=== PATIENT | male | born 1935 | race Caucasian/White ===

== ENCOUNTER 2019-01-25 04:17 | Inpatient (IN) | payer MEDICARE, OTHER, SELFPAY ==
[2019-01-25] VITALS (12 sets, daily range): BP systolic 99–132; BP diastolic 59–74; PULSE 70–85; RESP 14–32; TEMP 36.3–37.8; O2SAT 92–98; BMI 31.1; BMI 30.7; BMI 30.8
--- NOTE | 2019-01-25 04:41 | RAD_ITS ---
STUDY: X-RAY CHEST REASON FOR EXAM: Male, 83 years old. Weakness and frequent falls TECHNIQUE: PA and lateral views of the chest. 3 images COMPARISON: None. FINDINGS: There are superimposed monitor leads. Atelectasis and/or scarring in the right base. Small calcified nodule in the right medial apex. There are areas of hyperinflation. There is no demonstrated pleural abnormality. Normal size heart. Normal mediastinum and josias. Normal visualized pulmonary arteries. There is atherosclerotic calcification of the aortic arch with tortuosity. There are diffuse degenerative changes of the visualized thoracic spine. There is demineralization of osseous structures. Normal visualized ribs, clavicles, and shoulders. There is no demonstrated abnormality of the visualized soft tissue structures of the upper abdomen. RAD/Chest PA and Lateral IMPRESSION: No pulmonary edema, congestive heart failure or confluent pneumonia. Other nonacute findings as outlined above. Electronically Signed: Carmen Mcrae MD at 5:18 EST , Service support ,
--- NOTE | 2019-01-25 04:43 | EKG12_ITS ---
Test Reason : Blood Pressure : / mmHG Vent. Rate : 080 BPM Atrial Rate : 080 BPM P-R Int : 194 ms QRS Dur : 062 ms QT Int : 358 ms P-R-T Axes : 030 052 105 degrees QTc Int : 412 ms Normal sinus rhythm Low voltage QRS ST elevation consider inferior injury or acute infarct Consider right ventricular involvement in acute inferior infarct Abnormal ECG Confirmed by JENNIFER WHATLEY, MEREDITH ([id number]), film editor supervisor CHEMA HOLLEY ([id number]) on 01/29/2019 2:00:32 PM Referred By: BB Confirmed By:MEREDITH RODRIGUEZ MD
--- NOTE | 2019-01-25 04:45 | ED.VIS.GEN ---
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 This morning, he had his second fall in the last 24 hours, both times he was getting up from bed to use the bathroom. He collapsed near the shower, knocking the door off of it, hitting his head on the tile floor. There was no loss of consciousness, he has no headache. He is on no anticoagulants although he is on Plavix because of a cardiac stent that was placed more than a year ago, they think more than 5 years ago. He denies feeling near syncopal or lightheaded or having any chest discomfort, his legs were just too weak to hold him up. He denies any focal neurologic symptoms such as numbness or weakness. He is not confused. He is hard of hearing, states that is his baseline. Denies any other injury from his falls. - Past Medical History (1) CAD (coronary artery disease) Status: Chronic (2) Aortic aneurysm Status: Chronic (3) CKD (chronic kidney disease), stage III Status: Chronic (4) CVA (cerebral vascular accident) Status: Chronic (5) DM (dermatomyositis) Status: Chronic (6) HLD (hyperlipidemia) Status: Chronic (7) HTN (hypertension) Status: Chronic Past Medical History - Allergies and Home Meds Allergies/Adverse Reactions: Allergies No Known Allergies Allergy (Verified 05/27/15 07:47) Surgical History: - - cardiac stent Lives: Spouse/ Significant Other Smoking Status: Never smoker - Family History Maternal Family History: Family History (Last Updated 01/25/19 @ 06:38 by Butch Jackson DO) Other CAD (coronary artery disease) Review of Systems General: Reports: Chills, Malaise. Denies: Fever, Sweats Eyes: Denies: Visual changes - bilaterally, Diplopia ENT: Reports: Rhinorrhea. Denies: Bilateral ear pain, Sore throat Cardiovascular: Denies: Chest pain, Palpitations Respiratory: Reports: Cough. Denies: Dyspnea, Sputum, Dyspnea on exertion Gastrointestinal: Reports: Diarrhea - off and on, mild, chronic, unchanged. Denies: Abdominal pain, Nausea, Vomiting, Melena, Hematochezia Genitourinary: Denies: Dysuria, Hematuria, Frequency Musculoskeletal: Denies: Back pain, Swelling, Extremity Pain Skin: Denies: Rash, Abrasions, Wounds Neurological: Denies: Headache, Weakness, Parasthesia, Numbness Hematologic: Reports: Easy bruising Physical Exam Vital Signs/Narrative: Vital Signs Temp Pulse Resp BP Pulse Ox 01/25/19 04:30 100.0 F H 84 32 H 124/64 H 92 01/25/19 04:18 100.0 F H 84 32 H 124/64 H 92 Inital Vital Signs reviewed: Yes General: Well nourished, Well developed, No Acute Distress Head: Normocephalic, Atraumatic. Negative for: Tenderness Eyes: Perrl, EOMI ENT: Moist mucous membranes, No rhinorrhea. Negative for: Nasal congestion, Sinus tenderness Neck: Supple, Nontender, No lymphadenopathy, No JVD Cardiovascular: Regular rate, Regular rhythm, No murmurs Respiratory: No distress, Chest nontender, Rales - left base Abdomen: Soft, Nontender, Nondistended, Normal bowel sounds Back: Nontender, Normal Inspection Extremities: Nontender, No edema. Negative for: Calf Tenderness Skin: Normal color, No rash Neurological: Alert, Oriented x3, Cranial nerves II-XII grossly intact, Normal Strength, Normal Sensation Psychological: Normal affect, Normal Mood Diagnostic/Tx/Re-eval Impressions Chest X-Ray 01/25/19 04:41 IMPRESSION: No pulmonary edema, congestive heart failure or confluent pneumonia. Other nonacute findings as outlined above. Electronically Signed: Carmen Mcrae MD at 5:18 EST , Service support , ADDENDUM: 01/25/19 0534 IMPRESSION: No pulmonary edema, congestive heart failure . Interstitial inflammation or early infiltrate in the left base possible. Other nonacute findings as outlined above. Electronically Signed: Carmen Mcrae MD at 5:27 EST , Service support , 01/25/19 04:41 Chest PA and Lateral [RAD] Stat Laboratory Results 01/25/19 01/25/19 01/25/19 04:45 04:45 04:45 WBC 10.7 RBC 4.35 L Hgb 13.0 Hct 40.6 MCV 93.3 MCH 29.9 MCHC 32.0 RDW 13.9 RDW Differential 45.8 H Plt Count 240 MPV 9.1 Immature Gran % (Auto) 0.700 Neut % (Auto) 64.4 Lymph % (Auto) 15.4 L [place] % (Auto) 11.7 H Eos % (Auto) 7.0 H Baso % (Auto) 0.8 Absolute Neuts (auto) 6.9 Absolute Lymphs (auto) 1.65 Total Counted Not Reportable PT 14.5 INR 1.2 APTT 29.7 Sodium 143 Potassium 3.9 Chloride 106 Carbon Dioxide 24.0 Anion Gap 13 BUN 25 H Creatinine 1.48 H Estim Creat Clear Calc 38.36 Est GFR (MDRD) Af Amer 58 L Est GFR (MDRD) Non-Af 48 L BUN/Creatinine Ratio 16.9 Glucose 175 H Lactic Acid Calcium 8.9 Total Bilirubin 0.80 AST 20 ALT 29 Alkaline Phosphatase 73 Troponin I < 0.015 Total Protein 6.9 Albumin 3.3 Globulin 3.6 Albumin/Globulin Ratio 0.9 01/25/19 04:45 WBC RBC Hgb Hct MCV MCH MCHC RDW RDW Differential Plt Count MPV Immature Gran % (Auto) Neut % (Auto) Lymph % (Auto) [place] % (Auto) Eos % (Auto) Baso % (Auto) Absolute Neuts (auto) Absolute Lymphs (auto) Total Counted PT INR APTT Sodium Potassium Chloride Carbon Dioxide Anion Gap BUN Creatinine Estim Creat Clear Calc Est GFR (MDRD) Af Amer Est GFR (MDRD) Non-Af BUN/Creatinine Ratio Glucose Lactic Acid 2.7 H Calcium Total Bilirubin AST ALT Alkaline Phosphatase Troponin I Total Protein Albumin Globulin Albumin/Globulin Ratio - Rhythm Strip Rhythm Strip: Sinus Rhythm Rate: 80 Ectopy: None - EKG Initial EKG Interpretation: Sinus Rhythm, No Acute Injury Pattern, Non-Specific ST Changes - diffuse flattening - Medical Decision Making Patient has interstitial abnormality in the left base. I discussed with the radiologist. Given the clinical history, she agrees it could be early pneumonia but there is no consolidative infiltrate at this time. He does not meet sirs criteria, although we did draw a lactate and it is elevated, which is nonspecific in context. His vital signs have been stable. His pulse ox was 90-93 on room air, we put him on supplemental oxygen. He is too weak to reliably stand on his own and be discharged home. Levaquin was started, influenza swab was sent and is negative, and plan is to admit him for further treatment and care. Given his lack of head/neurologic symptoms, I do not think he needs a head CT at this time. ED Disposition - Plan for ED Patient: Disposition: [facility] Diagnosis: CAP (community acquired pneumonia), Generalized weakness
--- NOTE | 2019-01-25 04:49 | ED.DCSUM_ITS ---
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 This morning, he had his second fall in the last 24 hours, both times he was getting up from bed to use the bathroom. He collapsed near the shower, knocking the door off of it, hitting his head on the tile floor. There was no loss of consciousness, he has no headache. He is on no anticoagulants although he is on Plavix because of a cardiac stent that was placed more than a year ago, they think more than 5 years ago. He denies feeling near syncopal or lightheaded or having any chest discomfort, his legs were just too weak to hold him up. He denies any focal neurologic symptoms such as numbness or weakness. He is not confused. He is hard of hearing, states that is his baseline. Denies any other injury from his falls. - Past Medical History (1) CAD (coronary artery disease) Status: Chronic (2) Aortic aneurysm Status: Chronic (3) CKD (chronic kidney disease), stage III Status: Chronic (4) CVA (cerebral vascular accident) Status: Chronic (5) DM (dermatomyositis) Status: Chronic (6) HLD (hyperlipidemia) Status: Chronic (7) HTN (hypertension) Status: Chronic Past Medical History - Allergies and Home Meds Allergies/Adverse Reactions: Allergies No Known Allergies Allergy (Verified 05/27/15 07:47) Surgical History: - - cardiac stent Lives: Spouse/ Significant Other Smoking Status: Never smoker - Family History Maternal Family History: Family History (Last Updated 01/25/19 @ 06:38 by Butch Jackson DO) Other CAD (coronary artery disease) Review of Systems General: Reports: Chills, Malaise. Denies: Fever, Sweats Eyes: Denies: Visual changes - bilaterally, Diplopia ENT: Reports: Rhinorrhea. Denies: Bilateral ear pain, Sore throat Cardiovascular: Denies: Chest pain, Palpitations Respiratory: Reports: Cough. Denies: Dyspnea, Sputum, Dyspnea on exertion Gastrointestinal: Reports: Diarrhea - off and on, mild, chronic, unchanged. Denies: Abdominal pain, Nausea, Vomiting, Melena, Hematochezia Genitourinary: Denies: Dysuria, Hematuria, Frequency Musculoskeletal: Denies: Back pain, Swelling, Extremity Pain Skin: Denies: Rash, Abrasions, Wounds Neurological: Denies: Headache, Weakness, Parasthesia, Numbness Hematologic: Reports: Easy bruising Physical Exam Vital Signs/Narrative: Vital Signs Temp Pulse Resp BP Pulse Ox 01/25/19 04:30 100.0 F H 84 32 H 124/64 H 92 01/25/19 04:18 100.0 F H 84 32 H 124/64 H 92 Inital Vital Signs reviewed: Yes General: Well nourished, Well developed, No Acute Distress Head: Normocephalic, Atraumatic. Negative for: Tenderness Eyes: Perrl, EOMI ENT: Moist mucous membranes, No rhinorrhea. Negative for: Nasal congestion, Sinus tenderness Neck: Supple, Nontender, No lymphadenopathy, No JVD Cardiovascular: Regular rate, Regular rhythm, No murmurs Respiratory: No distress, Chest nontender, Rales - left base Abdomen: Soft, Nontender, Nondistended, Normal bowel sounds Back: Nontender, Normal Inspection Extremities: Nontender, No edema. Negative for: Calf Tenderness Skin: Normal color, No rash Neurological: Alert, Oriented x3, Cranial nerves II-XII grossly intact, Normal Strength, Normal Sensation Psychological: Normal affect, Normal Mood Diagnostic/Tx/Re-eval Impressions Chest X-Ray 01/25/19 04:41 IMPRESSION: No pulmonary edema, congestive heart failure or confluent pneumonia. Other nonacute findings as outlined above. Electronically Signed: Carmen Mcrae MD at 5:18 EST , Service support , ADDENDUM: 01/25/19 0534 IMPRESSION: No pulmonary edema, congestive heart failure . Interstitial inflammation or early infiltrate in the left base possible. Other nonacute findings as outlined above. Electronically Signed: Carmen Mcrae MD at 5:27 EST , Service support , 01/25/19 04:41 Chest PA and Lateral [RAD] Stat Laboratory Results 01/25/19 01/25/19 01/25/19 04:45 04:45 04:45 WBC 10.7 RBC 4.35 L Hgb 13.0 Hct 40.6 MCV 93.3 MCH 29.9 MCHC 32.0 RDW 13.9 RDW Differential 45.8 H Plt Count 240 MPV 9.1 Immature Gran % (Auto) 0.700 Neut % (Auto) 64.4 Lymph % (Auto) 15.4 L [place] % (Auto) 11.7 H Eos % (Auto) 7.0 H Baso % (Auto) 0.8 Absolute Neuts (auto) 6.9 Absolute Lymphs (auto) 1.65 Total Counted Not Reportable PT 14.5 INR 1.2 APTT 29.7 Sodium 143 Potassium 3.9 Chloride 106 Carbon Dioxide 24.0 Anion Gap 13 BUN 25 H Creatinine 1.48 H Estim Creat Clear Calc 38.36 Est GFR (MDRD) Af Amer 58 L Est GFR (MDRD) Non-Af 48 L BUN/Creatinine Ratio 16.9 Glucose 175 H Lactic Acid Calcium 8.9 Total Bilirubin 0.80 AST 20 ALT 29 Alkaline Phosphatase 73 Troponin I < 0.015 Total Protein 6.9 Albumin 3.3 Globulin 3.6 Albumin/Globulin Ratio 0.9 01/25/19 04:45 WBC RBC Hgb Hct MCV MCH MCHC RDW RDW Differential Plt Count MPV Immature Gran % (Auto) Neut % (Auto) Lymph % (Auto) [place] % (Auto) Eos % (Auto) Baso % (Auto) Absolute Neuts (auto) Absolute Lymphs (auto) Total Counted PT INR APTT Sodium Potassium Chloride Carbon Dioxide Anion Gap BUN Creatinine Estim Creat Clear Calc Est GFR (MDRD) Af Amer Est GFR (MDRD) Non-Af BUN/Creatinine Ratio Glucose Lactic Acid 2.7 H Calcium Total Bilirubin AST ALT Alkaline Phosphatase Troponin I Total Protein Albumin Globulin Albumin/Globulin Ratio - Rhythm Strip Rhythm Strip: Sinus Rhythm Rate: 80 Ectopy: None - EKG Initial EKG Interpretation: Sinus Rhythm, No Acute Injury Pattern, Non-Specific ST Changes - diffuse flattening - Medical Decision Making Patient has interstitial abnormality in the left base. I discussed with the radiologist. Given the clinical history, she agrees it could be early pneumonia but there is no consolidative infiltrate at this time. He does not meet sirs criteria, although we did draw a lactate and it is elevated, which is nonspecific in context. His vital signs have been stable. His pulse ox was 90- 93 on room air, we put him on supplemental oxygen. He is too weak to reliably stand on his own and be discharged home. Levaquin was started, influenza swab was sent and is negative, and plan is to admit him for further treatment and care. Given his lack of head/neurologic symptoms, I do not think he needs a head CT at this time. ED Disposition - Plan for ED Patient: Disposition: Acute Care [facility] Diagnosis: CAP (community acquired pneumonia), Generalized weakness
[2019-01-25 05:01] LABS: Absolute Lymphocyte Count 1.65 X10^3/ul (0.83-4.51); Absolute Neutrophil Count 6.9 X10^3/uL (2.0-7.7); Basophil# 0.09 X10^3/uL; Basophil% 0.8 % (0-1); Eosinophil# 0.75 X10^3/uL; Hematocrit 40.6 % (40-54); Lymphocyte # 1.65 X10^3/ul (4.0); Lymphocyte % 15.4 % (19-41); Mean Corpuscular Hgb 29.9 pg (27.0-32.0); Mean Corpuscular Volume 93.3 fL (80-94); Mean Platelet Vol. 9.1 fl (6.2-12.0); Monocyte# 1.26 X10^3/uL; Monocyte% 11.7 % (0-10); Neutrophil # 6.91 X10^3/uL (2.7-7.7); Neutrophil % 64.4 % (47-70); Platelet Count 240 K/mm3 (150-450); RBC Distribution Width CV 13.9 % (11.6-14.6); RBC Distribution Width SD 45.8 fl (35.1-43.9); Red Blood Count 4.35 M/mm3 (4.6-6.2); White Blood Count 10.7 K/mm3 (4.4-11.0)
[2019-01-25 05:03] LABS: POSITIVE COUNT NO; POSITIVE DIFFERENTIAL NO; POSITIVE MORPHOLOGY NO
[2019-01-25 05:19] LABS: International Normalized Ratio 1.2; Prothrombin Time (Protime)PT. 14.5 SECONDS (11.7-14.9)
[2019-01-25 05:20] LABS: Partial Thromboplast Time 29.7 Seconds (24.1-36.2)
[2019-01-25 05:32] LABS: ALB/GLOB Ratio 0.9 RATIO (0.9-2.4); AST(SGOT) 20 U/L (15-37); Alanine Aminotransfer ALT/SGPT 29 U/L (16-61); Albumin, Serum 3.3 g/dL (3.2-5.0); Alkaline Phosphatase 73 U/L (45-117); Anion Gap 13 (5-15); BUN 25 mg/dL (7-18); BUN/Creat Ratio 16.9 RATIO (10-20); Calcium,Total 8.9 mg/dL (8.5-10.1); Chloride 106 mmol/L (98-107); Creatinine, Serum 1.48 mg/dL (0.70-1.30); EST Glomerular Filtration Rate 48 mL/min (>60); Est Glom Filt Rate - Afr Amer 58 mL/min (>60); Estimated Creatinine Clearance 38.36 ml/min; Globulin 3.6 g/dL (2.2-4.2); Glucose 175 mg/dL (74-106); Potassium 3.9 mmol/L (3.5-5.1); Protein, Total 6.9 g/dL (6.4-8.2); Sodium Level 143 mmol/L (136-145)
[2019-01-25 05:36] LABS: Mucous, Urine 0 SEEN /hpf (<or=2+); Red Blood Cells-Urine 0 SEEN /hpf (0-5); White Blood Cells 0 SEEN /hpf (0-5)
[2019-01-25 05:42] LABS: Lactic Acid 2.7 mmol/L (0.4-2.0)
[2019-01-25] MEDS: levoFLOXacin IV 750 MG/150 ML BAG 100 MG IV (05:58)
[2019-01-25 06:01] LABS: Color, Urine Yellow (Yellow); Glucose, Dipstick Normal (Normal); Ketone-Dipstick 5 mg/dl (Negative); Leukocyte Esterase-Dipstick Negative /ul (Negative); Nitrite-Dipstick Negative (Negative); Occult Blood-Urine Negative /ul (Negative); Protein-Dipstick Negative (Negative); Specific Gravity, Urine 1.015 (1.002-1.030); Urine Bilirubin Dipstick Negative (Negative); Urine Clarity Clear (Clear); Urine Urobilinogen Normal (Normal)
[2019-01-25] MEDS: Acetaminophen 500 MG Tablet 1000 MG PO (06:05)
[2019-01-25 06:11] LABS: Bacteria RARE /hpf (None Seen); Squamous Epithelial Cells - UA 0-5 SEEN /hpf (0-5)
--- NOTE | 2019-01-25 06:33 | CT_ITS ---
STUDY: CT BRAIN WITHOUT CONTRAST REASON FOR EXAM: Male, 83 years old. Weakness following head injury. RADIATION DOSAGE (If Supplied By Facility): CTDIvol = ( 44.99 ) mGy, DLP = ( 897.35 ) mGycm TECHNIQUE: Transaxial CT imaging of the brain was performed without administration of intravenous contrast material. Individualized dose optimization techniques were used for this CT. COMPARISON: None. FINDINGS: Normal soft tissue structures. There is hyperostosis frontalis internus. There is mild cerebral atrophy with widening of the extra-axial spaces and ventricular dilatation. There are areas of decreased attenuation within the white matter tracts of the supratentorial brain, consistent with microvascular disease changes. Prior lacunar infarcts in the right basal ganglion as well as in the insular cortex of the left temporal lobe. Normal brainstem. Normal cerebellum. There is no intracranial hemorrhage. There are no findings of an acute ischemic infarction. Atherosclerotic calcification of the vertebral arteries and cavernous portions of the internal carotid arteries bilaterally. Normal visualized paranasal sinuses. CT/Brain/Head without Contrast IMPRESSION: Chronic involutional changes of the brain. Electronically Signed: Thomas Guallpa, at 11:11 EST , Service support ,
--- NOTE | 2019-01-25 06:37 | HP.PCM_ITS ---
Problem List (1) Severe sepsis Status: Acute (2) Pneumococcal pneumonia Status: Acute Qualifiers: Laterality: left Lung location: unspecified part of lung Qualified Code(s): J13 - Pneumonia due to Streptococcus pneumoniae (3) Near syncope Status: Acute History of Present Illness Date of Admission: 01/25/19 Chief Complaint: fall The patient is a 83 year old M who was in his normal state of health up until couple days ago where he has been had 2 falls. Patient does not also noted to be shaky as well and tremulous in his hands. This morning, patient was then he fell into the shower stated that he did hit his head hard into the shower door but did not lose consciousness. She was brought to the emergency room where he was found to have lactic acid of 2.7, left lower lobe pneumonia. He received Levaquin and IV fluids. 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 Aortic aneurysm (Chronic) Herpes zoster (Chronic) Hypotension (Chronic) HTN (hypertension) (Chronic) Acute renal failure (Chronic) Allergies No Known Allergies Allergy (Verified 05/27/15 07:47) Home Medications: Ambulatory Orders Medication Instructions Recorded Acetaminophen [Tylenol Arthritis] 650 mg PO Q6H PRN PRN 05/21/15 Aspirin [Aspirin, Baby] 81 mg PO DAILY@0800 05/21/15 Atorvastatin Calcium [Lipitor] 80 mg PO QHS 05/21/15 Brimonidine 0.15% [Alphagan P 1 drop EACH EYE BID 05/21/15 0.15%] Carvedilol [Coreg] 6.25 mg PO BID 05/21/15 Cholecalciferol (VIT D3) [Vitamin 5,000 unit PO DAILY 05/21/15 D] Clopidogrel Bisulfate [Plavix] 75 mg PO DAILY 05/21/15 Dorzolamide HCL/Timolol [Cosopt 1 drop EACH EYE BID 05/21/15 Opth Drops] Duloxetine Hcl [Cymbalta] 30 mg PO BID 05/21/15 Eplerenone [Inspra] 12.5 mg PO QODAY 05/21/15 Lamotrigine [Lamictal] 250 mg PO DAILY 05/21/15 Lisinopril [Zestril] 10 mg PO DAILY 05/21/15 Miconazole Nitrate [Desenex] 1 applicatio TP TID 05/21/15 Quetiapine Fumarate [Seroquel] 87 mg PO QHS 05/21/15 Glipizide 5 mg PO DAILY 01/25/19 hydroCHLOROthiazide 12.5 mg PO DAILY 01/25/19 [Hydrochlorothiazide] Surgical History: - - cardiac stent Lives: Spouse/ Significant Other Smoking Status: Never smoker Tobacco Use: Non-smoker Alcohol: None Drugs: None - *Family History Maternal Family History: Family History (Last Updated 01/25/19 @ 06:38 by Butch Jackson DO) Other CAD (coronary artery disease) Review of Systems Constitutional: Denies: Anorexia, Chills, Fever Eyes: Denies: Blurred vision, Cataracts, Conjunctivae Inflammation, Double vision HEENT: Denies: Head Aches, Sinus Congestion, Sinus Drainage Cardiovascular: Denies: Chest Pain, Edema Respiratory: Reports: Cough. Denies: Shortness of Breath Gastrointestinal: Denies: Abdominal Pain, Nausea, Vomiting Genitourinary: Denies: Dysuria, Hematuria Musculoskeletal: Denies: Joint Pain, Joint Tenderness Skin: Denies: Rash, Wounds Neurological: Reports: Balance problems. Denies: Blurred vision, Double vision Psychiatric: Reports: - - bipolar Hematologic/ Lymphatic: Denies: Easy Bruising, Easy Bleeding, Hx of blood clot VTE Information - Inpt Only VTE Present on Admission: No VTE Mechan Device Prophylaxis: None VTE Pharm Prophylaxis ordered?: Yes Patient Problems: Active and Suspected Problems CAP (community acquired pneumonia) (Acute) Generalized weakness (Acute) Severe sepsis (Acute) Pneumococcal pneumonia (Acute) Near syncope (Acute) - Physical Exam General: Alert, Cooperative, No apparent distress, - - hard of hearing. HEENT: Atraumatic, PERRLA, EOMI, Normocephalic, - - Impacted ear canals with cerumen bilaterally Oral: No Gingival or Mucosal Lesions/ Ulcerations, Dry Mucosa, - - Dentures Neck: No Nodes, Thyroid Normal Size and Texture Lungs: Diminished, - - Few crackles in left lower lobe. Cardiovascular: Regular rate, Regular Rhythm, Normal S1, Normal S2, No murmurs Abdomen: Bowel Sounds Present, Soft, Non Tender, Non-Distended, No Hepato- splenomegaly Extremities: No edema, No Calf Tenderness Skin: No rashes, No breakdown Musculoskeletal: No Tenderness to Palpation of Joints or Extremities, No Muscle Wasting Lymphatic: No Cervical, Supraclavicular, or Inguinal Adenopathy, Cervical Adenopathy Neurological: Cranial nerves II-XII grossly intact, Motor Exam 5/5 strength throughout Psych/Mental Status: Normal Affect, Appropriate Vital Signs Temp Pulse Resp BP Pulse Ox 37.1 C 77 20 H 132/64 H 98 01/25/19 06:26 01/25/19 06:26 01/25/19 06:26 01/25/19 06:26 01/25/19 06:26 Oxygen Flow Rate (L/min) 2 Oxygen Delivery Method Nasal Cannula Weight: 97.3 kg Body Mass Index (BMI) 30.7 Finger Stick Blood Glucose 144 Microbiology Past 72 Hours 01/25/19 05:35 Influenza Types A,B Direct FA (BRIANNE) - Final Mucosa - Nose Laboratory Tests Past 24 Hrs 01/25/19 01/25/19 01/25/19 04:45 04:45 04:45 WBC 10.7 RBC 4.35 L Hgb 13.0 Hct 40.6 MCV 93.3 MCH 29.9 MCHC 32.0 RDW 13.9 RDW Differential 45.8 H Plt Count 240 MPV 9.1 Immature Gran % (Auto) 0.700 Neut % (Auto) 64.4 Lymph % (Auto) 15.4 L [place] % (Auto) 11.7 H Eos % (Auto) 7.0 H Baso % (Auto) 0.8 Absolute Neuts (auto) 6.9 Absolute Lymphs (auto) 1.65 Total Counted Not Reportable PT 14.5 INR 1.2 APTT 29.7 Sodium 143 Potassium 3.9 Chloride 106 Carbon Dioxide 24.0 Anion Gap 13 BUN 25 H Creatinine 1.48 H Estim Creat Clear Calc 38.36 Est GFR (MDRD) Af Amer 58 L Est GFR (MDRD) Non-Af 48 L BUN/Creatinine Ratio 16.9 Glucose 175 H Lactic Acid Calcium 8.9 Total Bilirubin 0.80 AST 20 ALT 29 Alkaline Phosphatase 73 Troponin I < 0.015 Total Protein 6.9 Albumin 3.3 Globulin 3.6 Albumin/Globulin Ratio 0.9 Urine Color Urine Clarity Urine pH Ur Specific [place] Urine Protein Urine Glucose (UA) Urine Ketones Urine Occult Blood Urine Nitrite Urine Bilirubin Urine Urobilinogen Ur Leukocyte Esterase Urine RBC Urine WBC Ur Squamous Epith Cells Urine Bacteria Urine Mucus 01/25/19 01/25/19 04:45 05:25 WBC RBC Hgb Hct MCV MCH MCHC RDW RDW Differential Plt Count MPV Immature Gran % (Auto) Neut % (Auto) Lymph % (Auto) [place] % (Auto) Eos % (Auto) Baso % (Auto) Absolute Neuts (auto) Absolute Lymphs (auto) Total Counted PT INR APTT Sodium Potassium Chloride Carbon Dioxide Anion Gap BUN Creatinine Estim Creat Clear Calc Est GFR (MDRD) Af Amer Est GFR (MDRD) Non-Af BUN/Creatinine Ratio Glucose Lactic Acid 2.7 H Calcium Total Bilirubin AST ALT Alkaline Phosphatase Troponin I Total Protein Albumin Globulin Albumin/Globulin Ratio Urine Color Yellow Urine Clarity Clear Urine pH 6.0 Ur Specific [place] 1.015 Urine Protein Negative Urine Glucose (UA) Normal Urine Ketones 5 H Urine Occult Blood Negative Urine Nitrite Negative Urine Bilirubin Negative Urine Urobilinogen Normal Ur Leukocyte Esterase Negative Urine RBC 0 SEEN Urine WBC 0 SEEN Ur Squamous Epith Cells 0-5 SEEN Urine Bacteria RARE Urine Mucus 0 SEEN Chest x-ray reviewed and showed a slight left lower lobe infiltrate. Assessment/Plan All Active Problems CAP (community acquired pneumonia) (Acute) Generalized weakness (Acute) Severe sepsis (Acute) Pneumococcal pneumonia (Acute) Near syncope (Acute) 1. Severe sepsis: Present on admission. Secondary to pneumonia. Lactic acid was elevated 2.7. Patient will receive IV fluids and reevaluate lactic acid to see if there has been improvements. Hemodynamically stable at this time. Check blood cultures. 2. Suspected pneumococcal pneumonia: Check urinary antigens for Streptococcus and Legionella. Patient received Levaquin in the emergency room. 3. Near syncope: Secondary to pneumonia, severe sepsis as well as patient. Patient did receive IV fluids. Physical and occupational therapy evaluate and treat. Would hold the Eplerenone as well as HCTZ. Given the patient did hit his head, I will order head CT to rule out any intracranial process. 4. DVT prophylaxis with low molecular weight heparin 5. Advanced care planning: Discussed with the patient and his . Patient does not want to have intubation even if short-term. However, wants to have CPR in the event of cardiac arrest. I advised against CPR if he does not wish to be intubated but they wish to continue with this advanced directives at this time. Therefore, patient is full CODE STATUS but no intubation. Code Visit Inpatient E&M: 84089 Init Hosp L3
[2019-01-25] MEDS: 0.9% Normal Saline 1,000 ML 125 ML IV (07:05)
[2019-01-25] MEDS: Ipratropium/Albuterol Sulfate 3 ML AMPUL.NEB INHALATION ×3 (07:42→18:57)
--- NOTE | 2019-01-25 07:48 | PN_ITS ---
Progress Note Patient is an 83-year-old gentleman admitted with progressive shortness of breath and assessment of severe sepsis secondary to pneumonia made admitted to regular nursing floor for further management 1. Severe sepsis secondary to community-acquired pneumonia 2. Near syncope attributed to possible orthostasis from patient diuretics patient is on Eplerenone as well as HCTZ held on admission 3. CAD history of previous cardiac stent 4. Dyslipidemia-patient is on statin therapy, continued at home dose 5. Hypertension-blood pressure controlled, home medications continued with dose adjustment as needed 6. Chronic kidney disease stage III 7. DVT prophylaxis SC Lovenox Active Medications Acetaminophen (Tylenol) 650 mg PO Q6H PRN PRN PRN Reason: PAIN Acetaminophen (Tylenol) 650 mg PO Q4H PRN PRN PRN Reason: FEVER Albuterol Sulfate (Ventolin Aerosols) 2.5 mg INHALATION Q2H PRN PRN PRN Reason: SHORTNESS OF BREATH Albuterol/Ipratropium (Duoneb) 3 ml INHALATION Q6H.RT [facility] Last Admin: 01/25/19 07:42 Dose: 3 ml Aspirin (Aspirin, Baby) 81 mg PO DAILY@0800 [facility] Last Admin: 01/25/19 08:56 Dose: 81 mg Atorvastatin Calcium (Lipitor) 80 mg PO QHS [facility] Brimonidine Tartrate (Alphagan P 0.15%) 1 drop EACH EYE BID [facility] Last Admin: 01/25/19 09:00 Dose: 1 drop [facility] Last Admin: 01/25/19 08:58 Dose: 6.25 mg Cholecalciferol (Vitamin D) 5,000 unit PO DAILY [facility] Last Admin: 01/25/19 08:58 Dose: 5,000 unit Clopidogrel Bisulfate (Plavix) 75 mg PO DAILY [facility] Last Admin: 01/25/19 08:58 Dose: 75 mg Dextrose (D50w Syringe) 0 gm IV X1 PRN; Protocol PRN Reason: Hypoglycemia Dorzolamide/Timolol (Cosopt Opth Drops) 1 drop EACH EYE BID [facility] Last Admin: 01/25/19 08:59 Dose: 1 drop Duloxetine HCl (Cymbalta) 30 mg PO BID [facility] Last Admin: 01/25/19 08:58 Dose: 30 mg Enoxaparin Sodium (Lovenox) 30 mg SC DAILY [facility] Last Admin: 01/25/19 10:11 Dose: 30 mg Glucagon () 1 mg IM .X1 PRN PRN Reason: Hypoglycemia Guaifenesin (Mucinex) 1,200 mg PO BID [facility] Last Admin: 01/25/19 08:57 Dose: 1,200 mg Sodium Chloride () 1,000 mls @ 125 mls/hr IV .Q8H [facility] Stop: 01/25/19 14:32 Last Admin: 01/25/19 07:05 Dose: 125 mls/hr Azithromycin 500 mg/ Dextrose 255 mls @ 250 mls/hr IV Q24 [facility] Last Admin: 01/25/19 11:08 Dose: 250 mls/hr Ceftriaxone Sodium 1 gm/ N/A 50 mls @ 100 mls/hr IV Q24 [facility] Last Admin: 01/25/19 10:10 Dose: 100 mls/hr Insulin Human Lispro (Humalog Kwikpen (Bkc)) 0 unit SQ ACHS [facility]; Protocol Last Admin: 01/25/19 11:09 Dose: 2 units Lamotrigine (Lamictal) 150 mg PO DAILY [facility] Last Admin: 01/25/19 08:56 Dose: 150 mg Lamotrigine (Lamictal) 100 mg PO DAILY [facility] Last Admin: 01/25/19 08:57 Dose: 100 mg Lisinopril (Zestril) 10 mg PO DAILY [facility] Last Admin: 01/25/19 08:57 Dose: 10 mg Magnesium Hydroxide (Milk Of Magnesia) 30 ml PO DAILY PRN PRN PRN Reason: Constipation Nutritional Formula (Lactose Free) (Sophiaergurinder Bellamy) 120 ml PO 4X/DAY [facility] Last Admin: 01/25/19 09:00 Dose: 120 ml Ondansetron HCl (Zofran) 4 mg IV Q8H PRN PRN PRN Reason: Nausea Quetiapine Fumarate (Seroquel) 87 mg PO QHS [facility] Sodium Chloride () 5 - 15 ml IV UD PRN PRN Reason: SALINE FLUSH
--- NOTE | 2019-01-25 07:48 | PCM.PN.BLA ---
Progress Note Patient is an 83-year-old gentleman admitted with progressive shortness of breath and assessment of severe sepsis secondary to pneumonia made admitted to regular nursing floor for further management 1. Severe sepsis secondary to community-acquired pneumonia 2. Near syncope attributed to possible orthostasis from patient diuretics patient is on Eplerenone as well as HCTZ held on admission 3. CAD history of previous cardiac stent 4. Dyslipidemia-patient is on statin therapy, continued at home dose 5. Hypertension-blood pressure controlled, home medications continued with dose adjustment as needed 6. Chronic kidney disease stage III 7. DVT prophylaxis SC Lovenox Active Medications Acetaminophen (Tylenol) 650 mg PO Q6H PRN PRN PRN Reason: PAIN Acetaminophen (Tylenol) 650 mg PO Q4H PRN PRN PRN Reason: FEVER Albuterol Sulfate (Ventolin Aerosols) 2.5 mg INHALATION Q2H PRN PRN PRN Reason: SHORTNESS OF BREATH Albuterol/Ipratropium (Duoneb) 3 ml INHALATION Q6H.RT [facility] Last Admin: 01/25/19 07:42 Dose: 3 ml Aspirin (Aspirin, Baby) 81 mg PO DAILY@0800 [facility] Last Admin: 01/25/19 08:56 Dose: 81 mg Atorvastatin Calcium (Lipitor) 80 mg PO QHS [facility] Brimonidine Tartrate (Alphagan P 0.15%) 1 drop EACH EYE BID [facility] Last Admin: 01/25/19 09:00 Dose: 1 drop [facility] Last Admin: 01/25/19 08:58 Dose: 6.25 mg Cholecalciferol (Vitamin D) 5,000 unit PO DAILY [facility] Last Admin: 01/25/19 08:58 Dose: 5,000 unit Clopidogrel Bisulfate (Plavix) 75 mg PO DAILY [facility] Last Admin: 01/25/19 08:58 Dose: 75 mg Dextrose (D50w Syringe) 0 gm IV X1 PRN; Protocol PRN Reason: Hypoglycemia Dorzolamide/Timolol (Cosopt Opth Drops) 1 drop EACH EYE BID [facility] Last Admin: 01/25/19 08:59 Dose: 1 drop Duloxetine HCl (Cymbalta) 30 mg PO BID [facility] Last Admin: 01/25/19 08:58 Dose: 30 mg Enoxaparin Sodium (Lovenox) 30 mg SC DAILY [facility] Last Admin: 01/25/19 10:11 Dose: 30 mg Glucagon () 1 mg IM .X1 PRN PRN Reason: Hypoglycemia Guaifenesin (Mucinex) 1,200 mg PO BID [facility] Last Admin: 01/25/19 08:57 Dose: 1,200 mg Sodium Chloride () 1,000 mls @ 125 mls/hr IV .Q8H [facility] Stop: 01/25/19 14:32 Last Admin: 01/25/19 07:05 Dose: 125 mls/hr Azithromycin 500 mg/ Dextrose 255 mls @ 250 mls/hr IV Q24 [facility] Last Admin: 01/25/19 11:08 Dose: 250 mls/hr Ceftriaxone Sodium 1 gm/ N/A 50 mls @ 100 mls/hr IV Q24 [facility] Last Admin: 01/25/19 10:10 Dose: 100 mls/hr Insulin Human Lispro (Humalog Kwikpen (Bkc)) 0 unit SQ ACHS [facility]; Protocol Last Admin: 01/25/19 11:09 Dose: 2 units Lamotrigine (Lamictal) 150 mg PO DAILY [facility] Last Admin: 01/25/19 08:56 Dose: 150 mg Lamotrigine (Lamictal) 100 mg PO DAILY [facility] Last Admin: 01/25/19 08:57 Dose: 100 mg Lisinopril (Zestril) 10 mg PO DAILY [facility] Last Admin: 01/25/19 08:57 Dose: 10 mg Magnesium Hydroxide (Milk Of Magnesia) 30 ml PO DAILY PRN PRN PRN Reason: Constipation Nutritional Formula (Lactose Free) (Sophiaergurinder Bellamy) 120 ml PO 4X/DAY [facility] Last Admin: 01/25/19 09:00 Dose: 120 ml Ondansetron HCl (Zofran) 4 mg IV Q8H PRN PRN PRN Reason: Nausea Quetiapine Fumarate (Seroquel) 87 mg PO QHS [facility] Sodium Chloride () 5 - 15 ml IV UD PRN PRN Reason: SALINE FLUSH
[2019-01-25] MEDS: lamoTRIgine 150 MG Tablet PO (08:56)
[2019-01-25] MEDS: Aspirin 81 MG TAB.CHEW PO (08:56)
[2019-01-25] MEDS: guaiFENesin 1,200 MG Tablet 1200 MG PO ×2 (08:57→21:53)
[2019-01-25] MEDS: lamoTRIgine 100 MG Tablet PO (08:57)
[2019-01-25] MEDS: glipiZIDE 5 MG Tablet PO (08:57)
[2019-01-25] MEDS: Lisinopril 10 MG Tablet PO (08:57)
[2019-01-25] MEDS: Carvedilol 6.25 MG Tablet PO ×2 (08:58→17:30)
[2019-01-25] MEDS: Clopidogrel Bisulfate 75 MG Tablet PO (08:58)
[2019-01-25] MEDS: DULoxetine Hcl 30 MG Capsule PO ×2 (08:58→21:53)
[2019-01-25 08:59] LABS: Reflex Lactate? Y
[2019-01-25] MEDS: Dorzolamide HCL/Timolol 10 ml Bottle 1 DRP EACH EYE ×2 (08:59→21:52)
[2019-01-25] MEDS: BRIMONIDINE 0.15% 5 ML Bottle 1 DRP EACH EYE ×2 (09:00→21:53)
[2019-01-25] MEDS: Glucerna Shake 120 ML LIQUID PO ×3 (09:00→17:30)
[2019-01-25] MEDS: Enoxaparin 30 MG/0.3 ML Syringe SC (10:11)
--- NOTE | 2019-01-25 10:50 | CASEMGMT ---
HOA SHER Face to Face with patient for initial transition planning/care coordination assessment. HOA SHER introduced self and role at [facility]. Patient lying in bed, alert and oriented, at bedside. Patient is [place] and requested I speak to his , John. Care providers, pharmacy, and demographics verified. John states that she wishing for patient to return home with potential outpatient therapy or HHC but is willing for patient to go to SNF if necessary. RN CHRISTOS advised that CM will review therapy notes and see how patient does. agreed with plan. states she has no further needs or concerns at this time. CM to follow for discharge planning needs that may arise. PCP: Adriana Specialists: Nikhil ict business development manager [facility] Preferred Pharmacy: [facility] Insurance: Farrah MELLO Prescription Benefit: yes Living Will/HPOA: yes, John Snow LNOK: and son Living Arrangements: Patient lives with and son in a condo with 2 steps to enter the home. Patient is independent with self care with setup. Transportation: DME/HHC: Patient has cane, walker, and grab bars at home. Denies home oxygen, cpap, bipap, or nebulizer at home. Patient has previously been to [facility] Disposition Plan: TBD, PT/OT to eval and treat. Will monitor for needs. Anastacia MORILLO, RN, CM
[2019-01-25] MEDS: Insulin Lispro 100 UNIT/ML INSULN.PEN SQ ×2 (11:09→22:07)
[2019-01-25 11:10] LABS: Bedside Glucose 186 mg/dL (70-110)
[2019-01-25 11:38] LABS: Lactic Acid 1.9 mmol/L (0.4-2.0)
--- NOTE | 2019-01-25 12:50 | CHAPLAIN ---
Type of Pastoral Visit _x__ Initial Visit ___ Follow-up Visit ___ On-call Visit ___ General Patient Visit ___ Spiritual Assessment ___ Family Conference ___ Bereavement ___ Rapid Response ___ Code Blue ___ Other (describe below) Pastoral Care Referral From _x__ Patient ___ Family ___ Nurse ___ Physician ___ Certified Pediatric Nurse Practitioner ___ Director Trade ___ Other (describe below) Sacrament/Intervention _x__ Active listening ___ Anointing ___ Temple ___ Bereavement ___ Communion ___ More exploration ___ _x__ Life review _x__ Prayer ___ Reconciliation ___ Sacrament of Sick _x__ Supportive presence ___ Wedding ___ Other (describe below) Pastoral Comments
[2019-01-25 17:35] LABS: Bedside Glucose 128 mg/dL (70-110)
[2019-01-25] MEDS: Ondansetron 4 MG/2 ML Vial IV (21:10)
[2019-01-25] MEDS: 0.9% NaCl Peripheral Flush Adult/Peds IV (21:10)
[2019-01-25] MEDS: Atorvastatin Calcium 80 MG Tablet PO (21:53)
[2019-01-25] MEDS: QUEtiapine 25 MG Tablet 87.5 MG PO (22:12)
[2019-01-25 22:21] LABS: Bedside Glucose 167 mg/dL (70-110)
[2019-01-26] VITALS (8 sets, daily range): BP systolic 111–155; BP diastolic 58–91; PULSE 70–75; RESP 15–28; TEMP 36.7–37; O2SAT 90–99
[2019-01-26 06:02] LABS: Absolute Lymphocyte Count 2.07 X10^3/ul (0.83-4.51); Absolute Neutrophil Count 5.8 X10^3/uL (2.0-7.7); Basophil# 0.06 X10^3/uL; Basophil% 0.6 % (0-1); Eosinophil# 0.63 X10^3/uL; Eosinophils% 6.4 % (0-5); Hematocrit 37.6 % (40-54); Hemoglobin 11.9 g/dl (13.0-16.5); Lymphocyte # 2.07 X10^3/ul (4.0); Mean Corp Hgb Conc 31.6 g/gl (32-36); Mean Corpuscular Hgb 29.9 pg (27.0-32.0); Mean Corpuscular Volume 94.5 fL (80-94); Monocyte# 1.25 X10^3/uL; Monocyte% 12.7 % (0-10); Neutrophil # 5.82 X10^3/uL (2.7-7.7); Neutrophil % 58.8 % (47-70); Platelet Count 207 K/mm3 (150-450); RBC Distribution Width CV 13.7 % (11.6-14.6); RBC Distribution Width SD 45.5 fl (35.1-43.9); Red Blood Count 3.98 M/mm3 (4.6-6.2); White Blood Count 9.9 K/mm3 (4.4-11.0)
[2019-01-26 06:09] LABS: POSITIVE COUNT NO; POSITIVE DIFFERENTIAL NO; POSITIVE MORPHOLOGY NO
[2019-01-26 06:22] LABS: Anion Gap 9 (5-15); BUN 25 mg/dL (7-18); BUN/Creat Ratio 18.4 RATIO (10-20); Calcium,Total 8.4 mg/dL (8.5-10.1); Chloride 107 mmol/L (98-107); Creatinine, Serum 1.36 mg/dL (0.70-1.30); EST Glomerular Filtration Rate 53 mL/min (>60); Est Glom Filt Rate - Afr Amer 64 mL/min (>60); Estimated Creatinine Clearance 41.75 ml/min; Glucose 122 mg/dL (74-106); Potassium 3.9 mmol/L (3.5-5.1); Sodium Level 142 mmol/L (136-145)
[2019-01-26] MEDS: Ipratropium/Albuterol Sulfate 3 ML AMPUL.NEB INHALATION ×3 (06:37→19:36)
[2019-01-26 06:46] LABS: Bedside Glucose 125 mg/dL (70-110)
[2019-01-26] MEDS: lamoTRIgine 150 MG Tablet PO (08:15)
[2019-01-26] MEDS: Carvedilol 6.25 MG Tablet PO ×2 (08:15→17:12)
[2019-01-26] MEDS: lamoTRIgine 100 MG Tablet PO (08:15)
[2019-01-26] MEDS: DULoxetine Hcl 30 MG Capsule PO ×2 (08:15→21:11)
[2019-01-26] MEDS: guaiFENesin 1,200 MG Tablet 1200 MG PO ×2 (08:15→21:38)
[2019-01-26] MEDS: Aspirin 81 MG TAB.CHEW PO (08:15)
[2019-01-26] MEDS: Dorzolamide HCL/Timolol 10 ml Bottle 1 DRP EACH EYE ×2 (08:16→21:13)
[2019-01-26] MEDS: Lisinopril 10 MG Tablet PO (08:16)
[2019-01-26] MEDS: Enoxaparin 30 MG/0.3 ML Syringe SC (08:16)
[2019-01-26] MEDS: Clopidogrel Bisulfate 75 MG Tablet PO (08:16)
[2019-01-26] MEDS: BRIMONIDINE 0.15% 5 ML Bottle 1 DRP EACH EYE ×2 (08:17→21:12)
[2019-01-26] MEDS: Glucerna Shake 120 ML LIQUID PO ×4 (08:20→21:29)
[2019-01-26] MEDS: 0.9% NaCl Peripheral Flush Adult/Peds IV (08:23)
--- NOTE | 2019-01-26 08:34 | PN_ITS ---
Patient Problems: Active and Suspected Problems CAP (community acquired pneumonia) (Acute) Generalized weakness (Acute) Severe sepsis (Acute) Pneumococcal pneumonia (Acute) Near syncope (Acute) Subjective: Patient is an 83-year-old gentleman admitted with progressive shortness of breath and assessment of severe sepsis secondary to pneumonia made admitted to regular nursing floor for further management [id number] patient seen still appears frail. Patient's has experienced episodes of shaking. Objective: GENERAL: cooperative HEENT: Atraumatic; moist oral mucosa EYES; Anicteric, Normal Conjunctiva NECK; supple, normal thyroid, no distended JVD. RESPIRATORY: Diminished to auscultation bilaterally, CARDIOVASCULAR: Regular S1 S2, no audible murmurs GI: soft, non-tender, normoactive bowel sounds, : No Renal angle tenderness; EXTREMITIES: No edema, no clubbing, no cyanosis. MUSCULOSKELETAL: No Joint Tenderness; no muscle waisting NEURO: Awake; no lateralizing signs. SKIN: No Rash PSYCH; Normal affect Vitals/I&O's: Vital Signs Temp Pulse Resp BP Pulse Ox 98.3 F 75 18 155/91 H 95 01/26/19 08:04 01/26/19 08:04 01/26/19 08:04 01/26/19 08:04 01/26/19 08:04 Oxygen Flow Rate (L/min) 2.5 Oxygen Delivery Method Room Air Weight: 97.3 kg Body Mass Index (BMI) 30.7 Finger Stick Blood Glucose 144 Intake and Output for Last 24 Hours 01/24/19 01/25/19 01/26/19 23:59 23:59 23:59 Intake Total 1411 / 1411 650 / 650 Output Total 150 / 150 Balance 1261 / 1261 650 / 650 Microbiology Past 72 Hours 01/25/19 05:25 Urine, Clean Catch Urine Culture - Final Mixed Gram Positive Organisms 01/25/19 05:25 Urine, Clean Catch Legionella Antigen - Final 01/25/19 05:25 Urine, Clean Catch Streptococcus pneumoniae Antigen (M - Final 01/25/19 05:35 Mucosa - Nose Influenza Types A,B Direct FA (BRIANNE) - Final Laboratory Results 01/25/19 11:00: Lactic Acid 1.9 01/25/19 11:05: POC Glucose 186 H 01/25/19 17:27: POC Glucose 128 H 01/25/19 22:04: POC Glucose 167 H 01/26/19 05:42: WBC 9.9, RBC 3.98 L, Hgb 11.9 L, Hct 37.6 L, MCV 94.5 H, MCH 29.9, MCHC 31.6 L, RDW 13.7, RDW Differential 45.5 H, Plt Count 207, MPV 9.0, Immature Gran % (Auto) 0.500, Neut % (Auto) 58.8, Lymph % (Auto) 21.0, [place] % (Auto) 12.7 H, Eos % (Auto) 6.4 H, Baso % (Auto) 0.6, Absolute Neuts (auto) 5.8, Absolute Lymphs (auto) 2.07, Total Counted Not Reportable 01/26/19 05:42: Sodium 142, Potassium 3.9, Chloride 107, Carbon Dioxide 26.0, Anion Gap 9, BUN 25 H, Creatinine 1.36 H, Estim Creat Clear Calc 41.75, Est GFR (MDRD) Af Amer 64, Est GFR (MDRD) Non-Af 53 L, BUN/Creatinine Ratio 18.4, Glucose 122 H, Calcium 8.4 L 01/26/19 06:38: POC Glucose 125 H Current Medications Acetaminophen (Tylenol) 650 mg PO Q6H PRN PRN PRN Reason: PAIN Acetaminophen (Tylenol) 650 mg PO Q4H PRN PRN PRN Reason: FEVER Albuterol Sulfate (Ventolin Aerosols) 2.5 mg INHALATION Q2H PRN PRN PRN Reason: SHORTNESS OF BREATH Albuterol/Ipratropium (Duoneb) 3 ml INHALATION Q6H.RT [facility] Last Admin: 01/26/19 06:37 Dose: 3 ml Aspirin (Aspirin, Baby) 81 mg PO DAILY@0800 [facility] Last Admin: 01/26/19 08:15 Dose: 81 mg Atorvastatin Calcium (Lipitor) 80 mg PO QHS [facility] Last Admin: 01/25/19 21:53 Dose: 80 mg Brimonidine Tartrate (Alphagan P 0.15%) 1 drop EACH EYE BID [facility] Last Admin: 01/26/19 08:17 Dose: 1 drop [facility]il[facility] ([facility]g) [facility] Last Admin: 01/26/19 08:15 Dose: 6.25 mg Cholecalciferol (Vitamin D) 5,000 unit PO DAILY [facility] Last Admin: 01/26/19 08:15 Dose: 5,000 unit Clopidogrel Bisulfate (Plavix) 75 mg PO DAILY [facility] Last Admin: 01/26/19 08:16 Dose: 75 mg Dextrose (D50w Syringe) 0 gm IV X1 PRN; Protocol PRN Reason: Hypoglycemia Dorzolamide/Timolol (Cosopt Opth Drops) 1 drop EACH EYE BID [facility] Last Admin: 01/26/19 08:16 Dose: 1 drop Duloxetine HCl (Cymbalta) 30 mg PO BID [facility] Last Admin: 01/26/19 08:15 Dose: 30 mg Enoxaparin Sodium (Lovenox) 30 mg SC DAILY [facility] Last Admin: 01/26/19 08:16 Dose: 30 mg Glucagon () 1 mg IM .X1 PRN PRN Reason: Hypoglycemia Guaifenesin (Mucinex) 1,200 mg PO BID [facility] Last Admin: 01/26/19 08:15 Dose: 1,200 mg Azithromycin 500 mg/ Dextrose 255 mls @ 250 mls/hr IV Q24 [facility] Last Admin: 01/26/19 08:20 Dose: 250 mls/hr Ceftriaxone Sodium 1 gm/ N/A 50 mls @ 100 mls/hr IV Q24 [facility] Last Admin: 01/25/19 10:10 Dose: 100 mls/hr Insulin Human Lispro (Humalog Kwikpen (Bkc)) 0 unit SQ ACHS [facility]; Protocol Last Admin: 01/26/19 06:42 Dose: Not Given Lamotrigine (Lamictal) 150 mg PO DAILY [facility] Last Admin: 01/26/19 08:15 Dose: 150 mg Lamotrigine (Lamictal) 100 mg PO DAILY [facility] Last Admin: 01/26/19 08:15 Dose: 100 mg Lisinopril (Zestril) 10 mg PO DAILY [facility] Last Admin: 01/26/19 08:16 Dose: 10 mg Magnesium Hydroxide (Milk Of Magnesia) 30 ml PO DAILY PRN PRN PRN Reason: Constipation Nutritional Formula (Lactose Free) (Glucerna Shake) 120 ml PO 4X/DAY [facility] Last Admin: 01/26/19 08:20 Dose: 120 ml Ondansetron HCl (Zofran) 4 mg IV Q8H PRN PRN PRN Reason: Nausea Last Admin: 01/25/19 21:10 Dose: 4 mg Quetiapine Fumarate (Seroquel) 87.5 mg PO QHS [facility] Last Admin: 01/25/19 22:12 Dose: 87.5 mg Sodium Chloride () 5 - 15 ml IV UD PRN PRN Reason: SALINE FLUSH Last Admin: 01/26/19 08:23 Dose: 10 ml Medical Necessity - Tobacco Use Smoking Status: Never smoker Tobacco Use: Non-smoker Assessment/Plan All Active Problems CAP (community acquired pneumonia) (Acute) Generalized weakness (Acute) Severe sepsis (Acute) Pneumococcal pneumonia (Acute) Near syncope (Acute) Patient is an 83-year-old gentleman admitted with progressive shortness of breath and assessment of severe sepsis secondary to pneumonia made admitted to regular nursing floor for further management 1. Pneumonia: Suspected to be secondary to streptococci pneumonia. Patient is admitted to regular floor. Blood and sputum cultures sent. Patient placed on Rocephin and Zithromax. He was also placed on oxygen titrated to keep also is greater than 90 2. Severe sepsis ruled out. Criteria not met patient only had lactic acid elev ation however heart rate was not greater than 90 temperature was no greater than 101 and no evidence of change in mental status or leukocytosis was present on admission 3. Near syncope attributed to possible orthostasis from patient diuretics patient is on Eplerenone as well as HCTZ held on admission 3. CAD history of previous cardiac stent 4. Dyslipidemia-patient is on statin therapy, continued at home dose 5. Hypertension-blood pressure controlled, home medications continued with dose adjustment as needed 6. Chronic kidney disease stage III 7. DVT prophylaxis SC Lovenox Code Visit Inpatient E&M: [id number] [facility] L3
[2019-01-26] MEDS: Insulin Lispro 100 UNIT/ML INSULN.PEN SQ ×2 (11:03→21:33)
[2019-01-26 11:11] LABS: Bedside Glucose 232 mg/dL (70-110)
--- NOTE | 2019-01-26 13:08 | CASEMGMT ---
Social Work Note RN updated this worker that pt and pt's family are wanting SNF at discharge. SW in to speak with pt and pt's son present in room. SW introduced self and role at [facility]. Pt is hard of hearing and pt's son answered most questions. SW provided pt's son with list of area SNF and Medicare ratings. Pt's son states pt's will be at [facility] and will decide on SNF. SW explained Medicare guidelines and requirements for SNF and coverage days at SNF. Pt's son state understanding. LYNN met with pt's son and pt's . Pt's son and pt's agreeable to TCU. LYNN placed a call to [facility] in TCU. [facility] is able to accept pt Tuesday. Pt's son and pt's updated on acceptance to TCU Tuesday. Green sheet on chart. Plan: TCU Tuesday Anastacia Huerta CHILD AND FAMILY COUNSELOR, LABEL STITCHER
[2019-01-26 16:21] LABS: Bedside Glucose 141 mg/dL (70-110)
[2019-01-26] MEDS: QUEtiapine 25 MG Tablet 87.5 MG PO (21:09)
[2019-01-26] MEDS: Atorvastatin Calcium 80 MG Tablet PO (21:10)
[2019-01-26 21:40] LABS: Bedside Glucose 207 mg/dL (70-110)
[2019-01-27] VITALS (10 sets, daily range): BP systolic 115–137; BP diastolic 50–66; PULSE 66–90; RESP 15–24; TEMP 36.6–36.9; O2SAT 90–97
[2019-01-27] MEDS: Ipratropium/Albuterol Sulfate 3 ML AMPUL.NEB INHALATION ×4 (01:04→19:13)
[2019-01-27 07:10] LABS: Bedside Glucose 132 mg/dL (70-110)
[2019-01-27] MEDS: Glucerna Shake 120 ML LIQUID PO ×3 (08:43→17:43)
[2019-01-27] MEDS: Lisinopril 10 MG Tablet PO (08:46)
[2019-01-27] MEDS: Clopidogrel Bisulfate 75 MG Tablet PO (08:46)
[2019-01-27] MEDS: guaiFENesin 1,200 MG Tablet 1200 MG PO ×2 (08:46→22:15)
[2019-01-27] MEDS: Enoxaparin 30 MG/0.3 ML Syringe SC (08:47)
[2019-01-27] MEDS: Carvedilol 6.25 MG Tablet PO ×2 (08:47→17:43)
[2019-01-27] MEDS: Aspirin 81 MG TAB.CHEW PO (08:47)
[2019-01-27] MEDS: lamoTRIgine 150 MG Tablet PO (08:47)
[2019-01-27] MEDS: lamoTRIgine 100 MG Tablet PO (08:47)
[2019-01-27] MEDS: BRIMONIDINE 0.15% 5 ML Bottle 1 DRP EACH EYE ×2 (08:48→22:12)
[2019-01-27] MEDS: Dorzolamide HCL/Timolol 10 ml Bottle 1 DRP EACH EYE ×2 (08:48→22:10)
[2019-01-27] MEDS: DULoxetine Hcl 30 MG Capsule PO ×2 (08:48→22:17)
--- NOTE | 2019-01-27 09:06 | PCM.PN.HOSP ---
Patient Problems: Active and Suspected Problems CAP (community acquired pneumonia) (Acute) Generalized weakness (Acute) Severe sepsis (Acute) Pneumococcal pneumonia (Acute) Near syncope (Acute) Subjective: Patient seen much more awake compared to the day prior. Plan is for patient to be transferred to transitional care unit 01/28/2019. Objective: GENERAL: cooperative HEENT: Atraumatic; moist oral mucosa EYES; Anicteric, Normal Conjunctiva NECK; supple, normal thyroid, no distended JVD. RESPIRATORY: Diminished to auscultation bilaterally, CARDIOVASCULAR: Regular S1 S2, no audible murmurs GI: soft, non-tender, normoactive bowel sounds, : No Renal angle tenderness; EXTREMITIES: No edema, no clubbing, no cyanosis. MUSCULOSKELETAL: No Joint Tenderness; no muscle waisting NEURO: Awake; no lateralizing signs. SKIN: No Rash PSYCH; Normal affect Vitals/I&O's: Vital Signs Temp Pulse Resp BP Pulse Ox 97.8 F 72 18 137/66 H 97 01/27/19 08:38 01/27/19 08:38 01/27/19 08:38 01/27/19 08:38 01/27/19 08:38 Oxygen Flow Rate (L/min) 2.5 Oxygen Delivery Method Room Air Weight: 97.3 kg Body Mass Index (BMI) 30.7 Finger Stick Blood Glucose 144 Intake and Output for Last 24 Hours 01/25/19 01/26/19 01/27/19 23:59 23:59 23:59 Intake Total 1411 / 1411 1660 / 1660 250 / 250 Output Total 150 / 150 Balance 1261 / 1261 1660 / 1660 250 / 250 Microbiology Past 72 Hours 01/25/19 07:25 Blood Culture (Wb) - Anticubital Left Blood Culture - Preliminary No growth in 48 hours. 01/25/19 04:45 Blood Culture (Wb) - Right Forearm Blood Culture - Preliminary No growth in 48 hours. 01/25/19 05:25 Urine, Clean Catch Urine Culture - Final Mixed Gram Positive Organisms 01/25/19 05:25 Urine, Clean Catch Legionella Antigen - Final 01/25/19 05:25 Urine, Clean Catch Streptococcus pneumoniae Antigen (M - Final 01/25/19 05:35 Mucosa - Nose Influenza Types A,B Direct FA (BRIANNE) - Final Laboratory Results 01/26/19 11:00: POC Glucose 232 H 01/26/19 16:12: POC Glucose 141 H 01/26/19 21:31: POC Glucose 207 H 01/27/19 07:01: POC Glucose 132 H Current Medications Acetaminophen (Tylenol) 650 mg PO Q6H PRN PRN PRN Reason: PAIN Acetaminophen (Tylenol) 650 mg PO Q4H PRN PRN PRN Reason: FEVER Albuterol Sulfate (Ventolin Aerosols) 2.5 mg INHALATION Q2H PRN PRN PRN Reason: SHORTNESS OF BREATH Albuterol/Ipratropium (Duoneb) 3 ml INHALATION Q6H.RT [facility] Last Admin: 01/27/19 06:54 Dose: 3 ml Aspirin (Aspirin, Baby) 81 mg PO DAILY@0800 [facility] Last Admin: 01/27/19 08:47 Dose: 81 mg Atorvastatin Calcium (Lipitor) 80 mg PO QHS [facility] Last Admin: 01/26/19 21:10 Dose: 80 mg Brimonidine Tartrate (Alphagan P 0.15%) 1 drop EACH EYE BID [facility] Last Admin: 01/27/19 08:48 Dose: 1 drop [facility]il[facility] ([facility]) [facility] Last Admin: 01/27/19 08:47 Dose: 6.25 mg Cholecalciferol (Vitamin D) 5,000 unit PO DAILY [facility] Last Admin: 01/27/19 08:46 Dose: 5,000 unit Clopidogrel Bisulfate (Plavix) 75 mg PO DAILY [facility] Last Admin: 01/27/19 08:46 Dose: 75 mg Dextrose (D50w Syringe) 0 gm IV X1 PRN; Protocol PRN Reason: Hypoglycemia Dorzolamide/Timolol (Cosopt Opth Drops) 1 drop EACH EYE BID [facility] Last Admin: 01/27/19 08:48 Dose: 1 drop Duloxetine HCl (Cymbalta) 30 mg PO BID [facility] Last Admin: 01/27/19 08:48 Dose: 30 mg Enoxaparin Sodium (Lovenox) 30 mg SC DAILY [facility] Last Admin: 01/27/19 08:47 Dose: 30 mg Glucagon () 1 mg IM .X1 PRN PRN Reason: Hypoglycemia Guaifenesin (Mucinex) 1,200 mg PO BID [facility] Last Admin: 01/27/19 08:46 Dose: 1,200 mg Azithromycin 500 mg/ Dextrose 255 mls @ 250 mls/hr IV Q24 [facility] Last Admin: 01/26/19 08:20 Dose: 250 mls/hr Ceftriaxone Sodium 1 gm/ N/A 50 mls @ 100 mls/hr IV Q24 [facility] Last Admin: 01/27/19 08:43 Dose: 100 mls/hr Insulin Human Lispro (Humalog Kwikpen (Bkc)) 0 unit SQ ACHS [facility]; Protocol Last Admin: 01/27/19 07:26 Dose: Not Given Lamotrigine (Lamictal) 150 mg PO DAILY [facility] Last Admin: 01/27/19 08:47 Dose: 150 mg Lamotrigine (Lamictal) 100 mg PO DAILY [facility] Last Admin: 01/27/19 08:47 Dose: 100 mg Lisinopril (Zestril) 10 mg PO DAILY [facility] Last Admin: 01/27/19 08:46 Dose: 10 mg Magnesium Hydroxide (Milk Of Magnesia) 30 ml PO DAILY PRN PRN PRN Reason: Constipation Nutritional Formula (Lactose Free) (Glucerna Shake) 120 ml PO 4X/DAY [facility] Last Admin: 01/27/19 08:43 Dose: 120 ml Ondansetron HCl (Zofran) 4 mg IV Q8H PRN PRN PRN Reason: Nausea Last Admin: 01/25/19 21:10 Dose: 4 mg Quetiapine Fumarate (Seroquel) 87.5 mg PO QHS [facility] Last Admin: 01/26/19 21:09 Dose: 87.5 mg Sodium Chloride () 5 - 15 ml IV UD PRN PRN Reason: SALINE FLUSH Last Admin: 01/26/19 08:23 Dose: 10 ml Medical Necessity - Tobacco Use Smoking Status: Never smoker Tobacco Use: Non-smoker Assessment/Plan All Active Problems CAP (community acquired pneumonia) (Acute) Generalized weakness (Acute) Severe sepsis (Acute) Pneumococcal pneumonia (Acute) Near syncope (Acute) Patient is an 83-year-old gentleman admitted with progressive shortness of breath and assessment of pneumonia made admitted to regular nursing floor for further management 1. Pneumonia: Suspected to be secondary to streptococci pneumonia. Patient is admitted to regular floor. Blood and sputum cultures sent. Patient placed on Rocephin and Zithromax. He was also placed on oxygen titrated to keep also is greater than 90. Did order acute respiratory panel result pending at the time of dictation of this note. 2. Severe sepsis ruled out. Criteria not met patient only had lactic acid elevation however heart rate was not greater than 90 temperature was no greater than 101 and no evidence of change in mental status or leukocytosis was present on admission 3. Near syncope attributed to possible orthostasis from patient diuretics patient is on Eplerenone as well as HCTZ held on admission 3. CAD history of previous cardiac stent 4. Dyslipidemia-patient is on statin therapy, continued at home dose 5. Hypertension-blood pressure controlled, home medications continued with dose adjustment as needed 6. Chronic kidney disease stage III 7. DVT prophylaxis SC Lovenox 8. Physical deconditioning patient has so far received PT OT consult placed to social services assistant with plans for patient to be transferred to the transitional care unit on 02/14/2019 when bed will become available Code Visit Inpatient E&M: [id number] [facility] L2
[2019-01-27] MEDS: Insulin Lispro 100 UNIT/ML INSULN.PEN SQ ×2 (11:09→22:17)
[2019-01-27] MEDS: Oseltamivir Phosphate 30 MG Capsule PO ×2 (11:26→22:15)
[2019-01-27 11:35] LABS: Bedside Glucose 338 mg/dL (70-110)
[2019-01-27 16:30] LABS: Bedside Glucose 144 mg/dL (70-110)
[2019-01-27] MEDS: QUEtiapine 25 MG Tablet 87.5 MG PO (22:14)
[2019-01-27] MEDS: Atorvastatin Calcium 80 MG Tablet PO (22:16)
[2019-01-27 22:40] LABS: Bedside Glucose 225 mg/dL (70-110)
[2019-01-28 05:30] VITALS: BP 148/77; PULSE 60; RESP 16; TEMP 36.4; O2SAT 94
[2019-01-28 05:46] LABS: Bedside Glucose 131 mg/dL (70-110)
[2019-01-28 07:06] VITALS: PULSE 64; RESP 18; O2SAT 92
[2019-01-28] MEDS: Ipratropium/Albuterol Sulfate 3 ML AMPUL.NEB INHALATION (07:06)
[2019-01-28 07:13] LABS: Hematocrit 38.1 % (40-54); Mean Corp Hgb Conc 31.5 g/gl (32-36); Mean Corpuscular Hgb 29.3 pg (27.0-32.0); Mean Corpuscular Volume 93.2 fL (80-94); Mean Platelet Vol. 9.3 fl (6.2-12.0); Platelet Count 232 K/mm3 (150-450); RBC Distribution Width CV 13.9 % (11.6-14.6); RBC Distribution Width SD 47.2 fl (35.1-43.9); Red Blood Count 4.09 M/mm3 (4.6-6.2); White Blood Count 7.4 K/mm3 (4.4-11.0)
[2019-01-28 07:23] LABS: Anion Gap 9 (5-15); BUN 26 mg/dL (7-18); BUN/Creat Ratio 19.8 RATIO (10-20); Calcium,Total 8.7 mg/dL (8.5-10.1); Chloride 108 mmol/L (98-107); Creatinine, Serum 1.31 mg/dL (0.70-1.30); EST Glomerular Filtration Rate 55 mL/min (>60); Est Glom Filt Rate - Afr Amer 67 mL/min (>60); Estimated Creatinine Clearance 43.34 ml/min; Glucose 130 mg/dL (74-106); Magnesium 2.1 mg/dL (1.6-2.6); Potassium 4.1 mmol/L (3.5-5.1); Sodium Level 143 mmol/L (136-145)
[2019-01-28 07:24] LABS: Scan Indicated on CBC? Y/N NO
[2019-01-28] MEDS: Carvedilol 6.25 MG Tablet PO (08:03)
[2019-01-28] MEDS: Aspirin 81 MG TAB.CHEW PO (08:03)
[2019-01-28 08:53] VITALS: BP 125/59; PULSE 61; RESP 18; TEMP 36.8; O2SAT 98
[2019-01-28] MEDS: Glucerna Shake 120 ML LIQUID PO (09:31)
[2019-01-28] MEDS: Oseltamivir Phosphate 30 MG Capsule PO (09:32)
[2019-01-28] MEDS: guaiFENesin 1,200 MG Tablet 1200 MG PO (09:32)
[2019-01-28] MEDS: lamoTRIgine 100 MG Tablet PO (09:32)
[2019-01-28] MEDS: Enoxaparin 30 MG/0.3 ML Syringe SC (09:32)
[2019-01-28] MEDS: Clopidogrel Bisulfate 75 MG Tablet PO (09:33)
[2019-01-28] MEDS: Lisinopril 10 MG Tablet PO (09:33)
[2019-01-28] MEDS: lamoTRIgine 150 MG Tablet PO (09:34)
[2019-01-28] MEDS: Dorzolamide HCL/Timolol 10 ml Bottle 1 DRP EACH EYE (09:34)
[2019-01-28] MEDS: DULoxetine Hcl 30 MG Capsule PO (09:34)
[2019-01-28] MEDS: BRIMONIDINE 0.15% 5 ML Bottle 1 DRP EACH EYE (09:34)
[2019-01-28] MEDS: 0.9% NaCl Peripheral Flush Adult/Peds IV (09:40)
[2019-01-28 11:30] LABS: Bedside Glucose 311 mg/dL (70-110)
--- NOTE | 2019-01-28 12:07 | PCM.TXEXTCAR ---
- Diet 01/25/19 06:33 Diet: 1800 RADHIKA ADA Food consistency:: Regular Liquid Consistency:: Regular/Thin - Routine Orders/Code Status Routine Lab Work: - - FINGERSTICK BLOOD SUGARS ACQHS, COVERAGE WITH SLIDING SCALE INSULIN HUMALOG SQ PER READIN-250: 5 UNITS, 251-300: 8 UNITS, 301-350: 12 UNITS, 351-400: 15 UNITS Code Status: Full Code - Therapies Weight Bearing: Full weight bearing Physical Therapy: Eval and Treat Occupational Therapy: Eval and Treat - Problem/Diagnosis (1) Influenza A Status: Acute Current Visit: Yes (2) Type 2 diabetes mellitus Status: Chronic Current Visit: Yes (3) CAD (coronary artery disease) Status: Chronic Current Visit: No (4) CAP (community acquired pneumonia) Status: Acute Comment: ORGANISM UNKNOWN Current Visit: Yes (5) Generalized weakness Status: Acute Current Visit: Yes (6) HTN (hypertension) Status: Chronic Current Visit: No - Allergies/Procedures Done in Hospital Allergies/Adverse Reactions: Allergies No Known Allergies Allergy (Verified 05/27/15 07:47) Procedures: None - Type of Care/Length of Stay Estimated LOS: Convalescent Care Less Than 30 days Type of Care Needed: Skilled Rehab Potential: Good Prognosis: Good - Additional Orders/Day of Discharge H&P will serve as current which was dated: 01/25/19 Day of Discharge: 01/28/19 - Dietary and Speech Recommendations Dietitian Recommendations/Changes: 1800 ADA - Follow Up Care Primary Care Physician: Jesica Wright MD [Primary Care Provider] -
[2019-01-28] MEDS: Insulin Lispro 100 UNIT/ML INSULN.PEN SQ (12:08)
--- NOTE | 2019-01-28 12:13 | TREXTCAR_ITS ---
- Diet 01/25/19 06:33 Diet: 1800 RADHIKA ADA Food consistency:: Regular Liquid Consistency:: Regular/Thin - Routine Orders/Code Status Routine Lab Work: - - FINGERSTICK BLOOD SUGARS ACQHS, COVERAGE WITH SLIDING SCALE INSULIN HUMALOG SQ PER READIN-250: 5 UNITS, 251-300: 8 UNITS, 301- 350: 12 UNITS, 351-400: 15 UNITS Code Status: Full Code - Therapies Weight Bearing: Full weight bearing Physical Therapy: Eval and Treat Occupational Therapy: Eval and Treat - Problem/Diagnosis (1) Influenza A Status: Acute Current Visit: Yes (2) Type 2 diabetes mellitus Status: Chronic Current Visit: Yes (3) CAD (coronary artery disease) Status: Chronic Current Visit: No (4) CAP (community acquired pneumonia) Status: Acute Comment: ORGANISM UNKNOWN Current Visit: Yes (5) Generalized weakness Status: Acute Current Visit: Yes (6) HTN (hypertension) Status: Chronic Current Visit: No - Allergies/Procedures Done in Hospital Allergies/Adverse Reactions: Allergies No Known Allergies Allergy (Verified 05/27/15 07:47) Procedures: None - Type of Care/Length of Stay Estimated LOS: Convalescent Care Less Than 30 days Type of Care Needed: Skilled Rehab Potential: Good Prognosis: Good - Additional Orders/Day of Discharge H&P will serve as current which was dated: 01/25/19 Day of Discharge: 01/28/19 - Dietary and Speech Recommendations Dietitian Recommendations/Changes: 1800 ADA - Follow Up Care Primary Care Physician: Jesica Wright MD [Primary Care Provider] -
[2019-01-28 12:56] VITALS: BP 111/55; PULSE 64; RESP 18; TEMP 36.3; O2SAT 96
--- NOTE | 2019-01-28 19:18 | DS.PCM_ITS ---
Discharge Date and Diagnosis - Problem List Patient Problems: Active and Suspected Problems Fall (Acute) Closed head injury (Acute) Date of Admission: 01/25/19 Date of Discharge: 01/28/19 - Primary Discharge Diagnosis Active and Suspected Problems #1 Community-acquired [id number] bacterial, exact type of bacteria unknown #2 influenza A-acute #3 Coronary artery disease #4 closed head injury without loss of consciousness #5 generalized debility due to multiple medical problems #6 elevated lactic acid-etiology unclear, determined not to be secondary to severe sepsis #7 chronic kidney disease stage III secondary to type 2 diabetes #8 type 2 diabetes #9 hypertension - Secondary Discharge Diagnosis Chronic Problems CAD (coronary artery disease) (Chronic) Type 2 diabetes mellitus (Chronic) Chronic kidney disease, stage 3 (Chronic) Stroke (Chronic) Glaucoma (Chronic) Vitamin D deficiency (Chronic) Depression (Chronic) Seizure disorder (Chronic) Diabetes mellitus (Chronic) Insomnia (Chronic) HLD (hyperlipidemia) (Chronic) Hearing deficit (Chronic) DM (dermatomyositis) (Chronic) CVA (cerebral vascular accident) (Chronic) CKD (chronic kidney disease), stage III (Chronic) H/O heart artery stent (Chronic) Blind (Chronic) L. eye Aortic aneurysm (Chronic) Herpes zoster (Chronic) Hypotension (Chronic) HTN (hypertension) (Chronic) Acute renal failure (Chronic) Hospital Course and Treatment Operations: None Procedures: None Summary of Care Provided: The patient is a 83 year old M was seen in the emergency room at [facility] with a chief complaint of severe weakness. He had sustained a fall at home the day he was seen in the emergency room and had also had a fall the previous day. Patient collapsed in his shower hitting his head on the tile floor but he denied loss of consciousness. Workup in the emergency room included a chest x-ray which showed possible focal interstitial inflammation at the left lung base which could indicate early pneumonia, patient's lactic acid was elevated, patient's white blood cell count was normal, patient's temperature was 100, respiratory rate was elevated at 32, the patient did not require supplemental oxygen. Patient was admitted for severe sepsis and community- acquired pneumonia, he was seen by PT and OT, and placed on IV antibiotics. Patient's respiratory panel resulted in a positive influenza A , patient's white blood cell count did not elevate during his time in the hospital and it was ultimately felt that the patient did not have severe sepsis but had an elevation in his lactic acid which was not able to be explained by the patient's medical condition. In the a.m., it was felt that the patient could have community- acquired pneumonia, he remained on IV antibiotics and it was felt he would benefit from temporary placement in a custodial facility for further rehab. Patient was treated with Tamiflu during his hospital stay. On 01/28/19, patient was seen and examined: On examination he appeared in good health and spirits. Vital signs as documented. Skin warm and dry and without overt rashes. Neck without JVD. Lungs clear. Heart exam notable for regular rhythm, normal sounds and absence of murmurs, rubs or gallops. Abdomen unremarkable and without evidence of organomegaly, masses, or abdominal aortic enlargement. Extremities nonedematous. Neuro: Cranial nerves II through XII are grossly intact, no focal motor deficits were noted, sensation to light touch and pinprick intact. Psych: Patient is alert and oriented x3, he does not appear anxious or depressed 01/28/19, patient was seen and examined and felt to be in stable condition for transfer to an extended care facility for further rehab. Patient Problems: Active and Suspected Problems Fall (Acute) Closed head injury (Acute) - Physical Exam Vital Signs Temp Pulse Resp BP Pulse Ox 97.4 F L 64 18 111/55 L 96 01/28/19 12:56 01/28/19 12:56 01/28/19 12:56 01/28/19 12:56 01/28/19 12:56 Oxygen Flow Rate (L/min) 2.5 Oxygen Delivery Method Room Air Weight: 97.3 kg Body Mass Index (BMI) 30.7 Finger Stick Blood Glucose 144 Intake and Output for Last 24 Hours 01/26/19 01/27/19 01/28/19 23:59 23:59 23:59 Intake Total 1660 / 1660 1479 / 1479 1550 / 1550 Balance 1660 / 1660 1479 / 1479 1550 / 1550 Microbiology Past 72 Hours 01/26/19 13:25 Respiratory Panel (PCR) - Final Mucosa - Nasopharyngeal Influenza A (Subtype H3) 01/25/19 07:25 Blood Culture - Preliminary Blood Culture (Wb) - Anticubital Left No growth in 48 hours. 01/25/19 04:45 Blood Culture - Preliminary Blood Culture (Wb) - Right Forearm No growth in 48 hours. 01/25/19 05:25 Urine Culture - Final Urine, Clean Catch Mixed Gram Positive Organisms Laboratory Tests Past 24 Hrs 01/28/19 01/28/19 06:02 06:02 WBC 7.4 RBC 4.09 L Hgb 12.0 L Hct 38.1 L MCV 93.2 MCH 29.3 MCHC 31.5 L RDW 13.9 RDW Differential 47.2 H Plt Count 232 MPV 9.3 Sodium 143 Potassium 4.1 Chloride 108 H Carbon Dioxide 26.0 Anion Gap 9 BUN 26 H Creatinine 1.31 H Estim Creat Clear Calc 43.34 Est GFR (MDRD) Af Amer 67 Est GFR (MDRD) Non-Af 55 L BUN/Creatinine Ratio 19.8 Glucose 130 H Calcium 8.7 Magnesium 2.1 POC Glucose 01/28/19 01/28/19 01/27/19 11:22 05:40 22:05 POC Glucose 311 H 131 H 225 H Home Medications: Medications to take at Discharge Acetaminophen [Tylenol Arthritis] 650 mg PO Q6H PRN PRN 05/21/15 Aspirin [Aspirin, Baby] 81 mg PO DAILY@0800 05/21/15 Atorvastatin Calcium [Lipitor] 80 mg PO QHS 05/21/15 Brimonidine 0.15% [Alphagan P 0.15%] 1 drop EACH EYE BID 05/21/15 Carvedilol [Coreg (Beta Marshall)] 6.25 mg PO BID 05/21/15 Cholecalciferol (VIT D3) [Vitamin D3] 5,000 unit PO DAILY 05/21/15 Clopidogrel Bisulfate [Plavix] 75 mg PO DAILY 05/21/15 Dorzolamide HCL/Timolol [Cosopt Opth Drops] 1 drop EACH EYE BID 05/21/15 Duloxetine Hcl [Cymbalta] 30 mg PO BID 05/21/15 Eplerenone [Inspra] 12.5 mg PO QODAY 05/21/15 Lamotrigine [Lamictal] 250 mg PO DAILY 05/21/15 Lisinopril [Zestril] 10 mg PO DAILY 05/21/15 Quetiapine Fumarate [Seroquel] 87 mg PO QHS 05/21/15 Glipizide 5 mg PO DAILY 01/25/19 Albuterol Aerosols [Ventolin Aerosols] 2.5 mg INHALATION Q2H PRN PRN vial.neb. 01/28/19 Amoxicillin/Potassium Clav [Augmentin 875-125 Tablet] 1 each PO BIDCM 01/28/19 Oseltamivir Phosphate [Tamiflu] 30 mg PO BID 01/28/19 Primary Care Physician: Jesica Wright MD [Primary Care Provider] - Disposition: [facility] facility Minutes spent on discharge:: 35 Patient Condition:: Stable Medical Necessity - Tobacco Use Smoking Status: Never smoker Tobacco Use: Non-smoker Meaningful Use Info Meaningful Use Diagnoses (Choose all that apply): None applicable Code Visit Inpatient E&M: 99939 Disch Hosp
== END 2019-01-28 13:25 | disposition skilled nursing facility (03) | DRG 195 ==
LOC: ED 05:46 → MS3 06:13
PROVIDERS: Internal Medicine; Emergency Provider Emergency Medicine; Family Provider Internal Medicine; PCP Internal Medicine; Visit Provider Internal Medicine
DX: J10.08 Influenza due to other identified influenza virus with other specified pneumonia (principal); J15.9 Unspecified bacterial pneumonia; S09.90XA Unspecified injury of head, initial encounter; I25.10 Atherosclerotic heart disease of native coronary artery without angina pectoris; E78.5 Hyperlipidemia, unspecified; I12.9 Hypertensive chronic kidney disease with stage 1 through stage 4 chronic kidney disease, or unspecified chronic kidney disease; N18.3 Chronic kidney disease, stage 3 (moderate); R53.81 Other malaise; E11.22 Type 2 diabetes mellitus with diabetic chronic kidney disease; Z79.84 Long term (current) use of oral hypoglycemic drugs; Z79.899 Other long term (current) drug therapy; Z95.5 Presence of coronary angioplasty implant and graft; R79.89 Other specified abnormal findings of blood chemistry
CPT/HCPCS: 36415; 70450; 71046; 80048; 80053; 81001; 82962; 83605; 83735; 84484; 85025; 85027; 85610; 85730; 87040; 87086; 87088; 87449; 87633; 87804; 93005; 94640; 94667; 94668; 97110; 97116; 97161; 97166; 97530; 97535; 97802; 99285; J7030; J7050; A4216; J2405

== ENCOUNTER 2019-01-28 13:28 | Inpatient (IN) | payer MEDICARE, OTHER, SELFPAY ==
[2019-01-25 06:31] VITALS: BMI 30.7
[2019-01-28 13:36] VITALS: BMI 31.5; BMI 31.6
--- NOTE | 2019-01-28 13:39 | NURSING ---
Pt arrived from [facility] at 1310 by bed.
[2019-01-28 16:01] VITALS: BP 124/54; PULSE 67; RESP 18; TEMP 36.7; O2SAT 93
[2019-01-28 16:50] LABS: Bedside Glucose 91 mg/dL (70-110)
[2019-01-28] MEDS: Carvedilol 6.25 MG Tablet PO (17:43)
[2019-01-28] MEDS: Oseltamivir Phosphate 30 MG Capsule PO (17:43)
[2019-01-28] MEDS: DULoxetine Hcl 30 MG Capsule PO (17:43)
--- NOTE | 2019-01-28 18:23 | PCM.HP.STD ---
Problem List (1) Fall Status: Acute (2) Closed head injury Status: Acute (3) Chronic kidney disease, stage 3 Status: Chronic (4) Stroke Status: Chronic (5) Glaucoma Status: Chronic (6) Vitamin D deficiency Status: Chronic (7) Depression Status: Chronic (8) Seizure disorder Status: Chronic (9) Diabetes mellitus Status: Chronic (10) Insomnia Status: Chronic (11) CAD (coronary artery disease) Status: Chronic (12) Generalized weakness Status: Acute (13) Severe sepsis Status: Acute (14) Pneumococcal pneumonia Status: Acute Qualifiers: (15) Influenza A Status: Acute (16) HLD (hyperlipidemia) Status: Chronic (17) DM (dermatomyositis) Status: Chronic (18) Aortic aneurysm Status: Chronic (19) HTN (hypertension) Status: Chronic History of Present Illness Date of Admission: 01/28/19 Chief Complaint: Here for rehabilitation, strengthening, prior to discharge home with spouse. The patient is a 83 year old Male with below past medical history presented to [facility] Emergency Department 01/25/2019 with weakness. Gradual, continuous, cough. Fell x 2, closed head injury. Negative syncope, lactate elevated. Rapid flu negative. Levaquin, IV fluids given. 01/25/2019 Admit to Hospital. Pancultured, urine antigen for legionella, s. pneumo. IV fluids, Levaquin for community acquired pneumonia. Hold eplerenone, HCTZ for hypotension. 01/25/2019 CT brain chronic involutional changes of brain. 01/25/2019 Continue antibiotics for CAP. 01/26/2019 Rocephin, Zithromax for CAP. Severe sepsis ruled out. Hold eplerenone, HCTZ for orthostasis. 01/27/2019 Respiratory panel positive for influenza A H3. Tamiflu 30MG BID started. 01/28/2019 Admit to TCU with debility, here for rehabilitation, strengthening, prior to discharge home with spouse. Past Medical History Past Medical History (Chronic Problems): Chronic Problems CAD (coronary artery disease) (Chronic) Type 2 diabetes mellitus (Chronic) Chronic kidney disease, stage 3 (Chronic) Stroke (Chronic) Glaucoma (Chronic) Vitamin D deficiency (Chronic) Depression (Chronic) Seizure disorder (Chronic) Diabetes mellitus (Chronic) Insomnia (Chronic) HLD (hyperlipidemia) (Chronic) Hearing deficit (Chronic) DM (dermatomyositis) (Chronic) CVA (cerebral vascular accident) (Chronic) CKD (chronic kidney disease), stage III (Chronic) H/O heart artery stent (Chronic) Blind (Chronic) L. eye Aortic aneurysm (Chronic) Herpes zoster (Chronic) Hypotension (Chronic) HTN (hypertension) (Chronic) Acute renal failure (Chronic) Allergies No Known Allergies Allergy (Verified 05/27/15 07:47) Home Medications: Ambulatory Orders Medication Instructions Recorded Acetaminophen [Tylenol Arthritis] 650 mg PO Q6H PRN PRN 05/21/15 Aspirin [Aspirin, Baby] 81 mg PO DAILY@0800 05/21/15 Atorvastatin Calcium [Lipitor] 80 mg PO QHS 05/21/15 Brimonidine 0.15% [Alphagan P 1 drop EACH EYE BID 05/21/15 0.15%] Carvedilol [Coreg (Beta Marshall)] 6.25 mg PO BID 05/21/15 Cholecalciferol (VIT D3) [Vitamin 5,000 unit PO DAILY 05/21/15 D3] Clopidogrel Bisulfate [Plavix] 75 mg PO DAILY 05/21/15 Dorzolamide HCL/Timolol [Cosopt 1 drop EACH EYE BID 05/21/15 Opth Drops] Duloxetine Hcl [Cymbalta] 30 mg PO BID 05/21/15 Eplerenone [Inspra] 12.5 mg PO QODAY 05/21/15 Lamotrigine [Lamictal] 250 mg PO DAILY 05/21/15 Lisinopril [Zestril] 10 mg PO DAILY 05/21/15 Quetiapine Fumarate [Seroquel] 87 mg PO QHS 05/21/15 Glipizide 5 mg PO DAILY 01/25/19 Albuterol Aerosols [Ventolin 2.5 mg INHALATION Q2H PRN PRN 01/28/19 Aerosols] vial.neb. Amoxicillin/Potassium Clav 1 each PO BIDCM 01/28/19 [Augmentin 875-125 Tablet] Oseltamivir Phosphate [Tamiflu] 30 mg PO BID 01/28/19 Surgical History: - - cardiac stent Psychiatric History: Depression Lives: Spouse/ Significant Other Smoking Status: Never smoker Tobacco Use: Non-smoker Alcohol: None Drugs: None - *Family History Maternal Family History: Family History (Last Updated 01/25/19 @ 06:38 by Butch Jackson DO) Other CAD (coronary artery disease) History Items: No pertinent history Paternal Family History: Family History (Last Updated 01/25/19 @ 06:38 by Butch Jackson DO) Other CAD (coronary artery disease) History Items: No pertinent history Review of Systems Constitutional: Denies: Chills, Fever, Weight Change HEENT: Denies: Head Aches, Sinus Congestion, Sinus Drainage Cardiovascular: Denies: Chest Pain, Palpitations Respiratory: Denies: Cough, Shortness of breath at rest, Sputum production Gastrointestinal: Denies: Abdominal Pain, Nausea, Vomiting Genitourinary: Denies: Dysuria Musculoskeletal: Denies: Joint Pain, Joint Tenderness Skin: Denies: Rash, Wounds Neurological: Denies: Numbness, Tingling, Focal weakness Psychiatric: Denies: Anxiety, Depression, Homicidal Ideations, Suicidal Ideations Hematologic/ Lymphatic: Denies: Easy Bruising, Easy Bleeding VTE Information - Inpt Only VTE Present on Admission: No VTE Mechan Device Prophylaxis: Knee High CLAY Hose VTE Pharm Prophylaxis ordered?: No Reason prophylaxis not ordered:: Treatment Not Indicated Patient Problems: Active and Suspected Problems Fall (Acute) Closed head injury (Acute) - Physical Exam General: Alert, Oriented x3, Cooperative HEENT: Atraumatic, PERRLA, EOMI, Normocephalic Neck: Supple, No JVD, Negative Carotid Bruits Lungs: Clear to auscultation, Normal air movement Cardiovascular: Regular rate, No murmurs Abdomen: Bowel Sounds Present, Soft, Non Tender Extremities: No edema, Capillary Refill Less than 3 Seconds Skin: No rashes, No breakdown Musculoskeletal: No Tenderness to Palpation of Joints or Extremities Neurological: Cranial nerves II-XII grossly intact Psych/Mental Status: Normal Affect, Appropriate Vital Signs Temp Pulse Resp BP Pulse Ox 98.0 F 67 18 124/54 H 93 01/28/19 16:01 01/28/19 16:01 01/28/19 16:01 01/28/19 16:01 01/28/19 16:01 Oxygen Delivery Method Room Air Weight: 99.79 kg Body Mass Index (BMI) 31.5 Finger Stick Blood Glucose 144 POC Glucose 01/28/19 16:46 POC Glucose 91 Assessment/Plan All Active Problems CAP (community acquired pneumonia) (Acute) Generalized weakness (Acute) Severe sepsis (Acute) Pneumococcal pneumonia (Acute) Near syncope (Acute) Influenza A (Acute) Fall (Acute) Closed head injury (Acute) 83 year old male with below past medical history hospitalized for weakness, secondary to community acquired pneumonia from influenza A, complicated by orthostatic hypotension, admitted to TCU with debility, here for rehabilitation, strengthening, prior to discharge home with spouse. Debility - PT/OT. Pain - Tylenol 1000MG Q6H PRN mild pain. Bowel - Miralax 17GM daily, Senna/colace 1 tablet BID, Dulcolax 10MG daily PRN. Pneumonia vaccination - Administer Prevnar 13 and/or Pneumovax 23 as necessary. DVT prophylaxis - Hold, already on aspirin, Plavix. Shortness of breath - Albuterol 2.5MG Q2H PRN. Community Acquired Pneumonia - Augmentin 875MG BID thru 02/01/2019. Stroke - Aspirin 81MG daily, Plavix 75MG daily. Hyperlipidemia - Atorvastatin 80MG QHS. Glaucoma - Alphagan 0.15% 1GTT OU BID, Cosopt 1GTT OU BID. Chronic systolic congestive heart failure - Coreg 6.25MG BID, Eplerenone 12.5MG, consider Entresto. Vitamin D deficiency - D3 5000IU daily. Coronary Artery Disease s/p stent - Coreg 6.25MG BID, Plavix 75MG daily, Aspirin 81MG daily. Depression - Duloxetine 30MG BID, resident doing well with chronic snf use, GDR clinically contraindicated. Diabetes Mellitus II - Glipizide 5MG daily. Seizure Disorder - Lamictal 250MG daily. Influenza A - Tamiflu 30MG BID thru 01/31/2019. ?Insomnia - Seroquel 87.5MG QHS, strongly consider GDR.
--- NOTE | 2019-01-28 18:30 | HP.PCM_ITS ---
Problem List (1) Fall Status: Acute (2) Closed head injury Status: Acute (3) Chronic kidney disease, stage 3 Status: Chronic (4) Stroke Status: Chronic (5) Glaucoma Status: Chronic (6) Vitamin D deficiency Status: Chronic (7) Depression Status: Chronic (8) Seizure disorder Status: Chronic (9) Diabetes mellitus Status: Chronic (10) Insomnia Status: Chronic (11) CAD (coronary artery disease) Status: Chronic (12) Generalized weakness Status: Acute (13) Severe sepsis Status: Acute (14) Pneumococcal pneumonia Status: Acute Qualifiers: (15) Influenza A Status: Acute (16) HLD (hyperlipidemia) Status: Chronic (17) DM (dermatomyositis) Status: Chronic (18) Aortic aneurysm Status: Chronic (19) HTN (hypertension) Status: Chronic History of Present Illness Date of Admission: 01/28/19 Chief Complaint: Here for rehabilitation, strengthening, prior to discharge home with spouse. The patient is a 83 year old Male with below past medical history presented to [facility] Emergency Department 01/25/2019 with weakness. Gradual, continuous, cough. Fell x 2, closed head injury. Negative syncope, lactate elevated. Rapid flu negative. Levaquin, IV fluids given. 01/25/2019 Admit to Hospital. Pancultured, urine antigen for legionella, s. pneumo. IV fluids, Levaquin for community acquired pneumonia. Hold eplerenone, HCTZ for hypotension. 01/25/2019 CT brain chronic involutional changes of brain. 01/25/2019 Continue antibiotics for CAP. 01/26/2019 Rocephin, Zithromax for CAP. Severe sepsis ruled out. Hold eplerenone, HCTZ for orthostasis. 01/27/2019 Respiratory panel positive for influenza A H3. Tamiflu 30MG BID started. 01/28/2019 Admit to TCU with debility, here for rehabilitation, strengthening, prior to discharge home with spouse. Past Medical History Past Medical History (Chronic Problems): Chronic Problems CAD (coronary artery disease) (Chronic) Type 2 diabetes mellitus (Chronic) Chronic kidney disease, stage 3 (Chronic) Stroke (Chronic) Glaucoma (Chronic) Vitamin D deficiency (Chronic) Depression (Chronic) Seizure disorder (Chronic) Diabetes mellitus (Chronic) Insomnia (Chronic) HLD (hyperlipidemia) (Chronic) Hearing deficit (Chronic) DM (dermatomyositis) (Chronic) CVA (cerebral vascular accident) (Chronic) CKD (chronic kidney disease), stage III (Chronic) H/O heart artery stent (Chronic) Blind (Chronic) L. eye Aortic aneurysm (Chronic) Herpes zoster (Chronic) Hypotension (Chronic) HTN (hypertension) (Chronic) Acute renal failure (Chronic) Allergies No Known Allergies Allergy (Verified 05/27/15 07:47) Home Medications: Ambulatory Orders Medication Instructions Recorded Acetaminophen [Tylenol Arthritis] 650 mg PO Q6H PRN PRN 05/21/15 Aspirin [Aspirin, Baby] 81 mg PO DAILY@0800 05/21/15 Atorvastatin Calcium [Lipitor] 80 mg PO QHS 05/21/15 Brimonidine 0.15% [Alphagan P 1 drop EACH EYE BID 05/21/15 0.15%] Carvedilol [Coreg (Beta Marshall)] 6.25 mg PO BID 05/21/15 Cholecalciferol (VIT D3) [Vitamin 5,000 unit PO DAILY 05/21/15 D3] Clopidogrel Bisulfate [Plavix] 75 mg PO DAILY 05/21/15 Dorzolamide HCL/Timolol [Cosopt 1 drop EACH EYE BID 05/21/15 Opth Drops] Duloxetine Hcl [Cymbalta] 30 mg PO BID 05/21/15 Eplerenone [Inspra] 12.5 mg PO QODAY 05/21/15 Lamotrigine [Lamictal] 250 mg PO DAILY 05/21/15 Lisinopril [Zestril] 10 mg PO DAILY 05/21/15 Quetiapine Fumarate [Seroquel] 87 mg PO QHS 05/21/15 Glipizide 5 mg PO DAILY 01/25/19 Albuterol Aerosols [Ventolin 2.5 mg INHALATION Q2H PRN PRN 01/28/19 Aerosols] vial.neb. Amoxicillin/Potassium Clav 1 each PO BIDCM 01/28/19 [Augmentin 875-125 Tablet] Oseltamivir Phosphate [Tamiflu] 30 mg PO BID 01/28/19 Surgical History: - - cardiac stent Psychiatric History: Depression Lives: Spouse/ Significant Other Smoking Status: Never smoker Tobacco Use: Non-smoker Alcohol: None Drugs: None - *Family History Maternal Family History: Family History (Last Updated 01/25/19 @ 06:38 by Butch Jackson DO) Other CAD (coronary artery disease) History Items: No pertinent history Paternal Family History: Family History (Last Updated 01/25/19 @ 06:38 by Butch Jackson DO) Other CAD (coronary artery disease) History Items: No pertinent history Review of Systems Constitutional: Denies: Chills, Fever, Weight Change HEENT: Denies: Head Aches, Sinus Congestion, Sinus Drainage Cardiovascular: Denies: Chest Pain, Palpitations Respiratory: Denies: Cough, Shortness of breath at rest, Sputum production Gastrointestinal: Denies: Abdominal Pain, Nausea, Vomiting Genitourinary: Denies: Dysuria Musculoskeletal: Denies: Joint Pain, Joint Tenderness Skin: Denies: Rash, Wounds Neurological: Denies: Numbness, Tingling, Focal weakness Psychiatric: Denies: Anxiety, Depression, Homicidal Ideations, Suicidal Ideations Hematologic/ Lymphatic: Denies: Easy Bruising, Easy Bleeding VTE Information - Inpt Only VTE Present on Admission: No VTE Mechan Device Prophylaxis: Knee High CLAY Hose VTE Pharm Prophylaxis ordered?: No Reason prophylaxis not ordered:: Treatment Not Indicated Patient Problems: Active and Suspected Problems Fall (Acute) Closed head injury (Acute) - Physical Exam General: Alert, Oriented x3, Cooperative HEENT: Atraumatic, PERRLA, EOMI, Normocephalic Neck: Supple, No JVD, Negative Carotid Bruits Lungs: Clear to auscultation, Normal air movement Cardiovascular: Regular rate, No murmurs Abdomen: Bowel Sounds Present, Soft, Non Tender Extremities: No edema, Capillary Refill Less than 3 Seconds Skin: No rashes, No breakdown Musculoskeletal: No Tenderness to Palpation of Joints or Extremities Neurological: Cranial nerves II-XII grossly intact Psych/Mental Status: Normal Affect, Appropriate Vital Signs Temp Pulse Resp BP Pulse Ox 98.0 F 67 18 124/54 H 93 01/28/19 16:01 01/28/19 16:01 01/28/19 16:01 01/28/19 16:01 01/28/19 16:01 Oxygen Delivery Method Room Air Weight: 99.79 kg Body Mass Index (BMI) 31.5 Finger Stick Blood Glucose 144 POC Glucose 01/28/19 16:46 POC Glucose 91 Assessment/Plan All Active Problems CAP (community acquired pneumonia) (Acute) Generalized weakness (Acute) Severe sepsis (Acute) Pneumococcal pneumonia (Acute) Near syncope (Acute) Influenza A (Acute) Fall (Acute) Closed head injury (Acute) 83 year old male with below past medical history hospitalized for weakness, secondary to community acquired pneumonia from influenza A, complicated by orthostatic hypotension, admitted to TCU with debility, here for rehabilitation, strengthening, prior to discharge home with spouse. * Debility - PT/OT. * Pain - Tylenol 1000MG Q6H PRN mild pain. * Bowel - Miralax 17GM daily, Senna/colace 1 tablet BID, Dulcolax 10MG daily PRN. * Pneumonia vaccination - Administer Prevnar 13 and/or Pneumovax 23 as necessary. * DVT prophylaxis - Hold, already on aspirin, Plavix. * Shortness of breath - Albuterol 2.5MG Q2H PRN. * Community Acquired Pneumonia - Augmentin 875MG BID thru 02/01/2019. * Stroke - Aspirin 81MG daily, Plavix 75MG daily. * Hyperlipidemia - Atorvastatin 80MG QHS. * Glaucoma - Alphagan 0.15% 1GTT OU BID, Cosopt 1GTT OU BID. * Chronic systolic congestive heart failure - Coreg 6.25MG BID, Eplerenone 12.5MG, consider Entresto. * Vitamin D deficiency - D3 5000IU daily. * Coronary Artery Disease s/p stent - Coreg 6.25MG BID, Plavix 75MG daily, Aspirin 81MG daily. * Depression - Duloxetine 30MG BID, resident doing well with chronic chcf use, GDR clinically contraindicated. * Diabetes Mellitus II - Glipizide 5MG daily. * Seizure Disorder - Lamictal 250MG daily. * Influenza A - Tamiflu 30MG BID thru 01/31/2019. * ?Insomnia - Seroquel 87.5MG QHS, strongly consider GDR.
[2019-01-28 21:00] LABS: Bedside Glucose 213 mg/dL (70-110)
[2019-01-28] MEDS: QUEtiapine 25 MG Tablet 87.5 MG PO (21:35)
[2019-01-28] MEDS: Atorvastatin Calcium 80 MG Tablet PO (21:35)
[2019-01-28] MEDS: BRIMONIDINE 0.15% 5 ML Bottle 1 DRP EACH EYE (21:37)
[2019-01-28] MEDS: Dorzolamide HCL/Timolol 10 ml Bottle 1 DRP EACH EYE (21:38)
[2019-01-28 21:48] VITALS: PULSE 69; O2SAT 97
[2019-01-29 06:15] LABS: Anion Gap 9 (5-15); BUN 24 mg/dL (7-18); BUN/Creat Ratio 18.5 RATIO (10-20); Calcium,Total 8.9 mg/dL (8.5-10.1); Chloride 108 mmol/L (98-107); EST Glomerular Filtration Rate 56 mL/min (>60); Est Glom Filt Rate - Afr Amer 68 mL/min (>60); Estimated Creatinine Clearance 43.68 ml/min; Glucose 138 mg/dL (74-106); Potassium 3.8 mmol/L (3.5-5.1); Sodium Level 144 mmol/L (136-145)
[2019-01-29 06:24] LABS: Absolute Lymphocyte Count 3.41 X10^3/ul (0.83-4.51); Absolute Neutrophil Count 4.5 X10^3/uL (2.0-7.7); Basophil# 0.15 X10^3/uL; Basophil% 1.5 % (0-1); Eosinophils% 6.1 % (0-5); Hematocrit 40.9 % (40-54); Hemoglobin 12.8 g/dl (13.0-16.5); Lymphocyte # 3.41 X10^3/ul (4.0); Lymphocyte % 34.9 % (19-41); Mean Corp Hgb Conc 31.3 g/gl (32-36); Mean Corpuscular Hgb 29.2 pg (27.0-32.0); Mean Corpuscular Volume 93.2 fL (80-94); Mean Platelet Vol. 9.5 fl (6.2-12.0); Monocyte# 1.02 X10^3/uL; Monocyte% 10.4 % (0-10); Neutrophil # 4.51 X10^3/uL (2.7-7.7); Neutrophil % 46.2 % (47-70); Platelet Count 290 K/mm3 (150-450); RBC Distribution Width CV 13.8 % (11.6-14.6); RBC Distribution Width SD 46.6 fl (35.1-43.9); Red Blood Count 4.39 M/mm3 (4.6-6.2); White Blood Count 9.8 K/mm3 (4.4-11.0)
[2019-01-29] MEDS: Carvedilol 6.25 MG Tablet PO ×2 (06:25→18:28)
[2019-01-29] MEDS: DULoxetine Hcl 30 MG Capsule PO ×2 (06:25→18:29)
[2019-01-29] MEDS: Oseltamivir Phosphate 30 MG Capsule PO ×2 (06:25→18:30)
[2019-01-29] MEDS: Clopidogrel Bisulfate 75 MG Tablet PO (06:26)
[2019-01-29] MEDS: lamoTRIgine 100 MG Tablet 250 MG PO (06:26)
[2019-01-29] MEDS: Lisinopril 10 MG Tablet PO (06:26)
[2019-01-29 06:27] LABS: POSITIVE COUNT NO; POSITIVE DIFFERENTIAL NO; POSITIVE MORPHOLOGY NO
[2019-01-29] MEDS: BRIMONIDINE 0.15% 5 ML Bottle 1 DRP EACH EYE ×2 (06:28→18:33)
[2019-01-29] MEDS: Dorzolamide HCL/Timolol 10 ml Bottle 1 DRP EACH EYE ×2 (06:29→18:33)
[2019-01-29] MEDS: Polyethylene Glycol 3350 17 GM PACKET PO (06:32)
[2019-01-29] MEDS: Senna/Docusate Sodium 1 Tablet PO ×2 (06:32→18:29)
[2019-01-29 06:40] LABS: Bedside Glucose 144 mg/dL (70-110)
--- NOTE | 2019-01-29 07:24 | PHA.CONS_ITS ---
Progress Note - Pharmacy Subjective: [] Objective: Allergies No Known Allergies Allergy (Verified 05/27/15 07:47) Current Medications Generic Name Dose Route Start Last Admin Trade Name Freq PRN Reason Stop Dose Admin Acetaminophen 1,000 mg 01/28/19 18:40 Tylenol PO Q6H PRN MILD PAIN (1-3/10) Albuterol Sulfate 2.5 mg 01/28/19 14:03 Ventolin Aerosols INHALATION Q2H PRN PRN SHORTNESS OF BREATH Amoxicillin/Clavulanate Potassium 875 mg 01/29/19 08:00 Augmentin Tablet PO 02/01/19 08:01 [facility] Aspirin 81 mg 01/29/19 08:00 Aspirin, Baby PO DAILY@0800 [facility] Atorvastatin Calcium 80 mg 01/28/19 22:00 01/28/19 21:35 Lipitor PO 80 mg QHS [facility] Administration Bisacodyl 10 mg 01/28/19 18:41 Dulcolax PO DAILY PRN Constipation Brimonidine Tartrate 1 drop 01/28/19 18:00 01/29/19 06:28 Alphagan P 0.15% EACH EYE 1 drop BID [facility] Administration Carvedilol 6.25 mg 01/28/19 18:00 01/29/19 06:25 Coreg PO 6.25 mg BID [facility] Administration Cholecalciferol 5,000 unit 01/29/19 08:00 Vitamin [facility] Clopidogrel Bisulfate 75 mg 01/29/19 06:00 01/29/19 06:26 Plavix PO 75 mg DAILY [facility] Administration Dorzolamide/Timolol 1 drop 01/28/19 18:00 01/29/19 06:29 Cosopt Opth Drops EACH EYE 1 drop BID [facility] Administration Duloxetine HCl 30 mg 01/28/19 18:00 01/29/19 06:25 Cymbalta PO 30 mg BID [facility] Administration Eplerenone 12.5 mg 01/30/19 10:00 Inspra PO QODAY [facility] Glipizide 5 mg 01/29/19 08:00 Glucotrol PO DAILY@0800 [facility] Lamotrigine 250 mg 01/29/19 06:00 01/29/19 06:26 Lamictal PO 250 mg DAILY [facility] Administration Lisinopril 10 mg 01/29/19 06:00 01/29/19 06:26 Zestril PO 10 mg DAILY [facility] Administration Oseltamivir Phosphate 30 mg 01/28/19 18:00 01/29/19 06:25 Tamiflu PO 01/31/19 18:01 30 mg BID [facility] Administration Polyethylene Glycol 17 gm 01/29/19 06:00 01/29/19 06:32 Miralax PO 17 gm DAILY [facility] Administration Quetiapine Fumarate 87.5 mg 01/28/19 22:00 01/28/19 21:35 Seroquel PO 87.5 mg QHS [facility] Administration Senna/Docusate Sodium 1 tablet 01/29/19 06:00 01/29/19 06:32 Senokot-S, Shreya-Colace PO 1 tablet BID [facility] Administration Tuberculin PPD 5 tu 01/29/19 10:00 Tubersol, Aplisol, Ppd ID 01/29/19 10:01 X1 ONE Tuberculin PPD 5 tu 02/05/19 10:00 Tubersol, Aplisol, Ppd ID 02/05/19 10:01 X1 ONE Problem List Fall (Acute) Closed head injury (Acute) Chronic kidney disease, stage 3 (Chronic) Stroke (Chronic) Glaucoma (Chronic) Vitamin D deficiency (Chronic) Depression (Chronic) Seizure disorder (Chronic) Diabetes mellitus (Chronic) Insomnia (Chronic) Vital Signs Temp Pulse Resp BP Pulse Ox 98.0 F 69 18 124/54 H 97 01/28/19 16:01 01/28/19 21:48 01/28/19 16:01 01/28/19 16:01 01/28/19 21:48 Oxygen Delivery Method Room Air Weight: 99.79 kg Body Mass Index (BMI) 31.5 Finger Stick Blood Glucose 144 Sodium 144 mmol/L (136-145) 01/29/19 05:05 Potassium 3.8 mmol/L (3.5-5.1) 01/29/19 05:05 Chloride 108 mmol/L (98-107) H 01/29/19 05:05 Carbon Dioxide 27.0 mmol/L (21.0-32.0) 01/29/19 05:05 Anion Gap 9 (5-15) 01/29/19 05:05 BUN 24 mg/dL (7-18) H 01/29/19 05:05 Creatinine 1.30 mg/dL (0.70-1.30) 01/29/19 05:05 Est GFR (MDRD) Af Amer 68 mL/min (>60) 01/29/19 05:05 Est GFR (MDRD) Non-Af 56 mL/min (>60) L 01/29/19 05:05 BUN/Creatinine Ratio 18.5 RATIO (10-20) 01/29/19 05:05 Glucose 138 mg/dL (74-106) H 01/29/19 05:05 Assessment/Plan: Psychotropic Medications: Unnecessary Medications: Bowel Regimen: Date of Note:: 01/29/19 - Provider Comments Provider responsibility: Provider responsible to enter orders to implement recommendations
[2019-01-29] MEDS: Amox/Clavulanate 875 MG Tablet PO ×2 (09:15→18:28)
[2019-01-29] MEDS: Aspirin 81 MG TAB.CHEW PO (09:15)
[2019-01-29] MEDS: glipiZIDE 5 MG Tablet PO (09:15)
--- NOTE | 2019-01-29 10:49 | NURSING ---
ALL CARE GIVEN IN ROOM DUE TO PT IN PRECAUTIONS FOR FLU TYPE A.
[2019-01-29 10:56] LABS: Bedside Glucose 217 mg/dL (70-110)
[2019-01-29] MEDS: Tuberculin,Purif.prot.deriv. 50 TU/ML Vial 5 ML ID (11:10)
--- NOTE | 2019-01-29 11:15 | RAD_ITS ---
STUDY: X-RAY - ABDOMEN/PELVIS REASON FOR EXAM: Male, 83 years old. Constipation TECHNIQUE: 4 AP view of the abdomen / pelvis. COMPARISON: None. FINDINGS: Normal visualized lung bases. There is an abundance of fecal material throughout the colon. There is no demonstrated free abdominal air. The visualized liver, spleen and kidneys are grossly normal in size and morphology. Normal soft tissue structures. There are diffuse degenerative changes of the visualized lumbar spine. RAD/Abdomen Single View IMPRESSION: Abundant fecal retention throughout the abdomen and pelvis. No evidence of small bowel obstruction. Electronically Signed: Piter Torrez DO at 13:04 EST Tel , Service support ,
[2019-01-29 13:00] VITALS: PULSE 68; RESP 18; O2SAT 97
[2019-01-29 15:45] VITALS: BP 142/76; PULSE 70; RESP 14; TEMP 36.6; O2SAT 97
--- NOTE | 2019-01-29 15:46 | NURSING ---
SOAP SUDS ENEMA GIVEN BY THIS NURSE PER ORDER.
--- NOTE | 2019-01-29 16:23 | NURSING ---
POSITIVE RESULTS FROM SOAP CHANTE ENEMA. LARGE SOFT.
[2019-01-29 17:11] LABS: Bedside Glucose 127 mg/dL (70-110)
--- NOTE | 2019-01-29 19:33 | NURSING ---
Dr. Sylvester reviewed KUB and ordered SSE. med result.
[2019-01-29 21:26] LABS: Bedside Glucose 186 mg/dL (70-110)
[2019-01-29] MEDS: QUEtiapine 25 MG Tablet 87.5 MG PO (21:34)
[2019-01-29] MEDS: Atorvastatin Calcium 80 MG Tablet PO (21:34)
[2019-01-29] MEDS: Menthol/Lanolin/Calamine/Znox 113 GM Tube 1 APPLIC TOPICAL (21:37)
[2019-01-30] MEDS: BRIMONIDINE 0.15% 5 ML Bottle 1 DRP EACH EYE ×2 (05:34→18:08)
[2019-01-30] MEDS: Oseltamivir Phosphate 30 MG Capsule PO ×2 (05:40→18:03)
[2019-01-30] MEDS: Lisinopril 10 MG Tablet PO (05:40)
[2019-01-30] MEDS: Carvedilol 6.25 MG Tablet PO ×2 (05:40→18:03)
[2019-01-30] MEDS: lamoTRIgine 100 MG Tablet 250 MG PO (05:40)
[2019-01-30] MEDS: Polyethylene Glycol 3350 17 GM PACKET PO (05:40)
[2019-01-30] MEDS: Senna/Docusate Sodium 1 Tablet PO ×2 (05:41→18:03)
[2019-01-30] MEDS: Clopidogrel Bisulfate 75 MG Tablet PO (05:41)
[2019-01-30] MEDS: DULoxetine Hcl 30 MG Capsule PO ×2 (05:42→18:03)
[2019-01-30] MEDS: Dorzolamide HCL/Timolol 10 ml Bottle 1 DRP EACH EYE ×2 (05:43→18:08)
--- NOTE | 2019-01-30 05:50 | NURSING ---
All care provide in patient room remains in precaution.
[2019-01-30 07:01] LABS: Bedside Glucose 147 mg/dL (70-110)
[2019-01-30] MEDS: glipiZIDE 5 MG Tablet PO (09:00)
[2019-01-30] MEDS: Amox/Clavulanate 875 MG Tablet PO ×2 (09:00→18:03)
[2019-01-30] MEDS: Aspirin 81 MG TAB.CHEW PO (09:00)
[2019-01-30] MEDS: Menthol/Lanolin/Calamine/Znox 113 GM Tube 1 APPLIC TOPICAL ×2 (11:46→21:49)
[2019-01-30 11:51] LABS: Bedside Glucose 164 mg/dL (70-110)
--- NOTE | 2019-01-30 14:23 | NURSING ---
ALL CARE DONE IN PT ROOM DUE TO PRECAUTIONS.
[2019-01-30] MEDS: Eplerenone 25 MG Tablet 12.5 MG PO (14:27)
[2019-01-30 14:29] VITALS: BP 159/75; PULSE 72
[2019-01-30 14:30] VITALS: PULSE 71; RESP 18; O2SAT 98
[2019-01-30 15:36] VITALS: BP 122/63; PULSE 68; RESP 18; TEMP 36.4; O2SAT 96
--- NOTE | 2019-01-30 16:25 | CHAPLAIN ---
Type of Pastoral Visit ___ Initial Visit _x__ Follow-up Visit ___ On-call Visit ___ General Patient Visit ___ Spiritual Assessment ___ Family Conference ___ Bereavement ___ Rapid Response ___ Code Blue ___ Other (describe below) Pastoral Care Referral From _x__ Patient ___ Family ___ Nurse ___ Physician ___ Net Solutions Architect ___ Plaster Foreman ___ Other (describe below) Sacrament/Intervention _x__ Active listening ___ Anointing ___ Muslim ___ Bereavement ___ Communion ___ More exploration ___ _x__ Life review _x__ Prayer ___ Reconciliation ___ Sacrament of Sick _x__ Supportive presence ___ Wedding ___ Other (describe below) Pastoral Comments
[2019-01-30 17:15] LABS: Bedside Glucose 80 mg/dL (70-110)
[2019-01-30 21:06] LABS: Bedside Glucose 168 mg/dL (70-110)
[2019-01-30] MEDS: QUEtiapine 25 MG Tablet 87.5 MG PO (21:42)
[2019-01-30] MEDS: Atorvastatin Calcium 80 MG Tablet PO (21:42)
--- NOTE | 2019-01-31 05:31 | NURSING ---
All care provide in patient room remains in precaution.
[2019-01-31] MEDS: lamoTRIgine 100 MG Tablet 250 MG PO (05:32)
[2019-01-31] MEDS: BRIMONIDINE 0.15% 5 ML Bottle 1 DRP EACH EYE ×2 (05:37→18:35)
[2019-01-31] MEDS: Carvedilol 6.25 MG Tablet PO ×2 (05:38→18:26)
[2019-01-31] MEDS: Dorzolamide HCL/Timolol 10 ml Bottle 1 DRP EACH EYE ×2 (05:38→18:35)
[2019-01-31] MEDS: DULoxetine Hcl 30 MG Capsule PO ×2 (05:39→18:26)
[2019-01-31] MEDS: Clopidogrel Bisulfate 75 MG Tablet PO (05:39)
[2019-01-31] MEDS: Polyethylene Glycol 3350 17 GM PACKET PO (05:39)
[2019-01-31] MEDS: Oseltamivir Phosphate 30 MG Capsule PO ×2 (05:40→18:27)
[2019-01-31] MEDS: Senna/Docusate Sodium 1 Tablet PO ×2 (05:43→18:26)
[2019-01-31] MEDS: Lisinopril 10 MG Tablet PO (05:43)
[2019-01-31 06:45] LABS: Bedside Glucose 140 mg/dL (70-110)
[2019-01-31] MEDS: Aspirin 81 MG TAB.CHEW PO (09:13)
[2019-01-31] MEDS: glipiZIDE 5 MG Tablet PO (09:14)
[2019-01-31] MEDS: Amox/Clavulanate 875 MG Tablet PO ×2 (09:14→18:25)
[2019-01-31] MEDS: Menthol/Lanolin/Calamine/Znox 113 GM Tube 1 APPLIC TOPICAL ×2 (09:15→21:31)
--- NOTE | 2019-01-31 09:21 | NURSING ---
Care provided in pt room d/t isolation.
--- NOTE | 2019-01-31 10:04 | CASEMGMT ---
Plan of care meeting held. Resident present as well as resident family. No discharge date set. Resident to continue with further care and treatment on the Transitional Care Unit. Current recommendation for discharge date is 02/10/19, resident and resident family agreeable to this date. Resident plans to discharge to home with spouse. No further therapy recommendations. Support given. Proposed discharge date: 02/10/19 PLAN: Discharge to home with spouse. Annetta ASHTON, MYESHA
[2019-01-31 11:51] LABS: Bedside Glucose 169 mg/dL (70-110)
--- NOTE | 2019-01-31 13:50 | CASEMGMT ---
Brief interview for mental status (BIMS) and resident mood interview (PHQ-9) completed on this day. BIMS score 13/15. PHQ-9 score
[2019-01-31 15:48] VITALS: BP 141/74; PULSE 72; RESP 14; TEMP 36.7; O2SAT 92
[2019-01-31 17:16] LABS: Bedside Glucose 129 mg/dL (70-110)
--- NOTE | 2019-01-31 18:27 | NURSING ---
pt noted with increased edema to BLE's and reports pt takes HCTZ at home. DR Sylvester updated, ok to restart HCTZ per home regimen
[2019-01-31 21:05] LABS: Bedside Glucose 186 mg/dL (70-110)
[2019-01-31] MEDS: QUEtiapine 25 MG Tablet 87.5 MG PO (21:26)
[2019-01-31] MEDS: Atorvastatin Calcium 80 MG Tablet PO (21:27)
[2019-01-31 22:07] VITALS: O2SAT 95
[2019-02-01] MEDS: Senna/Docusate Sodium 1 Tablet PO ×2 (06:22→17:43)
[2019-02-01] MEDS: Carvedilol 6.25 MG Tablet PO ×2 (06:22→17:43)
[2019-02-01] MEDS: DULoxetine Hcl 30 MG Capsule PO ×2 (06:22→17:43)
[2019-02-01] MEDS: Clopidogrel Bisulfate 75 MG Tablet PO (06:22)
[2019-02-01] MEDS: hydroCHLOROthiazide 12.5mg 12.5 MG PO (06:22)
[2019-02-01] MEDS: lamoTRIgine 100 MG Tablet 250 MG PO (06:22)
[2019-02-01] MEDS: Polyethylene Glycol 3350 17 GM PACKET PO (06:22)
[2019-02-01] MEDS: Lisinopril 10 MG Tablet PO (06:22)
[2019-02-01] MEDS: BRIMONIDINE 0.15% 5 ML Bottle 1 DRP EACH EYE ×2 (06:30→17:43)
[2019-02-01] MEDS: Dorzolamide HCL/Timolol 10 ml Bottle 1 DRP EACH EYE ×2 (06:30→17:43)
[2019-02-01] MEDS: Nystatin Powder 15gm Bottle 1 APPLIC TOPICAL ×2 (06:48→17:43)
[2019-02-01 06:51] LABS: Bedside Glucose 143 mg/dL (70-110)
--- NOTE | 2019-02-01 06:55 | NURSING ---
All care provided in room d/t pt remains in precautions.
[2019-02-01] MEDS: glipiZIDE 5 MG Tablet PO (08:19)
[2019-02-01] MEDS: Aspirin 81 MG TAB.CHEW PO (08:19)
[2019-02-01] MEDS: Amox/Clavulanate 875 MG Tablet PO (08:19)
[2019-02-01 10:00] VITALS: PULSE 68; RESP 18; O2SAT 95
[2019-02-01 11:21] LABS: Bedside Glucose 196 mg/dL (70-110)
[2019-02-01] MEDS: Eplerenone 25 MG Tablet 12.5 MG PO (12:57)
[2019-02-01] MEDS: Menthol/Lanolin/Calamine/Znox 113 GM Tube 1 APPLIC TOPICAL ×2 (13:00→20:59)
--- NOTE | 2019-02-01 13:33 | MDS.RN ---
Pain interview for katt 02/04/19 completed.
[2019-02-01 15:39] VITALS: BP 125/65; PULSE 68; RESP 14; TEMP 36.9; O2SAT 95
[2019-02-01 16:56] LABS: Bedside Glucose 127 mg/dL (70-110)
[2019-02-01] MEDS: Atorvastatin Calcium 80 MG Tablet PO (20:53)
[2019-02-01] MEDS: QUEtiapine 25 MG Tablet 87.5 MG PO (20:53)
[2019-02-01 21:50] LABS: Bedside Glucose 183 mg/dL (70-110)
[2019-02-02] MEDS: Carvedilol 6.25 MG Tablet PO ×2 (06:22→16:54)
[2019-02-02] MEDS: hydroCHLOROthiazide 12.5mg 12.5 MG PO (06:22)
[2019-02-02] MEDS: Clopidogrel Bisulfate 75 MG Tablet PO (06:22)
[2019-02-02] MEDS: Polyethylene Glycol 3350 17 GM PACKET PO (06:22)
[2019-02-02] MEDS: lamoTRIgine 100 MG Tablet 250 MG PO (06:22)
[2019-02-02] MEDS: DULoxetine Hcl 30 MG Capsule PO ×2 (06:22→16:54)
[2019-02-02] MEDS: Lisinopril 10 MG Tablet PO (06:22)
[2019-02-02] MEDS: Senna/Docusate Sodium 1 Tablet PO ×2 (06:22→16:53)
[2019-02-02] MEDS: BRIMONIDINE 0.15% 5 ML Bottle 1 DRP EACH EYE ×2 (06:37→20:57)
[2019-02-02] MEDS: Dorzolamide HCL/Timolol 10 ml Bottle 1 DRP EACH EYE ×2 (06:37→21:00)
[2019-02-02] MEDS: Nystatin Powder 15gm Bottle 1 APPLIC TOPICAL ×2 (06:38→16:54)
[2019-02-02 06:46] LABS: Bedside Glucose 127 mg/dL (70-110)
--- NOTE | 2019-02-02 06:48 | NURSING ---
Pt reports to of had a BM 02/02 in the afternoon. Staff not witnessed d/t pt flushes toilet before staff is able to assist pt.
[2019-02-02] MEDS: Aspirin 81 MG TAB.CHEW PO (08:13)
[2019-02-02] MEDS: glipiZIDE 5 MG Tablet PO (08:13)
[2019-02-02] MEDS: Menthol/Lanolin/Calamine/Znox 113 GM Tube 1 APPLIC TOPICAL ×2 (08:14→21:01)
--- NOTE | 2019-02-02 09:01 | RAD_ITS ---
STUDY: X-RAY - ABDOMEN/PELVIS REASON FOR EXAM: Male, 83 years old. Constipation. TECHNIQUE: Two AP supine views of the abdomen and pelvis. COMPARISON: 01/29/2019 FINDINGS: There is no bowel obstruction. There is a large amount of stool in the colon, consistent with constipation. There are degenerative changes noted in the spine and hips. RAD/Abdomen Single View IMPRESSION: No bowel obstruction. Constipation. Electronically Signed: Wai Lyons, at 16:50 EST Tel , Service support ,
--- NOTE | 2019-02-02 09:03 | NURSING ---
Dr. Sylvester ordered KUB, nursing has not witnessed any bowel movements since. 01/29
[2019-02-02 10:00] VITALS: PULSE 70; RESP 18; O2SAT 96
[2019-02-02 11:36] LABS: Bedside Glucose 202 mg/dL (70-110)
[2019-02-02 16:00] VITALS: BP 131/70; PULSE 70; RESP 16; TEMP 36.2; O2SAT 94
--- NOTE | 2019-02-02 16:44 | DCINST_ITS ---
- Discharge Diagnoses Current Active Problems: Current Active and Chronic Problems Fall (Acute) Closed head injury (Acute) Chronic kidney disease, stage 3 (Chronic) Stroke (Chronic) Glaucoma (Chronic) Vitamin D deficiency (Chronic) Depression (Chronic) Seizure disorder (Chronic) Diabetes mellitus (Chronic) Insomnia (Chronic) You will use the following diet at home:: No restrictions, Regular Your food should be the consistency of: Regular Your liquids should be the consistency of: Regular/Thin Discharge Activity: Return to Normal Activity, May Shower, Use Walker Weight Bearing Status: Weight bearing as tolerated Call your doctor if you observe: Fever of 101 or Higher, Inability to urinate, Inability to have a bowel movement, Chest pain, Uncontrolled pain Allergies/Adverse Reactions: Allergies No Known Allergies Allergy (Verified 05/27/15 07:47) Medications to take at Discharge Acetaminophen [Tylenol Arthritis] 650 mg PO Q6H PRN PRN 05/21/15 Aspirin [Aspirin, Baby] 81 mg PO DAILY@0800 05/21/15 Atorvastatin Calcium [Lipitor] 80 mg PO QHS 05/21/15 Brimonidine 0.15% [Alphagan P 0.15%] 1 drop EACH EYE BID 05/21/15 Carvedilol [Coreg (Beta Marshall)] 6.25 mg PO BID 05/21/15 Cholecalciferol (VIT D3) [Vitamin D3] 5,000 unit PO DAILY 05/21/15 Clopidogrel Bisulfate [Plavix] 75 mg PO DAILY 05/21/15 Dorzolamide HCL/Timolol [Cosopt Opth Drops] 1 drop EACH EYE BID 05/21/15 Duloxetine Hcl [Cymbalta] 30 mg PO BID 05/21/15 Eplerenone [Inspra] 12.5 mg PO QODAY 05/21/15 Lamotrigine [Lamictal] 250 mg PO DAILY 05/21/15 Lisinopril [Zestril] 10 mg PO DAILY 05/21/15 Quetiapine Fumarate [Seroquel] 87 mg PO QHS 05/21/15 Glipizide 5 mg PO DAILY 01/25/19 Albuterol Aerosols [Ventolin Aerosols] 2.5 mg INHALATION Q2H PRN PRN vial.neb. 01/28/19 Amoxicillin/Potassium Clav [Augmentin 875-125 Tablet] 1 each PO BIDCM 01/28/19 Oseltamivir Phosphate [Tamiflu] 30 mg PO BID 01/28/19 hydroCHLOROthiazide 12.5 mg PO DAILY 01/31/19 Primary Care Physician: Jesica Wright MD [Primary Care Provider] - Please follow up with your Primary Care Physician in: 1 week. Test Results: Test results from this visit will be discussed in further detail at your follow- up appointment, if applicable. Please Follow Up With: Jesica Wright MD When: [phone] Proposed Discharge Date: 02/10/19
--- NOTE | 2019-02-02 16:47 | PCM.DC.SUM ---
Discharge Date and Diagnosis - Problem List Patient Problems: Active and Suspected Problems Fall (Acute) Closed head injury (Acute) Date of Admission: 01/28/19 Date of Discharge: 02/10/19 - Primary Discharge Diagnosis Active and Suspected Problems Fall (Acute) Closed head injury (Acute) - Secondary Discharge Diagnosis Chronic Problems CAD (coronary artery disease) (Chronic) Type 2 diabetes mellitus (Chronic) Chronic kidney disease, stage 3 (Chronic) Stroke (Chronic) Glaucoma (Chronic) Vitamin D deficiency (Chronic) Depression (Chronic) Seizure disorder (Chronic) Diabetes mellitus (Chronic) Insomnia (Chronic) HLD (hyperlipidemia) (Chronic) Hearing deficit (Chronic) DM (dermatomyositis) (Chronic) CVA (cerebral vascular accident) (Chronic) CKD (chronic kidney disease), stage III (Chronic) 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 Discharge home with spouse. Patient Problems: Active and Suspected Problems Fall (Acute) Closed head injury (Acute) - Physical Exam Vital Signs Temp Pulse Resp BP Pulse Ox 98.5 F 68 14 125/65 H 95 02/01/19 15:39 02/01/19 15:39 02/01/19 15:39 02/01/19 15:39 02/01/19 15:39 Oxygen Delivery Method Room Air Weight: 97.579 kg Body Mass Index (BMI) 31.5 Finger Stick Blood Glucose 144 Intake and Output for Last 24 Hours 01/31/19 02/01/19 02/02/19 23:59 23:59 23:59 Intake Total 1320 / 1320 880 / 880 420 / 420 Balance 1320 / 1320 880 / 880 420 / 420 POC Glucose 02/02/19 02/02/19 02/01/19 11:29 06:21 21:41 POC Glucose 202 H 127 H 183 H 02/01/19 16:43 POC Glucose 127 H Discharge Diet: No Restrictions Discharge Activity: Return to Normal Activity, May Shower, Use Walker Weight Bearing Status: Weight bearing as tolerated Call your doctor if you observe: Fever of 101 or Higher, Inability to urinate, Inability to have a bowel movement, Chest pain, Uncontrolled pain Home Medications: Medications to take at Discharge Aspirin [Aspirin, Baby] 81 mg PO DAILY@0800 05/21/15 Atorvastatin Calcium [Lipitor] 80 mg PO QHS 05/21/15 Brimonidine 0.15% [Alphagan P 0.15%] 1 drop EACH EYE BID 05/21/15 Carvedilol [Coreg (Beta Marshall)] 6.25 mg PO BID 05/21/15 Cholecalciferol (VIT D3) [Vitamin D3] 5,000 unit PO DAILY 05/21/15 Clopidogrel Bisulfate [Plavix] 75 mg PO DAILY 05/21/15 Dorzolamide HCL/Timolol [Cosopt Opth Drops] 1 drop EACH EYE BID 05/21/15 Duloxetine Hcl [Cymbalta] 30 mg PO BID 05/21/15 Eplerenone [Inspra] 12.5 mg PO QODAY 05/21/15 Lamotrigine [Lamictal] 250 mg PO DAILY 05/21/15 Lisinopril [Zestril] 10 mg PO DAILY 05/21/15 Quetiapine Fumarate [Seroquel] 87 mg PO QHS 05/21/15 Glipizide 5 mg PO DAILY 01/25/19 Acetaminophen [Tylenol] 1,000 mg PO Q6H PRN tablet 02/02/19 Menthol/Lanolin/Calamine/Znox [Calmoseptine Ointment] 1 applic TOPICAL 1000,2200 tube 02/02/19 Mineral Oil/Petrolatum,White [Eucerin] 1 applic TOPICAL 0600,2200 jar 02/02/19 Nystatin Powder [Mycostatin Powder] 1 applic TOPICAL BID bottle 02/02/19 hydroCHLOROthiazide [Hydrochlorothiazide] 12.5 mg PO DAILY capsule 02/02/19 Primary Care Physician: Jesica Wright MD [Primary Care Provider] - Please follow up with your Primary Care Physician in: 1 week. Please Follow Up With: Jesica Wright MD When: [phone] Disposition: Home Minutes spent on discharge:: 35 Patient Condition:: Stable Medical Necessity - Tobacco Use Smoking Status: Never smoker Tobacco Use: Non-smoker Meaningful Use Info Meaningful Use Diagnoses (Choose all that apply): None applicable
[2019-02-02 16:56] LABS: Bedside Glucose 75 mg/dL (70-110)
[2019-02-02] MEDS: Magnesium Citrate 300 ML PO (18:34)
[2019-02-02] MEDS: QUEtiapine 25 MG Tablet 87.5 MG PO (20:39)
[2019-02-02] MEDS: Atorvastatin Calcium 80 MG Tablet PO (20:41)
[2019-02-02 21:21] LABS: Bedside Glucose 177 mg/dL (70-110)
--- NOTE | 2019-02-03 04:40 | NURSING ---
Addendum entered by Martha Agudelo 02/03/19 05:02: Pt had a extra large BM Original Note: Soap mary enema given per doctor order pt held solution in for about 5 minutes. Tolerated well states feeling cramping in stomach.
[2019-02-03] MEDS: DULoxetine Hcl 30 MG Capsule PO ×2 (04:42→17:40)
[2019-02-03] MEDS: hydroCHLOROthiazide 12.5mg 12.5 MG PO (04:42)
[2019-02-03] MEDS: lamoTRIgine 100 MG Tablet 250 MG PO (04:43)
[2019-02-03] MEDS: Dorzolamide HCL/Timolol 10 ml Bottle 1 DRP EACH EYE ×2 (04:43→21:28)
[2019-02-03] MEDS: Clopidogrel Bisulfate 75 MG Tablet PO (04:44)
[2019-02-03] MEDS: Lisinopril 10 MG Tablet PO (04:44)
[2019-02-03] MEDS: Carvedilol 6.25 MG Tablet PO ×2 (04:44→17:40)
[2019-02-03] MEDS: Nystatin Powder 15gm Bottle 1 APPLIC TOPICAL ×2 (04:45→17:42)
[2019-02-03] MEDS: Senna/Docusate Sodium 1 Tablet PO ×2 (04:47→17:40)
[2019-02-03] MEDS: BRIMONIDINE 0.15% 5 ML Bottle 1 DRP EACH EYE ×2 (05:00→21:24)
--- NOTE | 2019-02-03 05:15 | NURSING ---
All care provided in pt room d/t precaution
[2019-02-03 06:36] LABS: Bedside Glucose 159 mg/dL (70-110)
[2019-02-03 07:21] VITALS: RESP 18; O2SAT 95
[2019-02-03] MEDS: glipiZIDE 5 MG Tablet PO (08:51)
[2019-02-03] MEDS: Aspirin 81 MG TAB.CHEW PO (08:51)
[2019-02-03 09:02] VITALS: BP 104/62; PULSE 61
[2019-02-03] MEDS: Eplerenone 25 MG Tablet 12.5 MG PO (09:02)
--- NOTE | 2019-02-03 09:03 | NURSING ---
PT IN PRECAUTIONS FOR INFLUENZA A. ALL CARE GIVEN IN ROOM.
[2019-02-03 11:40] LABS: Bedside Glucose 156 mg/dL (70-110)
[2019-02-03] MEDS: Menthol/Lanolin/Calamine/Znox 113 GM Tube 1 APPLIC TOPICAL ×2 (12:52→21:28)
[2019-02-03 15:26] VITALS: BP 102/55; PULSE 59; RESP 16; TEMP 36.9; O2SAT 95
[2019-02-03 17:06] LABS: Bedside Glucose 116 mg/dL (70-110)
[2019-02-03 17:40] VITALS: PULSE 65
[2019-02-03] MEDS: QUEtiapine 25 MG Tablet 87.5 MG PO (21:24)
[2019-02-03] MEDS: Atorvastatin Calcium 80 MG Tablet PO (21:24)
[2019-02-03 21:31] LABS: Bedside Glucose 166 mg/dL (70-110)
[2019-02-04] MEDS: Carvedilol 6.25 MG Tablet PO ×2 (05:48→17:25)
[2019-02-04] MEDS: Lisinopril 10 MG Tablet PO (05:48)
[2019-02-04] MEDS: Senna/Docusate Sodium 1 Tablet PO ×2 (05:48→17:25)
[2019-02-04] MEDS: Polyethylene Glycol 3350 17 GM PACKET PO (05:48)
[2019-02-04] MEDS: Clopidogrel Bisulfate 75 MG Tablet PO (05:48)
[2019-02-04] MEDS: DULoxetine Hcl 30 MG Capsule PO ×2 (05:48→17:25)
[2019-02-04] MEDS: lamoTRIgine 100 MG Tablet 250 MG PO (05:48)
[2019-02-04] MEDS: hydroCHLOROthiazide 12.5mg 12.5 MG PO (05:49)
[2019-02-04] MEDS: BRIMONIDINE 0.15% 5 ML Bottle 1 DRP EACH EYE ×2 (05:53→19:32)
[2019-02-04] MEDS: Nystatin Powder 15gm Bottle 1 APPLIC TOPICAL ×2 (05:56→17:26)
[2019-02-04] MEDS: Dorzolamide HCL/Timolol 10 ml Bottle 1 DRP EACH EYE ×2 (06:00→19:38)
[2019-02-04 06:21] LABS: Bedside Glucose 126 mg/dL (70-110)
[2019-02-04] MEDS: Aspirin 81 MG TAB.CHEW PO (08:33)
[2019-02-04] MEDS: glipiZIDE 5 MG Tablet PO (08:33)
[2019-02-04 10:15] VITALS: PULSE 63; RESP 18; O2SAT 63
[2019-02-04 11:06] LABS: Bedside Glucose 212 mg/dL (70-110)
[2019-02-04] MEDS: Menthol/Lanolin/Calamine/Znox 113 GM Tube 1 APPLIC TOPICAL ×2 (11:49→19:41)
[2019-02-04 15:48] VITALS: BP 100/57; PULSE 64; RESP 18; TEMP 36.7; O2SAT 95
[2019-02-04 17:05] LABS: Bedside Glucose 90 mg/dL (70-110)
[2019-02-04] MEDS: QUEtiapine 25 MG Tablet 87.5 MG PO (19:32)
[2019-02-04] MEDS: Atorvastatin Calcium 80 MG Tablet PO (19:35)
[2019-02-04 21:15] LABS: Bedside Glucose 207 mg/dL (70-110)
[2019-02-05] MEDS: BRIMONIDINE 0.15% 5 ML Bottle 1 DRP EACH EYE ×2 (05:50→21:37)
[2019-02-05] MEDS: Dorzolamide HCL/Timolol 10 ml Bottle 1 DRP EACH EYE ×2 (05:54→21:41)
[2019-02-05] MEDS: Clopidogrel Bisulfate 75 MG Tablet PO (05:55)
[2019-02-05] MEDS: DULoxetine Hcl 30 MG Capsule PO ×2 (05:55→17:21)
[2019-02-05] MEDS: Lisinopril 10 MG Tablet PO (05:55)
[2019-02-05] MEDS: Senna/Docusate Sodium 1 Tablet PO ×2 (05:55→17:21)
[2019-02-05] MEDS: lamoTRIgine 100 MG Tablet 250 MG PO (05:55)
[2019-02-05] MEDS: hydroCHLOROthiazide 12.5mg 12.5 MG PO (05:55)
[2019-02-05] MEDS: Carvedilol 6.25 MG Tablet PO ×2 (05:55→17:21)
[2019-02-05] MEDS: Polyethylene Glycol 3350 17 GM PACKET PO (05:57)
[2019-02-05] MEDS: Nystatin Powder 15gm Bottle 1 APPLIC TOPICAL ×2 (05:57→17:22)
[2019-02-05 06:15] LABS: Anion Gap 10 (5-15); BUN 29 mg/dL (7-18); Calcium,Total 8.7 mg/dL (8.5-10.1); Chloride 106 mmol/L (98-107); Creatinine, Serum 1.38 mg/dL (0.70-1.30); EST Glomerular Filtration Rate 52 mL/min (>60); Est Glom Filt Rate - Afr Amer 63 mL/min (>60); Estimated Creatinine Clearance 41.14 ml/min; Glucose 133 mg/dL (74-106); Potassium 3.8 mmol/L (3.5-5.1); Sodium Level 143 mmol/L (136-145)
[2019-02-05 06:36] LABS: Bedside Glucose 127 mg/dL (70-110)
[2019-02-05 06:46] LABS: Absolute Lymphocyte Count 2.88 X10^3/ul (0.83-4.51); Absolute Neutrophil Count 5.2 X10^3/uL (2.0-7.7); Basophil# 0.11 X10^3/uL; Basophil% 1.1 % (0-1); Eosinophil# 0.41 X10^3/uL; Eosinophils% 4.2 % (0-5); Hematocrit 37.7 % (40-54); Hemoglobin 11.9 g/dl (13.0-16.5); Lymphocyte # 2.88 X10^3/ul (4.0); Lymphocyte % 29.4 % (19-41); Mean Corp Hgb Conc 31.6 g/gl (32-36); Mean Corpuscular Hgb 29.5 pg (27.0-32.0); Mean Corpuscular Volume 93.5 fL (80-94); Mean Platelet Vol. 9.1 fl (6.2-12.0); Monocyte# 1.18 X10^3/uL; Monocyte% 12.1 % (0-10); Neutrophil # 5.15 X10^3/uL (2.7-7.7); Neutrophil % 52.6 % (47-70); Platelet Count 297 K/mm3 (150-450); Red Blood Count 4.03 M/mm3 (4.6-6.2); White Blood Count 9.8 K/mm3 (4.4-11.0)
[2019-02-05 06:52] LABS: Differential Indicated SCAN CRITERIA MET; POSITIVE COUNT NO; POSITIVE DIFFERENTIAL NO; POSITIVE MORPHOLOGY YES
[2019-02-05] MEDS: glipiZIDE 5 MG Tablet PO (08:05)
[2019-02-05] MEDS: Aspirin 81 MG TAB.CHEW PO (08:05)
[2019-02-05] MEDS: Menthol/Lanolin/Calamine/Znox 113 GM Tube 1 APPLIC TOPICAL ×2 (08:06→21:43)
[2019-02-05 10:00] VITALS: PULSE 68; RESP 18; O2SAT 96
[2019-02-05] MEDS: Eplerenone 25 MG Tablet 12.5 MG PO (10:36)
[2019-02-05 11:06] LABS: Bedside Glucose 222 mg/dL (70-110)
[2019-02-05] MEDS: Tuberculin,Purif.prot.deriv. 50 TU/ML Vial 5 ML ID (13:15)
[2019-02-05 15:24] VITALS: BP 160/75; PULSE 66; RESP 18; TEMP 36.6; O2SAT 93
[2019-02-05 17:16] LABS: Bedside Glucose 76 mg/dL (70-110)
[2019-02-05 21:30] LABS: Bedside Glucose 157 mg/dL (70-110)
[2019-02-05] MEDS: QUEtiapine 25 MG Tablet 87.5 MG PO (21:38)
[2019-02-05] MEDS: Atorvastatin Calcium 80 MG Tablet PO (21:40)
[2019-02-06] MEDS: BRIMONIDINE 0.15% 5 ML Bottle 1 DRP EACH EYE ×2 (05:34→21:14)
[2019-02-06] MEDS: Polyethylene Glycol 3350 17 GM PACKET PO (05:36)
[2019-02-06] MEDS: Dorzolamide HCL/Timolol 10 ml Bottle 1 DRP EACH EYE ×2 (05:39→21:21)
[2019-02-06] MEDS: Lisinopril 10 MG Tablet PO (05:40)
[2019-02-06] MEDS: DULoxetine Hcl 30 MG Capsule PO ×2 (05:40→17:25)
[2019-02-06] MEDS: Carvedilol 6.25 MG Tablet PO ×2 (05:40→17:25)
[2019-02-06] MEDS: lamoTRIgine 100 MG Tablet 250 MG PO (05:40)
[2019-02-06] MEDS: Senna/Docusate Sodium 1 Tablet PO ×2 (05:40→17:25)
[2019-02-06] MEDS: hydroCHLOROthiazide 12.5mg 12.5 MG PO (05:40)
[2019-02-06] MEDS: Clopidogrel Bisulfate 75 MG Tablet PO (05:40)
[2019-02-06] MEDS: Menthol/Lanolin/Calamine/Znox 113 GM Tube 1 APPLIC TOPICAL ×2 (05:41→21:14)
[2019-02-06] MEDS: Nystatin Powder 15gm Bottle 1 APPLIC TOPICAL ×2 (05:42→17:25)
[2019-02-06 06:36] LABS: Bedside Glucose 130 mg/dL (70-110)
[2019-02-06] MEDS: glipiZIDE 5 MG Tablet PO (08:32)
[2019-02-06] MEDS: Aspirin 81 MG TAB.CHEW PO (08:32)
[2019-02-06 09:55] VITALS: PULSE 66; RESP 18; O2SAT 96
--- NOTE | 2019-02-06 11:52 | CASEMGMT ---
Addendum entered by Alba Goins 02/06/19 12:03: Reviewed and approved social work student documentation, Note: resident signed Notice of Medicare Non-Coverage, which is referred to as discharge paperwork below. Annetta ASHTON, REAMING MACHINE OPERATOR Original Note: social work Social work student spoke with resident in room confirming discharge date. Resident is agreeable to discharge on Tuesday, February 10 and reported already owning a walker. Resident reported that his will pick him up on Tuesday. No further therapy recommended at this time. Resident signed discharge paperwork. Made copy for resident to have. Gay Guerin social work student
[2019-02-06 15:49] VITALS: BP 107/51; PULSE 60; RESP 18; TEMP 36.7; O2SAT 97
[2019-02-06] MEDS: QUEtiapine 25 MG Tablet 87.5 MG PO (21:15)
[2019-02-06] MEDS: Atorvastatin Calcium 80 MG Tablet PO (21:16)
[2019-02-07 06:46] LABS: Bedside Glucose 126 mg/dL (70-110)
[2019-02-07] MEDS: BRIMONIDINE 0.15% 5 ML Bottle 1 DRP EACH EYE ×2 (07:03→22:18)
[2019-02-07] MEDS: Carvedilol 6.25 MG Tablet PO ×2 (07:04→17:14)
[2019-02-07] MEDS: lamoTRIgine 100 MG Tablet 250 MG PO (07:05)
[2019-02-07] MEDS: DULoxetine Hcl 30 MG Capsule PO ×2 (07:05→17:14)
[2019-02-07] MEDS: Clopidogrel Bisulfate 75 MG Tablet PO (07:06)
[2019-02-07] MEDS: Nystatin Powder 15gm Bottle 1 APPLIC TOPICAL ×2 (07:06→17:14)
[2019-02-07] MEDS: hydroCHLOROthiazide 12.5mg 12.5 MG PO (07:07)
[2019-02-07] MEDS: Senna/Docusate Sodium 1 Tablet PO ×2 (07:07→17:14)
[2019-02-07] MEDS: Lisinopril 10 MG Tablet PO (07:07)
[2019-02-07] MEDS: Polyethylene Glycol 3350 17 GM PACKET PO (07:08)
[2019-02-07] MEDS: Dorzolamide HCL/Timolol 10 ml Bottle 1 DRP EACH EYE ×2 (07:10→22:27)
[2019-02-07] MEDS: glipiZIDE 5 MG Tablet PO (08:04)
[2019-02-07] MEDS: Aspirin 81 MG TAB.CHEW PO (08:04)
[2019-02-07] MEDS: Eplerenone 25 MG Tablet 12.5 MG PO (09:38)
[2019-02-07] MEDS: Menthol/Lanolin/Calamine/Znox 113 GM Tube 1 APPLIC TOPICAL ×2 (09:40→22:18)
--- NOTE | 2019-02-07 11:59 | MDS.RN ---
Information for the mds was obtained from review of the clinical record, interview of resident, staff, and direct observation of resident's care.
[2019-02-07 22:00] VITALS: PULSE 64; RESP 16; O2SAT 97
[2019-02-07] MEDS: Atorvastatin Calcium 80 MG Tablet PO (22:19)
[2019-02-07] MEDS: QUEtiapine 25 MG Tablet 87.5 MG PO (22:20)
[2019-02-08 06:46] LABS: Bedside Glucose 131 mg/dL (70-110)
[2019-02-08] MEDS: hydroCHLOROthiazide 12.5mg 12.5 MG PO (07:16)
[2019-02-08] MEDS: DULoxetine Hcl 30 MG Capsule PO ×2 (07:16→17:34)
[2019-02-08] MEDS: BRIMONIDINE 0.15% 5 ML Bottle 1 DRP EACH EYE ×2 (07:16→21:22)
[2019-02-08] MEDS: lamoTRIgine 100 MG Tablet 250 MG PO (07:17)
[2019-02-08] MEDS: Carvedilol 6.25 MG Tablet PO ×2 (07:17→17:34)
[2019-02-08] MEDS: Lisinopril 10 MG Tablet PO (07:17)
[2019-02-08] MEDS: Clopidogrel Bisulfate 75 MG Tablet PO (07:20)
[2019-02-08] MEDS: Senna/Docusate Sodium 1 Tablet PO ×2 (07:20→17:34)
[2019-02-08] MEDS: Polyethylene Glycol 3350 17 GM PACKET PO (07:22)
[2019-02-08] MEDS: Nystatin Powder 15gm Bottle 1 APPLIC TOPICAL ×2 (07:22→17:35)
[2019-02-08] MEDS: Dorzolamide HCL/Timolol 10 ml Bottle 1 DRP EACH EYE ×2 (07:25→21:27)
[2019-02-08] MEDS: Aspirin 81 MG TAB.CHEW PO (08:17)
[2019-02-08] MEDS: glipiZIDE 5 MG Tablet PO (08:17)
[2019-02-08] MEDS: Menthol/Lanolin/Calamine/Znox 113 GM Tube 1 APPLIC TOPICAL ×2 (08:18→21:22)
[2019-02-08 15:43] VITALS: BP 91/54; PULSE 66; RESP 18; TEMP 36.8; O2SAT 95
[2019-02-08] MEDS: QUEtiapine 25 MG Tablet 87.5 MG PO (21:23)
[2019-02-08 21:25] VITALS: PULSE 60; RESP 16; O2SAT 95
[2019-02-08] MEDS: Atorvastatin Calcium 80 MG Tablet PO (21:25)
[2019-02-09] MEDS: BRIMONIDINE 0.15% 5 ML Bottle 1 DRP EACH EYE ×2 (06:43→20:40)
[2019-02-09] MEDS: Polyethylene Glycol 3350 17 GM PACKET PO (06:44)
[2019-02-09] MEDS: hydroCHLOROthiazide 12.5mg 12.5 MG PO (06:45)
[2019-02-09] MEDS: Clopidogrel Bisulfate 75 MG Tablet PO (06:45)
[2019-02-09] MEDS: Lisinopril 10 MG Tablet PO (06:45)
[2019-02-09] MEDS: DULoxetine Hcl 30 MG Capsule PO ×2 (06:45→17:30)
[2019-02-09] MEDS: lamoTRIgine 100 MG Tablet 250 MG PO (06:45)
[2019-02-09] MEDS: Nystatin Powder 15gm Bottle 1 APPLIC TOPICAL ×2 (06:46→17:30)
[2019-02-09] MEDS: Senna/Docusate Sodium 1 Tablet PO ×2 (06:46→17:30)
[2019-02-09] MEDS: Carvedilol 6.25 MG Tablet PO ×2 (06:46→17:30)
[2019-02-09] MEDS: Dorzolamide HCL/Timolol 10 ml Bottle 1 DRP EACH EYE ×2 (06:50→20:45)
[2019-02-09 07:05] LABS: Bedside Glucose 117 mg/dL (70-110)
[2019-02-09] MEDS: Aspirin 81 MG TAB.CHEW PO (08:27)
[2019-02-09] MEDS: glipiZIDE 5 MG Tablet PO (08:27)
[2019-02-09] MEDS: Eplerenone 25 MG Tablet 12.5 MG PO (11:13)
[2019-02-09 11:23] VITALS: BP 101/53; PULSE 67
[2019-02-09 15:26] VITALS: BP 107/61; PULSE 67; RESP 16; TEMP 36.4; O2SAT 95
[2019-02-09] MEDS: QUEtiapine 25 MG Tablet 87.5 MG PO (20:42)
[2019-02-09] MEDS: Atorvastatin Calcium 80 MG Tablet PO (20:42)
[2019-02-09] MEDS: Menthol/Lanolin/Calamine/Znox 113 GM Tube 1 APPLIC TOPICAL (20:42)
[2019-02-09 20:45] VITALS: PULSE 68; RESP 16; O2SAT 96
[2019-02-10] MEDS: BRIMONIDINE 0.15% 5 ML Bottle 1 DRP EACH EYE (05:09)
[2019-02-10] MEDS: Carvedilol 6.25 MG Tablet PO (05:10)
[2019-02-10] MEDS: lamoTRIgine 100 MG Tablet 250 MG PO (05:10)
[2019-02-10] MEDS: Senna/Docusate Sodium 1 Tablet PO (05:10)
[2019-02-10] MEDS: DULoxetine Hcl 30 MG Capsule PO (05:10)
[2019-02-10] MEDS: Polyethylene Glycol 3350 17 GM PACKET PO (05:10)
[2019-02-10] MEDS: Lisinopril 10 MG Tablet PO (05:11)
[2019-02-10] MEDS: Clopidogrel Bisulfate 75 MG Tablet PO (05:11)
[2019-02-10] MEDS: hydroCHLOROthiazide 12.5mg 12.5 MG PO (05:11)
[2019-02-10] MEDS: Dorzolamide HCL/Timolol 10 ml Bottle 1 DRP EACH EYE (05:14)
[2019-02-10] MEDS: Nystatin Powder 15gm Bottle 1 APPLIC TOPICAL (05:14)
[2019-02-10 06:51] LABS: Bedside Glucose 133 mg/dL (70-110)
[2019-02-10] MEDS: glipiZIDE 5 MG Tablet PO (07:59)
[2019-02-10] MEDS: Aspirin 81 MG TAB.CHEW PO (07:59)
[2019-02-10 10:00] VITALS: PULSE 60; O2SAT 96
[2019-02-10 10:57] VITALS: BP 89/55; PULSE 61; RESP 16; TEMP 36.3; O2SAT 96
== END 2019-02-10 10:45 | disposition home or self-care (01) | DRG 947 ==
PROVIDERS: Admitting Provider Family Medicine Geriatric Medicine; Family Provider Internal Medicine; PCP Internal Medicine; Visit Provider Family Medicine Geriatric Medicine
DX: R53.81 Other malaise (principal); J10.01 Influenza due to other identified influenza virus with the same other identified influenza virus pneumonia; I50.22 Chronic systolic (congestive) heart failure; I13.0 Hypertensive heart and chronic kidney disease with heart failure and stage 1 through stage 4 chronic kidney disease, or unspecified chronic kidney disease; I25.10 Atherosclerotic heart disease of native coronary artery without angina pectoris; E55.9 Vitamin D deficiency, unspecified; E78.5 Hyperlipidemia, unspecified; H40.9 Unspecified glaucoma; E11.22 Type 2 diabetes mellitus with diabetic chronic kidney disease; N18.3 Chronic kidney disease, stage 3 (moderate); Z86.73 Personal history of transient ischemic attack (TIA), and cerebral infarction without residual deficits; F41.9 Anxiety disorder, unspecified
CPT/HCPCS: 36415; 74018; 80048; 82962; 85025; 97110; 97116; 97163; 97165; 97530; 97535; 97802

== ENCOUNTER 2019-10-02 05:54 | Day surgery (SDC) | payer MEDICARE, OTHER, SELFPAY ==
[2019-01-28 13:36] VITALS: BMI 31.5
--- NOTE | 2019-09-24 10:36 | EKG12_ITS ---
Test Reason : PREOP Blood Pressure : / mmHG Vent. Rate : 068 BPM Atrial Rate : 068 BPM P-R Int : 200 ms QRS Dur : 078 ms QT Int : 404 ms P-R-T Axes : 034 041 118 degrees QTc Int : 429 ms Normal sinus rhythm Nonspecific ST and T wave abnormality Abnormal ECG Confirmed by JENNIFER WHATLEY, MEREDITH ([id number]), offline editor VEDA RODRIGUEZ ([id number]) on 09/25/2019 10:52:41 AM Referred By: Brian Puri Confirmed By:MEREDITH RODRIGUEZ MD
[2019-10-02 06:15] VITALS: BP 132/66; PULSE 72; RESP 16; TEMP 36.5; O2SAT 95; BMI 31.4
[2019-10-02 06:50] LABS: Bedside Glucose 180 mg/dL (70-110)
[2019-10-02] MEDS: Ciprofloxacin 0.3% 2.5ml Bottle 1 DRP (07:38)
[2019-10-02] MEDS: Epinephrine (1 mg/ml) 1 MG/ML VIAL (07:39)
--- NOTE | 2019-10-02 07:47 | PCM.OPRPT ---
Report of Operation Date of Procedure: 10/02/19 Pre-Operative Diagnosis: Chronic left serous otitis media Post-Operative Diagnosis: Same Surgery/Procedure Performed:: Left myringotomy and insertion of T-tube Description of Surgical Findings:: Procedure left myringotomy and insertion of T-tube Operative diagnosis serous otitis media Postoperative diagnosis same Esthesia General Procedure the patient was placed supine on the operating room table and after satisfactory general anesthesia had been obtained sterile drapes were applied and the patient draped in the usual sterile manner. The left ear was examined with the operating microscope. The old PE tube was noted to be totally blocked with squamous debris. Tube was removed. Bren colored fluid was aspirated from the middle ear. A fresh T-tube was placed in position and was irrigated with Ciprodex solution. The right ear was examined to the operating microscope and was noted to be normal. The procedure was considered terminated and the patient returned to the recovery room in satisfactory condition. Brian Puri MD
[2019-10-02 07:51] VITALS: BP 117/67; BP 132/66; PULSE 78; RESP 16; TEMP 36.9; O2SAT 94
[2019-10-02 07:55] VITALS: BP 127/74; BP 132/66; PULSE 76; RESP 18; O2SAT 93
[2019-10-02 08:00] VITALS: BP 127/71; BP 132/66; PULSE 72; RESP 16; O2SAT 93
[2019-10-02 08:05] VITALS: BP 128/78; BP 132/66; PULSE 75; RESP 18; TEMP 36.9; O2SAT 94
[2019-10-02 08:45] VITALS: BP 132/66
== END 2019-10-02 08:45 | disposition home or self-care (01) ==
LOC: SDC 05:56 → AC 05:56
PROVIDERS: Family Provider Internal Medicine; PCP Internal Medicine; Referring Provider Otolaryngology Otolaryngology/Facial Plastic Surgery; Visit Provider Otolaryngology Otolaryngology/Facial Plastic Surgery
PROC: (CPT 69436; principal; 2019-10-02 07:25)
DX: H65.22 Chronic serous otitis media, left ear (principal); E11.22 Type 2 diabetes mellitus with diabetic chronic kidney disease; I12.9 Hypertensive chronic kidney disease with stage 1 through stage 4 chronic kidney disease, or unspecified chronic kidney disease; I25.10 Atherosclerotic heart disease of native coronary artery without angina pectoris; N18.3 Chronic kidney disease, stage 3 (moderate); E78.00 Pure hypercholesterolemia, unspecified; F31.9 Bipolar disorder, unspecified; F41.9 Anxiety disorder, unspecified; Z79.84 Long term (current) use of oral hypoglycemic drugs; Z79.02 Long term (current) use of antithrombotics/antiplatelets; Z79.82 Long term (current) use of aspirin; Z79.899 Other long term (current) drug therapy; Z95.5 Presence of coronary angioplasty implant and graft; Z86.73 Personal history of transient ischemic attack (TIA), and cerebral infarction without residual deficits
CPT/HCPCS: 69436; 82962; 93005; J7120

== ENCOUNTER 2019-12-18 10:01 | Inpatient (IN) | payer MEDICARE, OTHER, SELFPAY ==
[2019-12-18] VITALS (7 sets, daily range): BP systolic 108–116; BP diastolic 61–80; PULSE 71–87; RESP 16–18; TEMP 36.4–36.9; O2SAT 92–95; BMI 31.5; BMI 30.1
--- NOTE | 2019-12-18 10:25 | CT_ITS ---
STUDY: CT ABDOMEN AND PELVIS WITHOUT CONTRAST REASON FOR EXAM: Male, 84 years old. N/V/D, COUGH, SNEEZING, WEAKNESS RADIATION DOSAGE (If Supplied By Facility): CTDIvol = ( 14.59 ) mGy, DLP = ( 783.57 ) mGycm TECHNIQUE: Transaxial images were obtained from the dome of the diaphragm to the symphysis pubis without oral contrast, and without intravenous contrast. Sagittal and coronal images were reconstructed. Individualized dose optimization techniques were used for this CT. COMPARISON: None. FINDINGS: Mild degree of increased markings at the lung bases suggestive of a scarring. Coronary artery calcification. Small cysts are seen in the liver. There are multiple small gallstones. There are multiple benign calcified granulomata of the spleen. There is diffuse atrophy of the pancreas. Normal bilateral adrenal glands. Normal right kidney. Normal left kidney. Normal visualized stomach. Normal small intestine. There are multiple colonic diverticula consistent with diverticulosis. The appendix is visualized and appears normal. There is diffuse atherosclerotic calcification of the abdominal aorta and the major visceral branches, without a demonstrated aneurysm. Normal inferior vena cava. Normal retroperitoneum. Nonspecific increased markings in the mesenteric fat in the root of the mesentery. Normal urinary bladder. There are prostatic calcifications. Enlargement of the prostate gland with indentation at the bladder base. Normal abdominal wall. There are diffuse degenerative changes of the visualized lumbar spine. CT/Abdomen/Pelvis without Cont IMPRESSION: Multiple small gallstones. Nonspecific increased markings in the root of the mesenteric fat. Electronically Signed: Thomas Guallpa, at 11:52 EST , Service support ,
[2019-12-18 10:36] LABS: Absolute Lymphocyte Count 2.12 X10^3/uL (0.83-4.51); Absolute Neutrophil Count 6.1 X10^3/uL (2.0-7.7); Basophil# 0.04 X10^3/uL; Basophil% 0.4 % (0-1); Eosinophil# 0.24 X10^3/uL; Eosinophils% 2.5 % (0-5); Hematocrit 42.4 % (40-54); Hemoglobin 13.4 g/dL (13.0-16.5); Lymphocyte # 2.12 X10^3/ul (4.0); Lymphocyte % 21.8 % (19-41); Mean Corp Hgb Conc 31.6 g/dL (32-36); Mean Corpuscular Hgb 29.6 pg (27.0-32.0); Mean Corpuscular Volume 93.8 fL (80-94); Mean Platelet Vol. 9.2 fl (6.2-12.0); Monocyte# 1.12 X10^3/uL; Monocyte% 11.5 % (0-10); NRBC Flagged by Analyzer 0 % (0-5); Neutrophil # 6.14 X10^3/uL (2.7-7.7); Neutrophil % 63.2 % (47-70); Platelet Count 271 K/mm3 (150-450); RBC Distribution Width CV 13.5 % (11.6-14.6); RBC Distribution Width SD 45.9 fl (35.1-43.9); Red Blood Count 4.52 M/mm3 (4.6-6.2); White Blood Count 9.7 K/mm3 (4.4-11.0)
--- NOTE | 2019-12-18 10:45 | ED.VISSUMM ---
- ER Visit Summary Date of Service: 12/18/19 Chief Complaint: Diarrhea, confusion History of Present Illness: The patient is a [address] Wright. Patient is very hard of hearing and most history is through his . She reports that 2 days ago he became nauseated and vomited once. There was no blood in his emesis. Since that time he has had 5-6 episodes of diarrhea. No blood in his stools or black tarry stools. Patient complains of a cramping abdominal pain is 4-10 in severity. reports that the patient is confused since yesterday. She states that he went in to have diarrhea and did not lift the toilet seat sat on it and had diarrhea. This is different than anything he is ever had previously confusion strong. Patient has had sick contacts. He has been in the hospital visiting his brother recently. Has not been camping out of the country. No recent antibiotic use. No possible bad food exposure. He does not drink well water. Patient has been sneezing and has had generalized weakness. He has been off balance and has had a poor appetite. Otherwise his review of systems is negative. No fever, chest pain, cough, shortness of breath. No dysuria or frequency. No rash or headache. No numbness. Physical Examination: Vitals: Stable. Afebrile. General: Well-nourished and well-developed. Head: Normocephalic atraumatic. Neck: Supple, no lymphadenopathy. No JVD. Nontender. Cardiovascular: Regular rate and rhythm. 2 out of 6 diastolic murmur. Respiratory: No respiratory distress. Clear to auscultation bilaterally. Abdominal: Soft, mild left lower quadrant tenderness to palpation, nondistended, normal bowel sounds. No guarding, rebound, or peritoneal signs. Back: Nontender. Extremities: Nontender, no edema. Skin: Normal color, no rash. Neurologic: Alert and oriented ?3. Cranial nerves II through XII are intact. Normal strength and sensation. Psych: Normal affect. Test Results: CBC shows monocytes of 12. Chem-7 shows a chloride of 108, glucose 233, BUN of 41, creatinine 2.29. Baseline creatinine was 1.31?1.38 in 2019. UA shows leukocytes 5-10 white blood cells and rare bacteria. This was sent for culture. Clinical Impression(s) from Imaging Studies Abdomen/Pelvis CT 12/18/19 10:25 IMPRESSION: Multiple small gallstones. Nonspecific increased markings in the root of the mesenteric fat. Electronically Signed: Thomas Guallpa, at 11:52 EST , Service support , Emergency Department Course and Treatment: Patient was given a 500 cc bolus of normal saline. He refused pain or nausea medications. He is resting comfortably. I did not give the patient antibiotics for his urine as I do not want to worsen his diarrhea. This was sent for culture. Treatment Plan: Patient has acute kidney injury and generalized weakness. He also has confusion. He will be discussed with the hospitalist and admitted for further evaluation and treatment. Disposition: Admitted in improved condition. Impression: 1. Diarrhea. 2. Acute kidney injury. 3. Generalized weakness. This note was generated with [employer] dictation software. It may contain incorrect words, spelling, and punctuation that were not noted in review of the chart prior to signing ED Disposition - Plan for ED Patient: Referrals: Jesica Wright MD [Primary Care Provider] -
[2019-12-18 10:48] LABS: Mucous, Urine 0 SEEN /hpf (<or=2+)
[2019-12-18 10:49] LABS: Color, Urine Yellow (Yellow); Glucose, Dipstick Normal (Normal); Ketone-Dipstick 5 mg/dl (Negative); Leukocyte Esterase-Dipstick 100 /ul (Negative); Nitrite-Dipstick Negative (Negative); Occult Blood-Urine Negative /ul (Negative); Protein-Dipstick 15 mg/dl (Negative); Specific Gravity, Urine 1.025 (1.002-1.030); Urine Bilirubin Dipstick Negative (Negative); Urine Clarity Clear (Clear); Urine Urobilinogen Normal (Normal)
[2019-12-18 10:52] LABS: AST(SGOT) 35 U/L (15-37); Alanine Aminotransfer ALT/SGPT 73 U/L (16-61); Albumin, Serum 3.4 g/dL (3.2-5.0); Alkaline Phosphatase 72 U/L (45-117); Anion Gap 8 (5-15); BUN 41 mg/dL (7-18); BUN/Creat Ratio 17.9 RATIO (10-20); Calcium,Total 8.6 mg/dL (8.5-10.1); Chloride 108 mmol/L (98-107); Creatinine, Serum 2.29 mg/dL (0.70-1.30); EST Glomerular Filtration Rate 29 mL/min (>60); Est Glom Filt Rate - Afr Amer 35 mL/min (>60); Estimated Creatinine Clearance 24.35 ml/min; Globulin 3.5 g/dL (2.2-4.2); Glucose 233 mg/dL (74-106); Potassium 3.6 mmol/L (3.5-5.1); Protein, Total 6.9 g/dL (6.4-8.2); Sodium Level 140 mmol/L (136-145)
[2019-12-18 10:55] LABS: Amorphous Sediment R; Bacteria RARE /hpf (None Seen); Red Blood Cells-Urine 0-5 SEEN /hpf (0-5); Squamous Epithelial Cells - UA 0-5 SEEN /hpf (0-5); White Blood Cells 5-10 SEEN /hpf (0-5)
--- NOTE | 2019-12-18 12:53 | PCM.HP.STD ---
Problem List (1) CAD (coronary artery disease) Status: Chronic (2) Type 2 diabetes mellitus Status: Chronic (3) Chronic kidney disease, stage 3 Status: Chronic (4) Depression Status: Chronic (5) Seizure disorder Status: Chronic (6) CVA (cerebral vascular accident) Status: Chronic (7) H/O heart artery stent Status: Chronic (8) Aortic aneurysm Status: Chronic (9) HTN (hypertension) Status: Chronic History of Present Illness Date of Admission: 12/18/19 Chief Complaint: Diarrhea, confusion. The patient is a 84 year old M patient with past medical history as mentioned above presented to the emergency room because of diarrhea and confusion. The patient is very hard of hearing and was not able to provide detailed history. He was alert and noted x3 and he was able to answer straight questions. Patient's was at the bedside and she helped with the history. According to the , patient has been having diarrhea since Tuesday night, watery stool, 2-4 times a day, watery stool without blood, associated with nausea and vomiting as well as profound weakness and without aggravating or relieving factors. The mentioned that he complained of some vague abdominal pain which she could not describe at this point. The mentioned that he has been intermittently confused, not knowing where he is at. At this time, he is alert and oriented x3. She mentioned that he was very weak, staggering gait and unsteady upon walking. No reported fever or chills. Patient denied abdominal pain at this time. He denied urinary symptoms. He denied chest pain or shortness of breath. The mentioned that patient went to visit a family member at hospice in [place] few days ago. No recent travel. In the emergency department, his vital signs are stable, afebrile. His routine blood work was remarkable for BUN of 41, creatinine of 2.29, otherwise normal. LFT was unremarkable. Urinalysis showed no evidence of acute cystitis. CT scan abdomen and pelvis without contrast revealed multiple small gallstones, no acute intra-abdominal pathology. He is being admitted for acute diarrheal illness complicated by acute kidney injury on top of stage III kidney disease as well as confusion, debility and functional decline. Past Medical History Past Medical History (Chronic Problems): Chronic Problems CAD (coronary artery disease) (Chronic) Type 2 diabetes mellitus (Chronic) Chronic kidney disease, stage 3 (Chronic) Stroke (Chronic) Glaucoma (Chronic) Vitamin D deficiency (Chronic) Depression (Chronic) Seizure disorder (Chronic) Diabetes mellitus (Chronic) Insomnia (Chronic) HLD (hyperlipidemia) (Chronic) Hearing deficit (Chronic) DM (dermatomyositis) (Chronic) CVA (cerebral vascular accident) (Chronic) CKD (chronic kidney disease), stage III (Chronic) H/O heart artery stent (Chronic) Blind (Chronic) L. eye Aortic aneurysm (Chronic) Herpes zoster (Chronic) HTN (hypertension) (Chronic) Allergies No Known Allergies Allergy (Verified 05/27/15 07:47) Home Medications: Ambulatory Orders Medication Instructions Recorded Aspirin [Aspirin, Baby] 81 mg PO DAILY@0800 05/21/15 Atorvastatin Calcium [Lipitor] 80 mg PO QHS 05/21/15 Carvedilol [Coreg (Beta Marshall)] 6.25 mg PO BID 05/21/15 Cholecalciferol (VIT D3) [Vitamin 5,000 unit PO DAILY 05/21/15 D3] Clopidogrel Bisulfate [Plavix] 75 mg PO DAILY 05/21/15 Dorzolamide HCL/Timolol [Cosopt 1 drop EACH EYE BID 05/21/15 Opth Drops] Eplerenone [Inspra] 12.5 mg PO QODAY 05/21/15 Lamotrigine [Lamictal] 250 mg PO QHS 05/21/15 Lisinopril [Zestril] 5 mg PO DAILY 05/21/15 Quetiapine Fumarate [Seroquel] 3.5 tab PO QHS 05/21/15 Glipizide 5 mg PO DAILY 01/25/19 hydroCHLOROthiazide 12.5 mg PO DAILY capsule 02/02/19 [Hydrochlorothiazide] Acetaminophen [Tylenol] 325 mg PO DAILY 09/28/19 Duloxetine Hcl [Cymbalta] 30 mg PO BID 09/28/19 Brinzolamide/Brimonid Tart 1 drp OP BID 12/18/19 [Simbrinza 1%-0.2% Eye Drops] Loperamide HCl [Anti-Diarrheal] 2 mg PO PRN PRN 12/18/19 Miconazole 25 gm MC TID 12/18/19 Mupirocin [Bactroban] 1 applic TOPICAL PRN PRN 12/18/19 Surgical History: - - cardiac stents. Psychiatric History: Depression Lives: Spouse/ Significant Other Smoking Status: Never smoker Alcohol: None Drugs: None - *Family History Maternal Family History: Family History (Last Updated 01/25/19 @ 06:38 by Butch Jackson DO) Other CAD (coronary artery disease) History Items: No pertinent history Paternal Family History: Family History (Last Updated 01/25/19 @ 06:38 by Butch Jackson DO) Other CAD (coronary artery disease) History Items: No pertinent history Review of Systems Constitutional: Reports: Anorexia, Weakness, Fatigue. Denies: Chills, Fever Eyes: Denies: Blurred vision, Double vision, Drainage, Redness HEENT: Denies: Difficulty Hearing, Ear Pain, Eye Pain, Nasal Congestion, Sore Throat Cardiovascular: Denies: Chest Pain, Chest Pressure, Chest Tightness, Heaviness, Light Headedness, Palpitations, Paroxysmal Noc. Dyspnea, Syncope Respiratory: Denies: Cough, Pleuritic Pain, Shortness of Breath, Sputum production, Wheezing Gastrointestinal: Reports: Diarrhea, Nausea, Vomiting. Denies: Abdominal Pain, Constipation Genitourinary: Denies: Dysuria, Frequency, Hematuria Musculoskeletal: Denies: Arm Pain, Back Pain, Foot Pain Skin: Denies: Dryness, Rash Neurological: Reports: Confusion. Denies: Balance problems, Double vision, Change in Speech, Slurred speech, Focal weakness, Headaches, Incoordination Psychiatric: Reports: Depression. Denies: Anxiety Endocrine: Denies: Change in Body Habitus, Polydipsia, Polyuria VTE Information - Inpt Only VTE Present on Admission: No VTE Mechan Device Prophylaxis: None VTE Pharm Prophylaxis ordered?: Yes - Physical Exam Vitals/I&O's: Vital Signs Temp Pulse Resp BP Pulse Ox 97.8 F 82 16 111/64 92 12/18/19 10:03 12/18/19 12:15 12/18/19 12:15 12/18/19 12:15 12/18/19 12:15 Oxygen Delivery Method Room Air Weight: 220 lb Body Mass Index (BMI) 31.5 Finger Stick Blood Glucose 144 Intake and Output for Last 24 Hours 12/16/19 12/17/19 12/18/19 23:59 23:59 23:59 Intake Total 500 / 500 Balance 500 / 500 General: Alert, Oriented x3, Cooperative, No apparent distress HEENT: Atraumatic, PERRLA, EOMI, Normocephalic Oral: No Gingival or Mucosal Lesions/ Ulcerations, Dry Mucosa Neck: Supple, No JVD, Negative Carotid Bruits, Trachea Midline, Thyroid Normal Size and Texture Lungs: Clear to auscultation, Normal air movement, No rhonchi, No wheeze, No rales, Diminished Cardiovascular: Regular rate, Regular Rhythm, Normal S1, Normal S2, PMI Normal Abdomen: Bowel Sounds Present, Soft, Non Tender, Non-Distended, No Hepato-splenomegaly Extremities: No clubbing, No cyanosis, No edema Skin: No rashes, No breakdown Lymphatic: No Cervical, Supraclavicular, or Inguinal Adenopathy Neurological: Cranial nerves II-XII grossly intact, Motor Exam 5/5 strength throughout Psych/Mental Status: Normal Affect, Appropriate, Alert and oriented to time, place, person, mood and affect Laboratory Results 12/18/19 10:29: WBC 9.7, RBC 4.52 L, Hgb 13.4, Hct 42.4, MCV 93.8, MCH 29.6, MCHC 31.6 L, RDW Std Deviation 45.9 H, RDW Coeff of Elias 13.5, Plt Count 271, MPV 9.2, Immature Gran % (Auto) 0.600, Neut % (Auto) 63.2, Lymph % (Auto) 21.8, [place] % (Auto) 11.5 H, Eos % (Auto) 2.5, Baso % (Auto) 0.4, Absolute Neuts (auto) 6.1, Absolute Lymphs (auto) 2.12, Nucleated RBC % 0 12/18/19 10:29: Sodium 140, Potassium 3.6, Chloride 108 H, Carbon Dioxide 24.0, Anion Gap 8, BUN 41 H, Creatinine 2.29 H, Estim Creat Clear Calc 24.35, Est GFR (MDRD) Af Amer 35 L, Est GFR (MDRD) Non-Af 29 L, BUN/Creatinine Ratio 17.9, Glucose 233 H, Calcium 8.6, Total Bilirubin 0.70, AST 35, ALT 73 H, Alkaline Phosphatase 72, Total Protein 6.9, Albumin 3.4, Globulin 3.5, Albumin/Globulin Ratio 1.0 01/21/20 10:44: Urine Color Yellow, Urine Clarity Clear, Urine pH 5.0, Ur Specific [place] 1.025, Urine Protein 15 H, Urine Glucose (UA) Normal, Urine Ketones 5 H, Urine Occult Blood Negative, Urine Nitrite Negative, Urine Bilirubin Negative, Urine Urobilinogen Normal, Ur Leukocyte Esterase 100 H, Urine RBC 0-5 SEEN, Urine WBC 5-10 SEEN, Ur Squamous Epith Cells 0-5 SEEN, Amorphous Sediment R, Urine Bacteria RARE, Urine Mucus 0 SEEN Clinical Impression(s) from Imaging Studies Abdomen/Pelvis CT 12/18/19 10:25 IMPRESSION: Multiple small gallstones. Nonspecific increased markings in the root of the mesenteric fat. Electronically Signed: Thomas Martinezosmar, at 11:52 EST , Service support , Assessment/Plan This is an 84 years old male patient presented to the emergency room because of diarrhea, weakness and confusion and he was found to have acute kidney injury on top of stage III chronic kidney disease and he is being admitted for evaluation and treatment. #1 acute diarrheal illness: In context of recent visit to hospice facility in [place]. Viral gastroenteritis the probable diagnosis. No recent use of antibiotics. No recent travel. Vital signs are stable. Plan: Admit to [facility] floor, IV fluids for hydration, stool for C. difficile, stool for enteric pathogens, IV antiemetics PRN, Tylenol PRN, repeat CBC and BMP tomorrow morning, PT OT evaluation and treatment. #2 acute kidney injury on top of stage III chronic kidney disease: Due to acute diarrhea, diuretics as well as poor oral intake. Baseline creatinine has been around 1.3 mg/dL over the last year, admission creatinine is 2.29 mg/dL. Plan: IV fluids for hydration, input output chart, hold HCTZ and lisinopril and other nephrotoxic drugs, repeat BMP tomorrow morning. #3 CAD status post stents: Stable, no complaints. Continue aspirin, Plavix, Coreg and lisinopril. #4 type 2 diabetes mellitus: ADA diet, Accu-Cheks, continue glipizide, insulin sliding scale. #5 stage III chronic kidney disease: With acute worsening as above. Plan as above. #6 seizure disorder: Stable, continue telemetry. #7 hypertension: At this time, blood pressure is stable, towards the low normal range. Plan to continue Coreg and eplerenone, hold HCTZ and lisinopril as above. #8 abdominal aortic aneurysm: Stable, has been following up with cardiology at [facility]. Last time he was seen there was 3 months ago and he was informed that it is stable. #9 depression: Continue Cymbalta and Seroquel. #10 DVT prophylaxis: Subcu heparin. This note was generated with [employer] dictation software. It may contain incorrect words, spelling, and punctuation that were not noted in checking the note before signing. Code Visit Inpatient E&M: 60142 Init Hosp L2
[2019-12-18] MEDS: 0.9% Normal Saline 1,000 ML 75 ML IV (15:16)
[2019-12-18] MEDS: 0.9% Saline Lock 10 ML Syringe IV (15:17)
[2019-12-18] MEDS: Heparin Injection (Vial) 5,000 UNIT/ML VIAL 5000 UNIT SC ×2 (15:17→21:21)
[2019-12-18] MEDS: Glucerna Shake 120 ML LIQUID PO ×2 (17:15→21:14)
[2019-12-18 17:20] LABS: Bedside Glucose 97 mg/dL (70-110)
[2019-12-18] MEDS: Atorvastatin Calcium 80 MG Tablet PO (21:16)
[2019-12-18] MEDS: Carvedilol 6.25 MG Tablet PO (21:16)
[2019-12-18] MEDS: QUEtiapine 25 MG Tablet 87.5 MG PO (21:16)
[2019-12-18] MEDS: DULoxetine Hcl 30 MG Capsule PO (21:16)
[2019-12-18] MEDS: lamoTRIgine 100 MG Tablet 250 MG PO (21:18)
[2019-12-18 22:05] LABS: Bedside Glucose 107 mg/dL (70-110)
[2019-12-19] VITALS (7 sets, daily range): BP systolic 103–144; BP diastolic 58–65; PULSE 62–97; RESP 16–20; TEMP 36.6–37; O2SAT 95–97
[2019-12-19] MEDS: 0.9% Normal Saline 1,000 ML 75 ML IV (03:25)
[2019-12-19 06:00] LABS: Absolute Lymphocyte Count 2.52 X10^3/uL (0.83-4.51); Absolute Neutrophil Count 3.8 X10^3/uL (2.0-7.7); Basophil# 0.03 X10^3/uL; Basophil% 0.4 % (0-1); Eosinophil# 0.44 X10^3/uL; Eosinophils% 5.7 % (0-5); Hematocrit 36.2 % (40-54); Hemoglobin 11.5 g/dL (13.0-16.5); Lymphocyte # 2.52 X10^3/ul (4.0); Lymphocyte % 32.6 % (19-41); Mean Corp Hgb Conc 31.8 g/dL (32-36); Mean Corpuscular Hgb 29.7 pg (27.0-32.0); Mean Corpuscular Volume 93.5 fL (80-94); Monocyte# 0.94 X10^3/uL; Monocyte% 12.2 % (0-10); NRBC Flagged by Analyzer 0 % (0-5); Neutrophil # 3.76 X10^3/uL (2.7-7.7); Neutrophil % 48.7 % (47-70); Platelet Count 217 K/mm3 (150-450); RBC Distribution Width CV 13.2 % (11.6-14.6); RBC Distribution Width SD 45.2 fl (35.1-43.9); Red Blood Count 3.87 M/mm3 (4.6-6.2); White Blood Count 7.7 K/mm3 (4.4-11.0)
[2019-12-19 06:28] LABS: Anion Gap 3 (5-15); BUN 29 mg/dL (7-18); BUN/Creat Ratio 19.6 RATIO (10-20); Calcium,Total 7.5 mg/dL (8.5-10.1); Chloride 113 mmol/L (98-107); Creatinine, Serum 1.48 mg/dL (0.70-1.30); EST Glomerular Filtration Rate 48 mL/min (>60); Est Glom Filt Rate - Afr Amer 58 mL/min (>60); Estimated Creatinine Clearance 37.68 ml/min; Glucose 125 mg/dL (74-106); Potassium 3.3 mmol/L (3.5-5.1); Sodium Level 141 mmol/L (136-145)
[2019-12-19] MEDS: Heparin Injection (Vial) 5,000 UNIT/ML VIAL 5000 UNIT SC ×3 (06:32→21:17)
[2019-12-19 06:55] LABS: Bedside Glucose 118 mg/dL (70-110)
[2019-12-19] MEDS: Glucerna Shake 120 ML LIQUID PO ×3 (09:27→21:07)
[2019-12-19] MEDS: Aspirin 81 MG TAB.CHEW PO (09:28)
[2019-12-19] MEDS: Clopidogrel Bisulfate 75 MG Tablet PO (09:28)
[2019-12-19] MEDS: glipiZIDE 5 MG Tablet PO (09:28)
[2019-12-19] MEDS: Carvedilol 6.25 MG Tablet PO ×2 (09:28→21:11)
[2019-12-19] MEDS: DULoxetine Hcl 30 MG Capsule PO ×2 (09:28→21:11)
--- NOTE | 2019-12-19 10:27 | PCM.PROGNOTE ---
Subjective: Chief complaint: Follow-up after admission for acute diarrheal illness, DORIAN on CKD and debility. Patient seen and examined. No acute events overnight. Today, he is feeling better. He has no more diarrhea. He threw up twice last night. Denied abdominal pain. Denied fever or chills. His vital signs are stable. - Physical Exam Vitals/I&O's: Vital Signs Temp Pulse Resp BP Pulse Ox 98.5 F 74 16 103/58 L 96 12/19/19 09:11 12/19/19 09:56 12/19/19 09:11 12/19/19 09:11 12/19/19 09:11 Oxygen Delivery Method Room Air Weight: 210 lb 1.608 oz Body Mass Index (BMI) 30.1 Finger Stick Blood Glucose 144 Intake and Output for Last 24 Hours 12/17/19 12/18/19 12/19/19 23:59 23:59 23:59 Intake Total 920 / 920 911.25 / 911.25 Output Total 200 / 200 200 / 200 Balance 720 / 720 711.25 / 711.25 General: Alert, Oriented x3, Cooperative, No apparent distress HEENT: Atraumatic, PERRLA, EOMI, Normocephalic Oral: Moist Mucosa, No Gingival or Mucosal Lesions/ Ulcerations Neck: Supple, No JVD, Negative Carotid Bruits, Trachea Midline Lungs: Clear to auscultation, Normal air movement, No rhonchi, No wheeze, No rales, Diminished Cardiovascular: Regular rate, Regular Rhythm, Normal S1, Normal S2, PMI Normal Abdomen: Bowel Sounds Present, Soft, Non Tender, Non-Distended, No Hepato-splenomegaly Extremities: No clubbing, No cyanosis, No edema Skin: No rashes, No breakdown Lymphatic: No Cervical, Supraclavicular, or Inguinal Adenopathy Neurological: Cranial nerves II-XII grossly intact, Neuro grossly intact Psych/Mental Status: Normal Affect, Appropriate Laboratory Results 12/18/19 10:29: WBC 9.7, RBC 4.52 L, Hgb 13.4, Hct 42.4, MCV 93.8, MCH 29.6, MCHC 31.6 L, RDW Std Deviation 45.9 H, RDW Coeff of Elias 13.5, Plt Count 271, MPV 9.2, Immature Gran % (Auto) 0.600, Neut % (Auto) 63.2, Lymph % (Auto) 21.8, [place] % (Auto) 11.5 H, Eos % (Auto) 2.5, Baso % (Auto) 0.4, Absolute Neuts (auto) 6.1, Absolute Lymphs (auto) 2.12, Nucleated RBC % 0 12/18/19 10:29: Sodium 140, Potassium 3.6, Chloride 108 H, Carbon Dioxide 24.0, Anion Gap 8, BUN 41 H, Creatinine 2.29 H, Estim Creat Clear Calc 24.35, Est GFR (MDRD) Af Amer 35 L, Est GFR (MDRD) Non-Af 29 L, BUN/Creatinine Ratio 17.9, Glucose 233 H, Calcium 8.6, Total Bilirubin 0.70, AST 35, ALT 73 H, Alkaline Phosphatase 72, Total Protein 6.9, Albumin 3.4, Globulin 3.5, Albumin/Globulin Ratio 1.0 12/18/19 10:44: Urine Color Yellow, Urine Clarity Clear, Urine pH 5.0, Ur Specific [place] 1.025, Urine Protein 15 H, Urine Glucose (UA) Normal, Urine Ketones 5 H, Urine Occult Blood Negative, Urine Nitrite Negative, Urine Bilirubin Negative, Urine Urobilinogen Normal, Ur Leukocyte Esterase 100 H, Urine RBC 0-5 SEEN, Urine WBC 5-10 SEEN, Ur Squamous Epith Cells 0-5 SEEN, Amorphous Sediment R, Urine Bacteria RARE, Urine Mucus 0 SEEN 12/18/19 17:13: POC Glucose 97 12/18/19 21:12: POC Glucose 107 12/19/19 05:50: WBC 7.7, RBC 3.87 L, Hgb 11.5 L, Hct 36.2 L, MCV 93.5, MCH 29.7, MCHC 31.8 L, RDW Std Deviation 45.2 H, RDW Coeff of Elias 13.2, Plt Count 217, MPV 9.0, Immature Gran % (Auto) 0.400, Neut % (Auto) 48.7, Lymph % (Auto) 32.6, [place] % (Auto) 12.2 H, Eos % (Auto) 5.7 H, Baso % (Auto) 0.4, Absolute Neuts (auto) 3.8, Absolute Lymphs (auto) 2.52, Nucleated RBC % 0 01/22/20 05:50: Sodium 141, Potassium 3.3 L, Chloride 113 H, Carbon Dioxide 25.0, Anion Gap 3 L, BUN 29 H, Creatinine 1.48 H, Estim Creat Clear Calc 37.68, Est GFR (MDRD) Af Amer 58 L, Est GFR (MDRD) Non-Af 48 L, BUN/Creatinine Ratio 19.6, Glucose 125 H, Calcium 7.5 L 12/19/19 06:31: POC Glucose 118 H Current Medications Acetaminophen (Tylenol) 650 mg PO Q6H PRN PRN PRN Reason: Pain Score 1-3/Temp > 100.7 F Aspirin (Aspirin, Baby) 81 mg PO DAILY@0800 [facility] Last Admin: 12/19/19 09:28 Dose: 81 mg Documented by: Atorvastatin Calcium (Lipitor) 80 mg PO QHS [facility] Last Admin: 12/18/19 21:16 Dose: 80 mg Documented by: Carvedilol (Coreg) 6.25 mg PO BID [facility] Last Admin: 12/19/19 09:28 Dose: 6.25 mg Documented by: Clopidogrel Bisulfate (Plavix) 75 mg PO DAILY [facility] Last Admin: 12/19/19 09:28 Dose: 75 mg Documented by: Duloxetine HCl (Cymbalta) 30 mg PO BID [facility] Last Admin: 12/19/19 09:28 Dose: 30 mg Documented by: Eplerenone (Inspra) 12.5 mg PO QODAY [facility] Glipizide (Glucotrol) 5 mg PO DAILY@0800 [facility] Last Admin: 12/19/19 09:28 Dose: 5 mg Documented by: Glucagon () 1 mg IM .X1 PRN PRN Reason: Hypoglycemia Heparin Sodium (Porcine) (Heparin Na) 5,000 unit SC Q8 [facility] Last Admin: 12/19/19 06:32 Dose: 5,000 unit Documented by: Dextrose (Dextrose 10%-Water) 250 mls @ 999 mls/hr IV .Q16M PRN; Protocol PRN Reason: HYPOGLYCEMIA Insulin Human Lispro (Humalog Kwikpen (Bkc)) 0 unit SC ACHS [facility]; Protocol Last Admin: 12/19/19 06:31 Dose: Not Given Documented by: Lamotrigine (Lamictal) 250 mg PO QHS [facility] Last Admin: 12/18/19 21:18 Dose: 250 mg Documented by: Nutritional Formula (Lactose Free) (Glucerna Shake) 120 ml PO 4X/DAY [facility] Last Admin: 12/19/19 09:27 Dose: 120 ml Documented by: Ondansetron HCl (Zofran) 4 mg IV Q8H PRN PRN PRN Reason: NAUSEA/VOMITING Quetiapine Fumarate (Seroquel) 87.5 mg PO QHS [facility] Last Admin: 12/18/19 21:16 Dose: 87.5 mg Documented by: Sodium Chloride () 10 - 40 ml IV UD PRN PRN Reason: SALINE FLUSH Last Admin: 12/18/19 15:17 Dose: 10 ml Documented by: Medical Necessity - Tobacco Use Smoking Status: Never smoker Tobacco Use: Non-smoker Assessment/Plan This is an 84 years old male patient presented to the emergency room because of diarrhea, weakness and confusion and he was found to have acute kidney injury on top of stage III chronic kidney disease and he is being admitted for evaluation and treatment. #1 acute diarrheal illness: Likely due to viral gastroenteritis. Patient has no more diarrhea, no stool sample sent for C. difficile. Vital signs are stable. Routine blood work from today reviewed, revealed potassium of 3.3, creatinine of 1.48, improving. Plan to continue IV fluids for gentle hydration, repeat BMP tomorrow morning, ambulate, PT OT evaluation and treatment. #2 acute kidney injury on top of stage III chronic kidney disease: Patient has been on gentle IV fluids for hydration. Today's creatinine is 1.48, improving. Potassium 3.3. It is attributed to acute diarrhea, diuretics as well as poor oral intake. Baseline creatinine has been around 1.3 mg/dL over the last year, admission creatinine is 2.29 mg/dL, it is down to 1.48 today. HCTZ and lisinopril on hold. Plan to continue gentle IV fluids hydration, repeat BMP tomorrow morning. #3 CAD status post stents: Stable, no complaints. Continue aspirin, Plavix, Coreg. Keep holding lisinopril. #4 type 2 diabetes mellitus: Blood sugar has been stable, continue ADA diet, Accu-Cheks, continue glipizide, insulin sliding scale. #5 stage III chronic kidney disease: With acute worsening as above. Kidney function is improving with IV fluids, plan as above. #6 seizure disorder: Stable, continue Lamictal. #7 hypertension: Blood pressure remained stable. continue Coreg and eplerenone, keep holding HCTZ and lisinopril as above. #8 abdominal aortic aneurysm: Stable, has been following up with cardiology at [facility]. Last time he was seen there was 3 months ago and he was informed that it is stable. #9 depression: Continue Cymbalta and Seroquel. #10 DVT prophylaxis: Subcu heparin. This note was generated with [employer] dictation software. It may contain incorrect words, spelling, and punctuation that were not noted in checking the note before signing. Code Visit Inpatient E&M: 76061 Subs Hosp L2
[2019-12-19] MEDS: Insulin Lispro 100 UNIT/ML INSULN.PEN SC (10:51)
[2019-12-19 11:01] LABS: Bedside Glucose 230 mg/dL (70-110)
--- NOTE | 2019-12-19 11:05 | CASEMGMT ---
RN CHRISTOS BOILER TENDERS SUPERVISOR CM to room to meet with patient for initial transition planning/care coordination assessment. HOA SHER introduced self and role at [facility]. Pt voices understanding and consents to assessment at this time. Pt resting in bed in no distress at this time. Pt is A/O at this time and answers all questions appropriately. Care providers, pharmacy, and demographics verified/updated at this time. PCP: Dr Wright Specialists: Dr Tejeda--active directory engineer @ [facility] main [place]. Also sees a hand sewer, management aide, and automotive parts coordinator but did not provide names. [facility]erred [facility]acy: [facility] Insurance: MCR, [employer] Prescription Benefit: Yes Living Will/HPOA: Has both LW and Healthcare POA, who is his , John. Both are on file @ [facility]. LNOK: , John. 2 sons Living Arrangements: Lives with his , John, in one-story home. is Independent with ADL's. does home mgmt tasks, meals, grocery shopping, medication mgmt, and doctor appts. Transportation: . Denies transportation concerns. DME: has the following DME: built-in shower seat (but usually stands to shower), cane, rails/grab bars, and glucometer. Has a walker available but has not been needing to use it. Pt states would like info on Medical Alert buttons. Given list of local [employer] that sell these. [facility] No history of HHC. Discussed discharge planning w/pt and any needs he may have. PT/OT evals reviewed and further therapy recommended. Discussed options of HHC vs OP therapy. Pt states he is not homebound and wishes to do OP therapy. He states he thinks he would like to go to [facility] on [address]. Pt made aware script can be given to him and he can take to any location of his choice. Pt voices understanding. Pt wishes to return home and states has no concerns with going home at time of discharge. CM to follow for any further discharge planning/needs. Pt voices no further concerns/needs at this time. Advised pt to ask for CM if any further questions/concerns/needs arise. Voices understanding. 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 Pt provided with information on [facility] ([employer] [place] [facility] [employer] with phone number to contact to see if he may qualify for any services. Pt voices appreciation. PLAN: Home w/OP therapy. Will need script. Teresa GUILLENN RN CM
--- NOTE | 2019-12-19 13:52 | CHAPLAIN ---
Type of Pastoral Visit _x__ Initial Visit ___ Follow-up Visit ___ On-call Visit ___ General Patient Visit ___ Spiritual Assessment ___ Family Conference ___ Bereavement ___ Rapid Response ___ Code Blue ___ Other (describe below) Pastoral Care Referral From _x__ Patient ___ Family ___ Nurse ___ Physician ___ Cuff Slitter ___ Game Engineer ___ Other (describe below) Sacrament/Intervention _x__ Active listening ___ Anointing ___ Episcopalian ___ Bereavement ___ Communion ___ More exploration ___ ___ Life review _x__ Prayer ___ Reconciliation ___ Sacrament of Sick _x__ Supportive presence ___ Wedding ___ Other (describe below) Pastoral Comments patient wants his samaritan notified of his admission
[2019-12-19 16:06] LABS: Bedside Glucose 144 mg/dL (70-110)
[2019-12-19] MEDS: lamoTRIgine 100 MG Tablet 250 MG PO (21:10)
[2019-12-19] MEDS: Atorvastatin Calcium 80 MG Tablet PO (21:11)
[2019-12-19] MEDS: QUEtiapine 25 MG Tablet 87.5 MG PO (21:11)
[2019-12-19 23:01] LABS: Bedside Glucose 135 mg/dL (70-110)
[2019-12-20 02:25] VITALS: BP 101/54; PULSE 62; RESP 16; TEMP 36.8; O2SAT 95
[2019-12-20 05:53] LABS: Anion Gap 2 (5-15); BUN 21 mg/dL (7-18); BUN/Creat Ratio 14.4 RATIO (10-20); Calcium,Total 7.9 mg/dL (8.5-10.1); Chloride 114 mmol/L (98-107); Creatinine, Serum 1.46 mg/dL (0.70-1.30); EST Glomerular Filtration Rate 49 mL/min (>60); Est Glom Filt Rate - Afr Amer 59 mL/min (>60); Estimated Creatinine Clearance 38.19 ml/min; Glucose 132 mg/dL (74-106); Potassium 3.7 mmol/L (3.5-5.1); Sodium Level 143 mmol/L (136-145)
[2019-12-20] MEDS: Heparin Injection (Vial) 5,000 UNIT/ML VIAL 5000 UNIT SC (06:42)
[2019-12-20 06:56] LABS: Bedside Glucose 126 mg/dL (70-110)
[2019-12-20] MEDS: glipiZIDE 5 MG Tablet PO (09:24)
[2019-12-20] MEDS: Aspirin 81 MG TAB.CHEW PO (09:24)
[2019-12-20 09:26] VITALS: BP 109/61; PULSE 70; RESP 18; TEMP 36.9; O2SAT 97
--- NOTE | 2019-12-20 09:41 | DCINST_ITS ---
You will use the following diet at home:: Calorie/Carbohydrate Controlled (specify 1200, 1400, etc) - 1800 hali., Cardiac Your food should be the consistency of: Regular Discharge Activity: Return to Normal Activity Weight Bearing Status: Weight bearing as tolerated Call your doctor if you observe: Fever of 101 or Higher, Shortness of breath, Dizziness, Fainting spells, Chest pain, Increased palpitations (irregular heartbeat), Uncontrolled pain Allergies/Adverse Reactions: Allergies No Known Allergies Allergy (Verified 05/27/15 07:47) Medications to take at Discharge Aspirin [Aspirin, Baby] 81 mg PO DAILY@0800 05/21/15 Atorvastatin Calcium [Lipitor] 80 mg PO QHS 05/21/15 Carvedilol [Coreg (Beta Marshall)] 6.25 mg PO BID 05/21/15 Cholecalciferol (VIT D3) [Vitamin D3] 5,000 unit PO DAILY 05/21/15 Clopidogrel Bisulfate [Plavix] 75 mg PO DAILY 05/21/15 Eplerenone [Inspra] 12.5 mg PO QODAY 05/21/15 Lamotrigine [Lamictal] 250 mg PO QHS 05/21/15 Lisinopril [Zestril] 5 mg PO DAILY 05/21/15 Quetiapine Fumarate [Seroquel] 3.5 tab PO QHS 05/21/15 Glipizide 5 mg PO DAILY 01/25/19 hydroCHLOROthiazide [Hydrochlorothiazide] 12.5 mg PO DAILY capsule 02/02/19 Duloxetine Hcl [Cymbalta] 30 mg PO BID 09/28/19 Acetaminophen [Tylenol] 325 mg PO DAILY 12/18/19 Brinzolamide/Brimonid Tart [Simbrinza 1%-0.2% Eye Drops] 1 drp OP BID 12/18/19 Loperamide HCl [Anti-Diarrheal] 2 mg PO PRN PRN 12/18/19 Mupirocin [Bactroban] 1 applic TOPICAL PRN PRN 12/18/19 Neomycin/Polymyxin B/Dexametha [Hhyrou-Xcpsj-Qnnffql Eye Ointm] 1 applicatio EACH EYE BID 12/18/19 Peg 400/Hypromellose/Glycerin [Artificial Tears] 2 drp EACH EYE BID PRN 12/18/19 Primary Care Physician: Jesica Wright MD [Primary Care Provider] - Please follow up with your Primary Care Physician in: 2 weeks. Test Results: Test results from this visit will be discussed in further detail at your follow- up appointment, if applicable.
[2019-12-20] MEDS: DULoxetine Hcl 30 MG Capsule PO (10:45)
[2019-12-20] MEDS: Clopidogrel Bisulfate 75 MG Tablet PO (10:46)
[2019-12-20] MEDS: Eplerenone 25 MG Tablet 12.5 MG PO (10:46)
[2019-12-20] MEDS: Carvedilol 6.25 MG Tablet PO (10:46)
[2019-12-20] MEDS: Glucerna Shake 120 ML LIQUID PO (10:49)
[2019-12-20 11:00] VITALS: BP 112/60; PULSE 72; RESP 18; TEMP 36.7; O2SAT 96
--- NOTE | 2019-12-20 11:38 | CASEMGMT ---
HOA SHER received script for outpatient therapy. HOA SHER in to patient room to deliver script. will schedule therapy with [facility]. Patient and denied further needs or questions at this time.
--- NOTE | 2019-12-20 11:48 | DS.PCM_ITS ---
Discharge Date and Diagnosis Date of Admission: 12/18/19 Date of Discharge: 12/20/19 - Primary Discharge Diagnosis #1 acute gastroenteritis, probably viral in etiology. #2 acute kidney injury on top of stage III chronic kidney disease. 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 Nonspecific increased markings in the root of the mesenteric fat. Electronically Signed: Thomas Guallpa, at 11:52 EST , Service support , Operations: None Procedures: None Summary of Care Provided: Patient seen and examined on the day of discharge and appeared to be stable to be discharged home. He has no more diarrhea, denies any more nausea or vomiting. He is feeling much better. His vital signs are stable. The patient is a 84 year old M patient presented to the emergency room because of diarrhea, nausea, confusion and weakness and he was found to have acute viral gastroenteritis complicated by acute kidney injury on top of stage III chronic kidney disease. Patient admitted because of 4 days history of profuse watery diarrhea along with nausea and vomiting. Patient visited a family member at a hospice facility in [place] few days before admission. Patient continued to take his home medications including HCTZ and lisinopril. On admission, he was found to have BUN of 41 and creatinine of 2.29 mg/dL. His baseline creatinine has been around 1.3 mg/dL. This is attributed to dehydration and poor oral intake in addition to side effects of HCTZ and lisinopril. Patient was treated with IV fluids and IV antiemetics. HCTZ and lisinopril held during this admission. After admission, patient had no more diarrhea. No stool sample obtained for C. difficile testing or enteric pathogens. Patient symptoms improved. His vital signs been stable. His creatinine improved and it came down to 1.46 mg/dL upon discharge. His blood sugar has been stable throughout admission. His confusion improved and he remained alert and related x3. This confusion was transient and it is attributed to severe dehydration, metabolic. Patient was evaluated by PT OT and he was appropriate for discharge home with PT OT as outpatient. Patient discharged home in a stable medical condition, discharged on his previous home medications without any changes, started back on HCTZ and lisinopril as he has been on small doses of both of those medications, recommended follow-up with PCP in 2 weeks. - Physical Exam Vitals/I&O's: Vital Signs Temp Pulse Resp BP Pulse Ox 98.5 F 70 18 109/61 97 12/20/19 09:26 12/20/19 09:26 12/20/19 09:26 12/20/19 09:26 12/20/19 09:26 Oxygen Delivery Method Room Air Weight: 210 lb 1.608 oz Body Mass Index (BMI) 30.1 Finger Stick Blood Glucose 144 Intake and Output for Last 24 Hours 12/18/19 12/19/19 12/20/19 23:59 23:59 23:59 Intake Total 920 / 920 2691.25 / 2691.25 150 / 150 Output Total 200 / 200 1650 / 1650 300 / 300 Balance 720 / 720 1041.25 / 1041.25 -150 / -150 General: Alert, Oriented x3, Cooperative, No apparent distress HEENT: Atraumatic, PERRLA, EOMI, Normocephalic Oral: Moist Mucosa, No Gingival or Mucosal Lesions/ Ulcerations Neck: Supple, No JVD, Negative Carotid Bruits, Trachea Midline, Thyroid Normal Size and Texture Lungs: Clear to auscultation, Normal air movement, No rhonchi, No wheeze, No r ales, Diminished Cardiovascular: Regular rate, Regular Rhythm, Normal S1, Normal S2, PMI Normal Abdomen: Bowel Sounds Present, Soft, Non Tender, Non-Distended, No Hepato- splenomegaly Extremities: No clubbing, No cyanosis, No edema Skin: No rashes, No breakdown Lymphatic: No Cervical, Supraclavicular, or Inguinal Adenopathy Neurological: Cranial nerves II-XII grossly intact, Neuro grossly intact Psych/Mental Status: Normal Affect, Appropriate, Alert and oriented to time, place, person, mood and affect Microbiology Past 72 Hours 12/18/19 10:44 Urine, Clean Catch Urine Culture - Final Mixed Gram Positive Organisms Laboratory Results 12/19/19 15:58: POC Glucose 144 H 12/19/19 21:06: POC Glucose 135 H 12/20/19 05:10: Sodium 143, Potassium 3.7, Chloride 114 H, Carbon Dioxide 27.0, Anion Gap 2 L, BUN 21 H, Creatinine 1.46 H, Estim Creat Clear Calc 38.19, Est GFR (MDRD) Af Amer 59 L, Est GFR (MDRD) Non-Af 49 L, BUN/Creatinine Ratio 14.4, Glucose 132 H, Calcium 7.9 L 12/20/19 06:41: POC Glucose 126 H Discharge Activity: Return to Normal Activity Weight Bearing Status: Weight bearing as tolerated Call your doctor if you observe: Fever of 101 or Higher, Shortness of breath, Dizziness, Fainting spells, Chest pain, Increased palpitations (irregular heart beat), Uncontrolled pain Home Medications: Medications to take at Discharge Aspirin [Aspirin, Baby] 81 mg PO DAILY@0800 05/21/15 Atorvastatin Calcium [Lipitor] 80 mg PO QHS 05/21/15 Carvedilol [Coreg (Beta Marshall)] 6.25 mg PO BID 05/21/15 Cholecalciferol (VIT D3) [Vitamin D3] 5,000 unit PO DAILY 05/21/15 Clopidogrel Bisulfate [Plavix] 75 mg PO DAILY 05/21/15 Eplerenone [Inspra] 12.5 mg PO QODAY 05/21/15 Lamotrigine [Lamictal] 250 mg PO QHS 05/21/15 Lisinopril [Zestril] 5 mg PO DAILY 05/21/15 Quetiapine Fumarate [Seroquel] 3.5 tab PO QHS 05/21/15 Glipizide 5 mg PO DAILY 01/25/19 hydroCHLOROthiazide [Hydrochlorothiazide] 12.5 mg PO DAILY capsule 02/02/19 Duloxetine Hcl [Cymbalta] 30 mg PO BID 09/28/19 Acetaminophen [Tylenol] 325 mg PO DAILY 12/18/19 Brinzolamide/Brimonid Tart [Simbrinza 1%-0.2% Eye Drops] 1 drp OP BID 12/18/19 Loperamide HCl [Anti-Diarrheal] 2 mg PO PRN PRN 12/18/19 Mupirocin [Bactroban] 1 applic TOPICAL PRN PRN 12/18/19 Neomycin/Polymyxin B/Dexametha [Plcdfk-Aabdx-Cpqkqyz Eye Ointm] 1 applicatio EACH EYE BID 12/18/19 Peg 400/Hypromellose/Glycerin [Artificial Tears] 2 drp EACH EYE BID PRN 12/18/19 Primary Care Physician: Jesica Wright MD [Primary Care Provider] - Please follow up with your Primary Care Physician in: 2 weeks. Please Follow Up With: Danae When: 12/27/2019 Disposition: Home Minutes spent on discharge:: 27 Patient Condition:: Stable Medical Necessity - Tobacco Use Smoking Status: Never smoker Tobacco Use: Non-smoker Meaningful Use Info Meaningful Use Diagnoses (Choose all that apply): None applicable Code Visit Inpatient E&M: 14939 Disch Hosp
--- NOTE | 2019-12-21 11:26 | CASEMGMT ---
[facility] DC PHONE CALL DC DATE: 12.20.2019 DC Disposition: Home with Outpt Therapy Diagnosis on Discharge: gastroenteritis LACE/STRATA: 08/30 Attempted call. No answer, and machine did not have name identifier- no message left. Candie GUILLENN RN AC
== END 2019-12-20 11:33 | disposition home or self-care (01) | DRG 392 ==
LOC: ED 10:47 → MS3 12:49
PROVIDERS: Admitting Provider Hospitalist; Emergency Provider Emergency Medicine; PCP Internal Medicine; Visit Provider Hospitalist
DX: A08.4 Viral intestinal infection, unspecified (principal); I13.0 Hypertensive heart and chronic kidney disease with heart failure and stage 1 through stage 4 chronic kidney disease, or unspecified chronic kidney disease; N17.9 Acute kidney failure, unspecified; M33.90 Dermatopolymyositis, unspecified, organ involvement unspecified; I50.30 Unspecified diastolic (congestive) heart failure; E11.22 Type 2 diabetes mellitus with diabetic chronic kidney disease; N18.3 Chronic kidney disease, stage 3 (moderate); I25.10 Atherosclerotic heart disease of native coronary artery without angina pectoris; F32.9 Major depressive disorder, single episode, unspecified; G40.909 Epilepsy, unspecified, not intractable, without status epilepticus; Z86.73 Personal history of transient ischemic attack (TIA), and cerebral infarction without residual deficits; I71.4 Abdominal aortic aneurysm, without rupture; Z95.5 Presence of coronary angioplasty implant and graft; H54.40 Blindness, one eye, unspecified eye; Z86.19 Personal history of other infectious and parasitic diseases; H40.9 Unspecified glaucoma; Z79.82 Long term (current) use of aspirin; Z79.899 Other long term (current) drug therapy; Z79.84 Long term (current) use of oral hypoglycemic drugs; Z79.02 Long term (current) use of antithrombotics/antiplatelets; E78.00 Pure hypercholesterolemia, unspecified; Z86.711 Personal history of pulmonary embolism; E86.0 Dehydration; H91.90 Unspecified hearing loss, unspecified ear
CPT/HCPCS: 36415; 74176; 80048; 80053; 81001; 82962; 85025; 87086; 87088; 92610; 97116; 97162; 97166; 97530; 97802; 99251; 99284; J7030; J7040; A4216; G0463

== ENCOUNTER 2020-09-13 10:44 | Inpatient (IN) | payer MEDICARE, OTHER, SELFPAY ==
[2019-12-18 14:32] VITALS: BMI 30.1
[2020-09-13] VITALS (11 sets, daily range): BP systolic 132–153; BP diastolic 66–80; PULSE 68–94; RESP 16–82; TEMP 36.1–37.5; O2SAT 92–100; BMI 33.1; BMI 30.2; BMI 30.3
--- NOTE | 2020-09-13 10:52 | EKG12_ITS ---
Test Reason : Blood Pressure : / mmHG Vent. Rate : 080 BPM Atrial Rate : 080 BPM P-R Int : 192 ms QRS Dur : 064 ms QT Int : 368 ms P-R-T Axes : 000 038 103 degrees QTc Int : 424 ms Normal sinus rhythm Nonspecific T wave abnormality Abnormal ECG Confirmed by ELLIE WHATLEY, DIA ([id number]), story editor VEDA RODRIGUEZ ([id number]) on 09/16/2020 8:05:56 AM Referred By: NINOSKA Confirmed By:DIA ARGUETA MD
--- NOTE | 2020-09-13 10:53 | ED.VIS.GEN ---
History of Present Illness Chief Complaint: Confusion Informant: Patient, Family, Relations Specialist Narrative: Reportedly the patient was confused yesterday and sustained several falls. He states he did not hurt himself from the falls and did not wish to be transported to the hospital. Was noted to have a fever today. His 1 son is positive for COVID-19. His is currently pending testing. He was at a recently where there was known exposures. He denies any shortness of breath or cough while he is breathing approximately 30 times per minute. He does note some mild diarrhea and nasal congestion. No vomiting. His tells me that today she heard a noise coming from the bathroom and he apparently fallen with his walker. She believes he hit his head on the commode. - Past Medical History (1) Aortic aneurysm Status: Chronic (2) CAD (coronary artery disease) Status: Chronic (3) CVA (cerebral vascular accident) Status: Chronic (4) DM (dermatomyositis) Status: Chronic (5) Depression Status: Chronic (6) Diabetes mellitus Status: Chronic (7) H/O heart artery stent Status: Chronic (8) HLD (hyperlipidemia) Status: Chronic (9) HTN (hypertension) Status: Chronic (10) Hearing deficit Status: Chronic (11) Seizure disorder Status: Chronic (12) Stroke Status: Chronic (13) Type 2 diabetes mellitus Status: Chronic Past Medical History - Allergies and Home Meds Allergies/Adverse Reactions: Allergies No Known Allergies Allergy (Verified 05/27/15 07:47) Primary Care Physician: Jesica Wright MD [Primary Care Provider] - Surgical History: - - cardiac stents. Smoking Status: Never smoker - Family History Maternal Family History: Family History (Last Updated 01/25/19 @ 06:[address] Butch Jackson DO) Other CAD (coronary artery disease) Family History: Reports: No pertinent history Paternal Family History: Family History (Last Updated 01/25/19 @ 06:[address] Butch Jackson DO) Other CAD (coronary artery disease) Family History: Reports: No pertinent history Review of Systems General: Reports: Fever, Malaise. Denies: Chills, Sweats Eyes: Denies: Visual changes - bilaterally, Diplopia ENT: Reports: Rhinorrhea. Denies: Sore throat Cardiovascular: Denies: Chest pain, Palpitations Respiratory: Reports: Dyspnea. Denies: Cough, Dyspnea on exertion Gastrointestinal: Reports: Diarrhea. Denies: Abdominal pain, Nausea, Vomiting, Melena, Hematochezia Genitourinary: Denies: Dysuria, Hematuria, Frequency Musculoskeletal: Reports: Myalgias. Denies: Back pain, Extremity Pain Skin: Denies: Rash, Wounds Neurological: Reports: - - confusion. Denies: Headache, Weakness, Numbness Physical Exam Inital Vital Signs reviewed: Yes General: Well nourished, Well developed, No Acute Distress Head: Normocephalic, Atraumatic Eyes: Perrl, EOMI ENT: No rhinorrhea, Dry mucous membranes Neck: Supple, Nontender Cardiovascular: Regular rate, Regular rhythm, No murmurs Respiratory: CTA bilaterally, Chest nontender, - - Patient has tachypnea but no labored breathing Abdomen: Soft, Nontender, Nondistended, Normal bowel sounds Back: Nontender, Normal Inspection Extremities: Nontender, No edema Skin: Normal color, No rash Neurological: Alert, Oriented x3, Cranial nerves II-XII grossly intact, Normal Strength, Normal Sensation Psychological: Normal affect, Normal Mood Diagnostic/Tx/Re-eval STUDY: X-RAY CHEST REASON FOR EXAM: Male, 84 years old. Fever, weakness and shortness of breath. TECHNIQUE: Single AP portable view of the chest. COMPARISON: 01/17/2019 FINDINGS: The lungs are somewhat hyperinflated. No focal infiltrate is seen. There is no demonstrated pleural abnormality. Normal size heart. Normal mediastinum and josias. Normal visualized pulmonary arteries. There is atherosclerotic calcification of the aortic arch with tortuosity. There are diffuse degenerative changes of the visualized thoracic spine. There is degenerative osteoarthritis of the bilateral shoulders. There is no demonstrated abnormality of the visualized soft tissue structures of the upper abdomen. IMPRESSION: No active pulmonary disease. Electronically Signed: Signature for MD Bismark Patel MD at 12:07 EDT Tel , Service support , Laboratory Last Values WBC 16.0 K/mm3 (4.4-11.0) H 09/13/20 10:30 RBC 4.27 M/mm3 (4.6-6.2) L 09/13/20 10:30 Hgb 12.5 g/dL (13.0-16.5) L 09/13/20 10:30 Hct 39.8 % (40-54) L 09/13/20 10:30 MCV 93.2 fL (80-94) 09/13/20 10:30 MCH 29.3 pg (27.0-32.0) 09/13/20 10:30 MCHC 31.4 g/dL (32-36) L 09/13/20 10:30 RDW Std Deviation 45.9 fl (35.1-43.9) H 09/13/20 10:30 RDW Coeff of Elias 13.4 % (11.6-14.6) 09/13/20 10:30 Plt Count 287 K/mm3 (150-450) 09/13/20 10:30 MPV 9.3 fl (6.2-12.0) 09/13/20 10:30 Immature Gran % (Auto) 0.400 % (0.0-0.9) 09/13/20 10:30 Neut % (Auto) 78.9 % (47-70) H 09/13/20 10:30 Lymph % (Auto) 9.8 % (19-41) L 09/13/20 10:30 Simpson % (Auto) 8.7 % (0-10) 09/13/20 10:30 Eos % (Auto) 1.5 % (0-5) 09/13/20 10:30 Baso % (Auto) 0.7 % (0-1) 09/13/20 10:30 Absolute Neuts (auto) 12.6 X10^3/uL (2.0-7.7) H 09/13/20 10:30 Absolute Lymphs (auto) 1.57 X10^3/uL (0.83-4.51) 09/13/20 10:30 Nucleated RBC % 0 % (0-5) 09/13/20 10:30 PT 14.0 SECONDS (11.7-14.9) 09/13/20 10:30 INR 1.1 09/13/20 10:30 APTT 29.6 Seconds (24.1-36.2) 09/13/20 10:30 Sodium 139 mmol/L (136-145) 09/13/20 11:05 Potassium 4.1 mmol/L (3.5-5.1) 09/13/20 11:05 Chloride 105 mmol/L (98-107) 09/13/20 11:05 Carbon Dioxide 27.0 mmol/L (21.0-32.0) 09/13/20 11:05 Anion Gap 7 (5-15) 09/13/20 11:05 BUN 26 mg/dL (7-18) H 09/13/20 11:05 Creatinine 1.55 mg/dL (0.70-1.30) H 09/13/20 11:05 Estim Creat Clear Calc 35.98 ml/min 09/13/20 11:05 Est GFR (MDRD) Af Amer 55 mL/min (>60) L 09/13/20 11:05 Est GFR (MDRD) Non-Af 45 mL/min (>60) L 09/13/20 11:05 BUN/Creatinine Ratio 16.8 RATIO (-) 09/13/20 11:05 Glucose 215 mg/dL (74-106) H 09/13/20 11:05 Lactic Acid 4.8 mmol/L (0.4-1.9) H* 09/13/20 10:30 Calcium 9.3 mg/dL (8.5-10.1) 09/13/20 11:05 Total Bilirubin 1.00 mg/dL (0.20-1.00) 09/13/20 11:05 AST 22 U/L (15-37) 09/13/20 11:05 ALT 33 U/L (16-61) 09/13/20 11:05 Alkaline Phosphatase 77 U/L (45-117) 09/13/20 11:05 Troponin I < 0.015 ng/mL (<0.045) 09/13/20 11:05 Total Protein 7.0 g/dL (6.4-8.2) 09/13/20 11:05 Albumin 3.2 g/dL (3.2-5.0) 09/13/20 11:05 Globulin 3.8 g/dL (2.2-4.2) 09/13/20 11:05 Albumin/Globulin Ratio 0.8 RATIO (0.9-2.4) L 09/13/20 11:05 Urine Color Yellow (Yellow) 09/13/20 12:33 Urine Clarity Sl. Cloudy (Clear) 09/13/20 12:33 Urine pH 6.0 (5.0 - 8.0) 09/13/20 12:33 Ur Specific Derwent 1.015 (1.002-1.030) 09/13/20 12:33 Urine Protein Negative mg/dl (Negative) 09/13/20 12:33 Urine Glucose (UA) Normal mg/dl (Normal) 09/13/20 12:33 Urine Ketones Negative mg/dl (Negative) 09/13/20 12:33 Urine Occult Blood Negative /ul (Negative) 09/13/20 12:33 Urine Nitrite Negative (Negative) 09/13/20 12:33 Urine Bilirubin Negative mg/dL (Negative) 09/13/20 12:33 Urine Urobilinogen Normal mg/dl (Normal) 09/13/20 12:33 Ur Leukocyte Esterase Negative /ul (Negative) 09/13/20 12:33 Urine RBC 0 SEEN /hpf (0-5) 09/13/20 12:33 Urine WBC 0 SEEN /hpf (0-5) 09/13/20 12:33 Ur Squamous Epith Cells 0 SEEN /hpf (0-5) 09/13/20 12:33 Urine Bacteria RARE /hpf (None Seen) 09/13/20 12:33 Urine Mucus 0 SEEN /hpf (<or=2+) 09/13/20 12:33 COVID-19 (IMMANUEL) Detected (Not Detect) 09/13/20 11:12 - Medical Decision Making he received IV fluids. No obvious source of infection was found as we approach the 3-hour leonel and therefore given his leukocytosis and his tachypnea and concern for sepsis I gave Zosyn. However his COVID-19 test came back positive. His elevated lactic acid may in fact be due to a degree of dehydration as evidenced by his dry mucous membranes and being on metformin. He has not been hypoxic or hypotensive. He has been tachypneic but not labored. Plan will be admission into the hospital. ED Disposition - Plan for ED Patient: Disposition: Acute Care Hospital [facility] Diagnosis: COVID-19, Encephalopathy acute, Dehydration, Elevated lactic acid level Referrals: Jesica Wright MD [Primary Care Provider] -
[2020-09-13] MEDS: 0.9% Normal Saline 1,000 ML 999 ML IV ×3 (11:01→12:26)
[2020-09-13 11:04] LABS: Absolute Lymphocyte Count 1.57 X10^3/uL (0.83-4.51); Absolute Neutrophil Count 12.6 X10^3/uL (2.0-7.7); Basophil# 0.11 X10^3/uL; Basophil% 0.7 % (0-1); Eosinophil# 0.24 X10^3/uL; Eosinophils% 1.5 % (0-5); Hematocrit 39.8 % (40-54); Hemoglobin 12.5 g/dL (13.0-16.5); Lymphocyte # 1.57 X10^3/ul (4.0); Lymphocyte % 9.8 % (19-41); Mean Corp Hgb Conc 31.4 g/dL (32-36); Mean Corpuscular Hgb 29.3 pg (27.0-32.0); Mean Corpuscular Volume 93.2 fL (80-94); Mean Platelet Vol. 9.3 fl (6.2-12.0); Monocyte# 1.39 X10^3/uL; Monocyte% 8.7 % (0-10); NRBC Flagged by Analyzer 0 % (0-5); Neutrophil % 78.9 % (47-70); Platelet Count 287 K/mm3 (150-450); RBC Distribution Width CV 13.4 % (11.6-14.6); RBC Distribution Width SD 45.9 fl (35.1-43.9); Red Blood Count 4.27 M/mm3 (4.6-6.2)
[2020-09-13 11:16] LABS: International Normalized Ratio 1.1; Partial Thromboplast Time 29.6 Seconds (24.1-36.2)
--- NOTE | 2020-09-13 11:19 | CT_ITS ---
STUDY: CT BRAIN WITHOUT CONTRAST REASON FOR EXAM: Male, 84 years old. Confusion fever RADIATION DOSAGE (If Supplied By Facility): CTDIvol = ( 44.99 ) mGy, DLP = ( 846.73 ) mGycm TECHNIQUE: Transaxial CT imaging of the brain was performed without administration of intravenous contrast material. Individualized dose optimization techniques were used for this CT. COMPARISON: December FINDINGS: There are small remote infarcts in the right caudate head, body, right mid bermudez radiata and external capsule bilaterally. There is no mass effect, acute intracranial hemorrhage, extra parenchymal fluid collections, hydrocephalus or herniation. The skull is intact. Appearance is stable since prior. CT/Brain/Head without Contrast IMPRESSION: 1. No acute findings. 2. Stable exam since prior. 3. Small remote right ganglia capsular infarct. Electronically Signed: Augustin Butler, at 14:08 EDT Tel , Service support ,
--- NOTE | 2020-09-13 11:20 | RAD_ITS ---
STUDY: X-RAY CHEST REASON FOR EXAM: Male, 84 years old. Fever, weakness and shortness of breath. TECHNIQUE: Single AP portable view of the chest. COMPARISON: 01/17/2019 FINDINGS: The lungs are somewhat hyperinflated. No focal infiltrate is seen. There is no demonstrated pleural abnormality. Normal size heart. Normal mediastinum and josias. Normal visualized pulmonary arteries. There is atherosclerotic calcification of the aortic arch with tortuosity. There are diffuse degenerative changes of the visualized thoracic spine. There is degenerative osteoarthritis of the bilateral shoulders. There is no demonstrated abnormality of the visualized soft tissue structures of the upper abdomen. RAD/Chest 1 View (Portable) IMPRESSION: No active pulmonary disease. Electronically Signed: Bismark Tapia MD at 12:07 EDT Tel , Service support ,
[2020-09-13 11:29] LABS: ALB/GLOB Ratio 0.8 RATIO (0.9-2.4); AST(SGOT) 22 U/L (15-37); Alanine Aminotransfer ALT/SGPT 33 U/L (16-61); Albumin, Serum 3.2 g/dL (3.2-5.0); Alkaline Phosphatase 77 U/L (45-117); Anion Gap 7 (5-15); BUN 26 mg/dL (7-18); BUN/Creat Ratio 16.8 RATIO (10-20); Calcium,Total 9.3 mg/dL (8.5-10.1); Chloride 105 mmol/L (98-107); Creatinine, Serum 1.55 mg/dL (0.70-1.30); EST Glomerular Filtration Rate 45 mL/min (>60); Est Glom Filt Rate - Afr Amer 55 mL/min (>60); Estimated Creatinine Clearance 35.98 ml/min; Globulin 3.8 g/dL (2.2-4.2); Glucose 215 mg/dL (74-106); Potassium 4.1 mmol/L (3.5-5.1); Sodium Level 139 mmol/L (136-145)
[2020-09-13 11:39] LABS: Lactic Acid 4.8 mmol/L (0.4-1.9)
[2020-09-13 12:39] LABS: Mucous, Urine 0 SEEN /hpf (<or=2+); Red Blood Cells-Urine 0 SEEN /hpf (0-5); Squamous Epithelial Cells - UA 0 SEEN /hpf (0-5); White Blood Cells 0 SEEN /hpf (0-5)
[2020-09-13 12:49] LABS: Color, Urine Yellow (Yellow); Glucose, Dipstick Normal (Normal); Ketone-Dipstick Negative (Negative); Leukocyte Esterase-Dipstick Negative /ul (Negative); Nitrite-Dipstick Negative (Negative); Occult Blood-Urine Negative /ul (Negative); Protein-Dipstick Negative (Negative); Specific Gravity, Urine 1.015 (1.002-1.030); Urine Bilirubin Dipstick Negative (Negative); Urine Clarity Sl. Cloudy (Clear); Urine Urobilinogen Normal (Normal)
[2020-09-13 12:55] LABS: Bacteria RARE /hpf (None Seen)
[2020-09-13] MEDS: 0.9% Normal Saline 1,000 ML 150 ML IV (13:36)
--- NOTE | 2020-09-13 13:39 | HP.PCM_ITS ---
Problem List (1) COVID-19 Status: Acute (2) Encephalopathy acute Status: Acute (3) Dehydration Status: Acute (4) Elevated lactic acid level Status: Acute (5) CAD (coronary artery disease) Status: Chronic Qualifiers: Coronary Disease-Associated Artery/Lesion type: unspecified vessel or lesion type (6) Type 2 diabetes mellitus Status: Chronic Qualifiers: Diabetes mellitus exterminator helper termite insulin use: without exterminator helper termite use Diabetes mellitus complication status: with other specified complication Qualified Code(s): E11.69 - Type 2 diabetes mellitus with other specified complication (7) Chronic kidney disease, stage 3 Status: Chronic (8) Diabetes mellitus Status: Chronic Qualifiers: Diabetes mellitus type: type 2 (9) Hearing deficit Status: Chronic Qualifiers: Laterality: unspecified laterality Qualified Code(s): H91.90 - Unspecified hearing loss, unspecified ear History of Present Illness Date of Admission: 09/13/20 Chief Complaint: Recurrent falls, confusion Patient is a poor historian and attempt at getting history from [facility] History was obtained by review of chart The patient is a 84 year old M with multiple comorbidities who comes in with confusion that started a day before admission. Patient was said to have been falling. Patient admits that they went to a about a week ago in which they did not socially distended. His and his son are both positive. Admits to some diarrhea and nasal congestion. The ED showed temperature of 90 9.5F, heart rate 83, blood pressure 153/75, respiratory was 29, SPO2 was 92% on room air. WBC count was 16.0, hemoglobin 12.5, platelet count 287, d-dimer 0.56. BMP was significant for BUN of 26, 18 was 1.55 which is close to his baseline. Lactic acid was 4.8, CRP was 53.7. UA was unremarkable. COVID-[address] scan of the head as well as chest x-ray was pending at time of discharge. Past Medical History Past Medical History (Chronic Problems): Chronic Problems CAD (coronary artery disease) (Chronic) Type 2 diabetes mellitus (Chronic) Chronic kidney disease, stage 3 (Chronic) Stroke (Chronic) Glaucoma (Chronic) Vitamin D deficiency (Chronic) Depression (Chronic) Seizure disorder (Chronic) Diabetes mellitus (Chronic) Insomnia (Chronic) HLD (hyperlipidemia) (Chronic) Hearing deficit (Chronic) DM (dermatomyositis) (Chronic) CVA (cerebral vascular accident) (Chronic) CKD (chronic kidney disease), stage III (Chronic) H/O heart artery stent (Chronic) Blind (Chronic) L. eye Aortic aneurysm (Chronic) Herpes zoster (Chronic) HTN (hypertension) (Chronic) Allergies No Known Allergies Allergy (Verified 05/27/15 07:47) Home Medications: Ambulatory Orders Medication Instructions Recorded Aspirin [Aspirin, Baby] 81 mg PO DAILY@0800 05/21/15 Carvedilol [Coreg (Beta Marshall)] 6.25 mg PO BID 05/21/15 Cholecalciferol (VIT D3) [Vitamin 5,000 unit PO DAILY 05/21/15 D3] Clopidogrel Bisulfate [Plavix] 75 mg PO DAILY 05/21/15 Eplerenone [Inspra] 12.5 mg PO QODAY 05/21/15 Lamotrigine [Lamictal] 250 mg PO QHS 05/21/15 Lisinopril [Zestril] 5 mg PO DAILY 05/21/15 Quetiapine Fumarate [Seroquel] 3.5 tab PO QHS 05/21/15 hydroCHLOROthiazide 12.5 mg PO DAILY capsule 02/02/19 [Hydrochlorothiazide] Duloxetine Hcl [Cymbalta] 30 mg PO BID 09/28/19 Acetaminophen [Tylenol] 325 mg PO DAILY 12/18/19 Atorvastatin Calcium [Lipitor] 80 mg PO QHS 09/13/20 Dorzolamide HCl/Timolol Maleat 1 drp OP BID 09/13/20 [Cosopt Eye Drops] metFORMIN (XR) [Glucophage Xr] 500 mg PO BID 09/13/20 Surgical History: - - cardiac stents. Psychiatric History: Depression Lives: Spouse/ Significant Other Smoking Status: Never smoker Tobacco Use: Non-smoker Alcohol: None Drugs: None - *Family History Maternal Family History: Family History (Last Updated 01/25/19 @ 06:[address] Butch Jackson DO) Other CAD (coronary artery disease) History Items: No pertinent history Paternal Family History: Family History (Last Updated 01/25/19 @ 06:[address] Butch Jackson DO) Other CAD (coronary artery disease) History Items: No pertinent history Review of Systems Unable to obtain accurate/complete ROS d/t: Patient is very hard of hearing and unable to do a complete review of syste VTE Information - Inpt Only VTE Present on Admission: No VTE Pharm Prophylaxis ordered?: Yes Patient Problems: Active and Suspected Problems COVID-19 (Acute) Encephalopathy acute (Acute) Dehydration (Acute) Elevated lactic acid level (Acute) - Physical Exam Vitals/I&O's: Vital Signs Temp Pulse Resp BP Pulse Ox 99.3 F H 71 28 H 134/66 H 100 09/13/20 13:36 09/13/20 13:36 09/13/20 13:36 09/13/20 13:36 09/13/20 13:36 Oxygen Flow Rate (L/min) 3 Oxygen Delivery Method Nasal Cannula Weight: 104.8 kg Body Mass Index (BMI) 33.1 Finger Stick Blood Glucose 144 Intake and Output for Last 24 Hours 09/11/20 09/12/20 09/13/20 23:59 23:59 23:59 Intake Total 1016.65 / 1016.65 Balance 1016.65 / 1016.65 General: Alert, Oriented x3, Cooperative, No apparent distress HEENT: Atraumatic, PERRLA, EOMI, Normocephalic Oral: Moist Mucosa Neck: Supple Lungs: Diminished Cardiovascular: Regular rate, Regular Rhythm, Normal S1, Normal S2 Abdomen: Bowel Sounds Present, Soft, Non Tender, Non-Distended, No Hepato- splenomegaly Extremities: No edema Skin: No rashes Musculoskeletal: No Tenderness to Palpation of Joints or Extremities Lymphatic: No Cervical, Supraclavicular, or Inguinal Adenopathy Neurological: Cranial nerves II-XII grossly intact, Neuro grossly intact Psych/Mental Status: Normal Affect, Appropriate Laboratory Results 09/13/20 10:30: WBC 16.0 H, RBC 4.27 L, Hgb 12.5 L, Hct 39.8 L, MCV 93.2, MCH 29.3, MCHC 31.4 L, RDW Std Deviation 45.9 H, RDW Coeff of Elias 13.4, Plt Count 287, MPV 9.3, Immature Gran % (Auto) 0.400, Neut % (Auto) 78.9 H, Lymph % (Auto) 9.8 L, [place] % (Auto) 8.7, Eos % (Auto) 1.5, Baso % (Auto) 0.7, Absolute Neuts (auto) 12.6 H, Absolute Lymphs (auto) 1.57, Nucleated RBC % 0 09/13/20 10:30: PT 14.0, INR 1.1, APTT 29.6 09/13/20 10:30: Lactic Acid 4.8 H* 09/13/20 11:05: Sodium 139, Potassium 4.1, Chloride 105, Carbon Dioxide 27.0, Anion Gap 7, BUN 26 H, Creatinine 1.55 H, Estim Creat Clear Calc 35.98, Est GFR (MDRD) Af Amer 55 L, Est GFR (MDRD) Non-Af 45 L, BUN/Creatinine Ratio 16.8, Glucose 215 H, Calcium 9.3, Total Bilirubin 1.00, AST 22, ALT 33, Alkaline Phosphatase 77, Troponin I < 0.015, Total Protein 7.0, Albumin 3.2, Globulin 3.8, Albumin/Globulin Ratio 0.8 L 09/13/20 11:12: COVID-19 (IMMANUEL) Detected 09/13/20 12:33: Urine Color Yellow, Urine Clarity Sl. Cloudy, Urine pH 6.0, Ur Specific [place] 1.015, Urine Protein Negative, Urine Glucose (UA) Normal, Urine Ketones Negative, Urine Occult Blood Negative, Urine Nitrite Negative, Urine Bilirubin Negative, Urine Urobilinogen Normal, Ur Leukocyte Esterase Negative, Urine RBC 0 SEEN, Urine WBC 0 SEEN, Ur Squamous Epith Cells 0 SEEN, Urine Bacteria RARE, Urine Mucus 0 SEEN Current Medications Sodium Chloride () 1,000 mls @ 150 mls/hr IV .[id number] [facility] Last Admin: 09/13/20 13:36 Dose: 150 mls/hr Documented by: Sodium Chloride () 1,000 mls @ 999 mls/hr IV .Q1H1M [facility] Stop: 09/13/20 13:45 Last Admin: 09/13/20 12:26 Dose: 999 mls/hr Documented by: Assessment/Plan All Active Problems COVID-19 (Acute) Encephalopathy acute (Acute) Dehydration (Acute) Elevated lactic acid level (Acute) 1. Acute metabolic encephalopathy secondary to COVID-19 infection, patient is alert oriented x3 now Continue to monitor 2. Acute COVID-19 infection, patient has not been hypoxic Inflammatory markers are pending. Chest x-ray report is pending Will hold off on starting patient on IV dexamethasone 3. Lactic acidosis likely secondary to metformin use, unclear if patient had hypoxia at home Admitting lactic acid is 4.8, will continue on IV fluids, trend lactic acid 4. CAD status post stents, continue aspirin, statin, carvedilol 5. Type II DM, on metformin, will hold metformin Continue with blood glucose checks and insulin sliding scale 6. Hypertension, controlled, continue on lisinopril and hydrochlorothiazide 7. DVT prophylaxis with Lovenox subcu twice daily Inpatient E&M: [id number] Init Hosp L3
--- NOTE | 2020-09-13 13:43 | NURSING ---
ICU COVID 19 PAINTSIL
--- NOTE | 2020-09-13 13:49 | NURSING ---
CV ICU 201
--- NOTE | 2020-09-13 13:51 | NURSING ---
ICU 6
[2020-09-13 14:58] LABS: Reflex Lactate? Y
[2020-09-13] MEDS: 0.9% Normal Saline 1,000 ML 100 ML IV (15:20)
[2020-09-13 15:43] LABS: CPK Total, Creatine Kinase 138 U/L (39-308); LDH 197 U/L (87-241)
[2020-09-13 16:07] LABS: Fibrinogen 505 mg/dl (203-444)
[2020-09-13 16:14] LABS: D-Dimer Quantitative (DVT/PE) 0.56 FEU/ug/m (0.27-0.49)
[2020-09-13 16:25] LABS: Procalcitonin 0.14 ng/mL (0.00-0.09)
[2020-09-13 17:05] LABS: Lactic Acid 3.3 mmol/L (0.4-1.9)
[2020-09-13] MEDS: Carvedilol 6.25 MG Tablet PO (21:45)
[2020-09-13] MEDS: lamoTRIgine 100 MG Tablet 250 MG PO (21:45)
[2020-09-13] MEDS: Enoxaparin 30 MG/0.3 ML Syringe SC (21:45)
[2020-09-13] MEDS: Atorvastatin Calcium 80 MG Tablet PO (21:45)
[2020-09-13] MEDS: Acetaminophen 325 MG Tablet 650 MG PO (21:47)
[2020-09-13] MEDS: Menthol/Lanolin/Calamine/Znox 113 GM Tube 1 APPLIC TOPICAL (21:48)
[2020-09-13] MEDS: Insulin Lispro 100 UNIT/ML INSULN.PEN SC (21:48)
[2020-09-13] MEDS: Dorzolamide HCL/Timolol 10 ml Bottle 1 DRP EACH EYE (21:49)
[2020-09-13 22:15] LABS: Bedside Glucose 175 mg/dL (70-110)
[2020-09-14] VITALS (14 sets, daily range): BP systolic 102–155; BP diastolic 51–81; PULSE 57–83; RESP 16–32; TEMP 36.3–37.6; O2SAT 91–97
[2020-09-14] MEDS: 0.9% Normal Saline 1,000 ML 100 ML IV (00:28)
[2020-09-14 05:28] LABS: Absolute Lymphocyte Count 1.54 X10^3/uL (0.83-4.51); Absolute Neutrophil Count 7.7 X10^3/uL (2.0-7.7); Basophil# 0.07 X10^3/uL; Basophil% 0.7 % (0-1); Eosinophil# 0.14 X10^3/uL; Eosinophils% 1.3 % (0-5); Hemoglobin 10.6 g/dL (13.0-16.5); Lymphocyte # 1.54 X10^3/ul (4.0); Lymphocyte % 14.7 % (19-41); Mean Corp Hgb Conc 31.2 g/dL (32-36); Mean Corpuscular Hgb 29.4 pg (27.0-32.0); Mean Corpuscular Volume 94.4 fL (80-94); Mean Platelet Vol. 9.3 fl (6.2-12.0); Monocyte# 0.99 X10^3/uL; Monocyte% 9.4 % (0-10); NRBC Flagged by Analyzer 0 % (0-5); Neutrophil # 7.68 X10^3/uL (2.7-7.7); Neutrophil % 73.3 % (47-70); Platelet Count 205 K/mm3 (150-450); RBC Distribution Width CV 13.3 % (11.6-14.6); RBC Distribution Width SD 45.5 fl (35.1-43.9); White Blood Count 10.5 K/mm3 (4.4-11.0)
[2020-09-14 05:47] LABS: ALB/GLOB Ratio 0.8 RATIO (0.9-2.4); AST(SGOT) 18 U/L (15-37); Alanine Aminotransfer ALT/SGPT 25 U/L (16-61); Albumin, Serum 2.5 g/dL (3.2-5.0); Alkaline Phosphatase 61 U/L (45-117); Anion Gap 5 (5-15); BUN 19 mg/dL (7-18); BUN/Creat Ratio 15.6 RATIO (10-20); Calcium,Total 7.8 mg/dL (8.5-10.1); Chloride 108 mmol/L (98-107); Creatinine, Serum 1.22 mg/dL (0.70-1.30); EST Glomerular Filtration Rate 60 mL/min (>60); Est Glom Filt Rate - Afr Amer 73 mL/min (>60); Estimated Creatinine Clearance 45.71 ml/min; Globulin 3.1 g/dL (2.2-4.2); Glucose 142 mg/dL (74-106); Potassium 3.4 mmol/L (3.5-5.1); Protein, Total 5.6 g/dL (6.4-8.2); Sodium Level 139 mmol/L (136-145)
[2020-09-14 08:17] LABS: Magnesium 1.4 mg/dL (1.6-2.6)
[2020-09-14] MEDS: Carvedilol 6.25 MG Tablet PO ×2 (08:21→23:16)
[2020-09-14] MEDS: Enoxaparin 30 MG/0.3 ML Syringe SC ×2 (08:21→23:15)
[2020-09-14] MEDS: Clopidogrel Bisulfate 75 MG Tablet PO (08:21)
[2020-09-14] MEDS: hydroCHLOROthiazide 12.5mg 12.5 MG PO (08:21)
[2020-09-14] MEDS: Aspirin 81 MG TAB.CHEW PO (08:22)
[2020-09-14] MEDS: Lisinopril 5 MG Tablet PO (08:22)
[2020-09-14] MEDS: Menthol/Lanolin/Calamine/Znox 113 GM Tube 1 APPLIC TOPICAL (08:23)
[2020-09-14] MEDS: 0.9% Normal Saline 1,000 ML 75 ML IV (10:07)
[2020-09-14 11:01] LABS: Bedside Glucose 182 mg/dL (70-110)
[2020-09-14] MEDS: Insulin Lispro 100 UNIT/ML INSULN.PEN SC (11:55)
[2020-09-14] MEDS: Dorzolamide HCL/Timolol 10 ml Bottle 1 DRP EACH EYE ×2 (11:56→23:17)
--- NOTE | 2020-09-14 12:22 | PN_ITS ---
Patient Problems: Active and Suspected Problems COVID-19 (Acute) Encephalopathy acute (Acute) Dehydration (Acute) Elevated lactic acid level (Acute) Reason for Visit: Follow-up on acute metabolic encephalopathy/recurrent falls/acute COVID-19 infection. Subjective: Patient was seen and examined. He denied any new complaints. He is 95 to 97% on room air. No acute events overnight. Discussed with his son, Michele on phone, his mother is weak in the house with COVID. He is looking after the mother. He is yet to be tested. Objective: Physical exam: General: Alert, Oriented x3, Cooperative, No apparent distress, obese HEENT: Atraumatic, PERRLA, EOMI, Normocephalic Oral: Moist Mucosa Neck: Supple Lungs: Diminished Cardiovascular: Regular rate, Regular Rhythm, Normal S1, Normal S2 Abdomen: Bowel Sounds Present, Soft, Non Tender, Non-Distended, No Hepato- splenomegaly Extremities: No edema Skin: No rashes Musculoskeletal: No Tenderness to Palpation of Joints or Extremities Lymphatic: No Cervical, Supraclavicular, or Inguinal Adenopathy Neurological: Cranial nerves II-XII grossly intact, Neuro grossly intact Psych/Mental Status: Normal Affect, Appropriate Vitals/I&O's: Vital Signs Temp Pulse Resp BP Pulse Ox 98.1 F 61 17 126/55 H 95 09/14/20 12:15 09/14/20 12:15 09/14/20 12:15 09/14/20 12:15 09/14/20 12:15 Oxygen Flow Rate (L/min) 2 Oxygen Delivery Method Room Air Weight: 97 kg Body Mass Index (BMI) 30.2 Finger Stick Blood Glucose 144 Intake and Output for Last 24 Hours 09/12/20 09/13/20 09/14/20 23:59 23:59 23:59 Intake Total 3316.65 / 3316.65 2150.00 / 2150.00 Output Total 650 / 650 75 / 75 Balance 2666.65 / 2666.65 2075.00 / 2075.00 Laboratory Results 09/13/20 11:05: Lactate Dehydrogenase 197, Total Creatine Kinase 138, C-React Prot Ext Range 53.70 H 09/13/20 11:12: COVID-19 (IMMANUEL) Detected 09/13/20 12:33: Urine Color Yellow, Urine Clarity Sl. Cloudy, Urine pH 6.0, Ur Specific [place] 1.015, Urine Protein Negative, Urine Glucose (UA) Normal, Urine Ketones Negative, Urine Occult Blood Negative, Urine Nitrite Negative, Urine Bilirubin Negative, Urine Urobilinogen Normal, Ur Leukocyte Esterase Negative, Urine RBC 0 SEEN, Urine WBC 0 SEEN, Ur Squamous Epith Cells 0 SEEN, Urine Bacteria RARE, Urine Mucus 0 SEEN 09/13/20 15:00: Fibrinogen 505 H, D-Dimer Quant (PE/DVT) 0.56 H* 09/13/20 15:00: Procalcitonin 0.14 H 09/13/20 16:10: Lactic Acid 3.3 H* 09/13/20 21:31: POC Glucose 175 H 09/14/20 04:45: WBC 10.5, RBC 3.60 L, Hgb 10.6 L, Hct 34.0 L, MCV 94.4 H, MCH 29.4, MCHC 31.2 L, RDW Std Deviation 45.5 H, RDW Coeff of Elias 13.3, Plt Count 205, MPV 9.3, Immature Gran % (Auto) 0.600, Neut % (Auto) 73.3 H, Lymph % (Auto) 14.7 L, [place] % (Auto) 9.4, Eos % (Auto) 1.3, Baso % (Auto) 0.7, Absolute Neuts ( auto) 7.7, Absolute Lymphs (auto) 1.54, Nucleated RBC % 0 09/14/20 04:45: Sodium 139, Potassium 3.4 L, Chloride 108 H, Carbon Dioxide 26.0, Anion Gap 5, BUN 19 H, Creatinine 1.22, Estim Creat Clear Calc 45.71, Est GFR (MDRD) Af Amer 73, Est GFR (MDRD) Non-Af 60, BUN/Creatinine Ratio 15.6, Glucose 142 H, Calcium 7.8 L, Magnesium Cancelled, Total Bilirubin 0.90, AST 18, ALT 25, Alkaline Phosphatase 61, Total Protein 5.6 L, Albumin 2.5 L, Globulin 3.1, Albumin/Globulin Ratio 0.8 L 09/14/20 04:45: Magnesium 1.4 L 09/14/20 10:52: POC Glucose 182 H Current Medications Acetaminophen (Acetaminophen 325 Mg Tablet) 650 mg PO Q6H PRN PRN PRN Reason: Pain Score 1-10Temp > 100.7 F Last Admin: 09/13/20 21:47 Dose: 650 mg Documented by: Aspirin (Aspirin 81 Mg Tab.Chew) 81 mg PO DAILY@0800 [facility] Last Admin: 09/14/20 08:22 Dose: 81 mg Documented by: Atorvastatin Calcium (Atorvastatin Calcium 80 Mg Tablet) 80 mg PO QHS [facility] Last Admin: 09/13/20 21:45 Dose: 80 mg Documented by: Calamine/Phenol (Menthol/Lanolin/Calamine/Znox 113 Gm Tube) 1 applic TOPICAL BID [facility]; Protocol Last Admin: 09/14/20 08:23 Dose: 1 applicatio Documented by: Carvedilol (Carvedilol 6.25 Mg Tablet) 6.25 mg PO BID [facility] Last Admin: 09/14/20 08:21 Dose: 6.25 mg Documented by: Cholecalciferol (Cholecalciferol (Vit D3) 1,000 Unit (25mcg)) 5,000 unit PO DA YOVANA [facility] Last Admin: 09/14/20 08:22 Dose: 5,000 unit Documented by: Clopidogrel Bisulfate (Clopidogrel Bisulfate 75 Mg Tablet) 75 mg PO DAILY [facility] Last Admin: 09/14/20 08:21 Dose: 75 mg Documented by: Dextrose (Dextrose 50%-Water 25 Gm/50 Ml Disp.Syrin) 0 gm IV X1 PRN; Protocol PRN Reason: Hypoglycemia Dorzolamide/Timolol (Dorzolamide Hcl/Timolol 10 Ml Bottle) 1 drop EACH EYE BID [facility] Last Admin: 09/14/20 11:56 Dose: 1 drop Documented by: Enoxaparin Sodium (Enoxaparin 30 Mg/0.3 Ml Syringe) 30 mg SC BID [facility] Last Admin: 09/14/20 08:21 Dose: 30 mg Documented by: Glucagon (Glucagon 1 Mg/Ml Syringe) 1 mg IM .X1 PRN PRN Reason: Hypoglycemia Hydrochlorothiazide (Hydrochlorothiazide 12.5mg) 12.5 mg PO DAILY [facility] Last Admin: 09/14/20 08:21 Dose: 12.5 mg Documented by: Sodium Chloride () 1,000 mls @ 75 mls/hr IV .[id number] [facility] Last Admin: 09/14/20 10:07 Dose: 75 mls/hr Documented by: Sodium Chloride () 250 mls @ 15 mls/hr IV .[id number] PRN PRN Reason: Saline Flush Sodium Chloride () 250 mls @ 15 mls/hr IV .[id number] PRN PRN Reason: Additional IVPB Infusion Insulin Human Lispro (Insulin Lispro 100 Unit/Ml Insuln.Pen) 0 unit SC ACHS [facility]; Protocol Last Admin: 09/14/20 11:55 Dose: 1 unit Documented by: Lamotrigine (Lamotrigine 100 Mg Tablet) 250 mg PO QHS [facility] Last Admin: 09/13/20 21:45 Dose: 250 mg Documented by: Lisinopril (Lisinopril 5 Mg Tablet) 5 mg PO DAILY [facility] Last Admin: 09/14/20 08:22 Dose: 5 mg Documented by: Ondansetron HCl (Ondansetron 4 Mg/2 Ml Vial) 4 mg IV Q8H PRN PRN PRN Reason: NAUSEA/VOMITING Senna/Docusate Sodium (Senna/Docusate Sodium 1 Tablet) 2 tablet PO BID PRN PRN Reason: Constipation Sodium Chloride (0.9% Saline Lock 10 Ml Syringe) 10 - 40 ml IV UD PRN PRN Reason: SALINE FLUSH STROKE Vital Signs/Narrative: Vital Signs Temp Pulse Resp BP Pulse Ox 09/14/20 12:15 98.1 F 61 17 126/55 H 95 09/14/20 12:00 61 09/14/20 10:00 83 16 95 09/14/20 09:00 98 F 81 21 H 155/81 H 93 Medical Necessity - Tobacco Use Smoking Status: Never smoker Tobacco Use: Non-smoker Assessment/Plan All Active Problems COVID-19 (Acute) Encephalopathy acute (Acute) Dehydration (Acute) Elevated lactic acid level (Acute) 84-year-old with multiple comorbidities who comes in with confusion, recurrent falls and found to have acute COVID-19. 1. Acute metabolic encephalopathy secondary to COVID-19 infection, appears resolved Patient is alert oriented x3 now. Continue to monitor 2. Acute COVID-19 infection, without hypoxia D-dimer is elevated but within range when age-matched, procalcitonin elevated at 0.14 Will hold off on starting patient on IV dexamethasone, ID consulted 3. Lactic acidosis likely secondary to metformin use, unclear if patient had hypoxia at home Admitting lactic acid is 4.8, trended down to 3.3. Will repeat lactic acid 4. CAD status post stents, continue aspirin, statin, carvedilol 5. Type II DM, on metformin, will hold metformin Blood sugars are fairly controlled. Check HbA1c, continue with blood glucose checks and insulin sliding scale 6. Hypertension, controlled, continue on lisinopril and hydrochlorothiazide 7. Recurrent falls, debility, patient with poor support at home PT/OT to evaluate. Patient may benefit for subacute care. 8. DVT prophylaxis with Lovenox subcu twice daily Inpatient E&M: [id number] Subs Hosp L2
[2020-09-14 13:43] LABS: Magnesium 1.6 mg/dL (1.6-2.6)
--- NOTE | 2020-09-14 13:54 | NURSING ---
report called to med-surg for transfer to room 205, family notified
[2020-09-14 14:04] LABS: Lactic Acid 4.2 mmol/L (0.4-1.9)
[2020-09-14 14:49] LABS: Hemoglobin A1c 7.4 % (3.8-5.6)
[2020-09-14] MEDS: Magnesium Sulfate 4gm/100mL 4 GM/100 ML IV.SOLN. IV (15:30)
[2020-09-14 16:35] LABS: Bedside Glucose 146 mg/dL (70-110)
[2020-09-14 17:31] LABS: Reflex Lactate? Y
[2020-09-14 19:13] LABS: Lactic Acid 3.7 mmol/L (0.4-1.9)
[2020-09-14] MEDS: 0.9% Normal Saline 1,000 ML 125 ML IV (20:19)
[2020-09-14] MEDS: lamoTRIgine 100 MG Tablet 250 MG PO (23:16)
[2020-09-14] MEDS: Atorvastatin Calcium 80 MG Tablet PO (23:17)
[2020-09-14 23:41] LABS: Bedside Glucose 134 mg/dL (70-110)
[2020-09-15 01:46] VITALS: BP 110/60; PULSE 61; RESP 22; TEMP 36.6; O2SAT 94
[2020-09-15 04:19] VITALS: BP 108/61; PULSE 64; RESP 20; TEMP 36.4; O2SAT 92
[2020-09-15] MEDS: 0.9% Normal Saline 1,000 ML 125 ML IV ×3 (04:19→19:41)
[2020-09-15 06:28] LABS: Absolute Lymphocyte Count 1.19 X10^3/uL (0.83-4.51); Basophil# 0.06 X10^3/uL; Basophil% 0.6 % (0-1); Eosinophil# 0.08 X10^3/uL; Eosinophils% 0.8 % (0-5); Hematocrit 36.5 % (40-54); Hemoglobin 10.8 g/dL (13.0-16.5); Lymphocyte # 1.19 X10^3/ul (4.0); Lymphocyte % 11.5 % (19-41); Mean Corp Hgb Conc 29.6 g/dL (32-36); Mean Corpuscular Hgb 29.9 pg (27.0-32.0); Mean Corpuscular Volume 101.1 fL (80-94); Mean Platelet Vol. 9.4 fl (6.2-12.0); Monocyte# 0.96 X10^3/uL; Monocyte% 9.3 % (0-10); NRBC Flagged by Analyzer 0 % (0-5); Neutrophil # 7.97 X10^3/uL (2.7-7.7); Neutrophil % 77.2 % (47-70); Platelet Count 222 K/mm3 (150-450); RBC Distribution Width CV 13.2 % (11.6-14.6); RBC Distribution Width SD 49.4 fl (35.1-43.9); Red Blood Count 3.61 M/mm3 (4.6-6.2); White Blood Count 10.3 K/mm3 (4.4-11.0)
[2020-09-15 06:35] VITALS: BP 106/66; PULSE 61; RESP 20; TEMP 36.9; O2SAT 93
[2020-09-15 06:59] LABS: ALB/GLOB Ratio 0.7 RATIO (0.9-2.4); AST(SGOT) 24 U/L (15-37); Alanine Aminotransfer ALT/SGPT 25 U/L (16-61); Albumin, Serum 2.3 g/dL (3.2-5.0); Alkaline Phosphatase 63 U/L (45-117); Anion Gap 10 (5-15); BUN 19 mg/dL (7-18); BUN/Creat Ratio 16.7 RATIO (10-20); Calcium,Total 7.6 mg/dL (8.5-10.1); Chloride 107 mmol/L (98-107); Creatinine, Serum 1.14 mg/dL (0.70-1.30); EST Glomerular Filtration Rate 65 mL/min (>60); Est Glom Filt Rate - Afr Amer 78 mL/min (>60); Estimated Creatinine Clearance 48.92 ml/min; Globulin 3.4 g/dL (2.2-4.2); Glucose 143 mg/dL (74-106); Potassium 3.6 mmol/L (3.5-5.1); Protein, Total 5.7 g/dL (6.4-8.2); Sodium Level 138 mmol/L (136-145)
[2020-09-15 07:05] LABS: Bedside Glucose 133 mg/dL (70-110)
[2020-09-15 08:35] VITALS: BP 127/65; PULSE 71; RESP 20; TEMP 36.4; O2SAT 93
[2020-09-15] MEDS: Lisinopril 5 MG Tablet PO (08:49)
[2020-09-15] MEDS: Menthol/Lanolin/Calamine/Znox 113 GM Tube 1 APPLIC TOPICAL ×2 (08:51→20:23)
[2020-09-15] MEDS: Clopidogrel Bisulfate 75 MG Tablet PO (08:51)
[2020-09-15] MEDS: Senna/Docusate Sodium 1 Tablet 2 TABLET PO (08:51)
[2020-09-15] MEDS: Aspirin 81 MG TAB.CHEW PO (08:51)
[2020-09-15] MEDS: hydroCHLOROthiazide 12.5mg 12.5 MG PO (08:51)
[2020-09-15] MEDS: Dorzolamide HCL/Timolol 10 ml Bottle 1 DRP EACH EYE ×2 (08:52→20:24)
[2020-09-15] MEDS: Enoxaparin 30 MG/0.3 ML Syringe SC ×2 (08:52→20:26)
[2020-09-15] MEDS: Carvedilol 6.25 MG Tablet PO ×2 (08:52→20:23)
[2020-09-15] MEDS: dexAMETHasone 4 MG Tablet 6 MG PO (12:01)
[2020-09-15] MEDS: Insulin Lispro 100 UNIT/ML INSULN.PEN SC ×3 (12:08→20:24)
[2020-09-15 12:21] LABS: Bedside Glucose 157 mg/dL (70-110)
--- NOTE | 2020-09-15 12:21 | PCM.PN.HOSP ---
Patient Problems: Active and Suspected Problems COVID-19 (Acute) Encephalopathy acute (Acute) Dehydration (Acute) Elevated lactic acid level (Acute) Subjective: Patient seen and examined. He feels better and had no complaints. For shortness of breath that improved. Review of systems otherwise negative. He remains on 2 L of oxygen. He has otherwise remained hemodynamically stable. Vitals/I&O's: Vital Signs Temp Pulse Resp BP Pulse Ox 97.5 F L 71 20 H 127/65 H 93 09/15/20 08:35 09/15/20 08:35 09/15/20 08:35 09/15/20 08:35 09/15/20 08:35 Oxygen Flow Rate (L/min) 2 Oxygen Delivery Method Nasal Cannula Weight: 216 lb 7.903 oz Body Mass Index (BMI) 30.2 Finger Stick Blood Glucose 144 Intake and Output for Last 24 Hours 09/13/20 09/14/20 09/15/20 23:59 23:59 23:59 Intake Total 3316.65 / 3316.65 4070.00 / 4070.00 2062.5 / 2062.5 Output Total 650 / 650 875 / 875 275 / 275 Balance 2666.65 / 2666.65 3195.00 / 3195.00 1787.5 / 1787.5 General: Alert, Oriented x3, Cooperative, No apparent distress HEENT: Atraumatic, PERRLA, EOMI, Normocephalic, - - very hard of hearing. Oral: Moist Mucosa Neck: Supple, No JVD, Negative Carotid Bruits Lungs: Wheezes - diminished breath sounds bibasally, no wheezes or crackles. on 2L of oxygen Cardiovascular: Regular rate, Regular Rhythm, Normal S1, Normal S2, No murmurs Abdomen: Bowel Sounds Present, Soft, Non Tender, Non-Distended, No Hepato-splenomegaly Extremities: No clubbing, No cyanosis, No edema, Capillary Refill Less than 3 Seconds Skin: No rashes, No breakdown Musculoskeletal: No Tenderness to Palpation of Joints or Extremities Lymphatic: No Cervical, Supraclavicular, or Inguinal Adenopathy Neurological: Cranial nerves II-XII grossly intact, Neuro grossly intact, Motor Exam 5/5 strength throughout Psych/Mental Status: Normal Affect, Appropriate, Alert and oriented to time, place, person, mood and affect Microbiology Past 72 Hours 09/13/20 12:33 Urine, Clean Catch Urine Culture - Preliminary Culture exhibits no growth. 09/13/20 11:05 Blood Culture (Wb) - Arm Right Blood Culture - Preliminary No growth in 48 hours. 09/13/20 10:30 Blood Culture (Wb) - Arm Left Blood Culture - Preliminary No growth in 48 hours. Laboratory Results 09/14/20 04:45: Hemoglobin A1c 7.4 H 09/14/20 13:10: Magnesium 1.6 09/14/20 13:10: Lactic Acid 4.2 H* 09/14/20 16:29: POC Glucose 146 H 09/14/20 17:56: Lactic Acid 3.7 H* 09/14/20 23:14: POC Glucose 134 H 09/15/20 05:38: WBC 10.3, RBC 3.61 L, Hgb 10.8 L, Hct 36.5 L, MCV 101.1 H D, MCH 29.9, MCHC 29.6 L D, RDW Std Deviation 49.4 H, RDW Coeff of Elias 13.2, Plt Count 222, MPV 9.4, Immature Gran % (Auto) 0.600, Neut % (Auto) 77.2 H, Lymph % (Auto) 11.5 L, [place] % (Auto) 9.3, Eos % (Auto) 0.8, Baso % (Auto) 0.6, Absolute Neuts (auto) 8.0 H, Absolute Lymphs (auto) 1.19, Nucleated RBC % 0 09/15/20 05:38: Sodium 138, Potassium 3.6, Chloride 107, Carbon Dioxide 21.0, Anion Gap 10, BUN 19 H, Creatinine 1.14, Estim Creat Clear Calc 48.92, Est GFR (MDRD) Af Amer 78, Est GFR (MDRD) Non-Af 65, BUN/Creatinine Ratio 16.7, Glucose 143 H, Calcium 7.6 L, Total Bilirubin 0.80, AST 24, ALT 25, Alkaline Phosphatase 63, Total Protein 5.7 L, Albumin 2.3 L, Globulin 3.4, Albumin/Globulin Ratio 0.7 L 09/15/20 06:39: POC Glucose 133 H 09/15/20 12:07: POC Glucose 157 H Diagnostic Data Brain CT 09/13/20 11:19 IMPRESSION: 1. No acute findings. 2. Stable exam since prior. 3. Small remote right ganglia capsular infarct. Electronically Signed: Augustin Butler at 14:08 EDT Tel , Service support , Chest X-Ray 09/13/20 11:20 IMPRESSION: No active pulmonary disease. Electronically Signed: Bismark Tapia MD at 12:07 EDT Tel , Service support , Current Medications Acetaminophen (Acetaminophen 325 Mg Tablet) 650 mg PO Q6H PRN PRN PRN Reason: Pain Score 1-10/Temp > 100.7 F Last Admin: 09/13/20 21:47 Dose: 650 mg Documented by: Aspirin (Aspirin 81 Mg Tab.Chew) 81 mg PO DAILY@0800 [facility] Last Admin: 09/15/20 08:51 Dose: 81 mg Documented by: Atorvastatin Calcium (Atorvastatin Calcium 80 Mg Tablet) 80 mg PO QHS [facility] Last Admin: 09/14/20 23:17 Dose: 80 mg Documented by: Calamine/Phenol (Menthol/Lanolin/Calamine/Znox 113 Gm Tube) 1 applic TOPICAL BID [facility]; Protocol Last Admin: 09/15/20 08:51 Dose: 1 applicatio Documented by: Carvedilol (Carvedilol 6.25 Mg Tablet) 6.25 mg PO BID [facility] Last Admin: 09/15/20 08:52 Dose: 6.25 mg Documented by: Cholecalciferol (Cholecalciferol (Vit D3) 1,000 Unit (25mcg)) 5,000 unit PO DAILY [facility] Last Admin: 09/15/20 08:50 Dose: 5,000 unit Documented by: Clopidogrel Bisulfate (Clopidogrel Bisulfate 75 Mg Tablet) 75 mg PO DAILY [facility] Last Admin: 09/15/20 08:51 Dose: 75 mg Documented by: Dexamethasone (Dexamethasone 4 Mg Tablet) 6 mg PO DAILY@0800 [facility] Last Admin: 09/15/20 12:01 Dose: 6 mg Documented by: Dextrose (Dextrose 50%-Water 25 Gm/50 Ml Disp.Syrin) 0 gm IV X1 PRN; Protocol PRN Reason: Hypoglycemia Dorzolamide/Timolol (Dorzolamide Hcl/Timolol 10 Ml Bottle) 1 drop EACH EYE BID [facility] Last Admin: 09/15/20 08:52 Dose: 1 drop Documented by: Enoxaparin Sodium (Enoxaparin 30 Mg/0.3 Ml Syringe) 30 mg SC BID [facility] Last Admin: 09/15/20 08:52 Dose: 30 mg Documented by: Glucagon (Glucagon 1 Mg/Ml Syringe) 1 mg IM .X1 PRN PRN Reason: Hypoglycemia Hydrochlorothiazide (Hydrochlorothiazide 12.5mg) 12.5 mg PO DAILY [facility] Last Admin: 09/15/20 08:51 Dose: 12.5 mg Documented by: Sodium Chloride () 250 mls @ 15 mls/hr IV .[id number] PRN PRN Reason: Saline Flush Sodium Chloride () 250 mls @ 15 mls/hr IV .[id number] PRN PRN Reason: Additional IVPB Infusion Sodium Chloride () 1,000 mls @ 125 mls/hr IV .Q8H [facility] Last Admin: 09/15/20 12:01 Dose: 125 mls/hr Documented by: Insulin Human Lispro (Insulin Lispro 100 Unit/Ml Insuln.Pen) 0 unit SC ACHS [facility]; Protocol Last Admin: 09/15/20 12:08 Dose: 1 unit Documented by: Lamotrigine (Lamotrigine 100 Mg Tablet) 250 mg PO QHS [facility] Last Admin: 09/14/20 23:16 Dose: 250 mg Documented by: Lisinopril (Lisinopril 5 Mg Tablet) 5 mg PO DAILY [facility] Last Admin: 09/15/20 08:49 Dose: 5 mg Documented by: Ondansetron HCl (Ondansetron 4 Mg/2 Ml Vial) 4 mg IV Q8H PRN PRN PRN Reason: NAUSEA/VOMITING Senna/Docusate Sodium (Senna/Docusate Sodium 1 Tablet) 2 tablet PO BID PRN PRN Reason: Constipation Last Admin: 09/15/20 08:51 Dose: 2 tablet Documented by: Sodium Chloride (0.9% Saline Lock 10 Ml Syringe) 10 - 40 ml IV UD PRN PRN Reason: SALINE FLUSH STROKE Vital Signs/Narrative: Vital Signs Temp Pulse Resp BP Pulse Ox 09/15/20 08:35 97.5 F L 71 20 H 127/65 H 93 Medical Necessity - Tobacco Use Smoking Status: Never smoker Tobacco Use: Non-smoker Assessment/Plan All Active Problems COVID-19 (Acute) Encephalopathy acute (Acute) Dehydration (Acute) Elevated lactic acid level (Acute) # Acute metabolic encephalopathy due to COVID 19 infection resolved # COVID 19 infection feels well. shortness of breath has improved on 2L of oxygen> Will wean off oxygen to maintain sats .90% breathing treatments with bronchodilators ID on board # Lactic acidosis: lactic acid was 3.3 on admission. May be due to Metformin. Will DC Metformin. #Type 2 diabetes mellitus: Metformin on hold. A1c was 7.4. Insulin sliding scale. Accu-Cheks AC at bedtime. #Hypertension: On lisinopril and hydrochlorothiazide #CAD s/p stents: On aspirin, statin and carvedilol. #Debility due to recurrent falls. PT OT on board. May need placement. DVT prophylaxis: Lovenox 30mg twice daily. Inpatient E&M: 78500 Subs Hosp L2
[2020-09-15 12:38] VITALS: O2SAT 93
--- NOTE | 2020-09-15 14:39 | CON.PCM_ITS ---
Problem List (1) COVID-19 Status: Acute Reason for Consult: covid Consulted by: Dr. Torres History of Present Illness: The patient is a 84 year old M presented 09/13 with sudden onset confusion, weakness, sore throat, diarrhea, cough. No change in taste or smell. Family member recently sick. Came to ED, now O2 worsened, feeling about the same. Full ROS performed and neg except as noted above. - Medical History Past Medical History (Chronic Problems): Chronic Problems CAD (coronary artery disease) (Chronic) Type 2 diabetes mellitus (Chronic) Chronic kidney disease, stage 3 (Chronic) Stroke (Chronic) Glaucoma (Chronic) Vitamin D deficiency (Chronic) Depression (Chronic) Seizure disorder (Chronic) Diabetes mellitus (Chronic) Insomnia (Chronic) HLD (hyperlipidemia) (Chronic) Hearing deficit (Chronic) DM (dermatomyositis) (Chronic) CVA (cerebral vascular accident) (Chronic) CKD (chronic kidney disease), stage III (Chronic) H/O heart artery stent (Chronic) Blind (Chronic) L. eye Aortic aneurysm (Chronic) Herpes zoster (Chronic) HTN (hypertension) (Chronic) Allergies/Adverse Reactions: Allergies No Known Allergies Allergy (Verified 05/27/15 07:47) Home Medications: Ambulatory Orders Medication Instructions Recorded Aspirin [Aspirin, Baby] 81 mg PO DAILY@0800 05/21/15 Carvedilol [Coreg (Beta Marshall)] 6.25 mg PO BID 05/21/15 Cholecalciferol (VIT D3) [Vitamin 5,000 unit PO DAILY 05/21/15 D3] Clopidogrel Bisulfate [Plavix] 75 mg PO DAILY 05/21/15 Eplerenone [Inspra] 12.5 mg PO QODAY 05/21/15 Lamotrigine [Lamictal] 250 mg PO QHS 05/21/15 Lisinopril [Zestril] 5 mg PO DAILY 05/21/15 Quetiapine Fumarate [Seroquel] 3.5 tab PO QHS 05/21/15 hydroCHLOROthiazide 12.5 mg PO DAILY capsule 02/02/19 [Hydrochlorothiazide] Duloxetine Hcl [Cymbalta] 30 mg PO BID 09/28/19 Acetaminophen [Tylenol] 325 mg PO DAILY 12/18/19 Atorvastatin Calcium [Lipitor] 80 mg PO QHS 09/13/20 Dorzolamide HCl/Timolol Maleat 1 drp OP BID 09/13/20 [Cosopt Eye Drops] metFORMIN (XR) [Glucophage Xr] 500 mg PO BID 09/13/20 - Social History SMOKING STATUS:: Never smoker Vital Signs Temp Pulse Resp BP Pulse Ox 97.5 F L 71 20 H 127/65 H 93 09/15/20 08:35 09/15/20 08:35 09/15/20 08:35 09/15/20 08:35 09/15/20 08:35 Oxygen Flow Rate (L/min) 2 Oxygen Delivery Method Nasal Cannula Weight: 98.2 kg Body Mass Index (BMI) 30.2 Finger Stick Blood Glucose 144 Microbiology Past 72 Hours 09/13/20 12:33 Urine Culture - Preliminary Urine, Clean Catch Culture exhibits no growth. 09/13/20 11:05 Blood Culture - Preliminary Blood Culture (Wb) - Arm Right No growth in 48 hours. 09/13/20 10:30 Blood Culture - Preliminary Blood Culture (Wb) - Arm Left No growth in 48 hours. Laboratory Tests Past 24 Hrs 09/14/20 09/14/20 09/15/20 04:45 17:56 05:38 WBC 10.3 RBC 3.61 L Hgb 10.8 L Hct 36.5 L MCV 101.1 H D MCH 29.9 MCHC 29.6 L D RDW Std Deviation 49.4 H RDW Coeff of Elias 13.2 Plt Count 222 MPV 9.4 Immature Gran % (Auto) 0.600 Neut % (Auto) 77.2 H Lymph % (Auto) 11.5 L [place] % (Auto) 9.3 Eos % (Auto) 0.8 Baso % (Auto) 0.6 Absolute Neuts (auto) 8.0 H Absolute Lymphs (auto) 1.19 Nucleated RBC % 0 Sodium Potassium Chloride Carbon Dioxide Anion Gap BUN Creatinine Estim Creat Clear Calc Est GFR (MDRD) Af Amer Est GFR (MDRD) Non-Af BUN/Creatinine Ratio Glucose Hemoglobin A1c 7.4 H Lactic Acid 3.7 H* Calcium Total Bilirubin AST ALT Alkaline Phosphatase Total Protein Albumin Globulin Albumin/Globulin Ratio 09/15/20 05:38 WBC RBC Hgb Hct MCV MCH MCHC RDW Std Deviation RDW Coeff of Elias Plt Count MPV Immature Gran % (Auto) Neut % (Auto) Lymph % (Auto) [place] % (Auto) Eos % (Auto) Baso % (Auto) Absolute Neuts (auto) Absolute Lymphs (auto) Nucleated RBC % Sodium 138 Potassium 3.6 Chloride 107 Carbon Dioxide 21.0 Anion Gap 10 BUN 19 H Creatinine 1.14 Estim Creat Clear Calc 48.92 Est GFR (MDRD) Af Amer 78 Est GFR (MDRD) Non-Af 65 BUN/Creatinine Ratio 16.7 Glucose 143 H Hemoglobin A1c Lactic Acid Calcium 7.6 L Total Bilirubin 0.80 AST 24 ALT 25 Alkaline Phosphatase 63 Total Protein 5.7 L Albumin 2.3 L Globulin 3.4 Albumin/Globulin Ratio 0.7 L - Other Studies Radiology: [] reviewed Other Studies: [] Route of nutrition/ use of supplements: [] Nutritional Intake: [] IV Site: [] Clements Catheter: [] - Physical Exam General: Alert, Cooperative, No apparent distress HEENT: Atraumatic, PERRLA, EOMI Neck: Supple, No Nodes Lungs: Diminished Cardiovascular: Regular rate, Regular Rhythm Abdomen: Soft, Non Tender, Non-Distended Extremities: No edema Skin: No rashes IV Site: Peripheral, without redness Musculoskeletal: No Tenderness to Palpation of Joints or Extremities Neurological: Cranial nerves II-XII grossly intact - Assessment/Plan Antibiotics: [] Assessment/Plan: [] Active and Suspected Problems COVID-19 (Acute) Encephalopathy acute (Acute) Dehydration (Acute) Elevated lactic acid level (Acute) acute hypoxic resp failure due to covid - mental status improved. Reviewed EUA, pt consented to remdesivir, will start. Will follow, thank youPatient or caregiver was given a copy of the Remdesivir Fact Sheet for Patients and Parents/Caregivers. The following information was communicated to the patient or caregiver: Remdesivir is not an FDA approved drug. The FDA has authorized the emergency use of Remdesivir. The patient had the option to refuse or accept treatment with Remdesivir. The patient was informed that the number of people treated with Remdesivir is small at this time. The potential benefits and potential risks of Remdesivir are not fully known. Potential benefits of Remdesivir include a shorter time to recovery of COVID-19 infection. Potential risks or side effects of Remdesivir include sweating, shivering, nausea and vomiting or low blood pressure related to a reaction to the medication infusion and increases in liver enzymes. No drugs are approved by the FDA to treat COVID-19 at this time. The patient (or appointed inbound customer service representative) stated understanding of information communicated and wished to proceed with Remdesivir treatment.
--- NOTE | 2020-09-15 16:10 | CASEMGMT ---
Social Work MS2 Reason for consult: possible SNF placement at discharge. Summary: Received message from the son Michele Snow indicating that the family would like patient to go to [facility] TCU at time of discharge, that patient has been to this facility in the past, and due to weakness feels TCU would be best option. Michele indicated has also left message for TCU of the same request. Chart reviewed and noted patient is COVID positive, which would then require 2 negative COVID tests before patient can go to TCU. Michele indicated in the message that patient's and patient's other son both have tested positive for COVID. Michele with pending results. Spoke with nursing staff on MS2 and informed that patient is hard of hearing and would be difficult to have phone conversation. Called the son back and left message at [phone] to call this sql report writer for discussion on discharge planning. Received message back indicating it would be good to call back later in the day as patient's is sleeping. Called Michele again at 1610 and received voicemail. Left message of need to talk to family about status of discharge planning. Need to discuss with family the need to have back up plans should patient be medically ready for discharge, prior to the 2 negative COVID tests being back. Patient History (gathered from medical records): PCP: Dr. Wright Specialists: Dr. Tejeda, service technician [facility] Insurance: Medicare (primary), [employer] (secondary) Prescription Benefits: yes Living Will/POAHC: verified by this sql report writer as present in the patient's electronic medical records. Primary POAHC is John ([phone]), secondary is son Stanley ([phone]), and third is Michele ([phone]) Next of Kin: John, Son Stanley, and son Michele Living arrangements: Lives with in a condo on the main floor. Son Michele lives in the basement of this condo and helps as needed. Transportation: drives DME: Cane, walker, grab bars, built in shower seat, glucometer HHC/SNF: Has been to both [facility] and [facility] in the past Medical History: blindness in left eye, hearing deficit Mental Health History: per chart, history depression Disposition: Anticipate SNF level of care. Family is requesting [facility] TCU. Will need to connect with the family in order to educate limitations surrounding TCU admission and explore other options. Plan: Social work to follow and assist as indicated for possible SNF placement. -ELSA Cat, SWEEP PRESS OPERATOR
[2020-09-15 17:15] LABS: Bedside Glucose 203 mg/dL (70-110)
[2020-09-15] MEDS: lamoTRIgine 100 MG Tablet 250 MG PO (20:24)
[2020-09-15] MEDS: Atorvastatin Calcium 80 MG Tablet PO (20:25)
[2020-09-15] MEDS: Acetaminophen 325 MG Tablet 650 MG PO (20:25)
[2020-09-15 20:27] VITALS: BP 130/65; PULSE 60; RESP 18; TEMP 35.9; O2SAT 94
[2020-09-15 20:45] LABS: Bedside Glucose 279 mg/dL (70-110)
[2020-09-16 03:35] VITALS: BP 118/75; PULSE 57; RESP 16; TEMP 35.8; O2SAT 94
[2020-09-16] MEDS: 0.9% Normal Saline 1,000 ML 125 ML IV ×3 (03:45→18:54)
[2020-09-16] MEDS: Insulin Lispro 100 UNIT/ML INSULN.PEN SC ×4 (06:21→22:00)
[2020-09-16 07:10] LABS: Bedside Glucose 144 mg/dL (70-110)
[2020-09-16 07:16] LABS: Bedside Glucose 176 mg/dL (70-110)
[2020-09-16 07:27] LABS: Hematocrit 37.8 % (40-54); Hemoglobin 10.9 g/dL (13.0-16.5); Mean Corp Hgb Conc 28.8 g/dL (32-36); Mean Corpuscular Hgb 29.8 pg (27.0-32.0); Mean Corpuscular Volume 103.3 fL (80-94); Mean Platelet Vol. 9.7 fl (6.2-12.0); Platelet Count 232 K/mm3 (150-450); RBC Distribution Width CV 13.2 % (11.6-14.6); RBC Distribution Width SD 49.9 fl (35.1-43.9); Red Blood Count 3.66 M/mm3 (4.6-6.2); White Blood Count 9.3 K/mm3 (4.4-11.0)
[2020-09-16 07:56] LABS: ALB/GLOB Ratio 0.5 RATIO (0.9-2.4); AST(SGOT) 31 U/L (15-37); Alanine Aminotransfer ALT/SGPT 32 U/L (16-61); Albumin, Serum 1.9 g/dL (3.2-5.0); Alkaline Phosphatase 68 U/L (45-117); Anion Gap 6 (5-15); BUN 22 mg/dL (7-18); BUN/Creat Ratio 22.4 RATIO (10-20); Calcium,Total 7.5 mg/dL (8.5-10.1); Chloride 113 mmol/L (98-107); Creatinine, Serum 0.98 mg/dL (0.70-1.30); EST Glomerular Filtration Rate 77 mL/min (>60); Est Glom Filt Rate - Afr Amer 93 mL/min (>60); Globulin 3.9 g/dL (2.2-4.2); Glucose 218 mg/dL (74-106); Potassium 3.9 mmol/L (3.5-5.1); Protein, Total 5.8 g/dL (6.4-8.2); Sodium Level 136 mmol/L (136-145)
[2020-09-16] MEDS: Aspirin 81 MG TAB.CHEW PO (08:26)
[2020-09-16] MEDS: Carvedilol 6.25 MG Tablet PO ×2 (08:27→21:54)
[2020-09-16] MEDS: Clopidogrel Bisulfate 75 MG Tablet PO (08:27)
[2020-09-16] MEDS: hydroCHLOROthiazide 12.5mg 12.5 MG PO (08:27)
[2020-09-16] MEDS: Lisinopril 5 MG Tablet PO (08:27)
[2020-09-16] MEDS: Menthol/Lanolin/Calamine/Znox 113 GM Tube 1 APPLIC TOPICAL ×2 (08:27→21:54)
[2020-09-16] MEDS: Enoxaparin 30 MG/0.3 ML Syringe SC ×2 (08:28→21:54)
[2020-09-16] MEDS: Dorzolamide HCL/Timolol 10 ml Bottle 1 DRP EACH EYE ×2 (08:28→21:55)
[2020-09-16] MEDS: dexAMETHasone 4 MG Tablet 6 MG PO (08:46)
[2020-09-16 08:50] VITALS: BP 136/66; PULSE 64; RESP 18; TEMP 36.3; O2SAT 93
[2020-09-16 09:30] VITALS: O2SAT 93
--- NOTE | 2020-09-16 10:05 | CASEMGMT ---
RN CM Note: per nurse, family thinks patient has been arranged to go to TCU, however he is COVID +. Message left with LYNN Cat to update re: dc concern for SNF. Candie GUILLENN RN ACM
--- NOTE | 2020-09-16 10:48 | PCM.PN.HOSP ---
Patient Problems: Active and Suspected Problems COVID-19 (Acute) Encephalopathy acute (Acute) Dehydration (Acute) Elevated lactic acid level (Acute) Subjective: Patient seen and examined. He complains of feeling weak today. He feels his breathing is better he is also on 1 L of oxygen. He does not feel like he can go home today because he is feeling weak. Review of signs otherwise negative. He has remained hemodynamically stable. Vitals/I&O's: Vital Signs Temp Pulse Resp BP Pulse Ox 97.3 F L 64 18 136/66 H 93 09/16/20 08:50 09/16/20 08:50 09/16/20 08:50 09/16/20 08:50 09/16/20 08:50 Oxygen Flow Rate (L/min) 2 Oxygen Delivery Method Nasal Cannula Weight: 216 lb 4.375 oz Body Mass Index (BMI) 30.2 Finger Stick Blood Glucose 144 Intake and Output for Last 24 Hours 09/14/20 09/15/20 09/16/20 23:59 23:59 23:59 Intake Total 4070.00 / 4070.00 3270.83 / 3270.83 1000 / 1000 Output Total 875 / 875 275 / 275 Balance 3195.00 / 3195.00 2995.83 / 2995.83 1000 / 1000 General: Alert, Oriented x3, Cooperative, No apparent distress HEENT: Atraumatic, PERRLA, EOMI, Normocephalic, - - very hard of hearing. Oral: Moist Mucosa Neck: Supple, No JVD, Negative Carotid Bruits Lungs: Wheezes - diminished breath sounds bibasally, no wheezes or crackles. on 1L of oxygen Cardiovascular: Regular rate, Regular Rhythm, Normal S1, Normal S2, No murmurs Abdomen: Bowel Sounds Present, Soft, Non Tender, Non-Distended, No Hepato-splenomegaly Extremities: No clubbing, No cyanosis, No edema, Capillary Refill Less than 3 Seconds Skin: No rashes, No breakdown Musculoskeletal: No Tenderness to Palpation of Joints or Extremities Lymphatic: No Cervical, Supraclavicular, or Inguinal Adenopathy Neurological: Cranial nerves II-XII grossly intact, Neuro grossly intact, Motor Exam 5/5 strength throughout Psych/Mental Status: Normal Affect, Appropriate, Alert and oriented to time, place, person, mood and affect Microbiology Past 72 Hours 09/13/20 12:33 Urine, Clean Catch Urine Culture - Final Culture exhibits no growth. 09/13/20 11:05 Blood Culture (Wb) - Arm Right Blood Culture - Preliminary No growth in 48 hours. 09/13/20 10:30 Blood Culture (Wb) - Arm Left Blood Culture - Preliminary No growth in 48 hours. Laboratory Results 09/13/20 17:19: POC Glucose 144 H 09/15/20 12:07: POC Glucose 157 H 09/15/20 17:04: POC Glucose 203 H 09/15/20 20:19: POC Glucose 279 H 09/16/20 06:20: POC Glucose 176 H 09/16/20 06:30: WBC 9.3, RBC 3.66 L, Hgb 10.9 L, Hct 37.8 L, MCV 103.3 H, MCH 29.8, MCHC 28.8 L, RDW Std Deviation 49.9 H, RDW Coeff of Elias 13.2, Plt Count 232, MPV 9.7 09/16/20 06:30: Sodium 136, Potassium 3.9, Chloride 113 H, Carbon Dioxide 17.0 L, Anion Gap 6, BUN 22 H, Creatinine 0.98, Estim Creat Clear Calc 56.90, Est GFR (MDRD) Af Amer 93, Est GFR (MDRD) Non-Af 77, BUN/Creatinine Ratio 22.4 H, Glucose 218 H, Calcium 7.5 L, Total Bilirubin 0.40, AST 31, ALT 32, Alkaline Phosphatase 68, Total Protein 5.8 L, Albumin 1.9 L, Globulin 3.9, Albumin/Globulin Ratio 0.5 L Diagnostic Data Brain CT 09/13/20 11:19 IMPRESSION: 1. No acute findings. 2. Stable exam since prior. 3. Small remote right ganglia capsular infarct. Electronically Signed: Augustin Butler at 14:08 EDT Tel , Service support , Chest X-Ray 09/13/20 11:20 IMPRESSION: No active pulmonary disease. Electronically Signed: Bismark Tapia MD at 12:07 EDT Tel , Service support , Current Medications Acetaminophen (Acetaminophen 325 Mg Tablet) 650 mg PO Q6H PRN PRN PRN Reason: Pain Score 1-10/Temp > 100.7 F Last Admin: 09/15/20 20:25 Dose: 650 mg Documented by: Aspirin (Aspirin 81 Mg Tab.Chew) 81 mg PO DAILY@0800 [facility] Last Admin: 09/16/20 08:26 Dose: 81 mg Documented by: Atorvastatin Calcium (Atorvastatin Calcium 80 Mg Tablet) 80 mg PO QHS [facility] Last Admin: 09/15/20 20:25 Dose: 80 mg Documented by: Calamine/Phenol (Menthol/Lanolin/Calamine/Znox 113 Gm Tube) 1 applic TOPICAL BID [facility]; Protocol Last Admin: 09/16/20 08:27 Dose: 1 applicatio Documented by: Carvedilol (Carvedilol 6.25 Mg Tablet) 6.25 mg PO BID [facility] Last Admin: 09/16/20 08:27 Dose: 6.25 mg Documented by: Cholecalciferol (Cholecalciferol (Vit D3) 1,000 Unit (25mcg)) 5,000 unit PO DAILY [facility] Last Admin: 09/16/20 08:26 Dose: 5,000 unit Documented by: Clopidogrel Bisulfate (Clopidogrel Bisulfate 75 Mg Tablet) 75 mg PO DAILY [facility] Last Admin: 09/16/20 08:27 Dose: 75 mg Documented by: Dexamethasone (Dexamethasone 4 Mg Tablet) 6 mg PO DAILY@0800 [facility] Last Admin: 09/16/20 08:46 Dose: 6 mg Documented by: Dextrose (Dextrose 50%-Water 25 Gm/50 Ml Disp.Syrin) 0 gm IV X1 PRN; Protocol PRN Reason: Hypoglycemia Dorzolamide/Timolol (Dorzolamide Hcl/Timolol 10 Ml Bottle) 1 drop EACH EYE BID [facility] Last Admin: 09/16/20 08:28 Dose: 1 drop Documented by: Enoxaparin Sodium (Enoxaparin 30 Mg/0.3 Ml Syringe) 30 mg SC BID [facility] Last Admin: 09/16/20 08:28 Dose: 30 mg Documented by: Glucagon (Glucagon 1 Mg/Ml Syringe) 1 mg IM .X1 PRN PRN Reason: Hypoglycemia Hydrochlorothiazide (Hydrochlorothiazide 12.5mg) 12.5 mg PO DAILY [facility] Last Admin: 09/16/20 08:27 Dose: 12.5 mg Documented by: Sodium Chloride () 250 mls @ 15 mls/hr IV .[id number] PRN PRN Reason: Saline Flush Sodium Chloride () 250 mls @ 15 mls/hr IV .[id number] PRN PRN Reason: Additional IVPB Infusion Sodium Chloride () 1,000 mls @ 125 mls/hr IV .Q8H [facility] Last Admin: 09/16/20 03:45 Dose: 125 mls/hr Documented by: Remdesivir (Investigational) (100 mg/ Sodium Chloride) 250 mls @ 125 mls/hr IV DAILY [facility]; Protocol Stop: 09/19/20 11:59 Insulin Human Lispro (Insulin Lispro 100 Unit/Ml Insuln.Pen) 0 unit SC ACHS [facility]; Protocol Last Admin: 09/16/20 06:21 Dose: 1 unit Documented by: Lamotrigine (Lamotrigine 100 Mg Tablet) 250 mg PO QHS [facility] Last Admin: 09/15/20 20:24 Dose: 250 mg Documented by: Lisinopril (Lisinopril 5 Mg Tablet) 5 mg PO DAILY [facility] Last Admin: 09/16/20 08:27 Dose: 5 mg Documented by: Ondansetron HCl (Ondansetron 4 Mg/2 Ml Vial) 4 mg IV Q8H PRN PRN PRN Reason: NAUSEA/VOMITING Senna/Docusate Sodium (Senna/Docusate Sodium 1 Tablet) 2 tablet PO BID PRN PRN Reason: Constipation Last Admin: 09/15/20 08:51 Dose: 2 tablet Documented by: Sodium Chloride (0.9% Saline Lock 10 Ml Syringe) 10 - 40 ml IV UD PRN PRN Reason: SALINE FLUSH STROKE Vital Signs/Narrative: Vital Signs Temp Pulse Resp BP Pulse Ox 09/16/20 08:50 97.3 F L 64 18 136/66 H 93 Medical Necessity - Tobacco Use Smoking Status: Never smoker Tobacco Use: Non-smoker Assessment/Plan All Active Problems COVID-19 (Acute) Encephalopathy acute (Acute) Dehydration (Acute) Elevated lactic acid level (Acute) # Acute metabolic encephalopathy due to COVID 19 infection resolved # COVID 19 infection feels weak today. shortness of breath has improved on 1L of oxygen Will wean off oxygen to maintain sats .90% breathing treatments with bronchodilators ID on board # Lactic acidosis: lactic acid was 3.3 on admission. May be due to Metformin. Will DC Metformin. #Type 2 diabetes mellitus: Metformin on hold. A1c was 7.4. Insulin sliding scale. Accu-Cheks AC at bedtime. #Hypertension: On lisinopril and hydrochlorothiazide #CAD s/p stents: On aspirin, statin and carvedilol. #Debility due to recurrent falls. PT OT on board. May need placement. DVT prophylaxis: Lovenox 30mg twice daily. Inpatient E&M: 27879 Subs Hosp L2
[2020-09-16 12:50] LABS: Bedside Glucose 207 mg/dL (70-110)
--- NOTE | 2020-09-16 13:12 | CASEMGMT ---
Social Work MS2 Reason for intervention: possible SNF placement Summary: Spoke with Ivory, admissions for [facility], to confirm whether family had reached out to TCU yesterday. Ivory reports the son was updated to the need to have 2 negative COVID tests prior to TCU admission. Called patients , who is the first power of storeroom attendant for health care. John willing to talk to this typewriter assembly and parts inspector. reports thought that all is set for patient to go to TCU. This typewriter assembly and parts inspector educated that while TCU may be an option, if at time of discharge (when patient is medically ready for discharge) the COVID test still shows positive then will need a back up plan. John stated that did not understand anything this typewriter assembly and parts inspector said. Offered to talk to son Michele, who lives in with patient and patient's , and is also listed as one of the POA's. John agreed. Spoke with Michele and educated to limitations of TCU admission. Reinforced that no one has stated patient is up for discharge yet, but that unable to guarantee that when patient is medically stable for discharge there will have been 2 negative COVID tests in place. Educated that will need to have a back up plan in the case that COVID test is still showing positive when patient no longer needs hospital level of care. Broached looking at alternative nursing facilities as a back up to TCU. Michele voiced adamantly that no one in family will agree to a community based SNF placement. This typewriter assembly and parts inspector offered to call [facility]'s TCU as this typewriter assembly and parts inspector was aware a few months back this facility would consider COVID positive patients if census was low enough. Michele declined this offer. Michele reported that wanted to go and talk to patient's and would talk to this typewriter assembly and parts inspector/the hospital later. Supportive listening offered, attempted assurance that no discharge is set yet, but that family needs to know limitations and be thinking of a back up plan if needed. Plan: Possible SNF placement, though family is only willing to consider [facility] T[facility]. -ELSA Cat, JIG FITTER
--- NOTE | 2020-09-16 15:08 | PCM.PN.ID ---
Patient Problems: Active and Suspected Problems COVID-19 (Acute) Encephalopathy acute (Acute) Dehydration (Acute) Elevated lactic acid level (Acute) Subjective: Feeling better today, no fever, some cough. No n/v/d. - Physical Exam Vitals/I&O's: Vital Signs Temp Pulse Resp BP Pulse Ox 97.3 F L 64 18 136/66 H 93 09/16/20 08:50 09/16/20 08:50 09/16/20 08:50 09/16/20 08:50 09/16/20 09:30 Oxygen Flow Rate (L/min) 2 Oxygen Delivery Method Nasal Cannula Weight: 98.1 kg Body Mass Index (BMI) 30.2 Finger Stick Blood Glucose 144 Intake and Output for Last 24 Hours 09/14/20 09/15/20 09/16/20 23:59 23:59 23:59 Intake Total 4070.00 / 4070.00 3270.83 / 3270.83 2250 / 2250 Output Total 875 / 875 275 / 275 Balance 3195.00 / 3195.00 2995.83 / 2995.83 2250 / 2250 General: Alert, Cooperative, No apparent distress Lungs: Diminished Cardiovascular: Regular rate, Regular Rhythm Abdomen: Soft, Non Tender, Non-Distended Skin: No rashes Microbiology Past 72 Hours 09/13/20 12:33 Urine, Clean Catch Urine Culture - Final Culture exhibits no growth. 09/13/20 11:05 Blood Culture (Wb) - Arm Right Blood Culture - Preliminary No growth in 48 hours. 09/13/20 10:30 Blood Culture (Wb) - Arm Left Blood Culture - Preliminary No growth in 48 hours. Laboratory Results 09/13/20 17:19: POC Glucose 144 H 09/15/20 17:04: POC Glucose 203 H 09/15/20 20:19: POC Glucose 279 H 09/16/20 06:20: POC Glucose 176 H 09/16/20 06:30: WBC 9.3, RBC 3.66 L, Hgb 10.9 L, Hct 37.8 L, MCV 103.3 H, MCH 29.8, MCHC 28.8 L, RDW Std Deviation 49.9 H, RDW Coeff of Elias 13.2, Plt Count 232, MPV 9.7 09/16/20 06:30: Sodium 136, Potassium 3.9, Chloride 113 H, Carbon Dioxide 17.0 L, Anion Gap 6, BUN 22 H, Creatinine 0.98, Estim Creat Clear Calc 56.90, Est GFR (MDRD) Af Amer 93, Est GFR (MDRD) Non-Af 77, BUN/Creatinine Ratio 22.4 H, Glucose 218 H, Calcium 7.5 L, Total Bilirubin 0.40, AST 31, ALT 32, Alkaline Phosphatase 68, Total Protein 5.8 L, Albumin 1.9 L, Globulin 3.9, Albumin/Globulin Ratio 0.5 L 09/16/20 12:36: POC Glucose 207 H Current Medications Acetaminophen (Acetaminophen 325 Mg Tablet) 650 mg PO Q6H PRN PRN PRN Reason: Pain Score 1-10/Temp > 100.7 F Last Admin: 09/15/20 20:25 Dose: 650 mg Documented by: Aspirin (Aspirin 81 Mg Tab.Chew) 81 mg PO DAILY@0800 [facility] Last Admin: 09/16/20 08:26 Dose: 81 mg Documented by: Atorvastatin Calcium (Atorvastatin Calcium 80 Mg Tablet) 80 mg PO QHS [facility] Last Admin: 09/15/20 20:25 Dose: 80 mg Documented by: Calamine/Phenol (Menthol/Lanolin/Calamine/Znox 113 Gm Tube) 1 applic TOPICAL BID [facility]; Protocol Last Admin: 09/16/20 08:27 Dose: 1 applicatio Documented by: Carvedilol (Carvedilol 6.25 Mg Tablet) 6.25 mg PO BID [facility] Last Admin: 09/16/20 08:27 Dose: 6.25 mg Documented by: Cholecalciferol (Cholecalciferol (Vit D3) 1,000 Unit (25mcg)) 5,000 unit PO DAILY [facility] Last Admin: 09/16/20 08:26 Dose: 5,000 unit Documented by: Clopidogrel Bisulfate (Clopidogrel Bisulfate 75 Mg Tablet) 75 mg PO DAILY [facility] Last Admin: 09/16/20 08:27 Dose: 75 mg Documented by: Dexamethasone (Dexamethasone 4 Mg Tablet) 6 mg PO DAILY@0800 [facility] Last Admin: 09/16/20 08:46 Dose: 6 mg Documented by: Dextrose (Dextrose 50%-Water 25 Gm/50 Ml Disp.Syrin) 0 gm IV X1 PRN; Protocol PRN Reason: Hypoglycemia Dorzolamide/Timolol (Dorzolamide Hcl/Timolol 10 Ml Bottle) 1 drop EACH EYE BID [facility] Last Admin: 09/16/20 08:28 Dose: 1 drop Documented by: Enoxaparin Sodium (Enoxaparin 30 Mg/0.3 Ml Syringe) 30 mg SC BID [facility] Last Admin: 09/16/20 08:28 Dose: 30 mg Documented by: Glucagon (Glucagon 1 Mg/Ml Syringe) 1 mg IM .X1 PRN PRN Reason: Hypoglycemia Hydrochlorothiazide (Hydrochlorothiazide 12.5mg) 12.5 mg PO DAILY [facility] Last Admin: 09/16/20 08:27 Dose: 12.5 mg Documented by: Sodium Chloride () 250 mls @ 15 mls/hr IV .[id number] PRN PRN Reason: Saline Flush Sodium Chloride () 250 mls @ 15 mls/hr IV .[id number] PRN PRN Reason: Additional IVPB Infusion Sodium Chloride () 1,000 mls @ 125 mls/hr IV .Q8H [facility] Last Admin: 09/16/20 10:54 Dose: 125 mls/hr Documented by: Remdesivir (Investigational) (100 mg/ Sodium Chloride) 250 mls @ 125 mls/hr IV DAILY [facility]; Protocol Stop: 09/19/20 11:59 Last Infusion: 09/16/20 12:50 Dose: Infused Documented by: Insulin Human Lispro (Insulin Lispro 100 Unit/Ml Insuln.Pen) 0 unit SC ACHS [facility]; Protocol Last Admin: 09/16/20 12:38 Dose: 1 unit Documented by: Lamotrigine (Lamotrigine 100 Mg Tablet) 250 mg PO QHS [facility] Last Admin: 09/15/20 20:24 Dose: 250 mg Documented by: Lisinopril (Lisinopril 5 Mg Tablet) 5 mg PO DAILY [facility] Last Admin: 09/16/20 08:27 Dose: 5 mg Documented by: Ondansetron HCl (Ondansetron 4 Mg/2 Ml Vial) 4 mg IV Q8H PRN PRN PRN Reason: NAUSEA/VOMITING Senna/Docusate Sodium (Senna/Docusate Sodium 1 Tablet) 2 tablet PO BID PRN PRN Reason: Constipation Last Admin: 09/15/20 08:51 Dose: 2 tablet Documented by: Sodium Chloride (0.9% Saline Lock 10 Ml Syringe) 10 - 40 ml IV UD PRN PRN Reason: SALINE FLUSH Medical Necessity - Tobacco Use Smoking Status: Never smoker Tobacco Use: Non-smoker Route of nutrition/ use of supplements: [] Nutritional Intake: [] IV Site: [] Clements Catheter: [] - Assessment/Plan Antibiotics: [] Assessment/Plan: [] Active and Suspected Problems COVID-19 (Acute) Encephalopathy acute (Acute) Dehydration (Acute) Elevated lactic acid level (Acute) acute hypoxic resp failure due to covid - mental status improved. On remdesivir, feeling better. Cont dex. Ok for discharge home on O2 per primary team, quarantine for 14 days from start of symptoms. Will follow
[2020-09-16 16:30] VITALS: BP 124/67; PULSE 54; RESP 18; TEMP 36.3; O2SAT 94
[2020-09-16] MEDS: Senna/Docusate Sodium 1 Tablet 2 TABLET PO (16:36)
[2020-09-16 16:41] LABS: Bedside Glucose 260 mg/dL (70-110)
[2020-09-16] MEDS: 0.9% Saline Lock 10 ML Syringe IV (16:51)
[2020-09-16] MEDS: lamoTRIgine 100 MG Tablet 250 MG PO (21:53)
[2020-09-16] MEDS: Atorvastatin Calcium 80 MG Tablet PO (21:54)
[2020-09-16] MEDS: Acetaminophen 325 MG Tablet 650 MG PO (21:54)
[2020-09-16 22:12] VITALS: BP 155/81; PULSE 60; RESP 18; TEMP 35.9; O2SAT 98
[2020-09-16 23:36] LABS: Bedside Glucose 247 mg/dL (70-110)
[2020-09-17] VITALS (7 sets, daily range): BP systolic 150–158; BP diastolic 72–79; PULSE 57–84; RESP 18–20; TEMP 36.1–37.1; O2SAT 87–95
[2020-09-17] MEDS: Zolpidem Tartrate 5 MG Tablet PO ×2 (00:20→23:52)
[2020-09-17] MEDS: 0.9% Normal Saline 1,000 ML 125 ML IV (03:00)
[2020-09-17] MEDS: Insulin Lispro 100 UNIT/ML INSULN.PEN SC ×4 (06:25→23:42)
[2020-09-17 06:45] LABS: Hematocrit 37.2 % (40-54); Hemoglobin 11.6 g/dL (13.0-16.5); Mean Corp Hgb Conc 31.2 g/dL (32-36); Mean Corpuscular Hgb 29.1 pg (27.0-32.0); Mean Corpuscular Volume 93.5 fL (80-94); Mean Platelet Vol. 9.9 fl (6.2-12.0); Platelet Count 313 K/mm3 (150-450); RBC Distribution Width CV 13.4 % (11.6-14.6); RBC Distribution Width SD 46.3 fl (35.1-43.9); Red Blood Count 3.98 M/mm3 (4.6-6.2); White Blood Count 14.2 K/mm3 (4.4-11.0)
[2020-09-17 07:06] LABS: Bedside Glucose 194 mg/dL (70-110)
[2020-09-17 07:11] LABS: ALB/GLOB Ratio 0.6 RATIO (0.9-2.4); AST(SGOT) 32 U/L (15-37); Alanine Aminotransfer ALT/SGPT 41 U/L (16-61); Albumin, Serum 2.2 g/dL (3.2-5.0); Alkaline Phosphatase 75 U/L (45-117); Anion Gap 6 (5-15); BUN 25 mg/dL (7-18); BUN/Creat Ratio 24.8 RATIO (10-20); Calcium,Total 7.7 mg/dL (8.5-10.1); Chloride 113 mmol/L (98-107); Creatinine, Serum 1.01 mg/dL (0.70-1.30); EST Glomerular Filtration Rate 75 mL/min (>60); Est Glom Filt Rate - Afr Amer 90 mL/min (>60); Estimated Creatinine Clearance 55.21 ml/min; Globulin 3.7 g/dL (2.2-4.2); Glucose 214 mg/dL (74-106); Potassium 4.1 mmol/L (3.5-5.1); Protein, Total 5.9 g/dL (6.4-8.2); Sodium Level 140 mmol/L (136-145)
[2020-09-17] MEDS: Lisinopril 5 MG Tablet PO (07:48)
[2020-09-17] MEDS: Aspirin 81 MG TAB.CHEW PO (07:48)
[2020-09-17] MEDS: Menthol/Lanolin/Calamine/Znox 113 GM Tube 1 APPLIC TOPICAL ×2 (07:48→23:41)
[2020-09-17] MEDS: dexAMETHasone 4 MG Tablet 6 MG PO (07:48)
[2020-09-17] MEDS: Carvedilol 6.25 MG Tablet PO ×2 (07:48→23:40)
[2020-09-17] MEDS: hydroCHLOROthiazide 12.5mg 12.5 MG PO (07:48)
[2020-09-17] MEDS: Clopidogrel Bisulfate 75 MG Tablet PO (07:49)
[2020-09-17] MEDS: Dorzolamide HCL/Timolol 10 ml Bottle 1 DRP EACH EYE ×2 (07:49→23:41)
[2020-09-17] MEDS: Enoxaparin 30 MG/0.3 ML Syringe SC ×2 (07:49→23:48)
--- NOTE | 2020-09-17 11:51 | CASEMGMT ---
Social Work SW placed phone call to pt son Michele to discuss discharge plan and inform physician stating pt can be discharged today. Michele continues to requested pt go to TCU. LYNN explained pt would need two negative covid tests to go to TCU but other facilities would be available. Michele inquiring when a new Covid test will be taken. LYNN spoke with nurse manager agency and physician and a covid test will be taken today. Michele updated on this and LYNN requested that a d/c plan be made in the event pt test comes back positive. Michele stating that if test comes back positive today, pt will discharge home with assistance of Michele. Pt is home and is also Covid positive. Michele is currently staying with pt and providing care and will be care provider for pt as well. Michele will transport pt home, would like to use [facility] Retail pharmacy, [employer] for oxygen, and is agreeable to home health services and would want [facility] if they are able to accept. Will await results of Covid test. Phone call received from Mehnaz Snow, pt dgt in law. Mehnaz stating that Michele called her regarding his conversations with this LYNN and Michele requested Mehnaz intervene. LYNN informed Mehnaz that TCU does not accept any covid positive patients, that a new covid test is being run today and that there are other facilities that are accepting of covid positive patients. LYNN provided names of facilities accepting pt. Mehnaz stating concerns with pt returning home and Michele caring for pt. Mehnaz states she thinks that her pt would be interested in [facility]. LYNN placed call to [facility] and they cannot accept Covid positive pt at this time. Mehnaz updated that [facility] is not available. Mehnaz states that if pt can not go to [facility]CU then pt will return home. HOA Melendez updated that Mehnaz would like a medical update. LYNN will follow up with family when covid test results are received. PENG Parker
[2020-09-17 12:55] LABS: Bedside Glucose 256 mg/dL (70-110)
--- NOTE | 2020-09-17 15:46 | PN_ITS ---
Patient Problems: Active and Suspected Problems COVID-19 (Acute) Encephalopathy acute (Acute) Dehydration (Acute) Elevated lactic acid level (Acute) Subjective: Patient seen and examined this morning. He felt well and had no complaints and wants looking forward to going home. Shortness of breath had improved. Review of stems otherwise negative. Family however wants patient to go [facility]. Review of systems otherwise negative. He has remained hemodynamically stable. Vitals/I&O's: Vital Signs Temp Pulse Resp BP Pulse Ox 97.5 F L 68 20 H 158/79 H 91 09/17/20 08:16 09/17/20 08:16 09/17/20 08:16 09/17/20 08:16 09/17/20 10:03 Oxygen Flow Rate (L/min) [ 4 AMBULATION with Oxygen] Oxygen Flow Rate (L/min) [ 3 AMBULATING on Room Air] Oxygen Flow Rate (L/min) [At 2 REST on Room Air] Oxygen Flow Rate (L/min) 2 Oxygen Delivery Method Nasal Cannula Weight: 221 lb 0.003 oz Body Mass Index (BMI) 30.2 Finger Stick Blood Glucose 144 Intake and Output for Last 24 Hours 09/15/20 09/16/20 09/17/20 23:59 23:59 23:59 Intake Total 3270.83 / 3270.83 3250 / 3250 2250 / 2250 Output Total 275 / 275 275 / 275 Balance 2995.83 / 2995.83 3250 / 3250 1974 / 1974 General: Alert, Oriented x3, Cooperative, No apparent distress HEENT: Atraumatic, PERRLA, EOMI, Normocephalic, - - very hard of hearing. Oral: Moist Mucosa Neck: Supple, No JVD, Negative Carotid Bruits Lungs: Wheezes - diminished breath sounds bibasally, no wheezes or crackles. on2L of oxygen Cardiovascular: Regular rate, Regular Rhythm, Normal S1, Normal S2, No murmurs Abdomen: Bowel Sounds Present, Soft, Non Tender, Non-Distended, No Hepato- splenomegaly Extremities: No clubbing, No cyanosis, No edema, Capillary Refill Less than 3 Seconds Skin: No rashes, No breakdown Musculoskeletal: No Tenderness to Palpation of Joints or Extremities Lymphatic: No Cervical, Supraclavicular, or Inguinal Adenopathy Neurological: Cranial nerves II-XII grossly intact, Neuro grossly intact, Motor Exam 5/5 strength throughout Psych/Mental Status: Normal Affect, Appropriate, Alert and oriented to time, place, person, mood and affect Microbiology Past 72 Hours 09/13/20 12:33 Urine, Clean Catch Urine Culture - Final Culture exhibits no growth. 09/13/20 11:05 Blood Culture (Wb) - Arm Right Blood Culture - Preliminary No growth in 48 hours. 09/13/20 10:30 Blood Culture (Wb) - Arm Left Blood Culture - Preliminary No growth in 48 hours. Laboratory Results 09/16/20 16:34: POC Glucose 260 H 09/16/20 21:59: POC Glucose 247 H 09/17/20 05:44: WBC 14.2 H, RBC 3.98 L, Hgb 11.6 L, Hct 37.2 L, MCV 93.5 D, MCH 29.1, MCHC 31.2 L D, RDW Std Deviation 46.3 H, RDW Coeff of Elias 13.4, Plt Count 313, MPV 9.9 09/17/20 05:44: Sodium 140, Potassium 4.1, Chloride 113 H, Carbon Dioxide 21.0, Anion Gap 6, BUN 25 H, Creatinine 1.01, Estim Creat Clear Calc 55.21, Est GFR (MDRD) Af Amer 90, Est GFR (MDRD) Non-Af 75, BUN/Creatinine Ratio 24.8 H, Glucose 214 H, Calcium 7.7 L, Total Bilirubin 0.50, AST 32, ALT 41, Alkaline Phosphatase 75, Total Protein 5.9 L, Albumin 2.2 L, Globulin 3.7, Albumin/Globulin Ratio 0.6 L 09/17/20 06:25: POC Glucose 194 H 09/17/20 12:24: POC Glucose 256 H 09/17/20 13:35: COVID-19 ([facility]) Pending Current Medications Acetaminophen (Acetaminophen 325 Mg Tablet) 650 mg PO Q6H PRN PRN PRN Reason: Pain Score 1-10/Temp > 100.7 F Last Admin: 09/16/20 21:54 Dose: 650 mg Documented by: Aspirin (Aspirin 81 Mg Tab.Chew) 81 mg PO DAILY@0800 [facility] Last Admin: 09/17/20 07:48 Dose: 81 mg Documented by: Atorvastatin Calcium (Atorvastatin Calcium 80 Mg Tablet) 80 mg PO QHS ON LICENSE OF [facility] Last Admin: 09/16/20 21:54 Dose: 80 mg Documented by: Calamine/Phenol (Menthol/Lanolin/Calamine/Znox 113 Gm Tube) 1 applic TOPICAL BID ON LICENSE OF [facility]; Protocol Last Admin: 09/17/20 07:48 Dose: 1 applicatio Documented by: Carvedilol (Carvedilol 6.25 Mg Tablet) 6.25 mg PO BID ON LICENSE OF [facility] Last Admin: 09/17/20 07:48 Dose: 6.25 mg Documented by: Cholecalciferol (Cholecalciferol (Vit D3) 1,000 Unit (25mcg)) 5,000 unit PO DAILY ON LICENSE OF [facility] Last Admin: 09/17/20 07:49 Dose: 5,000 unit Documented by: Clopidogrel Bisulfate (Clopidogrel Bisulfate 75 Mg Tablet) 75 mg PO DAILY ON LICENSE OF [facility] Last Admin: 09/17/20 07:49 Dose: 75 mg Documented by: Dexamethasone (Dexamethasone 4 Mg Tablet) 6 mg PO DAILY@0800 ON LICENSE OF [facility] Last Admin: 09/17/20 07:48 Dose: 6 mg Documented by: Dextrose (Dextrose 50%-Water 25 Gm/50 Ml Disp.Syrin) 0 gm IV X1 PRN; Protocol PRN Reason: Hypoglycemia Dorzolamide/Timolol (Dorzolamide Hcl/Timolol 10 Ml Bottle) 1 drop EACH EYE BID ON LICENSE OF [facility] Last Admin: 09/17/20 07:49 Dose: 1 drop Documented by: Enoxaparin Sodium (Enoxaparin 30 Mg/0.3 Ml Syringe) 30 mg SC BID ON LICENSE OF [facility] Last Admin: 09/17/20 07:49 Dose: 30 mg Documented by: Glucagon (Glucagon 1 Mg/Ml Syringe) 1 mg IM .X1 PRN PRN Reason: Hypoglycemia Hydrochlorothiazide (Hydrochlorothiazide 12.5mg) 12.5 mg PO DAILY ON LICENSE OF [facility] Last Admin: 09/17/20 07:48 Dose: 12.5 mg Documented by: Sodium Chloride () 250 mls @ 15 mls/hr IV .[id number] PRN PRN Reason: Saline Flush Sodium Chloride () 250 mls @ 15 mls/hr IV .[id number] PRN PRN Reason: Additional IVPB Infusion Sodium Chloride () 1,000 mls @ 125 mls/hr IV .Q8H ON LICENSE OF [facility] Last Admin: 09/17/20 12:37 Dose: Not Given Documented by: Remdesivir (Investigational) (100 mg/ Sodium Chloride) 250 mls @ 125 mls/hr IV DAILY ON LICENSE OF [facility]; Protocol Stop: 09/19/20 11:59 Last Infusion: 09/17/20 11:58 Dose: Infused Documented by: Insulin Human Lispro (Insulin Lispro 100 Unit/Ml Insuln.Pen) 0 unit SC ACHS ON LICENSE OF [facility]; Protocol Last Admin: 09/17/20 12:31 Dose: 2 unit Documented by: Lamotrigine (Lamotrigine 100 Mg Tablet) 250 mg PO QHS [facility] Last Admin: 09/16/20 21:53 Dose: 250 mg Documented by: Lisinopril (Lisinopril 5 Mg Tablet) 5 mg PO DAILY ON LICENSE OF [facility] Last Admin: 09/17/20 07:48 Dose: 5 mg Documented by: Ondansetron HCl (Ondansetron 4 Mg/2 Ml Vial) 4 mg IV Q8H PRN PRN PRN Reason: NAUSEA/VOMITING Senna/Docusate Sodium (Senna/Docusate Sodium 1 Tablet) 2 tablet PO BID PRN PRN Reason: Constipation Last Admin: 09/16/20 16:36 Dose: 2 tablet Documented by: Sodium Chloride (0.9% Saline Lock 10 Ml Syringe) 10 - 40 ml IV UD PRN PRN Reason: SALINE FLUSH Last Admin: 09/16/20 16:51 Dose: 10 ml Documented by: Zolpidem Tartrate (Zolpidem Tartrate 5 Mg Tablet) 5 mg PO QHS PRN PRN PRN Reason: INSOMNIA Last Admin: 09/17/20 00:20 Dose: 5 mg Documented by: Medical Necessity - Tobacco Use Smoking Status: Never smoker Tobacco Use: Non-smoker Assessment/Plan All Active Problems COVID-19 (Acute) Encephalopathy acute (Acute) Dehydration (Acute) Elevated lactic acid level (Acute) # Acute metabolic encephalopathy due to COVID 19 infection * resolved * # COVID 19 infection * shortness of breath has improved * on 2L of oxygen by nasal canula * Will wean off oxygen to maintain sats .90% * breathing treatments with bronchodilators * ID on board * # Lactic acidosis: lactic acid was 3.3 on admission. May be due to Metformin. Will DC Metformin. #Type 2 diabetes mellitus: Metformin on hold. A1c was 7.4. Insulin sliding scale. Accu-Cheks AC at bedtime. #Hypertension: On lisinopril and hydrochlorothiazide #CAD s/p stents: On aspirin, statin and carvedilol. #Debility due to recurrent falls. PT OT on board. May need placement. DVT prophylaxis: Lovenox 30mg twice daily. Disposition; awaiting placement in SNF. Repeat COVID test pending Inpatient E&M: [id number] Subs Hosp L2
[2020-09-17 16:20] LABS: Bedside Glucose 259 mg/dL (70-110)
--- NOTE | 2020-09-17 16:36 | CASEMGMT ---
Social Work Covid tests received and pt has positive results. Phone call to pt son Michlee and informed of this and notified that Pt will not be discharged today and pt will be reevaluated tomorrow. PENG Parker
--- NOTE | 2020-09-17 16:51 | PN.ID_ITS ---
Patient Problems: Active and Suspected Problems COVID-19 (Acute) Encephalopathy acute (Acute) Dehydration (Acute) Elevated lactic acid level (Acute) Subjective: Feeling about the same, no fever - Physical Exam Vitals/I&O's: Vital Signs Temp Pulse Resp BP Pulse Ox 97.4 F L 57 L 18 150/76 H 94 09/17/20 15:59 09/17/20 15:59 09/17/20 15:59 09/17/20 15:59 09/17/20 15:59 Oxygen Flow Rate (L/min) [ 4 AMBULATION with Oxygen] Oxygen Flow Rate (L/min) [ 3 AMBULATING on Room Air] Oxygen Flow Rate (L/min) [At 2 REST on Room Air] Oxygen Flow Rate (L/min) 2 Oxygen Delivery Method Nasal Cannula Weight: 100.244 kg Body Mass Index (BMI) 30.2 Finger Stick Blood Glucose 144 Intake and Output for Last 24 Hours 09/15/20 09/16/20 09/17/20 23:59 23:59 23:59 Intake Total 3270.83 / 3270.83 3250 / 3250 2250 / 2250 Output Total 275 / 275 275 / 275 Balance 2995.83 / 2995.83 3250 / 3250 1974 / 1974 General: Alert, Cooperative, No apparent distress Lungs: Diminished Cardiovascular: Regular rate, Regular Rhythm Abdomen: Soft, Non Tender, Non-Distended Skin: No rashes Microbiology Past 72 Hours 09/13/20 12:33 Urine, Clean Catch Urine Culture - Final Culture exhibits no growth. 09/13/20 11:05 Blood Culture (Wb) - Arm Right Blood Culture - Preliminary No growth in 48 hours. 09/13/20 10:30 Blood Culture (Wb) - Arm Left Blood Culture - Preliminary No growth in 48 hours. Laboratory Results 09/16/20 21:59: POC Glucose 247 H 09/17/20 05:44: WBC 14.2 H, RBC 3.98 L, Hgb 11.6 L, Hct 37.2 L, MCV 93.5 D, MCH 29.1, MCHC 31.2 L D, RDW Std Deviation 46.3 H, RDW Coeff of Elias 13.4, Plt Count 313, MPV 9.9 09/17/20 05:44: Sodium 140, Potassium 4.1, Chloride 113 H, Carbon Dioxide 21.0, Anion Gap 6, BUN 25 H, Creatinine 1.01, Estim Creat Clear Calc 55.21, Est GFR (MDRD) Af Amer 90, Est GFR (MDRD) Non-Af 75, BUN/Creatinine Ratio 24.8 H, Glucose 214 H, Calcium 7.7 L, Total Bilirubin 0.50, AST 32, ALT 41, Alkaline Phosphatase 75, Total Protein 5.9 L, Albumin 2.2 L, Globulin 3.7, Albumin/Globulin Ratio 0.6 L 09/17/20 06:25: POC Glucose 194 H 09/17/20 12:24: POC Glucose 256 H 09/17/20 13:35: COVID-19 ([facility]) Detected 09/17/20 16:08: POC Glucose 259 H Current Medications Acetaminophen (Acetaminophen 325 Mg Tablet) 650 mg PO Q6H PRN PRN PRN Reason: Pain Score 1-10/Temp > 100.7 F Last Admin: 09/16/20 21:54 Dose: 650 mg Documented by: Aspirin (Aspirin 81 Mg Tab.Chew) 81 mg PO DAILY@0800 [facility] Last Admin: 09/17/20 07:48 Dose: 81 mg Documented by: Atorvastatin Calcium (Atorvastatin Calcium 80 Mg Tablet) 80 mg PO QHS [facility] Last Admin: 09/16/20 21:54 Dose: 80 mg Documented by: Calamine/Phenol (Menthol/Lanolin/Calamine/Znox 113 Gm Tube) 1 applic TOPICAL BID [facility]; Protocol Last Admin: 09/17/20 07:48 Dose: 1 applicatio Documented by: Carvedilol (Carvedilol 6.25 Mg Tablet) 6.25 mg PO BID [facility] Last Admin: 09/17/20 07:48 Dose: 6.25 mg Documented by: Cholecalciferol (Cholecalciferol (Vit D3) 1,000 Unit (25mcg)) 5,000 unit PO DAILY [facility] Last Admin: 09/17/20 07:49 Dose: 5,000 unit Documented by: Clopidogrel Bisulfate (Clopidogrel Bisulfate 75 Mg Tablet) 75 mg PO DAILY [facility] Last Admin: 09/17/20 07:49 Dose: 75 mg Documented by: Dexamethasone (Dexamethasone 4 Mg Tablet) 6 mg PO DAILY@0800 [facility] Last Admin: 09/17/20 07:48 Dose: 6 mg Documented by: Dextrose (Dextrose 50%-Water 25 Gm/50 Ml Disp.Syrin) 0 gm IV X1 PRN; Protocol PRN Reason: Hypoglycemia Dorzolamide/Timolol (Dorzolamide Hcl/Timolol 10 Ml Bottle) 1 drop EACH EYE BID [facility] Last Admin: 09/17/20 07:49 Dose: 1 drop Documented by: Enoxaparin Sodium (Enoxaparin 30 Mg/0.3 Ml Syringe) 30 mg SC BID [facility] Last Admin: 09/17/20 07:49 Dose: 30 mg Documented by: Glucagon (Glucagon 1 Mg/Ml Syringe) 1 mg IM .X1 PRN PRN Reason: Hypoglycemia Hydrochlorothiazide (Hydrochlorothiazide 12.5mg) 12.5 mg PO DAILY [facility] Last Admin: 09/17/20 07:48 Dose: 12.5 mg Documented by: Sodium Chloride () 250 mls @ 15 mls/hr IV .[id number] PRN PRN Reason: Saline Flush Sodium Chloride () 250 mls @ 15 mls/hr IV .[id number] PRN PRN Reason: Additional IVPB Infusion Sodium Chloride () 1,000 mls @ 125 mls/hr IV .Q8H [facility] Last Admin: 09/17/20 12:37 Dose: Not Given Documented by: Remdesivir (Investigational) (100 mg/ Sodium Chloride) 250 mls @ 125 mls/hr IV DAILY [facility]; Protocol Stop: 09/19/20 11:59 Last Infusion: 09/17/20 11:58 Dose: Infused Documented by: Insulin Human Lispro (Insulin Lispro 100 Unit/Ml Insuln.Pen) 0 unit SC ACHS [facility]; Protocol Last Admin: 09/17/20 16:10 Dose: 2 unit Documented by: Lamotrigine (Lamotrigine 100 Mg Tablet) 250 mg PO QHS [facility] Last Admin: 09/16/20 21:53 Dose: 250 mg Documented by: Lisinopril (Lisinopril 5 Mg Tablet) 5 mg PO DAILY [facility] Last Admin: 09/17/20 07:48 Dose: 5 mg Documented by: Ondansetron HCl (Ondansetron 4 Mg/2 Ml Vial) 4 mg IV Q8H PRN PRN PRN Reason: NAUSEA/VOMITING Senna/Docusate Sodium (Senna/Docusate Sodium 1 Tablet) 2 tablet PO BID PRN PRN Reason: Constipation Last Admin: 09/16/20 16:36 Dose: 2 tablet Documented by: Sodium Chloride (0.9% Saline Lock 10 Ml Syringe) 10 - 40 ml IV UD PRN PRN Reason: SALINE FLUSH Last Admin: 09/16/20 16:51 Dose: 10 ml Documented by: Zolpidem Tartrate (Zolpidem Tartrate 5 Mg Tablet) 5 mg PO QHS PRN PRN PRN Reason: INSOMNIA Last Admin: 09/17/20 00:20 Dose: 5 mg Documented by: Medical Necessity - Tobacco Use Smoking Status: Never smoker Tobacco Use: Non-smoker Route of nutrition/ use of supplements: [] Nutritional Intake: [] IV Site: [] Clements Catheter: [] - Assessment/Plan Antibiotics: [] Assessment/Plan: [] Active and Suspected Problems COVID-19 (Acute) Encephalopathy acute (Acute) Dehydration (Acute) Elevated lactic acid level (Acute) acute hypoxic resp failure due to covid - mental status improved. On remdesivir, feeling better. Cont dex. Ok for discharge home on O2 per primary team, quarantine for 14 days from start of symptoms. Will follow
--- NOTE | 2020-09-17 18:52 | NURSING ---
At 1000 today pt was at 84% on room air.
[2020-09-17] MEDS: lamoTRIgine 100 MG Tablet 250 MG PO (23:40)
[2020-09-17] MEDS: Atorvastatin Calcium 80 MG Tablet PO (23:41)
[2020-09-17] MEDS: 0.9% Saline Lock 10 ML Syringe IV (23:55)
[2020-09-18] VITALS (13 sets, daily range): BP systolic 127–161; BP diastolic 63–85; PULSE 60–73; RESP 17–24; TEMP 36.2–37.6; O2SAT 89–94
[2020-09-18 01:11] LABS: Bedside Glucose 271 mg/dL (70-110)
[2020-09-18 06:14] LABS: Hematocrit 36.6 % (40-54); Hemoglobin 12.1 g/dL (13.0-16.5); Mean Corp Hgb Conc 33.1 g/dL (32-36); Mean Corpuscular Hgb 29.7 pg (27.0-32.0); Mean Corpuscular Volume 89.7 fL (80-94); Mean Platelet Vol. 9.7 fl (6.2-12.0); Platelet Count 380 K/mm3 (150-450); RBC Distribution Width CV 13.6 % (11.6-14.6); RBC Distribution Width SD 44.5 fl (35.1-43.9); Red Blood Count 4.08 M/mm3 (4.6-6.2); White Blood Count 15.1 K/mm3 (4.4-11.0)
[2020-09-18 06:44] LABS: ALB/GLOB Ratio 0.6 RATIO (0.9-2.4); AST(SGOT) 36 U/L (15-37); Alanine Aminotransfer ALT/SGPT 49 U/L (16-61); Albumin, Serum 2.3 g/dL (3.2-5.0); Alkaline Phosphatase 74 U/L (45-117); Anion Gap 8 (5-15); BUN 26 mg/dL (7-18); BUN/Creat Ratio 23.9 RATIO (10-20); Calcium,Total 8.1 mg/dL (8.5-10.1); Chloride 110 mmol/L (98-107); Creatinine, Serum 1.09 mg/dL (0.70-1.30); EST Glomerular Filtration Rate 68 mL/min (>60); Est Glom Filt Rate - Afr Amer 83 mL/min (>60); Estimated Creatinine Clearance 51.16 ml/min; Globulin 3.7 g/dL (2.2-4.2); Glucose 180 mg/dL (74-106); Potassium 3.6 mmol/L (3.5-5.1); Sodium Level 140 mmol/L (136-145)
[2020-09-18] MEDS: Insulin Lispro 100 UNIT/ML INSULN.PEN SC ×4 (06:52→21:58)
[2020-09-18 07:40] LABS: Bedside Glucose 175 mg/dL (70-110)
[2020-09-18] MEDS: Aspirin 81 MG TAB.CHEW PO (07:57)
[2020-09-18] MEDS: Clopidogrel Bisulfate 75 MG Tablet PO (07:58)
[2020-09-18] MEDS: dexAMETHasone 4 MG Tablet 6 MG PO (07:58)
[2020-09-18] MEDS: Carvedilol 6.25 MG Tablet PO ×2 (07:59→21:58)
[2020-09-18] MEDS: hydroCHLOROthiazide 12.5mg 12.5 MG PO (07:59)
[2020-09-18] MEDS: Lisinopril 5 MG Tablet PO (07:59)
[2020-09-18] MEDS: Enoxaparin 30 MG/0.3 ML Syringe SC ×2 (07:59→21:57)
[2020-09-18] MEDS: Dorzolamide HCL/Timolol 10 ml Bottle 1 DRP EACH EYE ×2 (08:10→21:58)
[2020-09-18] MEDS: Menthol/Lanolin/Calamine/Znox 113 GM Tube 1 APPLIC TOPICAL ×2 (08:10→21:56)
--- NOTE | 2020-09-18 09:41 | RAD_ITS ---
STUDY: X-RAY CHEST REASON FOR EXAM: Male, 84 years old. LOW O2 LEVEL. PT IS ALUTIIQ AND APPEARS T/B CONFUSED? ACUTE COVID INFECTION TECHNIQUE: Single AP portable view of the chest. COMPARISON: Comparison is made with prior examination dated 09/13/2020. FINDINGS: Since prior study, there has been progressive infiltration in the right lung as well as in the left lower lobe. There is no demonstrated pleural abnormality. Normal size heart. Normal mediastinum and josias. Normal visualized pulmonary arteries. There is atherosclerotic calcification of the aortic arch with tortuosity. There are diffuse degenerative changes of the visualized thoracic spine. Normal visualized ribs, clavicles, and shoulders. There is no demonstrated abnormality of the visualized soft tissue structures of the upper abdomen. RAD/Chest 1 View (Portable) IMPRESSION: Progressive infiltrates in the right lung as well as in the left lower lobe. Electronically Signed: Thomas Guallpa, at 15:36 EDT , Service support ,
[2020-09-18 11:11] LABS: Bedside Glucose 196 mg/dL (70-110)
--- NOTE | 2020-09-18 11:11 | PCM.PN.HOSP ---
Patient Problems: Active and Suspected Problems COVID-19 (Acute) Encephalopathy acute (Acute) Dehydration (Acute) Elevated lactic acid level (Acute) Subjective: Patient seen and examined. He is requiring more oxygen and is up to 5 L. He also states he does not feel well. He denies any worsening cough. Review of symptoms otherwise negative. He has remained afebrile and hemodynamically stable. WBC is up to 15.1. Vitals/I&O's: Vital Signs Temp Pulse Resp BP Pulse Ox 97.6 F L 62 20 H 127/66 H 94 09/18/20 10:50 09/18/20 10:50 09/18/20 10:50 09/18/20 10:50 09/18/20 10:50 Oxygen Flow Rate (L/min) [ 4 AMBULATION with Oxygen] Oxygen Flow Rate (L/min) [ 3 AMBULATING on Room Air] Oxygen Flow Rate (L/min) [At 2 REST on Room Air] Oxygen Flow Rate (L/min) 5 Oxygen Delivery Method Nasal Cannula Weight: 220 lb 10.923 oz Body Mass Index (BMI) 30.2 Finger Stick Blood Glucose 144 Intake and Output for Last 24 Hours 09/16/20 09/17/20 09/18/20 23:59 23:59 23:59 Intake Total 3250 / 3250 2250 / 2650 400 / 400 Output Total 275 / 500 600 / 600 Balance 3250 / 3250 1975 / 2150 -200 / -200 General: Alert, Oriented x3, Cooperative, No apparent distress HEENT: Atraumatic, PERRLA, EOMI, Normocephalic, - - very hard of hearing. Oral: Moist Mucosa Neck: Supple, No JVD, Negative Carotid Bruits Lungs: Wheezes - markedly reduced breath sounds in right lower lung rodriguez, with some crackles. on 5L of oxygen Cardiovascular: Regular rate, Regular Rhythm, Normal S1, Normal S2, No murmurs Abdomen: Bowel Sounds Present, Soft, Non Tender, Non-Distended, No Hepato-splenomegaly Extremities: No clubbing, No cyanosis, No edema, Capillary Refill Less than 3 Seconds Skin: No rashes, No breakdown Musculoskeletal: No Tenderness to Palpation of Joints or Extremities Lymphatic: No Cervical, Supraclavicular, or Inguinal Adenopathy Neurological: Cranial nerves II-XII grossly intact, Neuro grossly intact, Motor Exam 5/5 strength throughout Psych/Mental Status: Normal Affect, Appropriate, Alert and oriented to time, place, person, mood and affect Microbiology Past 72 Hours 09/13/20 12:33 Urine, Clean Catch Urine Culture - Final Culture exhibits no growth. 09/13/20 11:05 Blood Culture (Wb) - Arm Right Blood Culture - Preliminary No growth in 48 hours. 09/13/20 10:30 Blood Culture (Wb) - Arm Left Blood Culture - Preliminary No growth in 48 hours. Laboratory Results 09/17/20 12:24: POC Glucose 256 H 09/17/20 13:35: COVID-19 ([facility]) Detected 09/17/20 16:08: POC Glucose 259 H 09/17/20 23:28: POC Glucose 271 H 09/18/20 05:38: WBC 15.1 H, RBC 4.08 L, Hgb 12.1 L, Hct 36.6 L, MCV 89.7, MCH 29.7, MCHC 33.1 D, RDW Std Deviation 44.5 H, RDW Coeff of Elias 13.6, Plt Count 380, MPV 9.7 09/18/20 05:38: Sodium 140, Potassium 3.6, Chloride 110 H, Carbon Dioxide 22.0, Anion Gap 8, BUN 26 H, Creatinine 1.09, Estim Creat Clear Calc 51.16, Est GFR (MDRD) Af Amer 83, Est GFR (MDRD) Non-Af 68, BUN/Creatinine Ratio 23.9 H, Glucose 180 H, Calcium 8.1 L, Total Bilirubin 0.70, AST 36, ALT 49, Alkaline Phosphatase 74, Total Protein 6.0 L, Albumin 2.3 L, Globulin 3.7, Albumin/Globulin Ratio 0.6 L 09/18/20 06:25: POC Glucose 175 H 09/18/20 11:02: POC Glucose Pending Diagnostic Data Brain CT 09/13/20 11:19 IMPRESSION: 1. No acute findings. 2. Stable exam since prior. 3. Small remote right ganglia capsular infarct. Electronically Signed: Augustin Butler, at 14:08 EDT Tel , Service support , Current Medications Acetaminophen (Acetaminophen 325 Mg Tablet) 650 mg PO Q6H PRN PRN PRN Reason: Pain Score 1-10/Temp > 100.7 F Last Admin: 09/16/20 21:54 Dose: 650 mg Documented by: Aspirin (Aspirin 81 Mg Tab.Chew) 81 mg PO DAILY@0800 [facility] Last Admin: 09/18/20 07:57 Dose: 81 mg Documented by: Atorvastatin Calcium (Atorvastatin Calcium 80 Mg Tablet) 80 mg PO QHS [facility] Last Admin: 09/17/20 23:41 Dose: 80 mg Documented by: Calamine/Phenol (Menthol/Lanolin/Calamine/Znox 113 Gm Tube) 1 applic TOPICAL BID [facility]; Protocol Last Admin: 09/18/20 08:10 Dose: 1 applicatio Documented by: Carvedilol (Carvedilol 6.25 Mg Tablet) 6.25 mg PO BID [facility] Last Admin: 09/18/20 07:59 Dose: 6.25 mg Documented by: Cholecalciferol (Cholecalciferol (Vit D3) 1,000 Unit (25mcg)) 5,000 unit PO DAILY [facility] Last Admin: 09/18/20 07:59 Dose: 5,000 unit Documented by: Clopidogrel Bisulfate (Clopidogrel Bisulfate 75 Mg Tablet) 75 mg PO DAILY [facility] Last Admin: 09/18/20 07:58 Dose: 75 mg Documented by: Dexamethasone (Dexamethasone 4 Mg Tablet) 6 mg PO DAILY@0800 [facility] Last Admin: 09/18/20 07:58 Dose: 6 mg Documented by: Dextrose (Dextrose 50%-Water 25 Gm/50 Ml Disp.Syrin) 0 gm IV X1 PRN; Protocol PRN Reason: Hypoglycemia Dorzolamide/Timolol (Dorzolamide Hcl/Timolol 10 Ml Bottle) 1 drop EACH EYE BID [facility] Last Admin: 09/18/20 08:10 Dose: 1 drop Documented by: Enoxaparin Sodium (Enoxaparin 30 Mg/0.3 Ml Syringe) 30 mg SC BID [facility] Last Admin: 09/18/20 07:59 Dose: 30 mg Documented by: Glucagon (Glucagon 1 Mg/Ml Syringe) 1 mg IM .X1 PRN PRN Reason: Hypoglycemia Hydrochlorothiazide (Hydrochlorothiazide 12.5mg) 12.5 mg PO DAILY [facility] Last Admin: 09/18/20 07:59 Dose: 12.5 mg Documented by: Sodium Chloride () 250 mls @ 15 mls/hr IV .[id number] PRN PRN Reason: Saline Flush Sodium Chloride () 250 mls @ 15 mls/hr IV .[id number] PRN PRN Reason: Additional IVPB Infusion Sodium Chloride () 1,000 mls @ 125 mls/hr IV .Q8H [facility] Last Admin: 09/18/20 06:56 Dose: Not Given Documented by: Remdesivir (Investigational) (100 mg/ Sodium Chloride) 250 mls @ 125 mls/hr IV DAILY [facility]; Protocol Stop: 09/19/20 11:59 Last Admin: 09/18/20 10:43 Dose: 125 mls/hr Documented by: Azithromycin 500 mg/ Dextrose 255 mls @ 250 mls/hr IV Q24 [facility] Ceftriaxone Sodium 2 gm/ (Sodium Chloride) 50 mls @ 100 mls/hr IV Q24 [facility] Insulin Human Lispro (Insulin Lispro 100 Unit/Ml Insuln.Pen) 0 unit SC ACHS [facility]; Protocol Last Admin: 09/18/20 11:03 Dose: 1 unit Documented by: Lamotrigine (Lamotrigine 100 Mg Tablet) 250 mg PO QHS [facility] Last Admin: 09/17/20 23:40 Dose: 250 mg Documented by: Lisinopril (Lisinopril 5 Mg Tablet) 5 mg PO DAILY [facility] Last Admin: 09/18/20 07:59 Dose: 5 mg Documented by: Ondansetron HCl (Ondansetron 4 Mg/2 Ml Vial) 4 mg IV Q8H PRN PRN PRN Reason: NAUSEA/VOMITING Senna/Docusate Sodium (Senna/Docusate Sodium 1 Tablet) 2 tablet PO BID PRN PRN Reason: Constipation Last Admin: 09/16/20 16:36 Dose: 2 tablet Documented by: Sodium Chloride (0.9% Saline Lock 10 Ml Syringe) 10 - 40 ml IV UD PRN PRN Reason: SALINE FLUSH Last Admin: 09/17/20 23:55 Dose: 10 ml Documented by: Zolpidem Tartrate (Zolpidem Tartrate 5 Mg Tablet) 5 mg PO QHS PRN PRN PRN Reason: INSOMNIA Last Admin: 09/17/20 23:52 Dose: 5 mg Documented by: STROKE Vital Signs/Narrative: Vital Signs Temp Pulse Resp BP Pulse Ox 09/18/20 10:50 97.6 F L 62 20 H 127/66 H 94 09/18/20 08:52 97.3 F L 64 24 H 127/63 H 92 09/18/20 07:55 99.6 F H 73 24 H 135/85 H 90 Medical Necessity - Tobacco Use Smoking Status: Never smoker Tobacco Use: Non-smoker Assessment/Plan All Active Problems COVID-19 (Acute) Encephalopathy acute (Acute) Dehydration (Acute) Elevated lactic acid level (Acute) # Acute metabolic encephalopathy due to COVID 19 infection resolved # Acute hypoxic respiratory insufficiency due to COVID 19 pneumonia patient requiring up to 5L of oxygen today; was on 2L yesterday CXR done, per my reading shows infiltrate in right mid and lower lung rodriguez start on IV ceftriaxone and azithromycin get sputum cultures titrate oxygen to maintain sats >90% # Pneumonia due to COVID 19 infection: as above # Lactic acidosis: resolved. May be due to Metformin. Will DC Metformin. #Type 2 diabetes mellitus: Metformin on hold. A1c was 7.4. Insulin sliding scale. Accu-Cheks AC at bedtime. #Hypertension: On lisinopril and hydrochlorothiazide #CAD s/p stents: On aspirin, statin and carvedilol. #Debility due to recurrent falls. PT OT on board. May need placement. DVT prophylaxis: Lovenox 30mg twice daily. Disposition: Repeat COVID test positive. Family wanted him admitted to TCU, but repeat COVID test is positive, so he wont be accepted there. Family now ok with taking him home once medically stable. Inpatient E&M: [id number] [facility] L3
--- NOTE | 2020-09-18 13:50 | PCM.PN.ID ---
Patient Problems: Active and Suspected Problems COVID-19 (Acute) Encephalopathy acute (Acute) Dehydration (Acute) Elevated lactic acid level (Acute) Subjective: Not feeling well, no fever, still dyspnea. - Physical Exam Vitals/I&O's: Vital Signs Temp Pulse Resp BP Pulse Ox 97.6 F L 62 20 H 127/66 H 94 09/18/20 10:50 09/18/20 10:50 09/18/20 10:50 09/18/20 10:50 09/18/20 10:50 Oxygen Flow Rate (L/min) [ 4 AMBULATION with Oxygen] Oxygen Flow Rate (L/min) [ 3 AMBULATING on Room Air] Oxygen Flow Rate (L/min) [At 2 REST on Room Air] Oxygen Flow Rate (L/min) 5 Oxygen Delivery Method Nasal Cannula Weight: 100.1 kg Body Mass Index (BMI) 30.2 Finger Stick Blood Glucose 144 Intake and Output for Last 24 Hours 09/16/20 09/17/20 09/18/20 23:59 23:59 23:59 Intake Total 3250 / 3250 2250 / 2650 1100 / 1100 Output Total 275 / 500 600 / 600 Balance 3250 / 3250 1975 / 2150 500 / 500 General: Cooperative, No apparent distress Lungs: Diminished Cardiovascular: Regular rate, Regular Rhythm Abdomen: Soft, Non Tender, Non-Distended Skin: No rashes Microbiology Past 72 Hours 09/13/20 11:05 Blood Culture (Wb) - Arm Right Blood Culture - Final No growth in 5 days. 09/13/20 10:30 Blood Culture (Wb) - Arm Left Blood Culture - Final No growth in 5 days. 09/13/20 12:33 Urine, Clean Catch Urine Culture - Final Culture exhibits no growth. Laboratory Results 09/17/20 13:35: COVID-19 (IMMANUEL) Detected 09/17/20 16:08: POC Glucose 259 H 09/17/20 23:28: POC Glucose 271 H 09/18/20 05:38: WBC 15.1 H, RBC 4.08 L, Hgb 12.1 L, Hct 36.6 L, MCV 89.7, MCH 29.7, MCHC 33.1 D, RDW Std Deviation 44.5 H, RDW Coeff of Elias 13.6, Plt Count 380, MPV 9.7 09/18/20 05:38: Sodium 140, Potassium 3.6, Chloride 110 H, Carbon Dioxide 22.0, Anion Gap 8, BUN 26 H, Creatinine 1.09, Estim Creat Clear Calc 51.16, Est GFR (MDRD) Af Amer 83, Est GFR (MDRD) Non-Af 68, BUN/Creatinine Ratio 23.9 H, Glucose 180 H, Calcium 8.1 L, Total Bilirubin 0.70, AST 36, ALT 49, Alkaline Phosphatase 74, Total Protein 6.0 L, Albumin 2.3 L, Globulin 3.7, Albumin/Globulin Ratio 0.6 L 09/18/20 06:25: POC Glucose 175 H 09/18/20 11:02: POC Glucose 196 H Current Medications Acetaminophen (Acetaminophen 325 Mg Tablet) 650 mg PO Q6H PRN PRN PRN Reason: Pain Score 1-10/Temp > 100.7 F Last Admin: 09/16/20 21:54 Dose: 650 mg Documented by: Aspirin (Aspirin 81 Mg Tab.Chew) 81 mg PO DAILY@0800 [facility] Last Admin: 09/18/20 07:57 Dose: 81 mg Documented by: Atorvastatin Calcium (Atorvastatin Calcium 80 Mg Tablet) 80 mg PO QHS [facility] Last Admin: 09/17/20 23:41 Dose: 80 mg Documented by: Calamine/Phenol (Menthol/Lanolin/Calamine/Znox 113 Gm Tube) 1 applic TOPICAL BID [facility]; Protocol Last Admin: 09/18/20 08:10 Dose: 1 applicatio Documented by: Carvedilol (Carvedilol 6.25 Mg Tablet) 6.25 mg PO BID [facility] Last Admin: 09/18/20 07:59 Dose: 6.25 mg Documented by: Cholecalciferol (Cholecalciferol (Vit D3) 1,000 Unit (25mcg)) 5,000 unit PO DAILY [facility] Last Admin: 09/18/20 07:59 Dose: 5,000 unit Documented by: Clopidogrel Bisulfate (Clopidogrel Bisulfate 75 Mg Tablet) 75 mg PO DAILY [facility] Last Admin: 09/18/20 07:58 Dose: 75 mg Documented by: Dexamethasone (Dexamethasone 4 Mg Tablet) 6 mg PO DAILY@0800 [facility] Last Admin: 09/18/20 07:58 Dose: 6 mg Documented by: Dextrose (Dextrose 50%-Water 25 Gm/50 Ml Disp.Syrin) 0 gm IV X1 PRN; Protocol PRN Reason: Hypoglycemia Dorzolamide/Timolol (Dorzolamide Hcl/Timolol 10 Ml Bottle) 1 drop EACH EYE BID [facility] Last Admin: 09/18/20 08:10 Dose: 1 drop Documented by: Enoxaparin Sodium (Enoxaparin 30 Mg/0.3 Ml Syringe) 30 mg SC BID [facility] Last Admin: 09/18/20 07:59 Dose: 30 mg Documented by: Glucagon (Glucagon 1 Mg/Ml Syringe) 1 mg IM .X1 PRN PRN Reason: Hypoglycemia Hydrochlorothiazide (Hydrochlorothiazide 12.5mg) 12.5 mg PO DAILY [facility] Last Admin: 09/18/20 07:59 Dose: 12.5 mg Documented by: Sodium Chloride () 250 mls @ 15 mls/hr IV .[id number] PRN PRN Reason: Saline Flush Sodium Chloride () 250 mls @ 15 mls/hr IV .[id number] PRN PRN Reason: Additional IVPB Infusion Sodium Chloride () 1,000 mls @ 125 mls/hr IV .Q8H [facility] Last Admin: 09/18/20 06:56 Dose: Not Given Documented by: Remdesivir (Investigational) (100 mg/ Sodium Chloride) 250 mls @ 125 mls/hr IV DAILY [facility]; Protocol Stop: 09/19/20 11:59 Last Infusion: 09/18/20 13:24 Dose: Infused Documented by: Azithromycin 500 mg/ Dextrose 255 mls @ 250 mls/hr IV Q24 [facility] Ceftriaxone Sodium 2 gm/ (Sodium Chloride) 50 mls @ 100 mls/hr IV Q24 [facility] Last Admin: 09/18/20 13:24 Dose: 100 mls/hr Documented by: Insulin Human Lispro (Insulin Lispro 100 Unit/Ml Insuln.Pen) 0 unit SC ACHS [facility]; Protocol Last Admin: 09/18/20 11:03 Dose: 1 unit Documented by: Lamotrigine (Lamotrigine 100 Mg Tablet) 250 mg PO QHS [facility] Last Admin: 09/17/20 23:40 Dose: 250 mg Documented by: Lisinopril (Lisinopril 5 Mg Tablet) 5 mg PO DAILY [facility] Last Admin: 09/18/20 07:59 Dose: 5 mg Documented by: Ondansetron HCl (Ondansetron 4 Mg/2 Ml Vial) 4 mg IV Q8H PRN PRN PRN Reason: NAUSEA/VOMITING Senna/Docusate Sodium (Senna/Docusate Sodium 1 Tablet) 2 tablet PO BID PRN PRN Reason: Constipation Last Admin: 09/16/20 16:36 Dose: 2 tablet Documented by: Sodium Chloride (0.9% Saline Lock 10 Ml Syringe) 10 - 40 ml IV UD PRN PRN Reason: SALINE FLUSH Last Admin: 09/17/20 23:55 Dose: 10 ml Documented by: Zolpidem Tartrate (Zolpidem Tartrate 5 Mg Tablet) 5 mg PO QHS PRN PRN PRN Reason: INSOMNIA Last Admin: 09/17/20 23:52 Dose: 5 mg Documented by: Medical Necessity - Tobacco Use Smoking Status: Never smoker Tobacco Use: Non-smoker Route of nutrition/ use of supplements: [] Nutritional Intake: [] IV Site: [] Clements Catheter: [] - Assessment/Plan Antibiotics: [] Assessment/Plan: [] Active and Suspected Problems COVID-19 (Acute) Encephalopathy acute (Acute) Dehydration (Acute) Elevated lactic acid level (Acute) acute hypoxic resp failure due to covid - mental status improved. 5 day course of remdesivir, feeling worse today, O2 worse. Cont dex. Will follow
[2020-09-18 16:30] LABS: Bedside Glucose 261 mg/dL (70-110)
[2020-09-18] MEDS: lamoTRIgine 100 MG Tablet 250 MG PO (21:58)
[2020-09-18] MEDS: Atorvastatin Calcium 80 MG Tablet PO (21:58)
[2020-09-18 22:40] LABS: Bedside Glucose 234 mg/dL (70-110)
[2020-09-19] VITALS (22 sets, daily range): BP systolic 105–196; BP diastolic 48–122; PULSE 58–80; RESP 16–25; TEMP 35.7–37.3; O2SAT 91–96
[2020-09-19] MEDS: Insulin Lispro 100 UNIT/ML INSULN.PEN SC ×4 (06:58→22:53)
[2020-09-19 07:11] LABS: Bedside Glucose 163 mg/dL (70-110)
[2020-09-19 07:33] LABS: Hematocrit 38.7 % (40-54); Hemoglobin 12.6 g/dL (13.0-16.5); Mean Corp Hgb Conc 32.6 g/dL (32-36); Mean Corpuscular Hgb 29.3 pg (27.0-32.0); Mean Platelet Vol. 9.6 fl (6.2-12.0); Platelet Count 418 K/mm3 (150-450); RBC Distribution Width SD 45.2 fl (35.1-43.9); White Blood Count 14.2 K/mm3 (4.4-11.0)
--- NOTE | 2020-09-19 07:43 | PCM.PN.HOSP ---
Patient Problems: Active and Suspected Problems COVID-19 (Acute) Encephalopathy acute (Acute) Dehydration (Acute) Elevated lactic acid level (Acute) Subjective: Patient seen and examined. His oxygen requirement has increased from 5 L yesterday to 12 L today. He has completed a course of remdesivir convalescent plasma. He has otherwise remained hemodynamically stable. Labs and vitals reviewed. Vitals/I&O's: Vital Signs Temp Pulse Resp BP Pulse Ox 98.0 F 65 18 149/55 H 92 09/19/20 06:54 09/19/20 06:54 09/19/20 06:54 09/19/20 06:54 09/19/20 06:54 Oxygen Flow Rate (L/min) [ 7 AMBULATION with Oxygen] Oxygen Flow Rate (L/min) [ 3 AMBULATING on Room Air] Oxygen Flow Rate (L/min) [At 2 REST on Room Air] Oxygen Flow Rate (L/min) 12 Oxygen Delivery Method Nasal Cannula Weight: 220 lb 3.869 oz Body Mass Index (BMI) 30.2 Finger Stick Blood Glucose 144 Intake and Output for Last 24 Hours 09/17/20 09/18/20 09/19/20 23:59 23:59 23:59 Intake Total 2250 / 2650 2155 / 2155 50 / 50 Output Total 275 / 500 1050 / 1050 Balance 1974 / 2149 1105 / 1105 50 / 50 General: Alert, Oriented x3, Cooperative, No apparent distress HEENT: Atraumatic, PERRLA, EOMI, Normocephalic, - - very hard of hearing. Oral: Moist Mucosa Neck: Supple, No JVD, Negative Carotid Bruits Lungs: Wheezes - markedly reduced breath sounds in right lower lung rodriguez, with some crackles. on 12L of oxygen Cardiovascular: Regular rate, Regular Rhythm, Normal S1, Normal S2, No murmurs Abdomen: Bowel Sounds Present, Soft, Non Tender, Non-Distended, No Hepato-splenomegaly Extremities: No clubbing, No cyanosis, No edema, Capillary Refill Less than 3 Seconds Skin: No rashes, No breakdown Musculoskeletal: No Tenderness to Palpation of Joints or Extremities Lymphatic: No Cervical, Supraclavicular, or Inguinal Adenopathy Neurological: Cranial nerves II-XII grossly intact, Neuro grossly intact, Motor Exam 5/5 strength throughout Psych/Mental Status: Normal Affect, Appropriate, Alert and oriented to time, place, person, mood and affect Microbiology Past 72 Hours 09/13/20 11:05 Blood Culture (Wb) - Arm Right Blood Culture - Final No growth in 5 days. 09/13/20 10:30 Blood Culture (Wb) - Arm Left Blood Culture - Final No growth in 5 days. Laboratory Results 09/18/20 11:02: POC Glucose 196 H 09/18/20 16:15: POC Glucose 261 H 09/18/20 21:45: POC Glucose 234 H 09/19/20 06:57: POC Glucose 163 H 09/19/20 07:01: WBC 14.2 H, RBC 4.30 L, Hgb 12.6 L, Hct 38.7 L, MCV 90.0, MCH 29.3, MCHC 32.6, RDW Std Deviation 45.2 H, RDW Coeff of Elias 14.0, Plt Count 418, MPV 9.6 09/19/20 07:01: Sodium Pending, Potassium Pending, Chloride Pending, Carbon Dioxide Pending, Anion Gap Pending, BUN Pending, Creatinine Pending, Est GFR (MDRD) Af Amer Pending, Est GFR (MDRD) Non-Af Pending, BUN/Creatinine Ratio Pending, Glucose Pending, Calcium Pending, Total Bilirubin Pending, AST Pending, ALT Pending, Alkaline Phosphatase Pending, Total Protein Pending, Albumin Pending Diagnostic Data Brain CT 09/13/20 11:19 IMPRESSION: 1. No acute findings. 2. Stable exam since prior. 3. Small remote right ganglia capsular infarct. Electronically Signed: Augustin Butler, at 14:08 EDT Tel , Service support , Chest X-Ray 09/18/20 09:41 IMPRESSION: Progressive infiltrates in the right lung as well as in the left lower lobe. Electronically Signed: Thomas Guallpa, at 15:36 EDT , Service support , Current Medications Acetaminophen (Acetaminophen 325 Mg Tablet) 650 mg PO Q6H PRN PRN PRN Reason: Pain Score 1-10/Temp > 100.7 F Last Admin: 09/16/20 21:54 Dose: 650 mg Documented by: Aspirin (Aspirin 81 Mg Tab.Chew) 81 mg PO DAILY@0800 [facility] Last Admin: 09/18/20 07:57 Dose: 81 mg Documented by: Atorvastatin Calcium (Atorvastatin Calcium 80 Mg Tablet) 80 mg PO QHS [facility] Last Admin: 09/18/20 21:58 Dose: 80 mg Documented by: Calamine/Phenol (Menthol/Lanolin/Calamine/Znox 113 Gm Tube) 1 applic TOPICAL BID [facility]; Protocol Last Admin: 09/18/20 21:56 Dose: 1 applicatio Documented by: Carvedilol (Carvedilol 6.25 Mg Tablet) 6.25 mg PO BID [facility] Last Admin: 09/18/20 21:58 Dose: 6.25 mg Documented by: Cholecalciferol (Cholecalciferol (Vit D3) 1,000 Unit (25mcg)) 5,000 unit PO DAILY [facility] Last Admin: 09/18/20 07:59 Dose: 5,000 unit Documented by: Clopidogrel Bisulfate (Clopidogrel Bisulfate 75 Mg Tablet) 75 mg PO DAILY [facility] Last Admin: 09/18/20 07:58 Dose: 75 mg Documented by: Dexamethasone (Dexamethasone 4 Mg Tablet) 6 mg PO DAILY@0800 [facility] Last Admin: 09/18/20 07:58 Dose: 6 mg Documented by: Dextrose (Dextrose 50%-Water 25 Gm/50 Ml Disp.Syrin) 0 gm IV X1 PRN; Protocol PRN Reason: Hypoglycemia Dorzolamide/Timolol (Dorzolamide Hcl/Timolol 10 Ml Bottle) 1 drop EACH EYE BID [facility] Last Admin: 09/18/20 21:58 Dose: 1 drop Documented by: Enoxaparin Sodium (Enoxaparin 30 Mg/0.3 Ml Syringe) 30 mg SC BID [facility] Last Admin: 09/18/20 21:57 Dose: 30 mg Documented by: Glucagon (Glucagon 1 Mg/Ml Syringe) 1 mg IM .X1 PRN PRN Reason: Hypoglycemia Hydrochlorothiazide (Hydrochlorothiazide 12.5mg) 12.5 mg PO DAILY [facility] Last Admin: 09/18/20 07:59 Dose: 12.5 mg Documented by: Sodium Chloride () 250 mls @ 15 mls/hr IV .[id number] PRN PRN Reason: Saline Flush Sodium Chloride () 250 mls @ 15 mls/hr IV .[id number] PRN PRN Reason: Additional IVPB Infusion Sodium Chloride () 1,000 mls @ 125 mls/hr IV .Q8H [facility] Last Admin: 09/19/20 03:26 Dose: Not Given Documented by: Remdesivir (Investigational) (100 mg/ Sodium Chloride) 250 mls @ 125 mls/hr IV DAILY [facility]; Protocol Stop: 09/19/20 11:59 Last Infusion: 09/18/20 13:24 Dose: Infused Documented by: Azithromycin 500 mg/ Dextrose 255 mls @ 250 mls/hr IV Q24 [facility] Last Infusion: 09/18/20 15:24 Dose: Infused Documented by: Ceftriaxone Sodium 2 gm/ (Sodium Chloride) 50 mls @ 100 mls/hr IV Q24 [facility] Last Infusion: 09/18/20 13:54 Dose: Infused Documented by: Insulin Human Lispro (Insulin Lispro 100 Unit/Ml Insuln.Pen) 0 unit SC ACHS [facility]; Protocol Last Admin: 09/19/20 06:58 Dose: 1 unit Documented by: Lamotrigine (Lamotrigine 100 Mg Tablet) 250 mg PO QHS [facility] Last Admin: 09/18/20 21:58 Dose: 250 mg Documented by: Lisinopril (Lisinopril 5 Mg Tablet) 5 mg PO DAILY [facility] Last Admin: 09/18/20 07:59 Dose: 5 mg Documented by: Ondansetron HCl (Ondansetron 4 Mg/2 Ml Vial) 4 mg IV Q8H PRN PRN PRN Reason: NAUSEA/VOMITING Senna/Docusate Sodium (Senna/Docusate Sodium 1 Tablet) 2 tablet PO BID PRN PRN Reason: Constipation Last Admin: 09/16/20 16:36 Dose: 2 tablet Documented by: Sodium Chloride (0.9% Saline Lock 10 Ml Syringe) 10 - 40 ml IV UD PRN PRN Reason: SALINE FLUSH Last Admin: 09/17/20 23:55 Dose: 10 ml Documented by: Zolpidem Tartrate (Zolpidem Tartrate 5 Mg Tablet) 5 mg PO QHS PRN PRN PRN Reason: INSOMNIA Last Admin: 09/17/20 23:52 Dose: 5 mg Documented by: STROKE Vital Signs/Narrative: Vital Signs Temp Pulse Resp BP Pulse Ox 09/19/20 06:54 98.0 F 65 18 149/55 H 92 Medical Necessity - Tobacco Use Smoking Status: Never smoker Tobacco Use: Non-smoker Assessment/Plan All Active Problems COVID-19 (Acute) Encephalopathy acute (Acute) Dehydration (Acute) Elevated lactic acid level (Acute) # Acute metabolic encephalopathy due to COVID 19 infection resolved # Acute hypoxic respiratory insufficiency due to COVID 19 pneumonia now requiring 12L of oxygen today. Has gone up from 21L to 5L, and now 12L over the last 48 hours CXR done yesterday showed bilateral progressive infiltrates in the right lung and left lower lobe start on IV ceftriaxone and azithromycin get sputum cultures blood cultures obtained earlier during admission was negative. titrate oxygen to maintain sats >90% # Pneumonia due to COVID 19 infection: as above # Lactic acidosis: resolved. May be due to Metformin. Will DC Metformin. #Type 2 diabetes mellitus: Metformin on hold. A1c was 7.4. Insulin sliding scale. Accu-Cheks AC at bedtime. #Hypertension: On lisinopril and hydrochlorothiazide #CAD s/p stents: On aspirin, statin and carvedilol. #Debility due to recurrent falls. PT OT on board. DVT prophylaxis: Lovenox 30mg twice daily. Disposition: transfer to ICU o/a of patient requiring 12L of oxygen today. Inpatient E&M: [id number] [facility] L3
--- NOTE | 2020-09-19 08:03 | PCM.CON.CC ---
Reason for Consult Date of Consultation: 09/19/20 Reason for Consultation: Acute hypoxemic respiratory failure History of Present Illness: The patient is an 84-year-old male, with a history as outlined below, who initially presented to the emergency department 6 days ago with confusion, weakness and cough. The patient did have a positive Covid exposure history. The patient was subsequently tested and found to be positive for coronavirus on September 13. The patient was initially admitted to the hospital for supportive care. Throughout most of his hospital course, the patient has had a small supplemental oxygen requirement of approximately 2 L/min. However, on September 18, the patient supplemental oxygen need begin to increase. The patient had previously been evaluated by infectious diseases and was being treated with Decadron and remdesivir. D-dimer was not significantly elevated at 0.56 on September 13. A follow-up chest x-ray obtained on September 18 revealed progressive bilateral infiltrates. The patient does appear to be significantly volume overloaded for the hospital admission. The patient appears to have been on continuous IV fluids for quite some time. Past Medical History Past Medical History (Chronic Problems): Chronic Problems CAD (coronary artery disease) (Chronic) Type 2 diabetes mellitus (Chronic) Chronic kidney disease, stage 3 (Chronic) Stroke (Chronic) Glaucoma (Chronic) Vitamin D deficiency (Chronic) Depression (Chronic) Seizure disorder (Chronic) Diabetes mellitus (Chronic) Insomnia (Chronic) HLD (hyperlipidemia) (Chronic) Hearing deficit (Chronic) DM (dermatomyositis) (Chronic) CVA (cerebral vascular accident) (Chronic) CKD (chronic kidney disease), stage III (Chronic) H/O heart artery stent (Chronic) Blind (Chronic) L. eye Aortic aneurysm (Chronic) Herpes zoster (Chronic) HTN (hypertension) (Chronic) Allergies No Known Allergies Allergy (Verified 05/27/15 07:47) Home Medications: Ambulatory Orders Medication Instructions Recorded Aspirin [Aspirin, Baby] 81 mg PO DAILY@0800 05/21/15 Carvedilol [Coreg (Beta Marshall)] 6.25 mg PO BID 05/21/15 Cholecalciferol (VIT D3) [Vitamin 5,000 unit PO DAILY 05/21/15 D3] Clopidogrel Bisulfate [Plavix] 75 mg PO DAILY 05/21/15 Eplerenone [Inspra] 12.5 mg PO QODAY 05/21/15 Lamotrigine [Lamictal] 250 mg PO QHS 05/21/15 Lisinopril [Zestril] 5 mg PO DAILY 05/21/15 Quetiapine Fumarate [Seroquel] 3.5 tab PO QHS 05/21/15 hydroCHLOROthiazide 12.5 mg PO DAILY capsule 02/02/19 [Hydrochlorothiazide] Duloxetine Hcl [Cymbalta] 30 mg PO BID 09/28/19 Acetaminophen [Tylenol] 325 mg PO DAILY 12/18/19 Atorvastatin Calcium [Lipitor] 80 mg PO QHS 09/13/20 Dorzolamide HCl/Timolol Maleat 1 drp OP BID 09/13/20 [Cosopt Eye Drops] metFORMIN (XR) [Glucophage Xr] 500 mg PO BID 09/13/20 Surgical History: - - cardiac stents. Psychiatric History: Depression Lives: Spouse/ Significant Other Smoking Status: Never smoker Tobacco Use: Non-smoker Alcohol: None Drugs: None - *Family History Maternal Family History: Family History (Last Updated 01/25/19 @ 06:[address] Butch Jackson DO) Other CAD (coronary artery disease) History Items: No pertinent history Paternal Family History: Family History (Last Updated 01/25/19 @ 06:[address] Butch Jackson DO) Other CAD (coronary artery disease) History Items: No pertinent history Review of Systems Constitutional: Denies: Fever, Malaise, Fatigue Eyes: Denies: Blurred vision, Double vision HEENT: Reports: Difficulty Hearing Cardiovascular: Denies: Chest Pain, Palpitations Respiratory: Reports: Shortness of Breath Gastrointestinal: Denies: Abdominal Pain, Nausea, Vomiting Genitourinary: Denies: Dysuria Musculoskeletal: Denies: Joint Pain, Joint Tenderness Skin: Denies: Rash, Wounds Neurological: Denies: Numbness, Tingling, Focal weakness Psychiatric: Denies: Anxiety, Depression, Homicidal Ideations, Suicidal Ideations Hematologic/ Lymphatic: Reports: Anemia Patient Problems: Active and Suspected Problems COVID-19 (Acute) Encephalopathy acute (Acute) Dehydration (Acute) Elevated lactic acid level (Acute) Objective: The patient's most recent lab work, culture data and imaging studies have all been personally reviewed. Coronavirus PCR was positive on September 13. Blood and urine cultures have shown no growth to date. - Physical Exam Vitals/I&O's: Vital Signs Temp Pulse Resp BP Pulse Ox 98.0 F 65 18 149/55 H 91 09/19/20 06:54 09/19/20 06:54 09/19/20 06:54 09/19/20 06:54 09/19/20 07:15 Oxygen Flow Rate (L/min) [ 7 AMBULATION with Oxygen] Oxygen Flow Rate (L/min) [ 3 AMBULATING on Room Air] Oxygen Flow Rate (L/min) [At 2 REST on Room Air] Oxygen Flow Rate (L/min) 12 Oxygen Delivery Method Nasal Cannula Weight: 220 lb 3.869 oz Body Mass Index (BMI) 30.2 Finger Stick Blood Glucose 144 Intake and Output for Last 24 Hours 09/17/20 09/18/20 09/19/20 23:59 23:59 23:59 Intake Total 2250 / 2650 2155 / 2155 50 / 50 Output Total 275 / 500 1050 / 1050 Balance 1974 / 0 1105 / 1105 50 / 50 General: Alert, Cooperative, No apparent distress, - - Hard of hearing HEENT: Atraumatic, Normocephalic Oral: No Gingival or Mucosal Lesions/ Ulcerations Neck: Supple, No Nodes, Trachea Midline Lungs: Diminished, Rales Cardiovascular: Regular rate, Regular Rhythm Abdomen: Bowel Sounds Present, Soft, Non Tender Extremities: No clubbing, No cyanosis, Edema Skin: No breakdown Musculoskeletal: No Muscle Wasting Lymphatic: No Cervical, Supraclavicular, or Inguinal Adenopathy Neurological: Cranial nerves II-XII grossly intact, Neuro grossly intact Psych/Mental Status: Normal Affect, Appropriate Labs (Last 48 Hours) 09/17/20 09/17/20 09/17/20 12:24 13:35 16:08 WBC RBC Hgb Hct MCV MCH MCHC RDW Std Deviation RDW Coeff of Elias Plt Count MPV Sodium Potassium Chloride Carbon Dioxide Anion Gap BUN Creatinine Estim Creat Clear Calc Est GFR (MDRD) Af Amer Est GFR (MDRD) Non-Af BUN/Creatinine Ratio Glucose Calcium Total Bilirubin AST ALT Alkaline Phosphatase Total Protein Albumin Globulin Albumin/Globulin Ratio COVID-19 (IMMANUEL) Detected POC Glucose 256 H 259 H 09/17/20 09/18/20 09/18/20 23:28 05:38 05:38 WBC 15.1 H RBC 4.08 L Hgb 12.1 L Hct 36.6 L MCV 89.7 MCH 29.7 MCHC 33.1 D RDW Std Deviation 44.5 H RDW Coeff of Elias 13.6 Plt Count 380 MPV 9.7 Sodium 140 Potassium 3.6 Chloride 110 H Carbon Dioxide 22.0 Anion Gap 8 BUN 26 H Creatinine 1.09 Estim Creat Clear Calc 51.16 Est GFR (MDRD) Af Amer 83 Est GFR (MDRD) Non-Af 68 BUN/Creatinine Ratio 23.9 H Glucose 180 H Calcium 8.1 L Total Bilirubin 0.70 AST 36 ALT 49 Alkaline Phosphatase 74 Total Protein 6.0 L Albumin 2.3 L Globulin 3.7 Albumin/Globulin Ratio 0.6 L COVID-19 (IMMANUEL) POC Glucose 271 H 09/18/20 09/18/20 09/18/20 06:25 11:02 16:15 WBC RBC Hgb Hct MCV MCH MCHC RDW Std Deviation RDW Coeff of Elias Plt Count MPV Sodium Potassium Chloride Carbon Dioxide Anion Gap BUN Creatinine Estim Creat Clear Calc Est GFR (MDRD) Af Amer Est GFR (MDRD) Non-Af BUN/Creatinine Ratio Glucose Calcium Total Bilirubin AST ALT Alkaline Phosphatase Total Protein Albumin Globulin Albumin/Globulin Ratio COVID-19 (IMMANUEL) POC Glucose 175 H 196 H 261 H 09/18/20 09/19/20 09/19/20 21:45 06:57 07:01 WBC 14.2 H RBC 4.30 L Hgb 12.6 L Hct 38.7 L MCV 90.0 MCH 29.3 MCHC 32.6 RDW Std Deviation 45.2 H RDW Coeff of Elias 14.0 Plt Count 418 MPV 9.6 Sodium Potassium Chloride Carbon Dioxide Anion Gap BUN Creatinine Estim Creat Clear Calc Est GFR (MDRD) Af Amer Est GFR (MDRD) Non-Af BUN/Creatinine Ratio Glucose Calcium Total Bilirubin AST ALT Alkaline Phosphatase Total Protein Albumin Globulin Albumin/Globulin Ratio COVID-19 (IMMANUEL) POC Glucose 234 H 163 H 09/19/20 07:01 WBC RBC Hgb Hct MCV MCH MCHC RDW Std Deviation RDW Coeff of Elias Plt Count MPV Sodium 140 Potassium 3.2 L Chloride 109 H Carbon Dioxide 22.0 Anion Gap 9 BUN 27 H Creatinine 1.04 Estim Creat Clear Calc 53.62 Est GFR (MDRD) Af Amer 87 Est GFR (MDRD) Non-Af 72 BUN/Creatinine Ratio 26.0 H Glucose 188 H Calcium 8.2 L Total Bilirubin 0.60 AST 84 H ALT 119 H Alkaline Phosphatase 88 Total Protein 6.1 L Albumin 2.4 L Globulin 3.7 Albumin/Globulin Ratio 0.6 L COVID-19 (IMMANUEL) POC Glucose Microbiology 09/13/20 11:05 Blood Culture (Wb) - Arm Right Blood Culture - Final No growth in 5 days. 09/13/20 10:30 Blood Culture (Wb) - Arm Left Blood Culture - Final No growth in 5 days. Clinical Impression(s) from Imaging Studies Brain CT 09/13/20 11:19 IMPRESSION: 1. No acute findings. 2. Stable exam since prior. 3. Small remote right ganglia capsular infarct. Electronically Signed: Augustin Butler, at 14:08 EDT Tel , Service support , Chest X-Ray 09/13/20 11:20 IMPRESSION: No active pulmonary disease. Electronically Signed: Bismark Tapia MD at 12:07 EDT Tel , Service support , Chest X-Ray 09/18/20 09:41 IMPRESSION: Progressive infiltrates in the right lung as well as in the left lower lobe. Electronically Signed: Thomas Guallpa, at 15:36 EDT , Service support , Current Medications Acetaminophen (Acetaminophen 325 Mg Tablet) 650 mg PO Q6H PRN PRN PRN Reason: Pain Score 1-10/Temp > 100.7 F Last Admin: 09/16/20 21:54 Dose: 650 mg Documented by: Aspirin (Aspirin 81 Mg Tab.Chew) 81 mg PO DAILY@0800 [facility] Last Admin: 09/18/20 07:57 Dose: 81 mg Documented by: Atorvastatin Calcium (Atorvastatin Calcium 80 Mg Tablet) 80 mg PO QHS [facility] Last Admin: 09/18/20 21:58 Dose: 80 mg Documented by: Calamine/Phenol (Menthol/Lanolin/Calamine/Znox 113 Gm Tube) 1 applic TOPICAL BID [facility], [facility]; Protocol Last Admin: 09/18/20 21:56 Dose: 1 applicatio Documented by: Carvedilol (Carvedilol 6.25 Mg Tablet) 6.25 mg PO BID [facility] Last Admin: 09/18/20 21:58 Dose: 6.25 mg Documented by: Cholecalciferol (Cholecalciferol (Vit D3) 1,000 Unit (25mcg)) 5,000 unit PO DAILY [facility] Last Admin: 09/18/20 07:59 Dose: 5,000 unit Documented by: Clopidogrel Bisulfate (Clopidogrel Bisulfate 75 Mg Tablet) 75 mg PO DAILY [facility] Last Admin: 09/18/20 07:58 Dose: 75 mg Documented by: Dexamethasone (Dexamethasone 4 Mg Tablet) 6 mg PO DAILY@0800 [facility] Last Admin: 09/18/20 07:58 Dose: 6 mg Documented by: Dextrose (Dextrose 50%-Water 25 Gm/50 Ml Disp.Syrin) 0 gm IV X1 PRN; Protocol PRN Reason: Hypoglycemia Dorzolamide/Timolol (Dorzolamide Hcl/Timolol 10 Ml Bottle) 1 drop EACH EYE BID [facility] Last Admin: 09/18/20 21:58 Dose: 1 drop Documented by: Enoxaparin Sodium (Enoxaparin 30 Mg/0.3 Ml Syringe) 30 mg SC BID [facility] Last Admin: 09/18/20 21:57 Dose: 30 mg Documented by: Glucagon (Glucagon 1 Mg/Ml Syringe) 1 mg IM .X1 PRN PRN Reason: Hypoglycemia Hydrochlorothiazide (Hydrochlorothiazide 12.5mg) 12.5 mg PO DAILY [facility] Last Admin: 09/18/20 07:59 Dose: 12.5 mg Documented by: Sodium Chloride () 250 mls @ 15 mls/hr IV .[id number] PRN PRN Reason: Saline Flush Sodium Chloride () 250 mls @ 15 mls/hr IV .[id number] PRN PRN Reason: Additional IVPB Infusion Sodium Chloride () 1,000 mls @ 125 mls/hr IV .Q8H [facility] Last Admin: 09/19/20 03:26 Dose: Not Given Documented by: Remdesivir (Investigational) (100 mg/ Sodium Chloride) 250 mls @ 125 mls/hr IV DAILY [facility]; Protocol Stop: 09/19/20 11:59 Last Infusion: 09/18/20 13:24 Dose: Infused Documented by: Azithromycin 500 mg/ Dextrose 255 mls @ 250 mls/hr IV Q24 [facility] Last Infusion: 09/18/20 15:24 Dose: Infused Documented by: Ceftriaxone Sodium 2 gm/ (Sodium Chloride) 50 mls @ 100 mls/hr IV Q24 [facility] Last Infusion: 09/18/20 13:54 Dose: Infused Documented by: Insulin Human Lispro (Insulin Lispro 100 Unit/Ml Insuln.Pen) 0 unit SC ACHS [facility]; Protocol Last Admin: 09/19/20 06:58 Dose: 1 unit Documented by: Lamotrigine (Lamotrigine 100 Mg Tablet) 250 mg PO QHS [facility] Last Admin: 09/18/20 21:58 Dose: 250 mg Documented by: Lisinopril (Lisinopril 5 Mg Tablet) 5 mg PO DAILY [facility] Last Admin: 09/18/20 07:59 Dose: 5 mg Documented by: Ondansetron HCl (Ondansetron 4 Mg/2 Ml Vial) 4 mg IV Q8H PRN PRN PRN Reason: NAUSEA/VOMITING Senna/Docusate Sodium (Senna/Docusate Sodium 1 Tablet) 2 tablet PO BID PRN PRN Reason: Constipation Last Admin: 09/16/20 16:36 Dose: 2 tablet Documented by: Sodium Chloride (0.9% Saline Lock 10 Ml Syringe) 10 - 40 ml IV UD PRN PRN Reason: SALINE FLUSH Last Admin: 09/17/20 23:55 Dose: 10 ml Documented by: Zolpidem Tartrate (Zolpidem Tartrate 5 Mg Tablet) 5 mg PO QHS PRN PRN PRN Reason: INSOMNIA Last Admin: 09/17/20 23:52 Dose: 5 mg Documented by: Assessment/Plan Active and Suspected Problems COVID-19 (Acute) Encephalopathy acute (Acute) Dehydration (Acute) Elevated lactic acid level (Acute) RECOMMENDATIONS: 1. Start IV Lasix twice daily. 2. Stop continuous IV fluids. 3. Continue Decadron as ordered. 4. Wean supplemental oxygen to maintain saturations at or above 90%. 5. Encourage incentive spirometer use and mobilize patient as tolerated. 6. Defer need for antimicrobials to infectious diseases. IMPRESSIONS: 1. Acute hypoxemic respiratory failure Secondary to underlying COVID-19 pneumonia and hypervolemia. I do suspect that the progressive infiltrates noted may be secondary to a component of hypervolemia. The patient appears to be quite positive from a volume perspective for the hospital stay. The patient remains afebrile and hemodynamically stable. Therefore, I would recommend that we place the patient on scheduled diuretic therapy today. All continuous fluids should be discontinued. Continue to wean supplemental oxygen to maintain saturations at or above 90%. The patient has already completed a treatment course of remdesivir. Continue Decadron as ordered. Defer need for antimicrobials to infectious diseases. 2. Hypokalemia Electrolyte repletion as ordered. Recheck levels in the morning. 3. Advanced age/diabetes mellitus/hypertension/coronary artery disease Complicates care, management, recovery and prognosis. Continue home medications as indicated. This note was generated with [employer] dictation software. It may contain incorrect words, spelling, and punctuation that were not noted in checking the note before signing. Inpatient E&M: 80149 Init Hosp L3
[2020-09-19 08:09] LABS: ALB/GLOB Ratio 0.6 RATIO (0.9-2.4); AST(SGOT) 84 U/L (15-37); Alanine Aminotransfer ALT/SGPT 119 U/L (16-61); Albumin, Serum 2.4 g/dL (3.2-5.0); Alkaline Phosphatase 88 U/L (45-117); Anion Gap 9 (5-15); BUN 27 mg/dL (7-18); Calcium,Total 8.2 mg/dL (8.5-10.1); Chloride 109 mmol/L (98-107); Creatinine, Serum 1.04 mg/dL (0.70-1.30); EST Glomerular Filtration Rate 72 mL/min (>60); Est Glom Filt Rate - Afr Amer 87 mL/min (>60); Estimated Creatinine Clearance 53.62 ml/min; Globulin 3.7 g/dL (2.2-4.2); Glucose 188 mg/dL (74-106); Potassium 3.2 mmol/L (3.5-5.1); Protein, Total 6.1 g/dL (6.4-8.2); Sodium Level 140 mmol/L (136-145)
--- NOTE | 2020-09-19 10:05 | CASEMGMT ---
RN CM Note: Call from [facility], they will not be able to staff patient on dc if home with hhc is needed. Patient is currently in ICU on increased oxygen. Will follow PT/OT progress and CM will continue to follow for discharge planing. Candie GUILLENN RN ACM
[2020-09-19] MEDS: Lisinopril 5 MG Tablet PO (11:22)
[2020-09-19] MEDS: Clopidogrel Bisulfate 75 MG Tablet PO (11:22)
[2020-09-19] MEDS: Dorzolamide HCL/Timolol 10 ml Bottle 1 DRP EACH EYE ×2 (11:23→21:55)
[2020-09-19] MEDS: Menthol/Lanolin/Calamine/Znox 113 GM Tube 1 APPLIC TOPICAL ×2 (11:23→21:54)
[2020-09-19] MEDS: dexAMETHasone 4 MG Tablet 6 MG PO (11:23)
[2020-09-19] MEDS: Carvedilol 6.25 MG Tablet PO ×2 (11:23→21:54)
[2020-09-19] MEDS: Aspirin 81 MG TAB.CHEW PO (11:23)
[2020-09-19] MEDS: hydroCHLOROthiazide 12.5mg 12.5 MG PO (11:23)
[2020-09-19] MEDS: Furosemide 40 MG/4 ML Vial IV ×2 (11:32→17:20)
[2020-09-19 11:39] LABS: BNP,B-Type NATRIURETIC PEPTIDE 224.3 pg/mL (0-100)
[2020-09-19 12:35] LABS: Bedside Glucose 197 mg/dL (70-110)
[2020-09-19] MEDS: Potassium Chloride 10mEq/100mL 10 MEQ/100 ML IV.SOLN. 100 MEQ IV BOLUS ×4 (14:18→18:40)
--- NOTE | 2020-09-19 15:03 | PN.ID_ITS ---
Patient Problems: Active and Suspected Problems COVID-19 (Acute) Encephalopathy acute (Acute) Dehydration (Acute) Elevated lactic acid level (Acute) Subjective: Feeling better today after being moved to unit. No fever, no sputum. - Physical Exam Vitals/I&O's: Vital Signs Temp Pulse Resp BP Pulse Ox 99.1 F 61 18 157/62 H 95 09/19/20 12:00 09/19/20 14:00 09/19/20 14:00 09/19/20 14:00 09/19/20 14:00 Oxygen Flow Rate (L/min) [ 7 AMBULATION with Oxygen] Oxygen Flow Rate (L/min) [ 3 AMBULATING on Room Air] Oxygen Flow Rate (L/min) [At 2 REST on Room Air] Oxygen Flow Rate (L/min) 10 Oxygen Delivery Method Nasal Cannula Weight: 99.9 kg Body Mass Index (BMI) 30.2 Finger Stick Blood Glucose 144 Intake and Output for Last 24 Hours 09/17/20 09/18/20 09/19/20 23:59 23:59 23:59 Intake Total 2250 / 2650 2155 / 2155 755 / 755 Output Total 275 / 500 1050 / 1050 300 / 300 Balance 1974 / 2149 1105 / 1105 455 / 455 General: Alert, Cooperative, No apparent distress Lungs: Diminished Cardiovascular: Regular rate, Regular Rhythm Abdomen: Soft, Non Tender, Non-Distended Skin: No rashes Microbiology Past 72 Hours 09/13/20 11:05 Blood Culture (Wb) - Arm Right Blood Culture - Final No growth in 5 days. 09/13/20 10:30 Blood Culture (Wb) - Arm Left Blood Culture - Final No growth in 5 days. Laboratory Results 09/18/20 16:15: POC Glucose 261 H 09/18/20 21:45: POC Glucose 234 H 09/19/20 06:57: POC Glucose 163 H 09/19/20 07:01: WBC 14.2 H, RBC 4.30 L, Hgb 12.6 L, Hct 38.7 L, MCV 90.0, MCH 29.3, MCHC 32.6, RDW Std Deviation 45.2 H, RDW Coeff of Elias 14.0, Plt Count 418, MPV 9.6 09/19/20 07:01: Sodium 140, Potassium 3.2 L, Chloride 109 H, Carbon Dioxide 22.0, Anion Gap 9, BUN 27 H, Creatinine 1.04, Estim Creat Clear Calc 53.62, Est GFR (MDRD) Af Amer 87, Est GFR (MDRD) Non-Af 72, BUN/Creatinine Ratio 26.0 H, Glucose 188 H, Calcium 8.2 L, Total Bilirubin 0.60, AST 84 H, ALT 119 H, Alkaline Phosphatase 88, Total Protein 6.1 L, Albumin 2.4 L, Globulin 3.7, Albumin/Globulin Ratio 0.6 L 09/19/20 07:01: B-Natriuretic Peptide 224.3 H 09/19/20 11:39: POC Glucose 197 H Current Medications Acetaminophen (Acetaminophen 325 Mg Tablet) 650 mg PO Q6H PRN PRN PRN Reason: Pain Score 1-10/Temp > 100.7 F Last Admin: 09/16/20 21:54 Dose: 650 mg Documented by: Aspirin (Aspirin 81 Mg Tab.Chew) 81 mg PO DAILY@0800 [facility] Last Admin: 09/19/20 11:23 Dose: 81 mg Documented by: Atorvastatin Calcium (Atorvastatin Calcium 80 Mg Tablet) 80 mg PO QHS [facility] Last Admin: 09/18/20 21:58 Dose: 80 mg Documented by: Calamine/Phenol (Menthol/Lanolin/Calamine/Znox 113 Gm Tube) 1 applic TOPICAL BID [facility]; Protocol Last Admin: 09/19/20 11:23 Dose: 1 applicatio Documented by: Carvedilol (Carvedilol 6.25 Mg Tablet) 6.25 mg PO BID [facility] Last Admin: 09/19/20 11:23 Dose: 6.25 mg Documented by: Cholecalciferol (Cholecalciferol (Vit D3) 1,000 Unit (25mcg)) 5,000 unit PO DAILY [facility] Last Admin: 09/19/20 11:22 Dose: 5,000 unit Documented by: Clopidogrel Bisulfate (Clopidogrel Bisulfate 75 Mg Tablet) 75 mg PO DAILY [facility] Last Admin: 09/19/20 11:22 Dose: 75 mg Documented by: Dexamethasone (Dexamethasone 4 Mg Tablet) 6 mg PO DAILY@0800 [facility] Last Admin: 09/19/20 11:23 Dose: 6 mg Documented by: Dextrose (Dextrose 50%-Water 25 Gm/50 Ml Disp.Syrin) 0 gm IV X1 PRN; Protocol PRN Reason: Hypoglycemia Dorzolamide/Timolol (Dorzolamide Hcl/Timolol 10 Ml Bottle) 1 drop EACH EYE BID [facility] Last Admin: 09/19/20 11:23 Dose: 1 drop Documented by: Enoxaparin Sodium (Enoxaparin 30 Mg/0.3 Ml Syringe) 30 mg SC BID [facility] Last Admin: 09/19/20 11:34 Dose: Not Given Documented by: Furosemide (Furosemide 40 Mg/4 Ml Vial) 40 mg IV BID@1000,1800 [facility] Last Admin: 09/19/20 11:32 Dose: 40 mg Documented by: Glucagon (Glucagon 1 Mg/Ml Syringe) 1 mg IM .X1 PRN PRN Reason: Hypoglycemia Hydrochlorothiazide (Hydrochlorothiazide 12.5mg) 12.5 mg PO DAILY [facility] Last Admin: 09/19/20 11:23 Dose: 12.5 mg Documented by: Sodium Chloride () 250 mls @ 15 mls/hr IV .[id number] PRN PRN Reason: Saline Flush Sodium Chloride () 250 mls @ 15 mls/hr IV .[id number] PRN PRN Reason: Additional IVPB Infusion Azithromycin 500 mg/ Dextrose 255 mls @ 250 mls/hr IV Q24 [facility] Last Infusion: 09/19/20 12:45 Dose: Infused Documented by: Potassium Chloride () 10 meq in 100 mls @ 100 mls/hr IV BOLUS Q1H [facility] Stop: 09/19/20 16:59 Last Admin: 09/19/20 14:18 Dose: 100 mls/hr Documented by: Insulin Human Lispro (Insulin Lispro 100 Unit/Ml Insuln.Pen) 0 unit SC ACHS [facility]; Protocol Last Admin: 09/19/20 12:40 Dose: 1 unit Documented by: Lamotrigine (Lamotrigine 100 Mg Tablet) 250 mg PO QHS [facility] Last Admin: 09/18/20 21:58 Dose: 250 mg Documented by: Lisinopril (Lisinopril 5 Mg Tablet) 5 mg PO DAILY [facility] Last Admin: 09/19/20 11:22 Dose: 5 mg Documented by: Ondansetron HCl (Ondansetron 4 Mg/2 Ml Vial) 4 mg IV Q8H PRN PRN PRN Reason: NAUSEA/VOMITING Senna/Docusate Sodium (Senna/Docusate Sodium 1 Tablet) 2 tablet PO BID PRN PRN Reason: Constipation Last Admin: 09/16/20 16:36 Dose: 2 tablet Documented by: Sodium Chloride (0.9% Saline Lock 10 Ml Syringe) 10 - 40 ml IV UD PRN PRN Reason: SALINE FLUSH Last Admin: 09/17/20 23:55 Dose: 10 ml Documented by: Zolpidem Tartrate (Zolpidem Tartrate 5 Mg Tablet) 5 mg PO QHS PRN PRN PRN Reason: INSOMNIA Last Admin: 09/17/20 23:52 Dose: 5 mg Documented by: Medical Necessity - Tobacco Use Smoking Status: Never smoker Tobacco Use: Non-smoker Route of nutrition/ use of supplements: [] Nutritional Intake: [] IV Site: [] Clements Catheter: [] - Assessment/Plan Antibiotics: [] Assessment/Plan: [] Active and Suspected Problems COVID-19 (Acute) Encephalopathy acute (Acute) Dehydration (Acute) Elevated lactic acid level (Acute) acute hypoxic resp failure due to covid - mental status improved. 5 day course of remdesivir, feeling worse today, O2 worse. Cont dex. Getting diuresis today. Will stop ceftriaxone. Will follow, d/w Dr. Sanabria
[2020-09-19 17:21] LABS: Bedside Glucose 321 mg/dL (70-110)
[2020-09-19] MEDS: Enoxaparin 30 MG/0.3 ML Syringe SC (21:53)
[2020-09-19] MEDS: Atorvastatin Calcium 80 MG Tablet PO (21:53)
[2020-09-19] MEDS: lamoTRIgine 100 MG Tablet 250 MG PO (21:54)
[2020-09-19] MEDS: Zolpidem Tartrate 5 MG Tablet PO (21:56)
[2020-09-19 23:31] LABS: Bedside Glucose 344 mg/dL (70-110)
[2020-09-20] VITALS (30 sets, daily range): BP systolic 86–164; BP diastolic 25–94; PULSE 54–73; RESP 14–27; TEMP 35.6–36.4; O2SAT 89–100
[2020-09-20 05:07] LABS: Hematocrit 42.2 % (40-54); Hemoglobin 14.1 g/dL (13.0-16.5); Mean Corp Hgb Conc 33.4 g/dL (32-36); Mean Corpuscular Hgb 29.8 pg (27.0-32.0); Mean Corpuscular Volume 89.2 fL (80-94); Mean Platelet Vol. 9.4 fl (6.2-12.0); Platelet Count 456 K/mm3 (150-450); RBC Distribution Width SD 45.1 fl (35.1-43.9); Red Blood Count 4.73 M/mm3 (4.6-6.2); White Blood Count 14.3 K/mm3 (4.4-11.0)
[2020-09-20 05:24] LABS: ALB/GLOB Ratio 0.6 RATIO (0.9-2.4); AST(SGOT) 82 U/L (15-37); Alanine Aminotransfer ALT/SGPT 170 U/L (16-61); Albumin, Serum 2.7 g/dL (3.2-5.0); Alkaline Phosphatase 102 U/L (45-117); Anion Gap 10 (5-15); BUN 33 mg/dL (7-18); BUN/Creat Ratio 25.6 RATIO (10-20); Calcium,Total 8.4 mg/dL (8.5-10.1); Chloride 100 mmol/L (98-107); Creatinine, Serum 1.29 mg/dL (0.70-1.30); EST Glomerular Filtration Rate 56 mL/min (>60); Est Glom Filt Rate - Afr Amer 68 mL/min (>60); Estimated Creatinine Clearance 43.23 ml/min; Globulin 4.2 g/dL (2.2-4.2); Glucose 256 mg/dL (74-106); Potassium 3.3 mmol/L (3.5-5.1); Protein, Total 6.9 g/dL (6.4-8.2); Sodium Level 137 mmol/L (136-145)
--- NOTE | 2020-09-20 05:45 | PN_ITS ---
Subjective: The patient was seen and examined at the bedside this morning. Events from the last 24 hours have been reviewed. The patient is currently afebrile, hemodynamically stable and maintaining appropriate oxygen saturations on Airvo with an FiO2 requirement of 80% and flow rate of 60 L/min. Potassium is low this morning at 3.3. The patient remains on antimicrobials under the discretion of infectious diseases. He also remains on Decadron and twice daily scheduled Lasix. Objective: The patient's most recent lab work, culture data and imaging studies have all been personally reviewed. Coronavirus PCR was positive on September 13. Blood and urine cultures have demonstrated no growth to date. General: Alert, No apparent distress, - - Extremely hard of hearing HEENT: Atraumatic, Normocephalic Oral: No Gingival or Mucosal Lesions/ Ulcerations Neck: Supple, No Nodes, Trachea Midline Lungs: Diminished Cardiovascular: Regular rate, Regular Rhythm Abdomen: Bowel Sounds Present, Soft, Non Tender Extremities: No clubbing, No cyanosis Skin: No breakdown Musculoskeletal: No Tenderness to Palpation of Joints or Extremities Lymphatic: No Cervical, Supraclavicular, or Inguinal Adenopathy Neurological: Cranial nerves II-XII grossly intact, Neuro grossly intact Psych/Mental Status: Normal Affect Vital Signs Temp Pulse Resp BP Pulse Ox 96.0 F L 54 L 15 147/64 H 94 09/20/20 00:00 09/20/20 04:00 09/20/20 03:00 09/20/20 03:00 09/20/20 03:00 Oxygen Flow Rate (L/min) [ 7 AMBULATION with Oxygen] Oxygen Flow Rate (L/min) [ 3 AMBULATING on Room Air] Oxygen Flow Rate (L/min) [At 2 REST on Room Air] Oxygen Flow Rate (L/min) 60 Oxygen Delivery Method Airvo Weight: 207 lb 3.752 oz Body Mass Index (BMI) 30.2 Finger Stick Blood Glucose 144 Intake and Output for Last 24 Hours 09/18/20 09/19/20 09/20/20 23:59 23:59 23:59 Intake Total 2155 / 2155 1145 / 1145 Output Total 1250 / 1250 500 / 500 Balance 905 / 905 645 / 645 Labs (Last 48 Hours) 09/18/20 09/18/20 09/18/20 05:38 05:38 06:25 WBC 15.1 H RBC 4.08 L Hgb 12.1 L Hct 36.6 L MCV 89.7 MCH 29.7 MCHC 33.1 D RDW Std Deviation 44.5 H RDW Coeff of Elias 13.6 Plt Count 380 MPV 9.7 Sodium 140 Potassium 3.6 Chloride 110 H Carbon Dioxide 22.0 Anion Gap 8 BUN 26 H Creatinine 1.09 Estim Creat Clear Calc 51.16 Est GFR (MDRD) Af Amer 83 Est GFR (MDRD) Non-Af 68 BUN/Creatinine Ratio 23.9 H Glucose 180 H Calcium 8.1 L Total Bilirubin 0.70 AST 36 ALT 49 Alkaline Phosphatase 74 B-Natriuretic Peptide Total Protein 6.0 L Albumin 2.3 L Globulin 3.7 Albumin/Globulin Ratio 0.6 L POC Glucose 175 H 09/18/20 09/18/20 09/18/20 11:02 16:15 21:45 WBC RBC Hgb Hct MCV MCH MCHC RDW Std Deviation RDW Coeff of Elias Plt Count MPV Sodium Potassium Chloride Carbon Dioxide Anion Gap BUN Creatinine Estim Creat Clear Calc Est GFR (MDRD) Af Amer Est GFR (MDRD) Non-Af BUN/Creatinine Ratio Glucose Calcium Total Bilirubin AST ALT Alkaline Phosphatase B-Natriuretic Peptide Total Protein Albumin Globulin Albumin/Globulin Ratio POC Glucose 196 H 261 H 234 H 09/19/20 09/19/20 09/19/20 06:57 07:01 07:01 WBC 14.2 H RBC 4.30 L Hgb 12.6 L Hct 38.7 L MCV 90.0 MCH 29.3 MCHC 32.6 RDW Std Deviation 45.2 H RDW Coeff of Elias 14.0 Plt Count 418 MPV 9.6 Sodium 140 Potassium 3.2 L Chloride 109 H Carbon Dioxide 22.0 Anion Gap 9 BUN 27 H Creatinine 1.04 Estim Creat Clear Calc 53.62 Est GFR (MDRD) Af Amer 87 Est GFR (MDRD) Non-Af 72 BUN/Creatinine Ratio 26.0 H Glucose 188 H Calcium 8.2 L Total Bilirubin 0.60 AST 84 H ALT 119 H Alkaline Phosphatase 88 B-Natriuretic Peptide Total Protein 6.1 L Albumin 2.4 L Globulin 3.7 Albumin/Globulin Ratio 0.6 L POC Glucose 163 H 09/19/20 09/19/20 09/19/20 07:01 11:39 17:12 WBC RBC Hgb Hct MCV MCH MCHC RDW Std Deviation RDW Coeff of Elias Plt Count MPV Sodium Potassium Chloride Carbon Dioxide Anion Gap BUN Creatinine Estim Creat Clear Calc Est GFR (MDRD) Af Amer Est GFR (MDRD) Non-Af BUN/Creatinine Ratio Glucose Calcium Total Bilirubin AST ALT Alkaline Phosphatase B-Natriuretic Peptide 224.3 H Total Protein Albumin Globulin Albumin/Globulin Ratio POC Glucose 197 H 321 H 09/19/20 09/20/20 09/20/20 22:49 05:00 05:00 WBC 14.3 H RBC 4.73 Hgb 14.1 Hct 42.2 MCV 89.2 MCH 29.8 MCHC 33.4 RDW Std Deviation 45.1 H RDW Coeff of Elias 14.0 Plt Count 456 H MPV 9.4 Sodium 137 Potassium 3.3 L Chloride 100 Carbon Dioxide 27.0 Anion Gap 10 BUN 33 H Creatinine 1.29 Estim Creat Clear Calc 43.23 Est GFR (MDRD) Af Amer 68 Est GFR (MDRD) Non-Af 56 L BUN/Creatinine Ratio 25.6 H Glucose 256 H Calcium 8.4 L Total Bilirubin 0.60 AST 82 H ALT 170 H Alkaline Phosphatase 102 B-Natriuretic Peptide Total Protein 6.9 Albumin 2.7 L Globulin 4.2 Albumin/Globulin Ratio 0.6 L POC Glucose 344 H Microbiology 09/13/20 11:05 Blood Culture (Wb) - Arm Right Blood Culture - Final No growth in 5 days. 09/13/20 10:30 Blood Culture (Wb) - Arm Left Blood Culture - Final No growth in 5 days. Clinical Impression(s) from Imaging Studies Brain CT 09/13/20 11:19 IMPRESSION: 1. No acute findings. 2. Stable exam since prior. 3. Small remote right ganglia capsular infarct. Electronically Signed: Augustin Butler at 14:08 EDT Tel , Service support , Chest X-Ray 09/13/20 11:20 IMPRESSION: No active pulmonary disease. Electronically Signed: Bismark Tapia MD at 12:07 EDT Tel , Service support , Chest X-Ray 09/18/20 09:41 IMPRESSION: Progressive infiltrates in the right lung as well as in the left lower lobe. Electronically Signed: Thomas Guallpa, at 15:36 EDT , Service support , Medical Necessity - Tobacco Use Smoking Status: Never smoker Tobacco Use: Non-smoker Assessment/Plan All Active Problems COVID-19 (Acute) Encephalopathy acute (Acute) Dehydration (Acute) Elevated lactic acid level (Acute) RECOMMENDATIONS: 1. Continue attempts at diuresis as tolerated by hemodynamics and renal function. 2. Continue Decadron as ordered. 3. Continue antimicrobials per infectious diseases recommendations. 4. Wean supplemental oxygen to maintain saturations at or above 90%. 5. Encourage incentive spirometer use and mobilize patient as tolerated. 6. Potassium repletion as ordered. IMPRESSIONS: 1. Acute hypoxemic respiratory failure Secondary to underlying COVID-19 pneumonia, hypervolemia and possible superimposed bacterial pneumonia. The patient remains afebrile and hemodynamically stable. Therefore, I would recommend that we continue the patient on scheduled diuretic therapy today. Continue to wean supplemental oxygen to maintain saturations at or above 90%. The patient has already completed a treatment course of remdesivir. Continue Decadron as ordered. Antimicrobials will be continued per infectious diseases recommendations. 2. Hypokalemia Electrolyte repletion as ordered. Recheck levels in the morning. 3. Advanced age/diabetes mellitus/hypertension/coronary artery disease Complicates care, management, recovery and prognosis. Continue home medications as indicated. This note was generated with [employer] software. It may contain incorrect words, spelling, and punctuation that were not noted in checking the note before signing. Inpatient E&M: 89451 [facility] Hosp L3
--- NOTE | 2020-09-20 07:28 | PCM.PN.HOSP ---
Patient Problems: Active and Suspected Problems COVID-19 (Acute) Encephalopathy acute (Acute) Dehydration (Acute) Elevated lactic acid level (Acute) Subjective: Patient seen and examined. He has no complaints this morning. He was transitioned to airflow overnight due to increasing oxygen requirements and is now on Arava with FiO2 of 80% and flow rate of 60 L/min. Review of systems otherwise negative. He has otherwise remained hemodynamically stable. Potassium is 3.3 this morning but labs otherwise unremarkable. He continues to remain on Decadron and antibiotics. Vitals/I&O's: Vital Signs Temp Pulse Resp BP Pulse Ox 96.2 F L 54 L 16 163/62 H 97 09/20/20 04:00 09/20/20 07:00 09/20/20 07:00 09/20/20 07:00 09/20/20 07:00 Oxygen Flow Rate (L/min) [ 7 AMBULATION with Oxygen] Oxygen Flow Rate (L/min) [ 3 AMBULATING on Room Air] Oxygen Flow Rate (L/min) [At 2 REST on Room Air] Oxygen Flow Rate (L/min) 60 Oxygen Delivery Method Airvo Weight: 207 lb 3.752 oz Body Mass Index (BMI) 30.2 Finger Stick Blood Glucose 144 Intake and Output for Last 24 Hours 09/18/20 09/19/20 09/20/20 23:59 23:59 23:59 Intake Total 2155 / 2155 1145 / 1145 Output Total 1250 / 1250 500 / 500 Balance 905 / 905 645 / 645 General: Alert, Oriented x3, Cooperative, No apparent distress HEENT: Atraumatic, PERRLA, EOMI, Normocephalic, - - very hard of hearing. Oral: Moist Mucosa Neck: Supple, No JVD, Negative Carotid Bruits Lungs: Wheezes - markedly reduced breath sounds in right lower lung rodriguez, with some crackles. on AirVo Cardiovascular: Regular rate, Regular Rhythm, Normal S1, Normal S2, No murmurs Abdomen: Bowel Sounds Present, Soft, Non Tender, Non-Distended, No Hepato-splenomegaly Extremities: No clubbing, No cyanosis, No edema, Capillary Refill Less than 3 Seconds Skin: No rashes, No breakdown Musculoskeletal: No Tenderness to Palpation of Joints or Extremities Lymphatic: No Cervical, Supraclavicular, or Inguinal Adenopathy Neurological: Cranial nerves II-XII grossly intact, Neuro grossly intact, Motor Exam 5/5 strength throughout Psych/Mental Status: Normal Affect, Appropriate, Alert and oriented to time, place, person, mood and affect Microbiology Past 72 Hours 09/13/20 11:05 Blood Culture (Wb) - Arm Right Blood Culture - Final No growth in 5 days. 09/13/20 10:30 Blood Culture (Wb) - Arm Left Blood Culture - Final No growth in 5 days. Laboratory Results 09/19/20 07:01: WBC 14.2 H, RBC 4.30 L, Hgb 12.6 L, Hct 38.7 L, MCV 90.0, MCH 29.3, MCHC 32.6, RDW Std Deviation 45.2 H, RDW Coeff of Elias 14.0, Plt Count 418, MPV 9.6 09/19/20 07:01: Sodium 140, Potassium 3.2 L, Chloride 109 H, Carbon Dioxide 22.0, Anion Gap 9, BUN 27 H, Creatinine 1.04, Estim Creat Clear Calc 53.62, Est GFR (MDRD) Af Amer 87, Est GFR (MDRD) Non-Af 72, BUN/Creatinine Ratio 26.0 H, Glucose 188 H, Calcium 8.2 L, Total Bilirubin 0.60, AST 84 H, ALT 119 H, Alkaline Phosphatase 88, Total Protein 6.1 L, Albumin 2.4 L, Globulin 3.7, Albumin/Globulin Ratio 0.6 L 09/19/20 07:01: B-Natriuretic Peptide 224.3 H 09/19/20 11:39: POC Glucose 197 H 09/19/20 17:12: POC Glucose 321 H 09/19/20 22:49: POC Glucose 344 H 09/20/20 05:00: WBC 14.3 H, RBC 4.73, Hgb 14.1, Hct 42.2, MCV 89.2, MCH 29.8, MCHC 33.4, RDW Std Deviation 45.1 H, RDW Coeff of Elias 14.0, Plt Count 456 H, MPV 9.4 09/20/20 05:00: Sodium 137, Potassium 3.3 L, Chloride 100, Carbon Dioxide 27.0, Anion Gap 10, BUN 33 H, Creatinine 1.29, Estim Creat Clear Calc 43.23, Est GFR (MDRD) Af Amer 68, Est GFR (MDRD) Non-Af 56 L, BUN/Creatinine Ratio 25.6 H, Glucose 256 H, Calcium 8.4 L, Total Bilirubin 0.60, AST 82 H, ALT 170 H, Alkaline Phosphatase 102, Total Protein 6.9, Albumin 2.7 L, Globulin 4.2, Albumin/Globulin Ratio 0.6 L Diagnostic Data Brain CT 09/13/20 11:19 IMPRESSION: 1. No acute findings. 2. Stable exam since prior. 3. Small remote right ganglia capsular infarct. Electronically Signed: Augustin Butler, at 14:08 EDT Tel , Service support , Chest X-Ray 09/18/20 09:41 IMPRESSION: Progressive infiltrates in the right lung as well as in the left lower lobe. Electronically Signed: Thomas Guallpa, at 15:36 EDT , Service support , Current Medications Acetaminophen (Acetaminophen 325 Mg Tablet) 650 mg PO Q6H PRN PRN PRN Reason: Pain Score 1-10/Temp > 100.7 F Last Admin: 09/16/20 21:54 Dose: 650 mg Documented by: Aspirin (Aspirin 81 Mg Tab.Chew) 81 mg PO DAILY@0800 [facility] Last Admin: 09/19/20 11:23 Dose: 81 mg Documented by: Atorvastatin Calcium (Atorvastatin Calcium 80 Mg Tablet) 80 mg PO QHS [facility] Last Admin: 09/19/20 21:53 Dose: 80 mg Documented by: Calamine/Phenol (Menthol/Lanolin/Calamine/Znox 113 Gm Tube) 1 applic TOPICAL BID [facility]; Protocol Last Admin: 09/19/20 21:54 Dose: 1 applicatio Documented by: Carvedilol (Carvedilol 6.25 Mg Tablet) 6.25 mg PO BID [facility] Last Admin: 09/19/20 21:54 Dose: 6.25 mg Documented by: Cholecalciferol (Cholecalciferol (Vit D3) 1,000 Unit (25mcg)) 5,000 unit PO DAILY [facility] Last Admin: 09/19/20 11:22 Dose: 5,000 unit Documented by: Clopidogrel Bisulfate (Clopidogrel Bisulfate 75 Mg Tablet) 75 mg PO DAILY [facility] Last Admin: 09/19/20 11:22 Dose: 75 mg Documented by: Dexamethasone (Dexamethasone 4 Mg Tablet) 6 mg PO DAILY@0800 [facility] Last Admin: 09/19/20 11:23 Dose: 6 mg Documented by: Dextrose (Dextrose 50%-Water 25 Gm/50 Ml Disp.Syrin) 0 gm IV X1 PRN; Protocol PRN Reason: Hypoglycemia Dorzolamide/Timolol (Dorzolamide Hcl/Timolol 10 Ml Bottle) 1 drop EACH EYE BID [facility] Last Admin: 09/19/20 21:55 Dose: 1 drop Documented by: Enoxaparin Sodium (Enoxaparin 30 Mg/0.3 Ml Syringe) 30 mg SC BID [facility] Last Admin: 09/19/20 21:53 Dose: 30 mg Documented by: Furosemide (Furosemide 40 Mg/4 Ml Vial) 40 mg IV BID@1000,1800 [facility] Last Admin: 09/19/20 17:20 Dose: 40 mg Documented by: Glucagon (Glucagon 1 Mg/Ml Syringe) 1 mg IM .X1 PRN PRN Reason: Hypoglycemia Hydrochlorothiazide (Hydrochlorothiazide 12.5mg) 12.5 mg PO DAILY [facility] Last Admin: 09/19/20 11:23 Dose: 12.5 mg Documented by: Sodium Chloride () 250 mls @ 15 mls/hr IV .[id number] PRN PRN Reason: Saline Flush Sodium Chloride () 250 mls @ 15 mls/hr IV .[id number] PRN PRN Reason: Additional IVPB Infusion Azithromycin 500 mg/ Dextrose 255 mls @ 250 mls/hr IV Q24 [facility] Last Infusion: 09/19/20 12:45 Dose: Infused Documented by: Potassium Chloride () 10 meq in 100 mls @ 100 mls/hr IV BOLUS Q1H [facility] Stop: 09/20/20 09:59 Insulin Human Lispro (Insulin Lispro 100 Unit/Ml Insuln.Pen) 0 unit SC ACHS [facility]; Protocol Last Admin: 09/19/20 22:53 Dose: 3 unit Documented by: Lamotrigine (Lamotrigine 100 Mg Tablet) 250 mg PO QHS [facility] Last Admin: 09/19/20 21:54 Dose: 250 mg Documented by: Lisinopril (Lisinopril 5 Mg Tablet) 5 mg PO DAILY [facility]ON Last Admin: 09/19/20 11:22 Dose: 5 mg Documented by: Ondansetron HCl (Ondansetron 4 Mg/2 Ml Vial) 4 mg IV Q8H PRN PRN PRN Reason: NAUSEA/VOMITING Senna/Docusate Sodium (Senna/Docusate Sodium 1 Tablet) 2 tablet PO BID PRN PRN Reason: Constipation Last Admin: 09/16/20 16:36 Dose: 2 tablet Documented by: Sodium Chloride (0.9% Saline Lock 10 Ml Syringe) 10 - 40 ml IV UD PRN PRN Reason: SALINE FLUSH Last Admin: 09/17/20 23:55 Dose: 10 ml Documented by: Zolpidem Tartrate (Zolpidem Tartrate 5 Mg Tablet) 5 mg PO QHS PRN PRN PRN Reason: INSOMNIA Last Admin: 09/19/20 21:56 Dose: 5 mg Documented by: STROKE Vital Signs/Narrative: Vital Signs Temp Pulse Resp BP Pulse Ox 09/20/20 07:00 54 L 16 163/62 H 97 09/20/20 06:00 58 L 15 152/72 H 92 09/20/20 05:00 59 L 20 H 140/62 H 94 09/20/20 04:35 54 L 16 95 09/20/20 04:00 96.2 F L 54 L 16 136/65 H 92 Medical Necessity - Tobacco Use Smoking Status: Never smoker Tobacco Use: Non-smoker Assessment/Plan All Active Problems COVID-19 (Acute) Encephalopathy acute (Acute) Dehydration (Acute) Elevated lactic acid level (Acute) # Acute metabolic encephalopathy due to COVID 19 infection resolved # Acute hypoxic respiratory insufficiency due to COVID 19 pneumonia now on AirVo with FiO2 of 80% and flow rate of 60L on IV ceftriazone and azithromycin blood cultures obtained earlier during admission was negative. titrate oxygen to maintain sats >90% on IV decadrone; received remdesivir and also received convalescent plasma # Pneumonia due to COVID 19 infection: as above # Lactic acidosis: resolved. May be due to Metformin. Will DC Metformin. #Type 2 diabetes mellitus: Metformin on hold. A1c was 7.4. Insulin sliding scale. Accu-Cheks AC at bedtime. #Hypertension: On lisinopril and hydrochlorothiazide #CAD s/p stents: On aspirin, statin and carvedilol. #Debility due to recurrent falls. PT OT on board. DVT prophylaxis: Lovenox 30mg twice daily. Inpatient E&M: [id number] [facility] Hosp L3
[2020-09-20] MEDS: Potassium Chloride 10mEq/100mL 10 MEQ/100 ML IV.SOLN. 100 MEQ IV BOLUS ×4 (09:10→13:30)
[2020-09-20] MEDS: Insulin Lispro 100 UNIT/ML INSULN.PEN SC ×4 (10:18→21:33)
[2020-09-20] MEDS: dexAMETHasone 4 MG Tablet 6 MG PO (10:21)
[2020-09-20] MEDS: Aspirin 81 MG TAB.CHEW PO (10:21)
[2020-09-20] MEDS: Menthol/Lanolin/Calamine/Znox 113 GM Tube 1 APPLIC TOPICAL ×2 (10:22→21:32)
[2020-09-20] MEDS: Dorzolamide HCL/Timolol 10 ml Bottle 1 DRP EACH EYE ×2 (10:24→21:32)
[2020-09-20] MEDS: Carvedilol 6.25 MG Tablet PO ×2 (10:24→21:32)
[2020-09-20] MEDS: hydroCHLOROthiazide 12.5mg 12.5 MG PO (10:25)
[2020-09-20] MEDS: Furosemide 40 MG/4 ML Vial IV ×2 (10:25→17:03)
[2020-09-20] MEDS: Enoxaparin 30 MG/0.3 ML Syringe SC ×2 (10:26→21:32)
[2020-09-20] MEDS: Lisinopril 5 MG Tablet PO (10:27)
[2020-09-20] MEDS: Clopidogrel Bisulfate 75 MG Tablet PO (10:27)
--- NOTE | 2020-09-20 11:48 | CM.UR ---
Spoke with about possibility that her might need oxygen at discharge and what company they would prefer. States she doesn't know anything about it, so she doesn't know. Kalli Espinosa RN, [facility].
[2020-09-20 14:21] LABS: Bedside Glucose 351 mg/dL (70-110)
[2020-09-20] MEDS: DULoxetine Hcl 30 MG Capsule PO (17:12)
--- NOTE | 2020-09-20 17:40 | DIALYSIS ---
HD X 4.15 HOURS ON 2K BATH UNABLE TO REMOVE FLUID DUE TO AFIB WITH RVR HR 150'S-170'S PT HAD N/V DURING TREATMENT. ANYTIME ATTEMPTED FLUID REMOVAL SYMPTOMS WORSENED -IV DIGOXIN GIVEN WHEN PT WAS BEING TAKEN OF TX BY FLOOR RN. STASIS AT [facility] DSG AT SITES. REPORT TO KULDIP CAMARA
[2020-09-20 17:46] LABS: Bedside Glucose 368 mg/dL (70-110)
[2020-09-20] MEDS: QUEtiapine 25 MG Tablet 75 MG PO (21:31)
[2020-09-20] MEDS: Atorvastatin Calcium 80 MG Tablet PO (21:32)
[2020-09-20] MEDS: lamoTRIgine 100 MG Tablet 250 MG PO (21:36)
[2020-09-20 22:20] LABS: Bedside Glucose 403 mg/dL (70-110)
[2020-09-21] VITALS (36 sets, daily range): BP systolic 84–145; BP diastolic 43–83; PULSE 53–69; RESP 12–22; TEMP 36.1–36.8; O2SAT 90–100
--- NOTE | 2020-09-21 04:01 | CPS ---
Pt.'s FiO2 increased to 77%; meet pt.'s oxygenation demands while sleeping
[2020-09-21 04:38] LABS: Absolute Lymphocyte Count 1.54 X10^3/uL (0.83-4.51); Absolute Neutrophil Count 12.8 X10^3/uL (2.0-7.7); Basophil# 0.11 X10^3/uL; Basophil% 0.7 % (0-1); Eosinophil# 0.06 X10^3/uL; Eosinophils% 0.4 % (0-5); Hemoglobin 13.8 g/dL (13.0-16.5); Lymphocyte # 1.54 X10^3/ul (4.0); Lymphocyte % 9.3 % (19-41); Mean Corp Hgb Conc 32.1 g/dL (32-36); Mean Corpuscular Hgb 29.2 pg (27.0-32.0); Mean Corpuscular Volume 91.1 fL (80-94); Mean Platelet Vol. 9.4 fl (6.2-12.0); Monocyte# 1.26 X10^3/uL; Monocyte% 7.6 % (0-10); NRBC Flagged by Analyzer 0 % (0-5); Neutrophil % 77.5 % (47-70); Platelet Count 434 K/mm3 (150-450); RBC Distribution Width CV 14.2 % (11.6-14.6); RBC Distribution Width SD 46.7 fl (35.1-43.9); Red Blood Count 4.72 M/mm3 (4.6-6.2); White Blood Count 16.5 K/mm3 (4.4-11.0)
[2020-09-21 04:52] LABS: Anion Gap 11 (5-15); BUN 45 mg/dL (7-18); BUN/Creat Ratio 30.4 RATIO (10-20); Calcium,Total 8.7 mg/dL (8.5-10.1); Chloride 99 mmol/L (98-107); Creatinine, Serum 1.48 mg/dL (0.70-1.30); EST Glomerular Filtration Rate 48 mL/min (>60); Est Glom Filt Rate - Afr Amer 58 mL/min (>60); Estimated Creatinine Clearance 37.68 ml/min; Glucose 301 mg/dL (74-106); Potassium 3.1 mmol/L (3.5-5.1); Sodium Level 136 mmol/L (136-145)
--- NOTE | 2020-09-21 05:30 | PN_ITS ---
Subjective: The patient was seen and examined at the bedside this morning. Events from the last 24 hours have been reviewed. The patient is currently afebrile, hemodynamically stable and maintaining appropriate oxygen saturations on Airvo with an FiO2 requirement of 79%. Potassium is low this morning at 3.1. The patient does still appear to be volume positive for the hospital admission. The patient's FiO2 requirement appears to be increasing at nighttime while sleeping. Objective: The patient's most recent lab work, culture data and imaging studies have all been personally reviewed. Coronavirus PCR was positive on September 13. Blood and urine cultures have demonstrated no growth to date. General: Alert, No apparent distress, - - Hard of hearing HEENT: Atraumatic, Normocephalic Oral: Moist Mucosa Neck: Supple, No Nodes, Trachea Midline Lungs: Diminished Cardiovascular: Regular rate, Regular Rhythm Abdomen: Bowel Sounds Present, Soft, Non Tender Extremities: No clubbing, No cyanosis, No edema Skin: No breakdown Musculoskeletal: No Muscle Wasting Lymphatic: No Cervical, Supraclavicular, or Inguinal Adenopathy Neurological: Neuro grossly intact Psych/Mental Status: Normal Affect Vital Signs Temp Pulse Resp BP Pulse Ox 98.3 F 64 18 139/65 H 92 09/21/20 00:00 09/21/20 05:00 09/21/20 05:00 09/21/20 05:00 09/21/20 05:00 Oxygen Flow Rate (L/min) [ 7 AMBULATION with Oxygen] Oxygen Flow Rate (L/min) [ 3 AMBULATING on Room Air] Oxygen Flow Rate (L/min) [At 2 REST on Room Air] Oxygen Flow Rate (L/min) 10 Oxygen Delivery Method Airvo Weight: 202 lb 13.204 oz Body Mass Index (BMI) 30.2 Finger Stick Blood Glucose 144 Intake and Output for Last 24 Hours 09/19/20 09/20/20 09/21/20 23:59 23:59 23:59 Intake Total 1145 / 1145 1455 / 1655 200 / 200 Output Total 500 / 500 1150 / 1950 1150 / 1150 Balance 645 / 645 305 / -295 -950 / -950 Labs (Last 48 Hours) 09/19/20 09/19/20 09/19/20 06:57 07:01 07:01 WBC 14.2 H RBC 4.30 L Hgb 12.6 L Hct 38.7 L MCV 90.0 MCH 29.3 MCHC 32.6 RDW Std Deviation 45.2 H RDW Coeff of Elias 14.0 Plt Count 418 MPV 9.6 Immature Gran % (Auto) Neut % (Auto) Lymph % (Auto) [place] % (Auto) Eos % (Auto) Baso % (Auto) Absolute Neuts (auto) Absolute Lymphs (auto) Nucleated RBC % Sodium 140 Potassium 3.2 L Chloride 109 H Carbon Dioxide 22.0 Anion Gap 9 BUN 27 H Creatinine 1.04 Estim Creat Clear Calc 53.62 Est GFR (MDRD) Af Amer 87 Est GFR (MDRD) Non-Af 72 BUN/Creatinine Ratio 26.0 H Glucose 188 H Calcium 8.2 L Total Bilirubin 0.60 AST 84 H ALT 119 H Alkaline Phosphatase 88 B-Natriuretic Peptide Total Protein 6.1 L Albumin 2.4 L Globulin 3.7 Albumin/Globulin Ratio 0.6 L POC Glucose 163 H 09/19/20 09/19/20 09/19/20 07:01 11:39 17:12 WBC RBC Hgb Hct MCV MCH MCHC RDW Std Deviation RDW Coeff of Elias Plt Count MPV Immature Gran % (Auto) Neut % (Auto) Lymph % (Auto) [place] % (Auto) Eos % (Auto) Baso % (Auto) Absolute Neuts (auto) Absolute Lymphs (auto) Nucleated RBC % Sodium Potassium Chloride Carbon Dioxide Anion Gap BUN Creatinine Estim Creat Clear Calc Est GFR (MDRD) Af Amer Est GFR (MDRD) Non-Af BUN/Creatinine Ratio Glucose Calcium Total Bilirubin AST ALT Alkaline Phosphatase B-Natriuretic Peptide 224.3 H Total Protein Albumin Globulin Albumin/Globulin Ratio POC Glucose 197 H 321 H 09/19/20 09/20/20 09/20/20 22:49 05:00 05:00 WBC 14.3 H RBC 4.73 Hgb 14.1 Hct 42.2 MCV 89.2 MCH 29.8 MCHC 33.4 RDW Std Deviation 45.1 H RDW Coeff of Elias 14.0 Plt Count 456 H MPV 9.4 Immature Gran % (Auto) Neut % (Auto) Lymph % (Auto) [place] % (Auto) Eos % (Auto) Baso % (Auto) Absolute Neuts (auto) Absolute Lymphs (auto) Nucleated RBC % Sodium 137 Potassium 3.3 L Chloride 100 Carbon Dioxide 27.0 Anion Gap 10 BUN 33 H Creatinine 1.29 Estim Creat Clear Calc 43.23 Est GFR (MDRD) Af Amer 68 Est GFR (MDRD) Non-Af 56 L BUN/Creatinine Ratio 25.6 H Glucose 256 H Calcium 8.4 L Total Bilirubin 0.60 AST 82 H ALT 170 H Alkaline Phosphatase 102 B-Natriuretic Peptide Total Protein 6.9 Albumin 2.7 L Globulin 4.2 Albumin/Globulin Ratio 0.6 L POC Glucose 344 H 09/20/20 09/20/20 09/20/20 14:09 17:01 21:29 WBC RBC Hgb Hct MCV MCH MCHC RDW Std Deviation RDW Coeff of Elias Plt Count MPV Immature Gran % (Auto) Neut % (Auto) Lymph % (Auto) [place] % (Auto) Eos % (Auto) Baso % (Auto) Absolute Neuts (auto) Absolute Lymphs (auto) Nucleated RBC % Sodium Potassium Chloride Carbon Dioxide Anion Gap BUN Creatinine Estim Creat Clear Calc Est GFR (MDRD) Af Amer Est GFR (MDRD) Non-Af BUN/Creatinine Ratio Glucose Calcium Total Bilirubin AST ALT Alkaline Phosphatase B-Natriuretic Peptide Total Protein Albumin Globulin Albumin/Globulin Ratio POC Glucose 351 H 368 H 403 H 09/21/20 09/21/20 04:25 04:25 WBC 16.5 H RBC 4.72 Hgb 13.8 Hct 43.0 MCV 91.1 MCH 29.2 MCHC 32.1 RDW Std Deviation 46.7 H RDW Coeff of Elias 14.2 Plt Count 434 MPV 9.4 Immature Gran % (Auto) 4.500 H Neut % (Auto) 77.5 H Lymph % (Auto) 9.3 L [place] % (Auto) 7.6 Eos % (Auto) 0.4 Baso % (Auto) 0.7 Absolute Neuts (auto) 12.8 H Absolute Lymphs (auto) 1.54 Nucleated RBC % 0 Sodium 136 Potassium 3.1 L Chloride 99 Carbon Dioxide 26.0 Anion Gap 11 BUN 45 H Creatinine 1.48 H Estim Creat Clear Calc 37.68 Est GFR (MDRD) Af Amer 58 L Est GFR (MDRD) Non-Af 48 L BUN/Creatinine Ratio 30.4 H Glucose 301 H Calcium 8.7 Total Bilirubin AST ALT Alkaline Phosphatase B-Natriuretic Peptide Total Protein Albumin Globulin Albumin/Globulin Ratio POC Glucose Clinical Impression(s) from Imaging Studies Brain CT 09/13/20 11:19 IMPRESSION: 1. No acute findings. 2. Stable exam since prior. 3. Small remote right ganglia capsular infarct. Electronically Signed: Augustin Butler, at 14:08 EDT Tel , Service support , Chest X-Ray 09/13/20 11:20 IMPRESSION: No active pulmonary disease. Electronically Signed: Bismark Tapia MD at 12:07 EDT Tel , Service support , Chest X-Ray 09/18/20 09:41 IMPRESSION: Progressive infiltrates in the right lung as well as in the left lower lobe. Electronically Signed: Thomas Guallpa, at 15:36 EDT , Service support , Medical Necessity - Tobacco Use Smoking Status: Never smoker Tobacco Use: Non-smoker Assessment/Plan All Active Problems COVID-19 (Acute) Encephalopathy acute (Acute) Dehydration (Acute) Elevated lactic acid level (Acute) RECOMMENDATIONS: 1. Continue attempts at diuresis as tolerated by hemodynamics and renal function. 2. Continue Decadron as ordered. 3. Continue antimicrobials per infectious diseases recommendations. 4. Wean supplemental oxygen to maintain saturations at or above 90%. 5. Encourage incentive spirometer use and mobilize patient as tolerated. 6. Additional potassium repletion as ordered. 7. Start empiric BiPAP therapy with naps and nightly. IMPRESSIONS: 1. Acute hypoxemic respiratory failure Secondary to underlying COVID-19 pneumonia, hypervolemia and possible superimposed bacterial pneumonia. The patient remains afebrile and hemodynamically stable. Therefore, I would recommend that we continue the patient on scheduled diuretic therapy as tolerated by hemodynamics and renal function. Continue to wean supplemental oxygen to maintain saturations at or above 90%. The patient has already completed a treatment course of remdesivir. Continue Decadron as ordered. Antimicrobials will be continued per infectious diseases recommendations. The patient will also be started empirically on BiPAP therapy with naps and nightly. 2. Hypokalemia Electrolyte repletion as ordered. Recheck levels in the morning. 3. Advanced age/diabetes mellitus/hypertension/coronary artery disease Complicates care, management, recovery and prognosis. Continue home medications as indicated. This note was generated with [employer] dictation software. It may contain incorrect words, spelling, and punctuation that were not noted in checking the note before signing. Inpatient E&M: [id number] [facility] L3
[2020-09-21] MEDS: Potassium Chloride 10mEq/100mL 10 MEQ/100 ML IV.SOLN. 100 MEQ IV BOLUS ×4 (06:33→12:16)
--- NOTE | 2020-09-21 07:22 | PCM.PN.HOSP ---
Patient Problems: Active and Suspected Problems COVID-19 (Acute) Encephalopathy acute (Acute) Dehydration (Acute) Elevated lactic acid level (Acute) Subjective: Patient seen and examined. He has no complaints this morning. He remains on airflow with FiO2 requirement of 79%. Review of systems otherwise negative. Vitals/I&O's: Vital Signs Temp Pulse Resp BP Pulse Ox 98.3 F 60 18 135/65 H 93 09/21/20 00:00 09/21/20 06:00 09/21/20 06:00 09/21/20 06:00 09/21/20 06:00 Oxygen Flow Rate (L/min) [ 7 AMBULATION with Oxygen] Oxygen Flow Rate (L/min) [ 3 AMBULATING on Room Air] Oxygen Flow Rate (L/min) [At 2 REST on Room Air] Oxygen Flow Rate (L/min) 10 Oxygen Delivery Method Airvo Weight: 202 lb 13.204 oz Body Mass Index (BMI) 30.2 Finger Stick Blood Glucose 144 Intake and Output for Last 24 Hours 09/19/20 09/20/20 09/21/20 23:59 23:59 23:59 Intake Total 1145 / 1145 1455 / 1655 335.25 / 335.25 Output Total 500 / 500 1150 / 1950 1150 / 1150 Balance 645 / 645 305 / -295 -814.75 / -814.75 General: Alert, Oriented x3, Cooperative, No apparent distress HEENT: Atraumatic, PERRLA, EOMI, Normocephalic, - - very hard of hearing. Oral: Moist Mucosa Neck: Supple, No JVD, Negative Carotid Bruits Lungs: Wheezes - markedly reduced breath sounds in right lower lung rodriguez, with some crackles. on AirVo Cardiovascular: Regular rate, Regular Rhythm, Normal S1, Normal S2, No murmurs Abdomen: Bowel Sounds Present, Soft, Non Tender, Non-Distended, No Hepato-splenomegaly Extremities: No clubbing, No cyanosis, No edema, Capillary Refill Less than 3 Seconds Skin: No rashes, No breakdown Musculoskeletal: No Tenderness to Palpation of Joints or Extremities Lymphatic: No Cervical, Supraclavicular, or Inguinal Adenopathy Neurological: Cranial nerves II-XII grossly intact, Neuro grossly intact, Motor Exam 5/5 strength throughout Psych/Mental Status: Normal Affect, Appropriate, Alert and oriented to time, place, person, mood and affect Microbiology Past 72 Hours 09/13/20 11:05 Blood Culture (Wb) - Arm Right Blood Culture - Final No growth in 5 days. 09/13/20 10:30 Blood Culture (Wb) - Arm Left Blood Culture - Final No growth in 5 days. Laboratory Results 09/20/20 14:09: POC Glucose 351 H 09/20/20 17:01: POC Glucose 368 H 09/20/20 21:29: POC Glucose 403 H 09/21/20 04:25: WBC 16.5 H, RBC 4.72, Hgb 13.8, Hct 43.0, MCV 91.1, MCH 29.2, MCHC 32.1, RDW Std Deviation 46.7 H, RDW Coeff of Elias 14.2, Plt Count 434, MPV 9.4, Immature Gran % (Auto) 4.500 H, Neut % (Auto) 77.5 H, Lymph % (Auto) 9.3 L, [place] % (Auto) 7.6, Eos % (Auto) 0.4, Baso % (Auto) 0.7, Absolute Neuts (auto) 12.8 H, Absolute Lymphs (auto) 1.54, Nucleated RBC % 0 09/21/20 04:25: Sodium 136, Potassium 3.1 L, Chloride 99, Carbon Dioxide 26.0, Anion Gap 11, BUN 45 H, Creatinine 1.48 H, Estim Creat Clear Calc 37.68, Est GFR (MDRD) Af Amer 58 L, Est GFR (MDRD) Non-Af 48 L, BUN/Creatinine Ratio 30.4 H, Glucose 301 H, Calcium 8.[address] 09/13/20 11:19 IMPRESSION: 1. No acute findings. 2. Stable exam since prior. 3. Small remote right ganglia capsular infarct. Electronically Signed: Augustin Butler, at 14:08 EDT Tel , Service support , Chest X-Ray 09/18/20 09:41 IMPRESSION: Progressive infiltrates in the right lung as well as in the left lower lobe. Electronically Signed: Thomas Guallpa, at 15:36 EDT , Service support , Current Medications Acetaminophen (Acetaminophen 325 Mg Tablet) 650 mg PO Q6H PRN PRN PRN Reason: Pain Score 1-10/Temp > 100.7 F Last Admin: 09/16/20 21:54 Dose: 650 mg Documented by: Aspirin (Aspirin 81 Mg Tab.Chew) 81 mg PO DAILY@0800 REPLACED BY [facility] Last Admin: 09/20/20 10:21 Dose: 81 mg Documented by: Atorvastatin Calcium (Atorvastatin Calcium 80 Mg Tablet) 80 mg PO QHS REPLACED BY [facility] Last Admin: 09/20/20 21:32 Dose: 80 mg Documented by: Calamine/Phenol (Menthol/Lanolin/Calamine/Znox 113 Gm Tube) 1 applic TOPICAL BID REPLACED BY [facility]; Protocol Last Admin: 09/20/20 21:32 Dose: 1 applicatio Documented by: Carvedilol (Carvedilol 6.25 Mg Tablet) 6.25 mg PO BID REPLACED BY [facility] Last Admin: 09/20/20 21:32 Dose: 6.25 mg Documented by: Cholecalciferol (Cholecalciferol (Vit D3) 1,000 Unit (25mcg)) 5,000 unit PO DAILY REPLACED BY [facility] Last Admin: 09/20/20 10:27 Dose: 5,000 unit Documented by: Clopidogrel Bisulfate (Clopidogrel Bisulfate 75 Mg Tablet) 75 mg PO DAILY REPLACED BY [facility] Last Admin: 09/20/20 10:27 Dose: 75 mg Documented by: Dexamethasone (Dexamethasone 4 Mg Tablet) 6 mg PO DAILY@0800 REPLACED BY [facility] Last Admin: 09/20/20 10:21 Dose: 6 mg Documented by: Dextrose (Dextrose 50%-Water 25 Gm/50 Ml Disp.Syrin) 0 gm IV X1 PRN; Protocol PRN Reason: Hypoglycemia Dorzolamide/Timolol (Dorzolamide Hcl/Timolol 10 Ml Bottle) 1 drop EACH EYE BID REPLACED BY [facility] Last Admin: 09/20/20 21:32 Dose: 1 drop Documented by: Duloxetine HCl (Duloxetine Hcl 30 Mg Capsule) 30 mg PO BID REPLACED BY [facility] Last Admin: 09/20/20 17:12 Dose: 30 mg Documented by: Enoxaparin Sodium (Enoxaparin 30 Mg/0.3 Ml Syringe) 30 mg SC BID REPLACED BY [facility] Last Admin: 09/20/20 21:32 Dose: 30 mg Documented by: Furosemide (Furosemide 40 Mg/4 Ml Vial) 40 mg IV BID@1000,1800 REPLACED BY [facility] Last Admin: 09/20/20 17:03 Dose: 40 mg Documented by: Glucagon (Glucagon 1 Mg/Ml Syringe) 1 mg IM .X1 PRN PRN Reason: Hypoglycemia Hydrochlorothiazide (Hydrochlorothiazide 12.5mg) 12.5 mg PO DAILY REPLACED BY [facility] Last Admin: 09/20/20 10:25 Dose: 12.5 mg Documented by: Sodium Chloride () 250 mls @ 15 mls/hr IV .[id number] PRN PRN Reason: Saline Flush Last Infusion: 09/21/20 06:38 Dose: 0 mls/hr Documented by: Sodium Chloride () 250 mls @ 15 mls/hr IV .[id number] PRN PRN Reason: Additional IVPB Infusion Azithromycin 500 mg/ Dextrose 255 mls @ 250 mls/hr IV Q24 REPLACED BY [facility] Last Infusion: 09/20/20 16:29 Dose: Infused Documented by: Potassium Chloride () 10 meq in 100 mls @ 100 mls/hr IV BOLUS Q1H REPLACED BY [facility] Stop: 09/21/20 09:44 Last Admin: 09/21/20 06:33 Dose: 100 mls/hr Documented by: Insulin Human Lispro (Insulin Lispro 100 Unit/Ml Insuln.Pen) 0 unit SC [facility]; Protocol Last Admin: 09/20/20 21:33 Dose: 4 unit Documented by: Lamotrigine (Lamotrigine 100 Mg Tablet) 250 mg PO QHS REPLACED BY [facility] Last Admin: 09/20/20 21:36 Dose: 250 mg Documented by: Lisinopril (Lisinopril 5 Mg Tablet) 5 mg PO DAILY REPLACED BY [facility] Last Admin: 09/20/20 10:27 Dose: 5 mg Documented by: Ondansetron HCl (Ondansetron 4 Mg/2 Ml Vial) 4 mg IV Q8H PRN PRN PRN Reason: NAUSEA/VOMITING Potassium Chloride (Potassium Chloride 20 Meq Tablet) [facility] Quetiapine Fumarate (Quetiapine 25 Mg Tablet) 75 mg PO QHS REPLACED BY [facility] Last Admin: 09/20/20 21:31 Dose: 75 mg Documented by: Senna/Docusate Sodium (Senna/Docusate Sodium 1 Tablet) 2 tablet PO BID PRN PRN Reason: Constipation Last Admin: 09/16/20 16:36 Dose: 2 tablet Documented by: Sodium Chloride (0.9% Saline Lock 10 Ml Syringe) 10 - 40 ml IV UD PRN PRN Reason: SALINE FLUSH Last Admin: 09/17/20 23:55 Dose: 10 ml Documented by: Zolpidem Tartrate (Zolpidem Tartrate 5 Mg Tablet) 5 mg PO QHS PRN PRN PRN Reason: INSOMNIA Last Admin: 09/19/20 21:56 Dose: 5 mg Documented by: STROKE Vital Signs/Narrative: Vital Signs Pulse Resp BP Pulse Ox 09/21/20 06:00 60 18 135/65 H 93 09/21/20 05:34 64 18 93 09/21/20 05:00 64 18 139/65 H 92 09/21/20 04:01 66 09/21/20 04:00 66 18 109/83 H 93 Medical Necessity - Tobacco Use Smoking Status: Never smoker Tobacco Use: Non-smoker Assessment/Plan All Active Problems COVID-19 (Acute) Encephalopathy acute (Acute) Dehydration (Acute) Elevated lactic acid level (Acute) # Acute hypoxic respiratory insufficiency due to COVID 19 pneumonia now on AirVo with FiO2 of 79% and flow rate of 60L on IV ceftriazone and azithromycin blood cultures obtained earlier during admission was negative. titrate oxygen to maintain sats >90% on IV decadrone; received remdesivir and also received convalescent plasma # Pneumonia due to COVID 19 infection: as above Hypokalemia: Potassium is 3.1 today. Being replaced. # Lactic acidosis: resolved. May be due to Metformin. metformin discontinued #Type 2 diabetes mellitus: Metformin on hold. A1c was 7.4. Insulin sliding scale. Accu-Cheks AC at bedtime. #Hypertension: On lisinopril and hydrochlorothiazide #CAD s/p stents: On aspirin, statin and carvedilol. #Debility due to recurrent falls. PT OT on board. DVT prophylaxis: Lovenox 30mg twice daily. Inpatient E&M: [id number] [facility] L3
[2020-09-21] MEDS: Insulin Lispro 100 UNIT/ML INSULN.PEN SC ×4 (08:02→21:52)
[2020-09-21 08:31] LABS: Bedside Glucose 269 mg/dL (70-110)
[2020-09-21] MEDS: dexAMETHasone 4 MG Tablet 6 MG PO (09:24)
[2020-09-21] MEDS: Menthol/Lanolin/Calamine/Znox 113 GM Tube 1 APPLIC TOPICAL ×2 (09:28→22:21)
[2020-09-21] MEDS: Dorzolamide HCL/Timolol 10 ml Bottle 1 DRP EACH EYE ×2 (09:29→22:17)
[2020-09-21] MEDS: Carvedilol 6.25 MG Tablet PO (09:29)
[2020-09-21] MEDS: DULoxetine Hcl 30 MG Capsule PO ×2 (09:29→21:52)
[2020-09-21] MEDS: hydroCHLOROthiazide 12.5mg 12.5 MG PO (09:30)
[2020-09-21] MEDS: Clopidogrel Bisulfate 75 MG Tablet PO (09:30)
[2020-09-21] MEDS: Lisinopril 5 MG Tablet PO (09:31)
[2020-09-21] MEDS: Furosemide 40 MG/4 ML Vial IV ×2 (09:38→17:23)
[2020-09-21] MEDS: 0.9% Saline Lock 10 ML Syringe IV (09:40)
[2020-09-21] MEDS: Enoxaparin 30 MG/0.3 ML Syringe SC ×2 (09:42→21:54)
[2020-09-21] MEDS: Aspirin 81 MG TAB.CHEW PO (10:42)
[2020-09-21 12:45] LABS: Bedside Glucose 272 mg/dL (70-110)
[2020-09-21 21:10] LABS: Bedside Glucose 420 mg/dL (70-110)
[2020-09-21] MEDS: Atorvastatin Calcium 80 MG Tablet PO (21:53)
[2020-09-21] MEDS: lamoTRIgine 100 MG Tablet 250 MG PO (21:53)
[2020-09-21] MEDS: QUEtiapine 25 MG Tablet 75 MG PO (21:54)
[2020-09-21] MEDS: Zolpidem Tartrate 5 MG Tablet PO (22:13)
[2020-09-21 23:41] LABS: Bedside Glucose 437 mg/dL (70-110)
[2020-09-22] VITALS (31 sets, daily range): BP systolic 89–142; BP diastolic 41–64; PULSE 52–72; RESP 12–21; TEMP 36.2–36.7; O2SAT 88–98
--- NOTE | 2020-09-22 00:20 | CPS ---
Pt. refused to wear BiPAP at this time. Placed back on AirVo at 60L 65% FiO2; meet pt.'s current oxygenation demands
[2020-09-22 03:59] LABS: Absolute Neutrophil Count 14.2 X10^3/uL (2.0-7.7); Basophil# 0.11 X10^3/uL; Basophil% 0.6 % (0-1); Eosinophil# 0.02 X10^3/uL; Eosinophils% 0.1 % (0-5); Hematocrit 42.2 % (40-54); Hemoglobin 13.4 g/dL (13.0-16.5); Lymphocyte % 9.7 % (19-41); Mean Corp Hgb Conc 31.8 g/dL (32-36); Mean Corpuscular Hgb 29.3 pg (27.0-32.0); Mean Corpuscular Volume 92.3 fL (80-94); Mean Platelet Vol. 9.5 fl (6.2-12.0); Monocyte# 1.45 X10^3/uL; Monocyte% 7.9 % (0-10); NRBC Flagged by Analyzer 0 % (0-5); Neutrophil # 14.22 X10^3/uL (2.7-7.7); Platelet Count 436 K/mm3 (150-450); RBC Distribution Width CV 14.4 % (11.6-14.6); RBC Distribution Width SD 47.8 fl (35.1-43.9); Red Blood Count 4.57 M/mm3 (4.6-6.2); White Blood Count 18.5 K/mm3 (4.4-11.0)
[2020-09-22 04:11] LABS: Anion Gap 9 (5-15); BUN 52 mg/dL (7-18); BUN/Creat Ratio 34.9 RATIO (10-20); Calcium,Total 9.2 mg/dL (8.5-10.1); Chloride 100 mmol/L (98-107); Creatinine, Serum 1.49 mg/dL (0.70-1.30); EST Glomerular Filtration Rate 48 mL/min (>60); Est Glom Filt Rate - Afr Amer 58 mL/min (>60); Estimated Creatinine Clearance 37.43 ml/min; Glucose 316 mg/dL (74-106); Potassium 4.7 mmol/L (3.5-5.1); Sodium Level 136 mmol/L (136-145)
[2020-09-22] MEDS: Insulin Lispro 100 UNIT/ML INSULN.PEN SC ×4 (08:05→23:29)
[2020-09-22] MEDS: DULoxetine Hcl 30 MG Capsule PO ×2 (09:18→23:27)
[2020-09-22] MEDS: Lisinopril 5 MG Tablet PO (09:19)
[2020-09-22] MEDS: Aspirin 81 MG TAB.CHEW PO (09:19)
[2020-09-22] MEDS: Carvedilol 6.25 MG Tablet PO ×2 (09:19→23:27)
[2020-09-22] MEDS: dexAMETHasone 4 MG Tablet 6 MG PO (09:19)
[2020-09-22] MEDS: hydroCHLOROthiazide 12.5mg 12.5 MG PO (09:19)
[2020-09-22] MEDS: Menthol/Lanolin/Calamine/Znox 113 GM Tube 1 APPLIC TOPICAL ×2 (09:19→23:26)
[2020-09-22] MEDS: Dorzolamide HCL/Timolol 10 ml Bottle 1 DRP EACH EYE ×2 (09:20→23:28)
[2020-09-22] MEDS: Furosemide 40 MG/4 ML Vial IV ×2 (09:25→16:24)
[2020-09-22] MEDS: Clopidogrel Bisulfate 75 MG Tablet PO (09:25)
[2020-09-22] MEDS: Enoxaparin 30 MG/0.3 ML Syringe SC ×2 (09:25→23:30)
--- NOTE | 2020-09-22 10:08 | PN_ITS ---
Subjective: The patient did okay overnight. The patient used BiPAP for approximately 30 minutes before demanding its removal. Patient remained somewhat confused this morning, but did have significant agitation overnight. Patient is reporting some shortness of breath, but feels subjectively improved compared to previous. General: Alert, Cooperative, Disoriented, - - Mild conversational dyspnea. Appears stated age. Very hard of hearing. HEENT: Atraumatic, PERRLA, EOMI, Normocephalic, - - No scleral icterus or injection noted Oral: Moist Mucosa, No Gingival or Mucosal Lesions/ Ulcerations Neck: Supple, No JVD, No Nodes, Trachea Midline Lungs: No rhonchi, No wheeze, No rales, Diminished, - - Fair effort on examination Cardiovascular: Regular rate, Regular Rhythm, Normal S1, Normal S2, No murmurs, No rub noted, No Gallop Abdomen: Bowel Sounds Present, Soft, Non Tender, Non-Distended Extremities: No clubbing, No cyanosis, No edema Skin: No rashes, No breakdown Musculoskeletal: No Tenderness to Palpation of Joints or Extremities Lymphatic: No Cervical, Supraclavicular, or Inguinal Adenopathy Neurological: Cranial nerves II-XII grossly intact, Neuro grossly intact, Motor Exam 5/5 strength throughout Psych/Mental Status: Flat Affect Vital Signs Temp Pulse Resp BP Pulse Ox 36.7 C 55 L 16 121/64 H 97 09/22/20 08:00 09/22/20 08:00 09/22/20 08:00 09/22/20 08:00 09/22/20 08:00 Oxygen Flow Rate (L/min) [ 7 AMBULATION with Oxygen] Oxygen Flow Rate (L/min) [ 3 AMBULATING on Room Air] Oxygen Flow Rate (L/min) [At 2 REST on Room Air] Oxygen Flow Rate (L/min) 40 Oxygen Delivery Method Airvo Weight: 92.5 kg Body Mass Index (BMI) 30.2 Finger Stick Blood Glucose 144 Intake and Output for Last 24 Hours 09/20/20 09/21/20 09/22/20 23:59 23:59 23:59 Intake Total 1455 / 1655 1667.75 / 1667.75 0 / 0 Output Total 1150 / 1950 3505 / 3505 325 / 325 Balance 305 / -295 -1837.25 / -1837.25 -325 / -325 Labs (Last 48 Hours) 09/20/20 09/20/20 09/20/20 14:09 17:01 21:29 WBC RBC Hgb Hct MCV MCH MCHC RDW Std Deviation RDW Coeff of Elias Plt Count MPV Immature Gran % (Auto) Neut % (Auto) Lymph % (Auto) [place] % (Auto) Eos % (Auto) Baso % (Auto) Absolute Neuts (auto) Absolute Lymphs (auto) Nucleated RBC % Sodium Potassium Chloride Carbon Dioxide Anion Gap BUN Creatinine Estim Creat Clear Calc Est GFR (MDRD) Af Amer Est GFR (MDRD) Non-Af BUN/Creatinine Ratio Glucose Calcium POC Glucose 351 H 368 H 403 H 09/21/20 09/21/20 09/21/20 04:25 04:25 07:57 WBC 16.5 H RBC 4.72 Hgb 13.8 Hct 43.0 MCV 91.1 MCH 29.2 MCHC 32.1 RDW Std Deviation 46.7 H RDW Coeff of Elias 14.2 Plt Count 434 MPV 9.4 Immature Gran % (Auto) 4.500 H Neut % (Auto) 77.5 H Lymph % (Auto) 9.3 L [place] % (Auto) 7.6 Eos % (Auto) 0.4 Baso % (Auto) 0.7 Absolute Neuts (auto) 12.8 H Absolute Lymphs (auto) 1.54 Nucleated RBC % 0 Sodium 136 Potassium 3.1 L Chloride 99 Carbon Dioxide 26.0 Anion Gap 11 BUN 45 H Creatinine 1.48 H Estim Creat Clear Calc 37.68 Est GFR (MDRD) Af Amer 58 L Est GFR (MDRD) Non-Af 48 L BUN/Creatinine Ratio 30.4 H Glucose 301 H Calcium 8.7 POC Glucose 269 H 09/21/20 09/21/20 09/21/20 12:30 16:51 21:31 WBC RBC Hgb Hct MCV MCH MCHC RDW Std Deviation RDW Coeff of Elias Plt Count MPV Immature Gran % (Auto) Neut % (Auto) Lymph % (Auto) [place] % (Auto) Eos % (Auto) Baso % (Auto) Absolute Neuts (auto) Absolute Lymphs (auto) Nucleated RBC % Sodium Potassium Chloride Carbon Dioxide Anion Gap BUN Creatinine Estim Creat Clear Calc Est GFR (MDRD) Af Amer Est GFR (MDRD) Non-Af BUN/Creatinine Ratio Glucose Calcium POC Glucose 272 H 420 H 437 H 09/22/20 09/22/20 03:50 03:50 WBC 18.5 H RBC 4.57 L Hgb 13.4 Hct 42.2 MCV 92.3 MCH 29.3 MCHC 31.8 L RDW Std Deviation 47.8 H RDW Coeff of Elias 14.4 Plt Count 436 MPV 9.5 Immature Gran % (Auto) 4.700 H Neut % (Auto) 77.0 H Lymph % (Auto) 9.7 L [place] % (Auto) 7.9 Eos % (Auto) 0.1 Baso % (Auto) 0.6 Absolute Neuts (auto) 14.2 H Absolute Lymphs (auto) 1.80 Nucleated RBC % 0 Sodium 136 Potassium 4.7 Chloride 100 Carbon Dioxide 27.0 Anion Gap 9 BUN 52 H Creatinine 1.49 H Estim Creat Clear Calc 37.43 Est GFR (MDRD) Af Amer 58 L Est GFR (MDRD) Non-Af 48 L BUN/Creatinine Ratio 34.9 H Glucose 316 H Calcium 9.2 POC Glucose Medical Necessity - Tobacco Use Smoking Status: Never smoker Tobacco Use: Non-smoker Assessment/Plan All Active Problems COVID-19 (Acute) Encephalopathy acute (Acute) Dehydration (Acute) Elevated lactic acid level (Acute) RECOMMENDATIONS: 1. Continue attempts at diuresis as tolerated by hemodynamics and renal function. 2. Continue Decadron as ordered. 3. Continue antimicrobials per infectious diseases recommendations. 4. Wean supplemental oxygen to maintain saturations at or above 90%. 5. Encourage incentive spirometer use and mobilize patient as tolerated. 6. Additional potassium repletion as ordered. 7. Start empiric BiPAP therapy with naps and nightly. IMPRESSIONS: 1. Acute hypoxemic respiratory failure secondary to COVID-19 Lung concern for possible possible superimposed bacterial pneumonia. The patient remains afebrile and hemodynamically stable. Continue diuretic therapy as tolerated. We will continue to monitor renal function on a daily basis. Continue to wean supplemental oxygen to maintain saturations at or above 90%. The patient has already completed a treatment course of remdesivir. Continue Decadron to complete a 10-day course. Antimicrobials will be continued per infectious diseases recommendations. Will attempt BiPAP tonight, but if unable to tolerate, will discontinue tomorrow. 2. Hypokalemia Continue to monitor electrolytes closely given diuretic therapy. Electrolyte repletion as ordered. Recheck levels in the morning. 3. Advanced age/diabetes mellitus/hypertension/coronary artery disease Complicates care, management, recovery and prognosis. Continue home medications as indicated. Patient will be initiated on Lantus, but this may be discontinued once patient completes Decadron course. Inpatient E&M: [id number] [place] [id number]
--- NOTE | 2020-09-22 11:11 | PN_ITS ---
Patient Problems: Active and Suspected Problems COVID-19 (Acute) Encephalopathy acute (Acute) Dehydration (Acute) Elevated lactic acid level (Acute) Reason for Visit: COVID-19. Subjective: Breathing well on nasal canula. Apparently, refuse BiPAP last night. Vitals/I&O's: Vital Signs Temp Pulse Resp BP Pulse Ox 36.7 C 67 16 101/47 L 98 09/22/20 08:00 09/22/20 11:00 09/22/20 11:00 09/22/20 11:00 09/22/20 11:00 Oxygen Flow Rate (L/min) [ 7 AMBULATION with Oxygen] Oxygen Flow Rate (L/min) [ 3 AMBULATING on Room Air] Oxygen Flow Rate (L/min) [At 2 REST on Room Air] Oxygen Flow Rate (L/min) 7 Oxygen Delivery Method Nasal Cannula Weight: 92.5 kg Body Mass Index (BMI) 30.2 Finger Stick Blood Glucose 144 Intake and Output for Last 24 Hours 09/20/20 09/21/20 09/22/20 23:59 23:59 23:59 Intake Total 1455 / 1655 1667.75 / 1667.75 0 / 0 Output Total 1150 / 1950 3505 / 3505 325 / 325 Balance 305 / -295 -1837.25 / -1837.25 -325 / -325 General: Alert, No apparent distress, - - no respiratory distress. no conversational dyspnea. HEENT: Atraumatic, Normocephalic Oral: Moist Mucosa, No Gingival or Mucosal Lesions/ Ulcerations Neck: No Nodes, Thyroid Normal Size and Texture Lungs: Clear to auscultation, Normal air movement, No rhonchi, No wheeze Cardiovascular: Regular rate, Regular Rhythm, Normal S1, Normal S2, No murmurs Abdomen: Bowel Sounds Present, Soft, Non Tender, Non-Distended, No Hepato- splenomegaly Extremities: No edema, No Calf Tenderness Psych/Mental Status: Normal Affect, Appropriate Laboratory Results 09/21/20 12:30: POC Glucose 272 H 09/21/20 16:51: POC Glucose 420 H 09/21/20 21:31: POC Glucose 437 H 09/22/20 03:50: WBC 18.5 H, RBC 4.57 L, Hgb 13.4, Hct 42.2, MCV 92.3, MCH 29.3, MCHC 31.8 L, RDW Std Deviation 47.8 H, RDW Coeff of Elias 14.4, Plt Count 436, MPV 9.5, Immature Gran % (Auto) 4.700 H, Neut % (Auto) 77.0 H, Lymph % (Auto) 9.7 L, [place] % (Auto) 7.9, Eos % (Auto) 0.1, Baso % (Auto) 0.6, Absolute Neuts (auto) 14.2 H, Absolute Lymphs (auto) 1.80, Nucleated RBC % 0 09/22/20 03:50: Sodium 136, Potassium 4.7, Chloride 100, Carbon Dioxide 27.0, Anion Gap 9, BUN 52 H, Creatinine 1.49 H, Estim Creat Clear Calc 37.43, Est GFR (MDRD) Af Amer 58 L, Est GFR (MDRD) Non-Af 48 L, BUN/Creatinine Ratio 34.9 H, Glucose 316 H, Calcium 9.2 Current Medications Acetaminophen (Acetaminophen 325 Mg Tablet) 650 mg PO Q6H PRN PRN PRN Reason: Pain Score 1-10/Temp > 100.7 F Last Admin: 09/16/20 21:54 Dose: 650 mg Documented by: Aspirin (Aspirin 81 Mg Tab.Chew) 81 mg PO DAILY@0800 [facility] Last Admin: 09/22/20 09:19 Dose: 81 mg Documented by: Atorvastatin Calcium (Atorvastatin Calcium 80 Mg Tablet) 80 mg PO QHS [facility] Last Admin: 09/21/20 21:53 Dose: 80 mg Documented by: Calamine/Phenol (Menthol/Lanolin/Calamine/Znox 113 Gm Tube) 1 applic TOPICAL BID [facility]; Protocol Last Admin: 09/22/20 09:19 Dose: 1 applicatio Documented by: Carvedilol (Carvedilol 6.25 Mg Tablet) 6.25 mg PO BID [facility] Last Admin: 09/22/20 09:19 Dose: 6.25 mg Documented by: Cholecalciferol (Cholecalciferol (Vit D3) 1,000 Unit (25mcg)) 5,000 unit PO DAILY [facility] Last Admin: 09/22/20 09:16 Dose: 5,000 unit Documented by: Clopidogrel Bisulfate (Clopidogrel Bisulfate 75 Mg Tablet) 75 mg PO DAILY [facility] Last Admin: 10/26/20 09:25 Dose: 75 mg Documented by: Dexamethasone (Dexamethasone 4 Mg Tablet) 6 mg PO DAILY@0800 [facility] Stop: 09/24/20 08:01 Last Admin: 09/22/20 09:19 Dose: 6 mg Documented by: Dextrose (Dextrose 50%-Water 25 Gm/50 Ml Disp.Syrin) 0 gm IV X1 PRN; Protocol PRN Reason: Hypoglycemia Dorzolamide/Timolol (Dorzolamide Hcl/Timolol 10 Ml Bottle) 1 drop EACH EYE BID [facility] Last Admin: 09/22/20 09:20 Dose: 1 drop Documented by: Duloxetine HCl (Duloxetine Hcl 30 Mg Capsule) 30 mg PO BID [facility] Last Admin: 09/22/20 09:18 Dose: 30 mg Documented by: Enoxaparin Sodium (Enoxaparin 30 Mg/0.3 Ml Syringe) 30 mg SC BID [facility] Last Admin: 09/22/20 09:25 Dose: 30 mg Documented by: Furosemide (Furosemide 40 Mg/4 Ml Vial) 40 mg IV BID@1000,1800 [facility] Last Admin: 09/22/20 09:25 Dose: 40 mg Documented by: Glucagon (Glucagon 1 Mg/Ml Syringe) 1 mg IM .X1 PRN PRN Reason: Hypoglycemia Hydrochlorothiazide (Hydrochlorothiazide 12.5mg) 12.5 mg PO DAILY [facility] Last Admin: 09/22/20 09:19 Dose: 12.5 mg Documented by: Sodium Chloride () 250 mls @ 15 mls/hr IV .[id number] PRN PRN Reason: Saline Flush Last Infusion: 09/21/20 21:28 Dose: 0 mls/hr Documented by: Sodium Chloride () 250 mls @ 15 mls/hr IV .[id number] PRN PRN Reason: Additional IVPB Infusion Insulin Glargine (Insulin Glargine 100 Units/Ml Pen) 10 units SC DAILY [facility] Last Admin: 09/22/20 09:24 Dose: 10 u Documented by: Insulin Human Lispro (Insulin Lispro 100 Unit/Ml Insuln.Pen) 0 unit SC ACHS [facility]; Protocol Last Admin: 09/22/20 08:05 Dose: 3 unit Documented by: Lamotrigine (Lamotrigine 100 Mg Tablet) 250 mg PO QHS [facility] Last Admin: 09/21/20 21:53 Dose: 250 mg Documented by: Lisinopril (Lisinopril 5 Mg Tablet) 5 mg PO DAILY [facility] Last Admin: 09/22/20 09:19 Dose: 5 mg Documented by: Ondansetron HCl (Ondansetron 4 Mg/2 Ml Vial) 4 mg IV Q8H PRN PRN PRN Reason: NAUSEA/VOMITING Potassium Chloride ([facility] 20 [facility]t) [facility] Admin: 09/22/20 09:16 Dose: 40 meq Documented by: Quetiapine Fumarate (Quetiapine 25 Mg Tablet) 75 mg PO QHS [facility] Last Admin: 09/21/20 21:54 Dose: 75 mg Documented by: Senna/Docusate Sodium (Senna/Docusate Sodium 1 Tablet) 2 tablet PO BID PRN PRN Reason: Constipation Last Admin: 09/16/20 16:36 Dose: 2 tablet Documented by: Sodium Chloride (0.9% Saline Lock 10 Ml Syringe) 10 - 40 ml IV UD PRN PRN Reason: SALINE FLUSH Last Admin: 09/21/20 09:40 Dose: 10 ml Documented by: Zolpidem Tartrate (Zolpidem Tartrate 5 Mg Tablet) 5 mg PO QHS PRN PRN PRN Reason: INSOMNIA Last Admin: 09/21/20 22:13 Dose: 5 mg Documented by: STROKE Vital Signs/Narrative: Vital Signs Temp Pulse Resp BP Pulse Ox 09/22/20 11:00 67 16 101/47 L 98 09/22/20 10:00 56 L 15 95/48 L 96 09/22/20 09:00 55 L 13 89/57 L 93 09/22/20 08:00 36.7 C 55 L 16 121/64 H 97 Medical Necessity - Tobacco Use Smoking Status: Never smoker Tobacco Use: Non-smoker Assessment/Plan All Active Problems COVID-19 (Acute) Encephalopathy acute (Acute) Dehydration (Acute) Elevated lactic acid level (Acute) 1. acute COVID-19 infection: dexamethasone through the . 2. acute hypoxic respiratory failure: 2/2 above. wean oxygen as able. BiPAP as able. 3. DM2: uncontrolled. exacerbated by dexamethasone. started on basal insulin. continue SSI. metformin held given lactic acidosis. 4. lactic acidosis: likely 2/2 hypoxia and metformin. resolved. 5. HTN: BP running low earlier, but improving. on carvedilol, furosemide, HCTZ, lisinopril 6. CAD: ASA, statin and BB 7. VTE prophylaxis: enoxaparin Inpatient E&M: 17745 Subs Hosp L2
[2020-09-22 12:35] LABS: Bedside Glucose 337 mg/dL (70-110)
--- NOTE | 2020-09-22 16:00 | PCM.PN.ID ---
Patient Problems: Active and Suspected Problems COVID-19 (Acute) Encephalopathy acute (Acute) Dehydration (Acute) Elevated lactic acid level (Acute) Subjective: Feeling better, O2 much improved, no fever - Physical Exam Vitals/I&O's: Vital Signs Temp Pulse Resp BP Pulse Ox 97.4 F L 56 L 21 H 105/43 L 97 09/22/20 12:00 09/22/20 15:00 09/22/20 15:00 09/22/20 15:00 09/22/20 15:00 Oxygen Flow Rate (L/min) [ 7 AMBULATION with Oxygen] Oxygen Flow Rate (L/min) [ 3 AMBULATING on Room Air] Oxygen Flow Rate (L/min) [At 2 REST on Room Air] Oxygen Flow Rate (L/min) 7 Oxygen Delivery Method Nasal Cannula Weight: 92.5 kg Body Mass Index (BMI) 30.2 Finger Stick Blood Glucose 144 Intake and Output for Last 24 Hours 09/20/20 09/21/20 09/22/20 23:59 23:59 23:59 Intake Total 1455 / 1655 1667.75 / 1667.75 375 / 375 Output Total 1150 / 1950 3505 / 3505 325 / 325 Balance 305 / -295 -1837.25 / -1837.25 50 / 50 General: Alert, Cooperative, No apparent distress Lungs: Clear to auscultation, Normal air movement Cardiovascular: Regular rate, Regular Rhythm Abdomen: Soft, Non Tender, Non-Distended Skin: No rashes Laboratory Results 09/21/20 16:51: POC Glucose 420 H 09/21/20 21:31: POC Glucose 437 H 09/22/20 03:50: WBC 18.5 H, RBC 4.57 L, Hgb 13.4, Hct 42.2, MCV 92.3, MCH 29.3, MCHC 31.8 L, RDW Std Deviation 47.8 H, RDW Coeff of Elias 14.4, Plt Count 436, MPV 9.5, Immature Gran % (Auto) 4.700 H, Neut % (Auto) 77.0 H, Lymph % (Auto) 9.7 L, [place] % (Auto) 7.9, Eos % (Auto) 0.1, Baso % (Auto) 0.6, Absolute Neuts (auto) 14.2 H, Absolute Lymphs (auto) 1.80, Nucleated RBC % 0 09/22/20 03:50: Sodium 136, Potassium 4.7, Chloride 100, Carbon Dioxide 27.0, Anion Gap 9, BUN 52 H, Creatinine 1.49 H, Estim Creat Clear Calc 37.43, Est GFR (MDRD) Af Amer 58 L, Est GFR (MDRD) Non-Af 48 L, BUN/Creatinine Ratio 34.9 H, Glucose 316 H, Calcium 9.2 09/22/20 11:53: POC Glucose 337 H Current Medications Acetaminophen (Acetaminophen 325 Mg Tablet) 650 mg PO Q6H PRN PRN PRN Reason: Pain Score 1-10/Temp > 100.7 F Last Admin: 09/16/20 21:54 Dose: 650 mg Documented by: Aspirin (Aspirin 81 Mg Tab.Chew) 81 mg PO DAILY@0800 [facility] BEDS AT [facility] Last Admin: 09/22/20 09:19 Dose: 81 mg Documented by: Atorvastatin Calcium (Atorvastatin Calcium 80 Mg Tablet) 80 mg PO QHS [facility] 234 BEDS AT [facility] Last Admin: 09/21/20 21:53 Dose: 80 mg Documented by: Calamine/Phenol (Menthol/Lanolin/Calamine/Znox 113 Gm Tube) 1 applic TOPICAL BID [facility] 234 BEDS AT [facility]; Protocol Last Admin: 09/22/20 09:19 Dose: 1 applicatio Documented by: Carvedilol (Carvedilol 6.25 Mg Tablet) 6.25 mg PO BID [facility] 234 BEDS AT [facility] Last Admin: 09/22/20 09:19 Dose: 6.25 mg Documented by: Cholecalciferol (Cholecalciferol (Vit D3) 1,000 Unit (25mcg)) 5,000 unit PO DAILY [facility]CLUDE 234 BEDS AT [facility] Last Admin: 09/22/20 09:16 Dose: 5,000 unit Documented by: Clopidogrel Bisulfate (Clopidogrel Bisulfate 75 Mg Tablet) 75 mg PO DAILY [facility]CLUDE 234 BEDS AT [facility] Last Admin: 09/22/20 09:25 Dose: 75 mg Documented by: Dexamethasone (Dexamethasone 4 Mg Tablet) 6 mg PO DAILY@0800 [facility]CLUDE 234 BEDS AT [facility] Stop: 09/24/20 08:01 Last Admin: 09/22/20 09:19 Dose: 6 mg Documented by: Dextrose (Dextrose 50%-Water 25 Gm/50 Ml Disp.Syrin) 0 gm IV X1 PRN; Protocol PRN Reason: Hypoglycemia Dorzolamide/Timolol (Dorzolamide Hcl/Timolol 10 Ml Bottle) 1 drop EACH EYE BID [facility] 234 BEDS AT [facility] Last Admin: 09/22/20 09:20 Dose: 1 drop Documented by: Duloxetine HCl (Duloxetine Hcl 30 Mg Capsule) 30 mg PO BID [facility] 234 BEDS AT [facility] Last Admin: 09/22/20 09:18 Dose: 30 mg Documented by: Enoxaparin Sodium (Enoxaparin 30 Mg/0.3 Ml Syringe) 30 mg SC BID [facility] 234 BEDS AT [facility] Last Admin: 09/22/20 09:25 Dose: 30 mg Documented by: Furosemide (Furosemide 40 Mg/4 Ml Vial) 40 mg IV BID@1000,1800 [facility]CLUDE 234 BEDS AT [facility] Last Admin: 09/22/20 09:25 Dose: 40 mg Documented by: Glucagon (Glucagon 1 Mg/Ml Syringe) 1 mg IM .X1 PRN PRN Reason: Hypoglycemia Hydrochlorothiazide (Hydrochlorothiazide 12.5mg) 12.5 mg PO DAILY [facility]CLUDE 234 BEDS AT [facility] Last Admin: 09/22/20 09:19 Dose: 12.5 mg Documented by: Sodium Chloride () 250 mls @ 15 mls/hr IV .[id number] PRN PRN Reason: Saline Flush Last Infusion: 09/21/20 21:28 Dose: 0 mls/hr Documented by: Sodium Chloride () 250 mls @ 15 mls/hr IV .[id number] PRN PRN Reason: Additional IVPB Infusion Insulin Glargine (Insulin Glargine 100 Units/Ml Pen) 10 units SC DAILY [facility] 234 BEDS AT [facility] Last Admin: 09/22/20 09:24 Dose: 10 u Documented by: Insulin Human Lispro (Insulin Lispro 100 Unit/Ml Insuln.Pen) 0 unit SC ACHS [facility]CLUDE 234 BEDS AT [facility]; Protocol Last Admin: 09/22/20 11:54 Dose: 3 unit Documented by: Lamotrigine (Lamotrigine 100 Mg Tablet) 250 mg PO QHS [facility]CLUDE 234 BEDS AT [facility] Last Admin: 09/21/20 21:53 Dose: 250 mg Documented by: Lisinopril (Lisinopril 5 Mg Tablet) 5 mg PO DAILY [facility]CLUDE 234 BEDS AT [facility] Last Admin: 09/22/20 09:19 Dose: 5 mg Documented by: Ondansetron HCl (Ondansetron 4 Mg/2 Ml Vial) 4 mg IV Q8H PRN PRN PRN Reason: NAUSEA/VOMITING Potassium Chloride (Potassium Chloride 20 Meq Tablet) 40 meq PO BIDCM COUNTS INCLUDE 234 BEDS AT [facility] Last Admin: 09/22/20 09:16 Dose: 40 meq Documented by: Quetiapine Fumarate (Quetiapine 25 Mg Tablet) 75 mg PO QHS [facility] Last Admin: 09/21/20 21:54 Dose: 75 mg Documented by: Senna/Docusate Sodium (Senna/Docusate Sodium 1 Tablet) 2 tablet PO BID PRN PRN Reason: Constipation Last Admin: 09/16/20 16:36 Dose: 2 tablet Documented by: Sodium Chloride (0.9% Saline Lock 10 Ml Syringe) 10 - 40 ml IV UD PRN PRN Reason: SALINE FLUSH Last Admin: 09/21/20 09:40 Dose: 10 ml Documented by: Zolpidem Tartrate (Zolpidem Tartrate 5 Mg Tablet) 5 mg PO QHS PRN PRN PRN Reason: INSOMNIA Last Admin: 09/21/20 22:13 Dose: 5 mg Documented by: Medical Necessity - Tobacco Use Smoking Status: Never smoker Tobacco Use: Non-smoker Route of nutrition/ use of supplements: [] Nutritional Intake: [] IV Site: [] Clements Catheter: [] - Assessment/Plan Antibiotics: [] Assessment/Plan: [] Active and Suspected Problems COVID-19 (Acute) Encephalopathy acute (Acute) Dehydration (Acute) Elevated lactic acid level (Acute) acute hypoxic resp failure due to covid - mental status improved. 5 day course of remdesivir. O2 now much better. No fever. On dex. Will follow
[2020-09-22 17:01] LABS: Bedside Glucose 489 mg/dL (70-110)
[2020-09-22] MEDS: lamoTRIgine 100 MG Tablet 250 MG PO (23:27)
[2020-09-22] MEDS: QUEtiapine 25 MG Tablet 75 MG PO (23:28)
[2020-09-22] MEDS: Atorvastatin Calcium 80 MG Tablet PO (23:28)
[2020-09-22] MEDS: 0.9% Saline Lock 10 ML Syringe IV (23:30)
[2020-09-23] VITALS (26 sets, daily range): BP systolic 90–139; BP diastolic 36–88; PULSE 55–73; RESP 13–24; TEMP 36.6–36.8; O2SAT 89–97
[2020-09-23 01:11] LABS: Bedside Glucose 392 mg/dL (70-110)
[2020-09-23 03:35] LABS: Absolute Lymphocyte Count 1.19 X10^3/uL (0.83-4.51); Absolute Neutrophil Count 11.8 X10^3/uL (2.0-7.7); Basophil# 0.09 X10^3/uL; Basophil% 0.6 % (0-1); Eosinophil# 0.01 X10^3/uL; Eosinophils% 0.1 % (0-5); Hematocrit 44.5 % (40-54); Hemoglobin 14.5 g/dL (13.0-16.5); Lymphocyte # 1.19 X10^3/ul (4.0); Lymphocyte % 8.1 % (19-41); Mean Corp Hgb Conc 32.6 g/dL (32-36); Mean Corpuscular Hgb 29.5 pg (27.0-32.0); Mean Corpuscular Volume 90.4 fL (80-94); Mean Platelet Vol. 9.7 fl (6.2-12.0); Monocyte# 0.93 X10^3/uL; Monocyte% 6.3 % (0-10); NRBC Flagged by Analyzer 0 % (0-5); Neutrophil # 11.81 X10^3/uL (2.7-7.7); Neutrophil % 80.5 % (47-70); Platelet Count 462 K/mm3 (150-450); RBC Distribution Width CV 14.2 % (11.6-14.6); RBC Distribution Width SD 46.5 fl (35.1-43.9); Red Blood Count 4.92 M/mm3 (4.6-6.2); White Blood Count 14.7 K/mm3 (4.4-11.0)
[2020-09-23 03:46] LABS: Anion Gap 10 (5-15); BUN 58 mg/dL (7-18); BUN/Creat Ratio 33.5 RATIO (10-20); Calcium,Total 9.8 mg/dL (8.5-10.1); Chloride 97 mmol/L (98-107); Creatinine, Serum 1.73 mg/dL (0.70-1.30); EST Glomerular Filtration Rate 40 mL/min (>60); Est Glom Filt Rate - Afr Amer 48 mL/min (>60); Estimated Creatinine Clearance 32.23 ml/min; Glucose 371 mg/dL (74-106); Potassium 4.8 mmol/L (3.5-5.1); Sodium Level 135 mmol/L (136-145)
[2020-09-23 07:45] LABS: Bedside Glucose 338 mg/dL (70-110)
[2020-09-23] MEDS: Insulin Lispro 100 UNIT/ML INSULN.PEN SC ×4 (08:04→20:36)
[2020-09-23] MEDS: Aspirin 81 MG TAB.CHEW PO (08:05)
[2020-09-23] MEDS: dexAMETHasone 4 MG Tablet 6 MG PO (08:05)
--- NOTE | 2020-09-23 08:07 | PCM.PN.INT ---
Subjective: Patient did well overnight. Patient did have a little bit of hypotension, but oxygenation has continued to improve. Patient is on 2 to 4 L nasal cannula oxygen. Patient still has a Clements in place, but believes that he would be able to urinate independently if given the opportunity. General: Alert, Oriented x3, Cooperative, No apparent distress HEENT: Atraumatic, PERRLA, EOMI, Normocephalic, - - No scleral icterus or injection noted Oral: Moist Mucosa, No Gingival or Mucosal Lesions/ Ulcerations Neck: Supple, No JVD, No Nodes, Trachea Midline Lungs: No rhonchi, No rales, Diminished, Wheezes, - - Symmetric expansion. No dullness to percussion. Cardiovascular: Normal S1, Normal S2, No murmurs, Bradycardic, No rub noted, No Gallop Abdomen: Bowel Sounds Present, Soft, Non Tender, Non-Distended, Obese Extremities: No clubbing, No cyanosis, No edema Skin: No rashes, No breakdown Musculoskeletal: No Tenderness to Palpation of Joints or Extremities Lymphatic: No Cervical, Supraclavicular, or Inguinal Adenopathy Neurological: Cranial nerves II-XII grossly intact, Neuro grossly intact, Motor Exam 5/5 strength throughout Psych/Mental Status: Flat Affect Vital Signs Temp Pulse Resp BP Pulse Ox 36.6 C 58 L 17 115/88 H 96 09/23/20 05:00 09/23/20 07:00 09/23/20 07:00 09/23/20 07:00 09/23/20 07:57 Oxygen Flow Rate (L/min) [ 7 AMBULATION with Oxygen] Oxygen Flow Rate (L/min) [ 3 AMBULATING on Room Air] Oxygen Flow Rate (L/min) [At 2 REST on Room Air] Oxygen Flow Rate (L/min) 4 Oxygen Delivery Method Nasal Cannula Weight: 92.3 kg Body Mass Index (BMI) 30.2 Finger Stick Blood Glucose 144 Intake and Output for Last 24 Hours 09/21/20 09/22/20 09/23/20 23:59 23:59 23:59 Intake Total 1667.75 / 1667.75 375 / 575 200 / 200 Output Total 3505 / 3505 1975 / 3475 1850 / 1850 Balance -1837.25 / -1837.25 -1600 / -2900 -1650 / -1650 Labs (Last 48 Hours) 09/21/20 09/21/20 09/21/20 07:57 12:30 16:51 WBC RBC Hgb Hct MCV MCH MCHC RDW Std Deviation RDW Coeff of Elias Plt Count MPV Immature Gran % (Auto) Neut % (Auto) Lymph % (Auto) [place] % (Auto) Eos % (Auto) Baso % (Auto) Absolute Neuts (auto) Absolute Lymphs (auto) Nucleated RBC % Sodium Potassium Chloride Carbon Dioxide Anion Gap BUN Creatinine Estim Creat Clear Calc Est GFR (MDRD) Af Amer Est GFR (MDRD) Non-Af BUN/Creatinine Ratio Glucose Calcium POC Glucose 269 H 272 H 420 H 09/21/20 09/22/20 09/22/20 21:31 03:50 03:50 WBC 18.5 H RBC 4.57 L Hgb 13.4 Hct 42.2 MCV 92.3 MCH 29.3 MCHC 31.8 L RDW Std Deviation 47.8 H RDW Coeff of Elias 14.4 Plt Count 436 MPV 9.5 Immature Gran % (Auto) 4.700 H Neut % (Auto) 77.0 H Lymph % (Auto) 9.[address] [place] % (Auto) 7.9 Eos % (Auto) 0.1 Baso % (Auto) 0.6 Absolute Neuts (auto) 14.2 H Absolute Lymphs (auto) 1.80 Nucleated RBC % 0 Sodium 136 Potassium 4.7 Chloride 100 Carbon Dioxide 27.0 Anion Gap 9 BUN 52 H Creatinine 1.49 H Estim Creat Clear Calc 37.43 Est GFR (MDRD) Af Amer 58 L Est GFR (MDRD) Non-Af 48 L BUN/Creatinine Ratio 34.9 H Glucose 316 H Calcium 9.2 POC Glucose 437 H 09/22/20 09/22/20 09/22/20 11:53 16:13 23:24 WBC RBC Hgb Hct MCV MCH MCHC RDW Std Deviation RDW Coeff of Elias Plt Count MPV Immature Gran % (Auto) Neut % (Auto) Lymph % (Auto) [place] % (Auto) Eos % (Auto) Baso % (Auto) Absolute Neuts (auto) Absolute Lymphs (auto) Nucleated RBC % Sodium Potassium Chloride Carbon Dioxide Anion Gap BUN Creatinine Estim Creat Clear Calc Est GFR (MDRD) Af Amer Est GFR (MDRD) Non-Af BUN/Creatinine Ratio Glucose Calcium POC Glucose 337 H 489 H* 392 H 09/23/20 09/23/20 09/23/20 03:25 03:25 07:18 WBC 14.7 H RBC 4.92 Hgb 14.5 Hct 44.5 MCV 90.4 MCH 29.5 MCHC 32.6 RDW Std Deviation 46.5 H RDW Coeff of Elias 14.2 Plt Count 462 H MPV 9.7 Immature Gran % (Auto) 4.400 H Neut % (Auto) 80.5 H Lymph % (Auto) 8.[address] [place] % (Auto) 6.3 Eos % (Auto) 0.1 Baso % (Auto) 0.6 Absolute Neuts (auto) 11.8 H Absolute Lymphs (auto) 1.19 Nucleated RBC % 0 Sodium 135 L Potassium 4.8 Chloride 97 L Carbon Dioxide 28.0 Anion Gap 10 BUN 58 H Creatinine 1.73 H Estim Creat Clear Calc 32.23 Est GFR (MDRD) Af Amer 48 L Est GFR (MDRD) Non-Af 40 L BUN/Creatinine Ratio 33.5 H Glucose 371 H Calcium 9.8 POC Glucose 338 H Medical Necessity - Tobacco Use Smoking Status: Never smoker Tobacco Use: Non-smoker Assessment/Plan All Active Problems COVID-19 (Acute) Encephalopathy acute (Acute) Dehydration (Acute) Elevated lactic acid level (Acute) RECOMMENDATIONS: 1. Discontinue Lasix given hypotension 2. Continue Decadron as ordered. 3. Continue antimicrobials per infectious diseases recommendations. 4. Wean supplemental oxygen to maintain saturations at or above 90%. 5. Encourage incentive spirometer use and mobilize patient as tolerated. 6. Increase Lantus therapy 7. Discharge planning IMPRESSIONS: 1. Acute hypoxemic respiratory failure secondary to COVID-19 Lung concern for possible possible superimposed bacterial pneumonia. The patient remains afebrile and hemodynamically stable. Continue diuretic therapy as tolerated. We will continue to monitor renal function on a daily basis. Continue to wean supplemental oxygen to maintain saturations at or above 90%. The patient has already completed a treatment course of remdesivir. Continue Decadron to complete a 10-day course. Antimicrobials course completed per infectious diseases recommendations. Okay to discontinue BiPAP therapy. Discontinue Clements and attempt ambulation. If able to tolerate ambulation on 6 L or less, potential discharge. 2. Hypokalemia Continue to monitor electrolytes closely given diuretic therapy. Electrolyte repletion as ordered. Recheck levels in the morning. 3. Advanced age/diabetes mellitus/hypertension/coronary artery disease Complicates care, management, recovery and prognosis. Continue home medications as indicated. Patient will be initiated on Lantus, but this may be discontinued once patient completes Decadron course. Lasix will be held secondary to hypotension. Inpatient E&M: [id number] [facility] L3
--- NOTE | 2020-09-23 09:10 | CASEMGMT ---
LYNN called patient's son and left him a voice mail regarding discharge plan. Sandra BRUNNER MSW
--- NOTE | 2020-09-23 10:17 | CASEMGMT ---
LYNN received a call from patient's . She said she was confused as her son received a voice mail that the hospital is discharging patient. She said she spoke with Dr Sanabria yesterday and he told her that patient would be here for another week or 2. LYNN explained to her that today in ICU rounds the Health Informatics Advisor Dr Michael said patient will potentially be ready for discharge in the next 24-48 hours. This is as long as he can tolerate walking on 5L and staying above 89. She then said she cannot believe he is medically ready for discharge and began asking multiple medical questions. LYNN told her that SW is not a medical professional and she would need to direct these medical questions to the doctor or nurse. LYNN explained SW assists with discharge planning and when the doctor said he may be ready in the next 24-48 hours SW needs to begin working on a d/c plan. She said they want to take him home. LYNN explained he is an assist of 2 people right now. After discussion it was decided to see if physician will order a COVID test today. If his test is negative today we can do another one tomorrow and if it is negative again he could go to a local SNF. Otherwise if he tests positive he would only be able to go to a SNF that takes positive COVID patients. The closest [facility]. She said they do not want to do that. Await COVID test results to help with d/c planning. LYNN left message updated HO[facility] Wagner that family may want home health if SNF does not work out. Sandra BRUNNER MSW
[2020-09-23] MEDS: Menthol/Lanolin/Calamine/Znox 113 GM Tube 1 APPLIC TOPICAL ×2 (11:12→19:48)
[2020-09-23] MEDS: Dorzolamide HCL/Timolol 10 ml Bottle 1 DRP EACH EYE ×2 (11:13→20:35)
[2020-09-23] MEDS: Carvedilol 6.25 MG Tablet PO ×2 (11:13→20:34)
[2020-09-23] MEDS: DULoxetine Hcl 30 MG Capsule PO ×2 (11:13→20:35)
[2020-09-23] MEDS: hydroCHLOROthiazide 12.5mg 12.5 MG PO (11:14)
[2020-09-23] MEDS: Enoxaparin 30 MG/0.3 ML Syringe SC ×2 (11:15→20:34)
[2020-09-23] MEDS: Lisinopril 5 MG Tablet PO (11:16)
[2020-09-23] MEDS: Clopidogrel Bisulfate 75 MG Tablet PO (11:16)
[2020-09-23 11:36] LABS: Bedside Glucose 352 mg/dL (70-110)
--- NOTE | 2020-09-23 12:25 | PCM.PN.HOSP ---
Patient Problems: Active and Suspected Problems COVID-19 (Acute) Encephalopathy acute (Acute) Dehydration (Acute) Elevated lactic acid level (Acute) Reason for Visit: COVID 19 Subjective: breathing well. Vitals/I&O's: Vital Signs Temp Pulse Resp BP Pulse Ox 36.7 C 60 15 130/42 H 96 09/23/20 08:00 09/23/20 12:00 09/23/20 12:00 09/23/20 12:00 09/23/20 12:00 Oxygen Flow Rate (L/min) [ 7 AMBULATION with Oxygen] Oxygen Flow Rate (L/min) [ 3 AMBULATING on Room Air] Oxygen Flow Rate (L/min) [At 2 REST on Room Air] Oxygen Flow Rate (L/min) 3 Oxygen Delivery Method Room Air Weight: 92.3 kg Body Mass Index (BMI) 30.2 Finger Stick Blood Glucose 144 Intake and Output for Last 24 Hours 09/21/20 09/22/20 09/23/20 23:59 23:59 23:59 Intake Total 1667.75 / 1667.75 375 / 575 200 / 200 Output Total 3505 / 3505 1975 / 3475 2750 / 2750 Balance -1837.25 / -1837.25 -1600 / -2900 -2550 / -2550 General: Alert, No apparent distress HEENT: Atraumatic, Normocephalic Oral: Moist Mucosa, No Gingival or Mucosal Lesions/ Ulcerations Neck: No Nodes, Thyroid Normal Size and Texture Lungs: Clear to auscultation, Normal air movement, No rhonchi, No wheeze Cardiovascular: Regular rate, Regular Rhythm, Normal S1, Normal S2 Abdomen: Bowel Sounds Present, Soft, Non Tender, Non-Distended, No Hepato-splenomegaly Extremities: No edema, No Calf Tenderness Psych/Mental Status: Normal Affect, Appropriate Laboratory Results 09/22/20 11:53: POC Glucose 337 H 09/22/20 16:13: POC Glucose 489 H* 09/22/20 23:24: POC Glucose 392 H 09/23/20 03:25: WBC 14.7 H, RBC 4.92, Hgb 14.5, Hct 44.5, MCV 90.4, MCH 29.5, MCHC 32.6, RDW Std Deviation 46.5 H, RDW Coeff of Elias 14.2, Plt Count 462 H, MPV 9.7, Immature Gran % (Auto) 4.400 H, Neut % (Auto) 80.5 H, Lymph % (Auto) 8.1 L, [place] % (Auto) 6.3, Eos % (Auto) 0.1, Baso % (Auto) 0.6, Absolute Neuts (auto) 11.8 H, Absolute Lymphs (auto) 1.19, Nucleated RBC % 0 09/23/20 03:25: Sodium 135 L, Potassium 4.8, Chloride 97 L, Carbon Dioxide 28.0, Anion Gap 10, BUN 58 H, Creatinine 1.73 H, Estim Creat Clear Calc 32.23, Est GFR (MDRD) Af Amer 48 L, Est GFR (MDRD) Non-Af 40 L, BUN/Creatinine Ratio 33.5 H, Glucose 371 H, Calcium 9.8 09/23/20 07:18: POC Glucose 338 H 09/23/20 11:11: POC Glucose 352 H Current Medications Acetaminophen (Acetaminophen 325 Mg Tablet) 650 mg PO Q6H PRN PRN PRN Reason: Pain Score 1-10/Temp > 100.7 F Last Admin: 09/16/20 21:54 Dose: 650 mg Documented by: Aspirin (Aspirin 81 Mg Tab.Chew) 81 mg PO DAILY@0800 [facility] Last Admin: 09/23/20 08:05 Dose: 81 mg Documented by: Atorvastatin Calcium (Atorvastatin Calcium 80 Mg Tablet) 80 mg PO QHS [facility] Last Admin: 09/22/20 23:28 Dose: 80 mg Documented by: Calamine/Phenol (Menthol/Lanolin/Calamine/Znox 113 Gm Tube) 1 applic TOPICAL BID [facility]; Protocol Last Admin: 09/23/20 11:12 Dose: 1 applicatio Documented by: Carvedilol (Carvedilol 6.25 Mg Tablet) 6.25 mg PO BID [facility] Last Admin: 09/23/20 11:13 Dose: 6.25 mg Documented by: Cholecalciferol (Cholecalciferol (Vit D3) 1,000 Unit (25mcg)) 5,000 unit PO DAILY [facility] Last Admin: 09/23/20 11:16 Dose: 5,000 unit Documented by: Clopidogrel Bisulfate (Clopidogrel Bisulfate 75 Mg Tablet) 75 mg PO DAILY [facility] Last Admin: 09/23/20 11:16 Dose: 75 mg Documented by: Dexamethasone (Dexamethasone 4 Mg Tablet) 6 mg PO DAILY@0800 [facility] Stop: 09/24/20 08:01 Last Admin: 09/23/20 08:05 Dose: 6 mg Documented by: Dextrose (Dextrose 50%-Water 25 Gm/50 Ml Disp.Syrin) 0 gm IV X1 PRN; Protocol PRN Reason: Hypoglycemia Dorzolamide/Timolol (Dorzolamide Hcl/Timolol 10 Ml Bottle) 1 drop EACH EYE BID [facility] Last Admin: 09/23/20 11:13 Dose: 1 drop Documented by: Duloxetine HCl (Duloxetine Hcl 30 Mg Capsule) 30 mg PO BID [facility] Last Admin: 09/23/20 11:13 Dose: 30 mg Documented by: Enoxaparin Sodium (Enoxaparin 30 Mg/0.3 Ml Syringe) 30 mg SC BID [facility] Last Admin: 09/23/20 11:15 Dose: 30 mg Documented by: Glucagon (Glucagon 1 Mg/Ml Syringe) 1 mg IM .X1 PRN PRN Reason: Hypoglycemia Hydrochlorothiazide (Hydrochlorothiazide 12.5mg) 12.5 mg PO DAILY [facility] Last Admin: 09/23/20 11:14 Dose: 12.5 mg Documented by: Sodium Chloride () 250 mls @ 15 mls/hr IV .[id number] PRN PRN Reason: Saline Flush Last Infusion: 09/21/20 21:28 Dose: 0 mls/hr Documented by: Sodium Chloride () 250 mls @ 15 mls/hr IV .[id number] PRN PRN Reason: Additional IVPB Infusion Insulin Glargine (Insulin Glargine 100 Units/Ml Pen) 20 units SC BID [facility] Last Admin: 09/23/20 11:14 Dose: 20 u Documented by: Insulin Human Lispro (Insulin Lispro 100 Unit/Ml Insuln.Pen) 0 unit SC ACHS [facility]; Protocol Last Admin: 09/23/20 11:16 Dose: 3 unit Documented by: Lamotrigine (Lamotrigine 100 Mg Tablet) 250 mg PO QHS [facility] Last Admin: 09/22/20 23:27 Dose: 250 mg Documented by: Lisinopril (Lisinopril 5 Mg Tablet) 5 mg PO DAILY [facility] Last Admin: 09/23/20 11:16 Dose: 5 mg Documented by: Ondansetron HCl (Ondansetron 4 Mg/2 Ml Vial) 4 mg IV Q8H PRN PRN PRN Reason: NAUSEA/VOMITING Potassium Chloride (Potassium Chloride 20 Meq Tablet) 40 meq PO BIDCM [facility] Last Admin: 09/23/20 08:06 Dose: 40 meq Documented by: Quetiapine Fumarate (Quetiapine 25 Mg Tablet) 75 mg PO QHS [facility] Last Admin: 09/22/20 23:28 Dose: 75 mg Documented by: Senna/Docusate Sodium (Senna/Docusate Sodium 1 Tablet) 2 tablet PO BID PRN PRN Reason: Constipation Last Admin: 09/16/20 16:36 Dose: 2 tablet Documented by: Sodium Chloride (0.9% Saline Lock 10 Ml Syringe) 10 - 40 ml IV UD PRN PRN Reason: SALINE FLUSH Last Admin: 09/22/20 23:30 Dose: 10 ml Documented by: Zolpidem Tartrate (Zolpidem Tartrate 5 Mg Tablet) 5 mg PO QHS PRN PRN PRN Reason: INSOMNIA Last Admin: 09/21/20 22:13 Dose: 5 mg Documented by: STROKE Vital Signs/Narrative: Vital Signs Pulse Resp BP Pulse Ox 09/23/20 12:00 60 15 130/42 H 96 09/23/20 11:00 58 L 15 110/63 96 09/23/20 10:00 57 L 14 119/56 L 96 09/23/20 09:00 59 L 16 112/51 L 94 Medical Necessity - Tobacco Use Smoking Status: Never smoker Tobacco Use: Non-smoker Assessment/Plan All Active Problems COVID-19 (Acute) Encephalopathy acute (Acute) Dehydration (Acute) Elevated lactic acid level (Acute) 1. acute COVID-19 infection: dexamethasone through the . 2. acute hypoxic respiratory failure: 2/2 above. wean oxygen as able. BiPAP as needed. 3. DM2: uncontrolled. exacerbated by dexamethasone. started on basal insulin. continue SSI. metformin held given lactic acidosis. 4. lactic acidosis: likely 2/2 hypoxia and metformin. resolved. 5. HTN: BP running low earlier, but improving. on carvedilol, furosemide, HCTZ, lisinopril 6. CAD: ASA, statin and BB 7. VTE prophylaxis: enoxaparin 8. Disposition: medically stable for discharge. Will need COVID test to facilitate DC in regards to which facility he will go to. Inpatient E&M: 21738 Subs Hosp L2
--- NOTE | 2020-09-23 15:01 | PN.ID_ITS ---
Patient Problems: Active and Suspected Problems COVID-19 (Acute) Encephalopathy acute (Acute) Dehydration (Acute) Elevated lactic acid level (Acute) Subjective: Feeling better, no fever, O2 much improved - Physical Exam Vitals/I&O's: Vital Signs Temp Pulse Resp BP Pulse Ox 98.3 F 59 L 15 130/42 H 96 09/23/20 12:00 09/23/20 15:00 09/23/20 12:00 09/23/20 12:00 09/23/20 12:00 Oxygen Flow Rate (L/min) [ 7 AMBULATION with Oxygen] Oxygen Flow Rate (L/min) [ 3 AMBULATING on Room Air] Oxygen Flow Rate (L/min) [At 2 REST on Room Air] Oxygen Flow Rate (L/min) 3 Oxygen Delivery Method Nasal Cannula Weight: 92.3 kg Body Mass Index (BMI) 30.2 Finger Stick Blood Glucose 144 Intake and Output for Last 24 Hours 09/21/20 09/22/20 09/23/20 23:59 23:59 23:59 Intake Total 1667.75 / 1667.75 375 / 575 200 / 200 Output Total 3505 / 3505 1975 / 3475 2750 / 2750 Balance -1837.25 / -1837.25 -1600 / -2900 -2550 / -2550 General: Alert, Cooperative, No apparent distress Lungs: Clear to auscultation, Diminished Cardiovascular: Regular rate, Regular Rhythm Abdomen: Soft, Non Tender, Non-Distended Skin: No rashes Laboratory Results 09/22/20 16:13: POC Glucose 489 H* 09/22/20 23:24: POC Glucose 392 H 09/23/20 03:25: WBC 14.7 H, RBC 4.92, Hgb 14.5, Hct 44.5, MCV 90.4, MCH 29.5, MCHC 32.6, RDW Std Deviation 46.5 H, RDW Coeff of Elias 14.2, Plt Count 462 H, MPV 9.7, Immature Gran % (Auto) 4.400 H, Neut % (Auto) 80.5 H, Lymph % (Auto) 8.1 L, [place] % (Auto) 6.3, Eos % (Auto) 0.1, Baso % (Auto) 0.6, Absolute Neuts (auto) 11.8 H, Absolute Lymphs (auto) 1.19, Nucleated RBC % 0 09/23/20 03:25: Sodium 135 L, Potassium 4.8, Chloride 97 L, Carbon Dioxide 28.0, Anion Gap 10, BUN 58 H, Creatinine 1.73 H, Estim Creat Clear Calc 32.23, Est GFR (MDRD) Af Amer 48 L, Est GFR (MDRD) Non-Af 40 L, BUN/Creatinine Ratio 33.5 H, Glucose 371 H, Calcium 9.8 09/23/20 07:18: POC Glucose 338 H 09/23/20 11:11: POC Glucose 352 H 09/23/20 13:30: COVID-19 (IMMANUEL) Pending Current Medications Acetaminophen (Acetaminophen 325 Mg Tablet) 650 mg PO Q6H PRN PRN PRN Reason: Pain Score 1-10/Temp > 100.7 F Last Admin: 09/16/20 21:54 Dose: 650 mg Documented by: Aspirin (Aspirin 81 Mg Tab.Chew) 81 mg PO DAILY@0800 [facility] Last Admin: 09/23/20 08:05 Dose: 81 mg Documented by: Atorvastatin Calcium (Atorvastatin Calcium 80 Mg Tablet) 80 mg PO QHS [facility] Last Admin: 09/22/20 23:28 Dose: 80 mg Documented by: Calamine/Phenol (Menthol/Lanolin/Calamine/Znox 113 Gm Tube) 1 applic TOPICAL BID [facility]; Protocol Last Admin: 09/23/20 11:12 Dose: 1 applicatio Documented by: Carvedilol (Carvedilol 6.25 Mg Tablet) 6.25 mg PO BID [facility] Last Admin: 09/23/20 11:13 Dose: 6.25 mg Documented by: Cholecalciferol (Cholecalciferol (Vit D3) 1,000 Unit (25mcg)) 5,000 unit PO DAILY [facility] Last Admin: 09/23/20 11:16 Dose: 5,000 unit Documented by: Clopidogrel Bisulfate (Clopidogrel Bisulfate 75 Mg Tablet) 75 mg PO DAILY [facility] Last Admin: 09/23/20 11:16 Dose: 75 mg Documented by: Dexamethasone (Dexamethasone 4 Mg Tablet) 6 mg PO DAILY@0800 [facility] Stop: 09/24/20 08:01 Last Admin: 09/23/20 08:05 Dose: 6 mg Documented by: Dextrose (Dextrose 50%-Water 25 Gm/50 Ml Disp.Syrin) 0 gm IV X1 PRN; Protocol PRN Reason: Hypoglycemia Dorzolamide/Timolol (Dorzolamide Hcl/Timolol 10 Ml Bottle) 1 drop EACH EYE BID [facility] Last Admin: 09/23/20 11:13 Dose: 1 drop Documented by: Duloxetine HCl (Duloxetine Hcl 30 Mg Capsule) 30 mg PO BID [facility] Last Admin: 09/23/20 11:13 Dose: 30 mg Documented by: Enoxaparin Sodium (Enoxaparin 30 Mg/0.3 Ml Syringe) 30 mg SC BID [facility] Last Admin: 09/23/20 11:15 Dose: 30 mg Documented by: Glucagon (Glucagon 1 Mg/Ml Syringe) 1 mg IM .X1 PRN PRN Reason: Hypoglycemia Hydrochlorothiazide (Hydrochlorothiazide 12.5mg) 12.5 mg PO DAILY [facility] Last Admin: 09/23/20 11:14 Dose: 12.5 mg Documented by: Sodium Chloride () 250 mls @ 15 mls/hr IV .[id number] PRN PRN Reason: Saline Flush Last Infusion: 09/21/20 21:28 Dose: 0 mls/hr Documented by: Sodium Chloride () 250 mls @ 15 mls/hr IV .[id number] PRN PRN Reason: Additional IVPB Infusion Insulin Glargine (Insulin Glargine 100 Units/Ml Pen) 20 units SC BID [facility] Last Admin: 09/23/20 11:14 Dose: 20 u Documented by: Insulin Human Lispro (Insulin Lispro 100 Unit/Ml Insuln.Pen) 0 unit SC ACHS [facility]; Protocol Last Admin: 09/23/20 11:16 Dose: 3 unit Documented by: Lamotrigine (Lamotrigine 100 Mg Tablet) 250 mg PO QHS [facility] Last Admin: 09/22/20 23:27 Dose: 250 mg Documented by: Lisinopril (Lisinopril 5 Mg Tablet) 5 mg PO DAILY [facility] Last Admin: 09/23/20 11:16 Dose: 5 mg Documented by: Ondansetron HCl (Ondansetron 4 Mg/2 Ml Vial) 4 mg IV Q8H PRN PRN PRN Reason: NAUSEA/VOMITING Potassium Chloride (Potassium Chloride 20 Meq Tablet) 40 meq PO BIDCM [facility] Last Admin: 09/23/20 08:06 Dose: 40 meq Documented by: Quetiapine Fumarate (Quetiapine 25 Mg Tablet) 75 mg PO QHS [facility] Last Admin: 09/22/20 23:28 Dose: 75 mg Documented by: Senna/Docusate Sodium (Senna/Docusate Sodium 1 Tablet) 2 tablet PO BID PRN PRN Reason: Constipation Last Admin: 09/16/20 16:36 Dose: 2 tablet Documented by: Sodium Chloride (0.9% Saline Lock 10 Ml Syringe) 10 - 40 ml IV UD PRN PRN Reason: SALINE FLUSH Last Admin: 09/22/20 23:30 Dose: 10 ml Documented by: Zolpidem Tartrate (Zolpidem Tartrate 5 Mg Tablet) 5 mg PO QHS PRN PRN PRN Reason: INSOMNIA Last Admin: 09/21/20 22:13 Dose: 5 mg Documented by: Medical Necessity - Tobacco Use Smoking Status: Never smoker Tobacco Use: Non-smoker Route of nutrition/ use of supplements: [] Nutritional Intake: [] IV Site: [] Clements Catheter: [] - Assessment/Plan Antibiotics: [] Assessment/Plan: [] Active and Suspected Problems COVID-19 (Acute) Encephalopathy acute (Acute) Dehydration (Acute) Elevated lactic acid level (Acute) acute hypoxic resp failure due to covid - mental status improved. 5 day course of remdesivir. O2 now much better. No fever. Completes dex tomorrow. Will follow
--- NOTE | 2020-09-23 16:11 | CASEMGMT ---
LYNN Pineda said she received a message from patient's son indicating Dr Sanabria told patient's that patient will be in the hospital for another week or two. LYNN called patient's son Michele and left him a voice mail letting him know that per the Callisthenics Instructor Dr Michael today in rounds said patient will likely be ready for discharge within the next 24-48 hours as he is doing well. He is only on 3-5L and as long as he can tolerate activity and keep his stats above a 89-90 he can be discharged. LYNN also told him the physician ordered another COVID test so we will wait and see the results. LYNN did leave LYNN's phone number. Sandra BRUNNER MSW
[2020-09-23] MEDS: Insulin Lispro 100 UNIT/ML INSULN.PEN 30 UNIT SC (16:32)
[2020-09-23 16:40] LABS: Bedside Glucose > 500 mg/dL (70-110)
[2020-09-23] MEDS: 0.9% Saline Lock 10 ML Syringe IV (19:47)
[2020-09-23] MEDS: QUEtiapine 25 MG Tablet 75 MG PO (20:34)
[2020-09-23] MEDS: lamoTRIgine 100 MG Tablet 250 MG PO (20:35)
[2020-09-23 20:46] LABS: Bedside Glucose 286 mg/dL (70-110)
[2020-09-23] MEDS: Atorvastatin Calcium 80 MG Tablet PO (20:49)
[2020-09-23] MEDS: Zolpidem Tartrate 5 MG Tablet PO (20:59)
[2020-09-23] MEDS: Acetaminophen 325 MG Tablet 650 MG PO (20:59)
--- NOTE | 2020-09-23 21:04 | NURSING ---
Pt got up to bsc. Pt o2 sats drop to 84%. 02 appilied at 2lnc reappilied. Po came back up to 94%
[2020-09-24] VITALS (9 sets, daily range): BP systolic 99–144; BP diastolic 51–62; PULSE 58–77; RESP 14–20; TEMP 36.2–36.9; O2SAT 90–95
[2020-09-24 05:15] LABS: Absolute Neutrophil Count 13.8 X10^3/uL (2.0-7.7); Basophil# 0.08 X10^3/uL; Basophil% 0.5 % (0-1); Eosinophil# 0.11 X10^3/uL; Eosinophils% 0.6 % (0-5); Hematocrit 43.3 % (40-54); Hemoglobin 13.9 g/dL (13.0-16.5); Lymphocyte % 8.8 % (19-41); Mean Corp Hgb Conc 32.1 g/dL (32-36); Mean Corpuscular Hgb 29.5 pg (27.0-32.0); Mean Corpuscular Volume 91.9 fL (80-94); Mean Platelet Vol. 9.4 fl (6.2-12.0); Monocyte# 1.14 X10^3/uL; Monocyte% 6.7 % (0-10); NRBC Flagged by Analyzer 0 % (0-5); Neutrophil # 13.79 X10^3/uL (2.7-7.7); Neutrophil % 80.9 % (47-70); Platelet Count 433 K/mm3 (150-450); RBC Distribution Width CV 14.2 % (11.6-14.6); RBC Distribution Width SD 47.8 fl (35.1-43.9); Red Blood Count 4.71 M/mm3 (4.6-6.2)
[2020-09-24 05:28] LABS: Anion Gap 6 (5-15); BUN 61 mg/dL (7-18); BUN/Creat Ratio 40.9 RATIO (10-20); Calcium,Total 10.1 mg/dL (8.5-10.1); Chloride 100 mmol/L (98-107); Creatinine, Serum 1.49 mg/dL (0.70-1.30); EST Glomerular Filtration Rate 48 mL/min (>60); Est Glom Filt Rate - Afr Amer 58 mL/min (>60); Estimated Creatinine Clearance 37.43 ml/min; Glucose 215 mg/dL (74-106); Magnesium 2.5 mg/dL (1.6-2.6); Phosphorus 4.7 mg/dL (2.5-4.9); Potassium 5.2 mmol/L (3.5-5.1); Sodium Level 136 mmol/L (136-145)
--- NOTE | 2020-09-24 08:59 | PN_ITS ---
Patient Problems: Active and Suspected Problems COVID-19 (Acute) Encephalopathy acute (Acute) Dehydration (Acute) Elevated lactic acid level (Acute) Subjective: Patient did okay overnight. Patient has been requiring minimal nasal cannula oxygen. Patient's blood sugars have been elevated. Patient had a repeat Covid testing for potential disposition yesterday that was positive. - Physical Exam Vitals/I&O's: Vital Signs Temp Pulse Resp BP Pulse Ox 36.6 C 58 L 17 144/62 H 92 09/24/20 02:50 09/24/20 04:53 09/24/20 04:53 09/24/20 04:53 09/24/20 07:11 Oxygen Flow Rate (L/min) [ 7 AMBULATION with Oxygen] Oxygen Flow Rate (L/min) [ 3 AMBULATING on Room Air] Oxygen Flow Rate (L/min) [At 2 REST on Room Air] Oxygen Flow Rate (L/min) 2 Oxygen Delivery Method Nasal Cannula Weight: 87.5 kg Body Mass Index (BMI) 30.2 Finger Stick Blood Glucose 144 Intake and Output for Last 24 Hours 09/22/20 09/23/20 09/24/20 23:59 23:59 23:59 Intake Total 375 / 575 260 / 260 Output Total 1975 / 3475 3350 / 3350 375 / 375 Balance -1600 / -2900 -3090 / -3090 -375 / -375 General: No apparent distress, Confused, Disoriented, - - No conversational dyspnea noted HEENT: Atraumatic, PERRLA, EOMI, Normocephalic, - - Hard of hearing Oral: Moist Mucosa, No Gingival or Mucosal Lesions/ Ulcerations Neck: Supple, No JVD, No Nodes, Trachea Midline Lungs: No rhonchi, No wheeze, No rales, Diminished, - - Symmetric expansion. Cardiovascular: Regular rate, Regular Rhythm, Normal S1, Normal S2, No murmurs, No rub noted, No Gallop Abdomen: Bowel Sounds Present, Soft, Non Tender, Non-Distended Extremities: No clubbing, No cyanosis, No edema Skin: - - No change compared to previous Musculoskeletal: No Tenderness to Palpation of Joints or Extremities Lymphatic: No Cervical, Supraclavicular, or Inguinal Adenopathy Neurological: Cranial nerves II-XII grossly intact, Neuro grossly intact Psych/Mental Status: Flat Affect Laboratory Results 09/23/20 11:11: POC Glucose 352 H 09/23/20 13:30: COVID-19 (IMMANUEL) Detected 09/23/20 16:14: POC Glucose > 500 H* 09/23/20 20:33: POC Glucose 286 H 09/24/20 05:08: WBC 17.0 H, RBC 4.71, Hgb 13.9, Hct 43.3, MCV 91.9, MCH 29.5, MCHC 32.1, RDW Std Deviation 47.8 H, RDW Coeff of Elias 14.2, Plt Count 433, MPV 9.4, Immature Gran % (Auto) 2.500 H, Neut % (Auto) 80.9 H, Lymph % (Auto) 8.8 L, [place] % (Auto) 6.7, Eos % (Auto) 0.6, Baso % (Auto) 0.5, Absolute Neuts (auto) 13.8 H, Absolute Lymphs (auto) 1.50, Nucleated RBC % 0 09/24/20 05:08: Sodium 136, Potassium 5.2 H, Chloride 100, Carbon Dioxide 30.0, Anion Gap 6, BUN 61 H, Creatinine 1.49 H, Estim Creat Clear Calc 37.43, Est GFR (MDRD) Af Amer 58 L, Est GFR (MDRD) Non-Af 48 L, BUN/Creatinine Ratio 40.9 H, Glucose 215 H, Calcium 10.1, Phosphorus 4.7, Magnesium 2.5 Current Medications Acetaminophen (Acetaminophen 325 Mg Tablet) 650 mg PO Q6H PRN PRN PRN Reason: Pain Score 1-10/Temp > 100.7 F Last Admin: 09/23/20 20:59 Dose: 650 mg Documented by: Aspirin (Aspirin 81 Mg Tab.Chew) 81 mg PO DAILY@0800 [facility] Last Admin: 09/23/20 08:05 Dose: 81 mg Documented by: Atorvastatin Calcium (Atorvastatin Calcium 80 Mg Tablet) 80 mg PO QHS [facility] Last Admin: 09/23/20 20:49 Dose: 80 mg Documented by: Calamine/Phenol (Menthol/Lanolin/Calamine/Znox 113 Gm Tube) 1 applic TOPICAL BID [facility]; Protocol Last Admin: 09/23/20 19:48 Dose: 1 applicatio Documented by: Carvedilol (Carvedilol 6.25 Mg Tablet) 6.25 mg PO BID [facility] Last Admin: 09/23/20 20:34 Dose: 6.25 mg Documented by: Cholecalciferol (Cholecalciferol (Vit D3) 1,000 Unit (25mcg)) 5,000 unit PO DAILY [facility] Last Admin: 09/23/20 11:16 Dose: 5,000 unit Documented by: Clopidogrel Bisulfate (Clopidogrel Bisulfate 75 Mg Tablet) 75 mg PO DAILY [facility] Last Admin: 09/23/20 11:16 Dose: 75 mg Documented by: Dextrose (Dextrose 50%-Water 25 Gm/50 Ml Disp.Syrin) 0 gm IV X1 PRN; Protocol PRN Reason: Hypoglycemia Dorzolamide/Timolol (Dorzolamide Hcl/Timolol 10 Ml Bottle) 1 drop EACH EYE BID [facility] Last Admin: 09/23/20 20:35 Dose: 1 drop Documented by: Duloxetine HCl (Duloxetine Hcl 30 Mg Capsule) 30 mg PO BID [facility] Last Admin: 09/23/20 20:35 Dose: 30 mg Documented by: Enoxaparin Sodium (Enoxaparin 30 Mg/0.3 Ml Syringe) 30 mg SC BID [facility] Last Admin: 09/23/20 20:34 Dose: 30 mg Documented by: Glucagon (Glucagon 1 Mg/Ml Syringe) 1 mg IM .X1 PRN PRN Reason: Hypoglycemia Hydrochlorothiazide (Hydrochlorothiazide 12.5mg) 12.5 mg PO DAILY [facility] Last Admin: 09/23/20 11:14 Dose: 12.5 mg Documented by: Sodium Chloride () 250 mls @ 15 mls/hr IV .[id number] PRN PRN Reason: Saline Flush Last Infusion: 09/21/20 21:28 Dose: 0 mls/hr Documented by: Sodium Chloride () 250 mls @ 15 mls/hr IV .[id number] PRN PRN Reason: Additional IVPB Infusion Insulin Glargine (Insulin Glargine 100 Units/Ml Pen) 50 units SC BID [facility] Insulin Human Lispro (Insulin Lispro 100 Unit/Ml Insuln.Pen) 0 unit SC ACHS [facility]; Protocol Last Admin: 09/23/20 20:36 Dose: 2 unit Documented by: Lamotrigine (Lamotrigine 100 Mg Tablet) 250 mg PO QHS [facility] Last Admin: 09/23/20 20:35 Dose: 250 mg Documented by: Lisinopril (Lisinopril 5 Mg Tablet) 5 mg PO DAILY [facility] Last Admin: 09/23/20 11:16 Dose: 5 mg Documented by: Ondansetron HCl (Ondansetron 4 Mg/2 Ml Vial) 4 mg IV Q8H PRN PRN PRN Reason: NAUSEA/VOMITING Potassium Chloride (Potassium Chloride 20 Meq Tablet) 40 meq PO BIDCM [facility] Last Admin: 09/23/20 16:17 Dose: 40 meq Documented by: Quetiapine Fumarate (Quetiapine 25 Mg Tablet) 75 mg PO QHS [facility] Last Admin: 09/23/20 20:34 Dose: 75 mg Documented by: Senna/Docusate Sodium (Senna/Docusate Sodium 1 Tablet) 2 tablet PO BID PRN PRN Reason: Constipation Last Admin: 09/16/20 16:36 Dose: 2 tablet Documented by: Sodium Chloride (0.9% Saline Lock 10 Ml Syringe) 10 - 40 ml IV UD PRN PRN Reason: SALINE FLUSH Last Admin: 09/23/20 19:47 Dose: 10 ml Documented by: Zolpidem Tartrate (Zolpidem Tartrate 5 Mg Tablet) 5 mg PO QHS PRN PRN PRN Reason: INSOMNIA Last Admin: 09/23/20 20:59 Dose: 5 mg Documented by: Medical Necessity - Tobacco Use Smoking Status: Never smoker Tobacco Use: Non-smoker Assessment/Plan All Active Problems COVID-19 (Acute) Encephalopathy acute (Acute) Dehydration (Acute) Elevated lactic acid level (Acute) RECOMMENDATIONS: 1. Monitor without diuretics 2. Continue Decadron as ordered. 3. Continue antimicrobials per infectious diseases recommendations. 4. Wean supplemental oxygen to maintain saturations at or above 90%. 5. Encourage incentive spirometer use and mobilize patient as tolerated. 6. Increase Lantus therapy 7. Discharge planning IMPRESSIONS: 1. Acute hypoxemic respiratory failure secondary to COVID-19 Lung concern for possible possible superimposed bacterial pneumonia. The patient remains afebrile and hemodynamically stable. Continue diuretic therapy as tolerated. We will continue to monitor renal function on a daily basis. Continue to wean supplemental oxygen to maintain saturations at or above 90%. The patient has already completed a treatment course of remdesivir. Continue Decadron to complete a 10-day course. Antimicrobials course completed per infectious diseases recommendations. Off BiPAP therapy. Discontinue Clements and attempt ambulation. If able to tolerate ambulation on 6 L or less, potential discharge. Patient is testing positive for COVID-19, which complicates disposition. 2. Hypokalemia/hyperkalemia Continue to monitor electrolytes closely given diuretic therapy. Electrolyte repletion as ordered. Recheck levels in the morning. No EKG changes are noted. 3. Advanced age/diabetes mellitus/hypertension/coronary artery disease Complicates care, management, recovery and prognosis. Continue home medications as indicated. Patient will be initiated on Lantus, but this may be discontinued once patient completes Decadron course. Lasix held yesterday secondary to hypotension. Inpatient E&M: [id number] Subs Hosp L2
--- NOTE | 2020-09-24 09:45 | NURSING ---
ASSESSMENT DONE NOW.
[2020-09-24] MEDS: DULoxetine Hcl 30 MG Capsule PO ×2 (12:36→20:55)
[2020-09-24] MEDS: dexAMETHasone 4 MG Tablet 6 MG PO (12:36)
[2020-09-24] MEDS: Enoxaparin 30 MG/0.3 ML Syringe SC ×2 (12:36→20:51)
[2020-09-24] MEDS: Lisinopril 5 MG Tablet PO (12:37)
[2020-09-24] MEDS: Aspirin 81 MG TAB.CHEW PO (12:38)
[2020-09-24] MEDS: Carvedilol 6.25 MG Tablet PO ×2 (12:39→20:55)
[2020-09-24] MEDS: hydroCHLOROthiazide 12.5mg 12.5 MG PO (12:39)
[2020-09-24] MEDS: Menthol/Lanolin/Calamine/Znox 113 GM Tube 1 APPLIC TOPICAL ×2 (12:39→20:52)
[2020-09-24] MEDS: Clopidogrel Bisulfate 75 MG Tablet PO (12:39)
[2020-09-24] MEDS: Insulin Lispro 100 UNIT/ML INSULN.PEN SC ×3 (12:43→20:59)
[2020-09-24] MEDS: Dorzolamide HCL/Timolol 10 ml Bottle 1 DRP EACH EYE (12:46)
[2020-09-24 13:06] LABS: Bedside Glucose 280 mg/dL (70-110)
--- NOTE | 2020-09-24 13:07 | PN_ITS ---
Patient Problems: Active and Suspected Problems COVID-19 (Acute) Encephalopathy acute (Acute) Dehydration (Acute) Elevated lactic acid level (Acute) Reason for Visit: COVID-19 Subjective: Breathing well. Back is stiff. Vitals/I&O's: Vital Signs Temp Pulse Resp BP Pulse Ox 36.2 C L 77 20 H 99/53 L 90 09/24/20 12:00 09/24/20 12:00 09/24/20 12:00 09/24/20 12:00 09/24/20 12:00 Oxygen Flow Rate (L/min) [ 7 AMBULATION with Oxygen] Oxygen Flow Rate (L/min) [ 3 AMBULATING on Room Air] Oxygen Flow Rate (L/min) [At 2 REST on Room Air] Oxygen Flow Rate (L/min) 3 Oxygen Delivery Method Nasal Cannula Weight: 87.5 kg Body Mass Index (BMI) 30.2 Finger Stick Blood Glucose 144 Intake and Output for Last 24 Hours 09/22/20 09/23/20 09/24/20 23:59 23:59 23:59 Intake Total 375 / 575 260 / 260 Output Total 1975 / 3475 3350 / 3350 375 / 375 Balance -1600 / -2900 -3090 / -3090 -375 / -375 General: Alert, No apparent distress HEENT: Atraumatic, Normocephalic Oral: Moist Mucosa, No Gingival or Mucosal Lesions/ Ulcerations Neck: No Nodes, Thyroid Normal Size and Texture Lungs: Clear to auscultation, Normal air movement, No rhonchi, No wheeze Cardiovascular: Regular rate, Regular Rhythm, Normal S1, Normal S2 Abdomen: Bowel Sounds Present, Soft, Non Tender, Non-Distended Psych/Mental Status: Normal Affect, Appropriate Laboratory Results 09/23/20 13:30: COVID-19 (IMMANUEL) Detected 09/23/20 16:14: POC Glucose > 500 H* 09/23/20 20:33: POC Glucose 286 H 09/24/20 05:08: WBC 17.0 H, RBC 4.71, Hgb 13.9, Hct 43.3, MCV 91.9, MCH 29.5, MCHC 32.1, RDW Std Deviation 47.8 H, RDW Coeff of Elias 14.2, Plt Count 433, MPV 9.4, Immature Gran % (Auto) 2.500 H, Neut % (Auto) 80.9 H, Lymph % (Auto) 8.8 L, Crawford % (Auto) 6.7, Eos % (Auto) 0.6, Baso % (Auto) 0.5, Absolute Neuts (auto) 13.8 H, Absolute Lymphs (auto) 1.50, Nucleated RBC % 0 09/24/20 05:08: Sodium 136, Potassium 5.2 H, Chloride 100, Carbon Dioxide 30.0, Anion Gap 6, BUN 61 H, Creatinine 1.49 H, Estim Creat Clear Calc 37.43, Est GFR (MDRD) Af Amer 58 L, Est GFR (MDRD) Non-Af 48 L, BUN/Creatinine Ratio 40.9 H, Glucose 215 H, Calcium 10.1, Phosphorus 4.7, Magnesium 2.5 09/24/20 12:42: POC Glucose 280 H Current Medications Acetaminophen (Acetaminophen 325 Mg Tablet) 650 mg PO Q6H PRN PRN PRN Reason: Pain Score 1-10/Temp > 100.7 F Last Admin: 09/23/20 20:59 Dose: 650 mg Documented by: Aspirin (Aspirin 81 Mg Tab.Chew) 81 mg PO DAILY@0800 [facility] Last Admin: 09/24/20 12:38 Dose: 81 mg Documented by: Atorvastatin Calcium (Atorvastatin Calcium 80 Mg Tablet) 80 mg PO QHS [facility] Last Admin: 09/23/20 20:49 Dose: 80 mg Documented by: Calamine/Phenol (Menthol/Lanolin/Calamine/Znox 113 Gm Tube) 1 applic TOPICAL BID [facility]; Protocol Last Admin: 09/24/20 12:39 Dose: 1 applicatio Documented by: Carvedilol (Carvedilol 6.25 Mg Tablet) 6.25 mg PO BID [facility] Last Admin: 09/24/20 12:39 Dose: 6.25 mg Documented by: Cholecalciferol (Cholecalciferol (Vit D3) 1,000 Unit (25mcg)) 5,000 unit PO DAILY [facility] Last Admin: 09/24/20 12:36 Dose: 5,000 unit Documented by: Clopidogrel Bisulfate (Clopidogrel Bisulfate 75 Mg Tablet) 75 mg PO DAILY [facility] Last Admin: 09/24/20 12:39 Dose: 75 mg Documented by: Dextrose (Dextrose 50%-Water 25 Gm/50 Ml Disp.Syrin) 0 gm IV X1 PRN; Protocol PRN Reason: Hypoglycemia Dorzolamide/Timolol (Dorzolamide Hcl/Timolol 10 Ml Bottle) 1 drop EACH EYE BID [facility] Last Admin: 09/24/20 12:46 Dose: 1 drop Documented by: Duloxetine HCl (Duloxetine Hcl 30 Mg Capsule) 30 mg PO BID [facility] Last Admin: 09/24/20 12:36 Dose: 30 mg Documented by: Enoxaparin Sodium (Enoxaparin 30 Mg/0.3 Ml Syringe) 30 mg SC BID [facility] Last Admin: 09/24/20 12:36 Dose: 30 mg Documented by: Glucagon (Glucagon 1 Mg/Ml Syringe) 1 mg IM .X1 PRN PRN Reason: Hypoglycemia Hydrochlorothiazide (Hydrochlorothiazide 12.5mg) 12.5 mg PO DAILY [facility] Last Admin: 09/24/20 12:39 Dose: 12.5 mg Documented by: Sodium Chloride () 250 mls @ 15 mls/hr IV .[id number] PRN PRN Reason: Saline Flush Last Infusion: 09/21/20 21:28 Dose: 0 mls/hr Documented by: Sodium Chloride () 250 mls @ 15 mls/hr IV .[id number] PRN PRN Reason: Additional IVPB Infusion Insulin Glargine (Insulin Glargine 100 Units/Ml Pen) 50 units SC BID [facility] Last Admin: 09/24/20 12:45 Dose: 50 units Documented by: Insulin Human Lispro (Insulin Lispro 100 Unit/Ml Insuln.Pen) 0 unit SC ACHS [facility]; Protocol Last Admin: 09/24/20 12:43 Dose: 2 unit Documented by: Lamotrigine (Lamotrigine 100 Mg Tablet) 250 mg PO QHS [facility] Last Admin: 09/23/20 20:35 Dose: 250 mg Documented by: Lisinopril (Lisinopril 5 Mg Tablet) 5 mg PO DAILY [facility] Last Admin: 09/24/20 12:37 Dose: 5 mg Documented by: Ondansetron HCl (Ondansetron 4 Mg/2 Ml Vial) 4 mg IV Q8H PRN PRN PRN Reason: NAUSEA/VOMITING Potassium Chloride ([facility] 20 [facility]) [facility] Admin: 09/24/20 12:36 Dose: 40 meq Documented by: Quetiapine Fumarate (Quetiapine 25 Mg Tablet) 75 mg PO QHS [facility] Last Admin: 09/23/20 20:34 Dose: 75 mg Documented by: Senna/Docusate Sodium (Senna/Docusate Sodium 1 Tablet) 2 tablet PO BID PRN PRN Reason: Constipation Last Admin: 09/16/20 16:36 Dose: 2 tablet Documented by: Sodium Chloride (0.9% Saline Lock 10 Ml Syringe) 10 - 40 ml IV UD PRN PRN Reason: SALINE FLUSH Last Admin: 09/23/20 19:47 Dose: 10 ml Documented by: Zolpidem Tartrate (Zolpidem Tartrate 5 Mg Tablet) 5 mg PO QHS PRN PRN PRN Reason: INSOMNIA Last Admin: 09/23/20 20:59 Dose: 5 mg Documented by: STROKE Vital Signs/Narrative: Vital Signs Temp Pulse Resp BP Pulse Ox 09/24/20 12:00 36.2 C L 77 20 H 99/53 L 90 Medical Necessity - Tobacco Use Smoking Status: Never smoker Tobacco Use: Non-smoker Assessment/Plan All Active Problems COVID-19 (Acute) Encephalopathy acute (Acute) Dehydration (Acute) Elevated lactic acid level (Acute) 1. acute COVID-19 infection: dexamethasone through the . 2. acute hypoxic respiratory failure: 2/2 above. improving. wean oxygen as able. 3. DM2: uncontrolled. exacerbated by dexamethasone. started on basal insulin. continue SSI. metformin held given lactic acidosis. monitor closely as dexamethasone as completed. 4. lactic acidosis: likely 2/2 hypoxia and metformin. resolved. 5. HTN: BP running low earlier, but improving. on carvedilol, furosemide, HCTZ, lisinopril 6. CAD: ASA, statin and BB 7. VTE prophylaxis: enoxaparin 8. Disposition: medically stable for discharge. Still COVID-19 positive as of 09/23. DW case mgmt. Inpatient E&M: 12315 Subs Hosp L2
--- NOTE | 2020-09-24 14:05 | CASEMGMT ---
Social Work SW spoke with pt son Michele and pt on the phone. SW explained that pt has been tested for Covid 09/13, 09/17, 09/23 and all tests returned positive. LYNN explained further that no [facility] will accept pt due to this but SW can assist family in making arrangements for pt to go to a SNF out of the area that can accept Covid positive patients. Pt and son are adamant that due to visitation restrictions and distance of SNFs, pt will not be transferred to a SNF. SW explained that the plan will be for pt to be discharged tomorrow and that if SNF is not an option pt will be returning home tomorrow. SW discussed option of home health with pt and explained what home health could provide, and is agreeable to home health PT/OT/SN/REAL ESTATE REP through [facility]. SW explained that pt will also likely need home oxygen. Son requesting [employer] be utilized. SW explained to that [employer] will deliver tanks here for transport home and that [employer] would deliver concentrator to pt house and teach and son how to use the concentrator. Pt stating well we will see tomorrow. SW attempted to clarify with that pt is ready for d/c tomorrow and two options are home or SNF. again adamant pt will not go to SNF. Son then gets on phone and states he does not know how to get pt into house by himself. SW stated if son cannot assist pt in the house pt can pay for a wheelchair van. Son denies stating they cannot get wheelchair into home. Son requesting SW find out how pt does in therapy today and then call son back to determine if pt can be transported home in a car with one assist. Son stating he has no one that can assist with transfer into home. SW spoke with therapy and requested assessment be provided about car transfers. Therapy to provide information after therapy treats pt today. PENG Parker
[2020-09-24 17:35] LABS: Bedside Glucose 307 mg/dL (70-110)
[2020-09-24] MEDS: lamoTRIgine 100 MG Tablet 250 MG PO (20:53)
[2020-09-24] MEDS: Atorvastatin Calcium 80 MG Tablet PO (20:55)
[2020-09-24] MEDS: QUEtiapine 25 MG Tablet 75 MG PO (20:55)
[2020-09-24 21:40] LABS: Bedside Glucose 381 mg/dL (70-110)
[2020-09-24] MEDS: Zolpidem Tartrate 5 MG Tablet PO (22:41)
[2020-09-25 03:58] VITALS: BP 133/76; PULSE 72; RESP 18; TEMP 36.6; O2SAT 93
[2020-09-25 07:25] LABS: Bedside Glucose 141 mg/dL (70-110)
[2020-09-25 07:38] LABS: Anion Gap 8 (5-15); BUN 61 mg/dL (7-18); BUN/Creat Ratio 40.9 RATIO (10-20); Calcium,Total 10.3 mg/dL (8.5-10.1); Chloride 102 mmol/L (98-107); Creatinine, Serum 1.49 mg/dL (0.70-1.30); EST Glomerular Filtration Rate 48 mL/min (>60); Est Glom Filt Rate - Afr Amer 58 mL/min (>60); Estimated Creatinine Clearance 37.43 ml/min; Glucose 117 mg/dL (74-106); Magnesium 2.5 mg/dL (1.6-2.6); Potassium 4.6 mmol/L (3.5-5.1); Sodium Level 137 mmol/L (136-145)
[2020-09-25 10:08] VITALS: BP 114/58; PULSE 69; RESP 20; TEMP 36.4; O2SAT 96
[2020-09-25] MEDS: Clopidogrel Bisulfate 75 MG Tablet PO (10:14)
[2020-09-25] MEDS: DULoxetine Hcl 30 MG Capsule PO ×2 (10:15→21:50)
[2020-09-25] MEDS: Carvedilol 6.25 MG Tablet PO (10:15)
[2020-09-25] MEDS: Lisinopril 5 MG Tablet PO (10:15)
[2020-09-25] MEDS: Aspirin 81 MG TAB.CHEW PO (10:15)
[2020-09-25] MEDS: hydroCHLOROthiazide 12.5mg 12.5 MG PO (10:15)
[2020-09-25] MEDS: Menthol/Lanolin/Calamine/Znox 113 GM Tube 1 APPLIC TOPICAL ×2 (10:16→21:42)
[2020-09-25] MEDS: Enoxaparin 30 MG/0.3 ML Syringe SC ×2 (10:22→21:52)
--- NOTE | 2020-09-25 10:46 | CASEMGMT ---
RN CM Note: Call to [facility] and referral for HHC faxed to [facility] for review. If dc today, will need to set up home oxygen through [employer] and HHC. Awaiting PT/OT review of activity today to see if recommendation is for home or SNF. Per LYNN, family prefers for pt to return home and will transport him. -[facility] if [facility] cannot staff: [facility], [facility], Krystal GUILLENN RN ACM
--- NOTE | 2020-09-25 10:48 | CASEMGMT ---
Social Work Note LYNN updated that pt's son inquired about wheelchair van home for transport. LYNN placed a call to pt's son Michele and spoke with him regarding transportation time. LYNN explained that typically wheelchair van will not assist pt with getting in and out of wheelchair van so family would be responsible for helping pt get in and out of wheelchair. Michele states he will talk to pt's about transportation and then give this worker a call back. LYNN received message from pt's son Michele stating he and pt's will just transport pt home, denied needing wheelchair van arranged. LYNN updated RN CM, previous notes states pt's family was interested in HHC ([facility]) and pt will need oxygen. Anastacia Huerta PREDATORY ANIMAL HUNTER, DATA MANAGEMENT ANALYST
--- NOTE | 2020-09-25 11:28 | PCM.PN.ID ---
Patient Problems: Active and Suspected Problems COVID-19 (Acute) Encephalopathy acute (Acute) Dehydration (Acute) Elevated lactic acid level (Acute) Subjective: Feeling better, no fever - Physical Exam Vitals/I&O's: Vital Signs Temp Pulse Resp BP Pulse Ox 97.6 F L 69 20 H 114/58 L 96 09/25/20 10:08 09/25/20 10:08 09/25/20 10:08 09/25/20 10:08 09/25/20 10:08 Oxygen Flow Rate (L/min) [ 7 AMBULATION with Oxygen] Oxygen Flow Rate (L/min) [ 3 AMBULATING on Room Air] Oxygen Flow Rate (L/min) [At 2 REST on Room Air] Oxygen Flow Rate (L/min) 3 Oxygen Delivery Method Nasal Cannula Weight: 87.8 kg Body Mass Index (BMI) 30.2 Finger Stick Blood Glucose 144 Intake and Output for Last 24 Hours 09/23/20 09/24/20 09/25/20 23:59 23:59 23:59 Intake Total 260 / 260 300 / 300 Output Total 3350 / 3350 675 / 675 Balance -3090 / -3090 -675 / -475 300 / 300 General: Alert, Cooperative, No apparent distress Lungs: Diminished Cardiovascular: Regular rate, Regular Rhythm Abdomen: Soft, Non Tender, Non-Distended Skin: No rashes Laboratory Results 09/24/20 12:42: POC Glucose 280 H 09/24/20 17:24: POC Glucose 307 H 09/24/20 20:43: POC Glucose 381 H 09/25/20 06:48: POC Glucose 141 H 09/25/20 06:56: Sodium 137, Potassium 4.6, Chloride 102, Carbon Dioxide 27.0, Anion Gap 8, BUN 61 H, Creatinine 1.49 H, Estim Creat Clear Calc 37.43, Est GFR (MDRD) Af Amer 58 L, Est GFR (MDRD) Non-Af 48 L, BUN/Creatinine Ratio 40.9 H, Glucose 117 H, Calcium 10.3 H, Phosphorus 4.0, Magnesium 2.5 Current Medications Acetaminophen (Acetaminophen 325 Mg Tablet) 650 mg PO Q6H PRN PRN PRN Reason: Pain Score 1-10/Temp > 100.7 F Last Admin: 09/23/20 20:59 Dose: 650 mg Documented by: Aspirin (Aspirin 81 Mg Tab.Chew) 81 mg PO DAILY@0800 [facility] Last Admin: 09/25/20 10:15 Dose: 81 mg Documented by: Atorvastatin Calcium (Atorvastatin Calcium 80 Mg Tablet) 80 mg PO QHS [facility] Last Admin: 09/24/20 20:55 Dose: 80 mg Documented by: Calamine/Phenol (Menthol/Lanolin/Calamine/Znox 113 Gm Tube) 1 applic TOPICAL BID [facility]; Protocol Last Admin: 09/25/20 10:16 Dose: 1 applicatio Documented by: Carvedilol (Carvedilol 6.25 Mg Tablet) 6.25 mg PO BID [facility] Last Admin: 09/25/20 10:15 Dose: 6.25 mg Documented by: Cholecalciferol (Cholecalciferol (Vit D3) 1,000 Unit (25mcg)) 5,000 unit PO DAILY [facility] Last Admin: 09/25/20 10:14 Dose: 5,000 unit Documented by: Clopidogrel Bisulfate (Clopidogrel Bisulfate 75 Mg Tablet) 75 mg PO DAILY [facility] Last Admin: 09/25/20 10:14 Dose: 75 mg Documented by: Dextrose (Dextrose 50%-Water 25 Gm/50 Ml Disp.Syrin) 0 gm IV X1 PRN; Protocol PRN Reason: Hypoglycemia Dorzolamide/Timolol (Dorzolamide Hcl/Timolol 10 Ml Bottle) 1 drop EACH EYE BID [facility] Last Admin: 09/25/20 10:22 Dose: Not Given Documented by: Duloxetine HCl (Duloxetine Hcl 30 Mg Capsule) 30 mg PO BID [facility] Last Admin: 09/25/20 10:15 Dose: 30 mg Documented by: Enoxaparin Sodium (Enoxaparin 30 Mg/0.3 Ml Syringe) 30 mg SC BID [facility] Last Admin: 09/25/20 10:22 Dose: 30 mg Documented by: Glucagon (Glucagon 1 Mg/Ml Syringe) 1 mg IM .X1 PRN PRN Reason: Hypoglycemia Hydrochlorothiazide (Hydrochlorothiazide 12.5mg) 12.5 mg PO DAILY [facility] Last Admin: 09/25/20 10:15 Dose: 12.5 mg Documented by: Sodium Chloride () 250 mls @ 15 mls/hr IV .[id number] PRN PRN Reason: Saline Flush Last Infusion: 09/21/20 21:28 Dose: 0 mls/hr Documented by: Sodium Chloride () 250 mls @ 15 mls/hr IV .[id number] PRN PRN Reason: Additional IVPB Infusion Insulin Glargine (Insulin Glargine 100 Units/Ml Pen) 60 units SC BID [facility] Last Admin: 09/25/20 10:18 Dose: 60 units Documented by: Insulin Human Lispro (Insulin Lispro 100 Unit/Ml Insuln.Pen) 0 unit SC ACHS [facility]; Protocol Last Admin: 09/25/20 06:50 Dose: Not Given Documented by: Lamotrigine (Lamotrigine 100 Mg Tablet) 250 mg PO QHS [facility] Last Admin: 09/24/20 20:53 Dose: 250 mg Documented by: Lisinopril (Lisinopril 5 Mg Tablet) 5 mg PO DAILY [facility] Last Admin: 09/25/20 10:15 Dose: 5 mg Documented by: Ondansetron HCl (Ondansetron 4 Mg/2 Ml Vial) 4 mg IV Q8H PRN PRN PRN Reason: NAUSEA/VOMITING Potassium Chloride (Potassium Chloride 20 Meq Tablet) 40 meq PO BIDCM [facility] Last Admin: 09/25/20 10:15 Dose: 40 meq Documented by: Quetiapine Fumarate (Quetiapine 25 Mg Tablet) 75 mg PO QHS [facility] Last Admin: 09/24/20 20:55 Dose: 75 mg Documented by: Senna/Docusate Sodium (Senna/Docusate Sodium 1 Tablet) 2 tablet PO BID PRN PRN Reason: Constipation Last Admin: 09/16/20 16:36 Dose: 2 tablet Documented by: Sodium Chloride (0.9% Saline Lock 10 Ml Syringe) 10 - 40 ml IV UD PRN PRN Reason: SALINE FLUSH Last Admin: 09/23/20 19:47 Dose: 10 ml Documented by: Zolpidem Tartrate (Zolpidem Tartrate 5 Mg Tablet) 5 mg PO QHS PRN PRN PRN Reason: INSOMNIA Last Admin: 09/24/20 22:41 Dose: 5 mg Documented by: Medical Necessity - Tobacco Use Smoking Status: Never smoker Tobacco Use: Non-smoker Route of nutrition/ use of supplements: [] Nutritional Intake: [] IV Site: [] Clements Catheter: [] - Assessment/Plan Antibiotics: [] Assessment/Plan: [] Active and Suspected Problems COVID-19 (Acute) Encephalopathy acute (Acute) Dehydration (Acute) Elevated lactic acid level (Acute) acute hypoxic resp failure due to covid - mental status improved. Given 5 day course of remdesivir. O2 now much better. No fever. Completes dex. Ok for discharge if O2 can be arranged from ID perspective. Will follow
[2020-09-25] MEDS: Insulin Lispro 100 UNIT/ML INSULN.PEN SC (11:49)
[2020-09-25 11:55] LABS: Bedside Glucose 183 mg/dL (70-110)
[2020-09-25 12:22] VITALS: O2SAT 92
[2020-09-25 12:56] VITALS: O2SAT 86; O2SAT 90
--- NOTE | 2020-09-25 12:57 | NURSING ---
2 staff at bedside to attempt home oxygen qualifications, less than 10 feet from bed- pt very weak, legs buckling, not following cueing for walker use- emergently placed in chair and then returned to bed. pt very poor tolerance for any ambulation
--- NOTE | 2020-09-25 13:00 | CASEMGMT ---
Addendum entered by Bernard Vargas 09/25/20 13:18: HOA SHER was updated by nursing that in while standing the patient for ambulatory oxygen testing, the pt was unable to hold his weight and required nurse and physician for safety back to bed. Still requiring max assist of [address] Jackson- he will be calling the family to discuss. -HOA SHER updated LYNN Feliz. Candie MORENO Original Note: HOA SHER Production Truck Driver Note: Nursing will do home oxygen testing for [employer]. [facility] determination that they can take patient on discharge and start of care will be within 48 hours of discarge. Call to son, Michele. Updated on Home Health Care and [employer] for oxygen. Son requests oxygen be set up at home prior to patient being discharged. HOA SHER name and phone # for call back given to Michele. HOA SHER will let [employer] know family prefers set up of home oxygen prior to dc. -Dr. Jackson and nurse updated that per , family will be taking patient home. Per physician, patient is medically ready for discharge today with HHC and home oxygen. Candie WILSONM
--- NOTE | 2020-09-25 14:24 | PN_ITS ---
Patient Problems: Active and Suspected Problems COVID-19 (Acute) Encephalopathy acute (Acute) Dehydration (Acute) Elevated lactic acid level (Acute) Subjective: Patient did okay overnight. Patient with significant instability on examination today. Patient is not reporting any shortness of breath, fever or GI symptoms. - Physical Exam Vitals/I&O's: Vital Signs Temp Pulse Resp BP Pulse Ox 36.4 C L 69 20 H 114/58 L 86 09/25/20 10:08 09/25/20 10:08 09/25/20 10:08 09/25/20 10:08 09/25/20 12:56 Oxygen Flow Rate (L/min) [ 4 AMBULATION with Oxygen] Oxygen Flow Rate (L/min) [ 3 AMBULATING on Room Air] Oxygen Flow Rate (L/min) [At 2 REST on Room Air] Oxygen Flow Rate (L/min) 3 Oxygen Delivery Method Nasal Cannula Weight: 87.8 kg Body Mass Index (BMI) 30.2 Finger Stick Blood Glucose 144 Intake and Output for Last 24 Hours 09/23/20 09/24/20 09/25/20 23:59 23:59 23:59 Intake Total 260 / 260 300 / 300 Output Total 3350 / 3350 675 / 675 Balance -3090 / -3090 -675 / -475 300 / 300 General: Alert, Cooperative, No apparent distress, - - Slow to open eyes and interact HEENT: Atraumatic, PERRLA, EOMI, Normocephalic, - - No scleral icterus or injection noted Oral: Moist Mucosa, No Gingival or Mucosal Lesions/ Ulcerations Neck: Supple, No JVD, No Nodes, Trachea Midline Lungs: No rhonchi, No wheeze, No rales, Diminished, - - Symmetric expansion. No dullness to percussion. Cardiovascular: Regular rate, Regular Rhythm, Normal S1, Normal S2, No murmurs, No rub noted, No Gallop Abdomen: Bowel Sounds Present, Soft, Non Tender, Non-Distended Extremities: No clubbing, No cyanosis, No edema Skin: - - No change compared to previous Musculoskeletal: No Tenderness to Palpation of Joints or Extremities Lymphatic: No Cervical, Supraclavicular, or Inguinal Adenopathy Neurological: Cranial nerves II-XII grossly intact, Neuro grossly intact Psych/Mental Status: Flat Affect Laboratory Results 09/24/20 17:24: POC Glucose 307 H 09/24/20 20:43: POC Glucose 381 H 09/25/20 06:48: POC Glucose 141 H 09/25/20 06:56: Sodium 137, Potassium 4.6, Chloride 102, Carbon Dioxide 27.0, Anion Gap 8, BUN 61 H, Creatinine 1.49 H, Estim Creat Clear Calc 37.43, Est GFR (MDRD) Af Amer 58 L, Est GFR (MDRD) Non-Af 48 L, BUN/Creatinine Ratio 40.9 H, Glucose 117 H, Calcium 10.3 H, Phosphorus 4.0, Magnesium 2.5 09/25/20 11:47: POC Glucose 183 H Current Medications Acetaminophen (Acetaminophen 325 Mg Tablet) 650 mg PO Q6H PRN PRN PRN Reason: Pain Score 1-10/Temp > 100.7 F Last Admin: 09/23/20 20:59 Dose: 650 mg Documented by: Aspirin (Aspirin 81 Mg Tab.Chew) 81 mg PO DAILY@0800 [facility] Last Admin: 09/25/20 10:15 Dose: 81 mg Documented by: Atorvastatin Calcium (Atorvastatin Calcium 80 Mg Tablet) 80 mg PO QHS [facility] Last Admin: 09/24/20 20:55 Dose: 80 mg Documented by: Calamine/Phenol (Menthol/Lanolin/Calamine/Znox 113 Gm Tube) 1 applic TOPICAL BID [facility]; Protocol Last Admin: 09/25/20 10:16 Dose: 1 applicatio Documented by: Carvedilol (Carvedilol 6.25 Mg Tablet) 6.25 mg PO BID [facility] Last Admin: 09/25/20 10:15 Dose: 6.25 mg Documented by: Cholecalciferol (Cholecalciferol (Vit D3) 1,000 Unit (25mcg)) 5,000 unit PO DAILY [facility] Last Admin: 09/25/20 10:14 Dose: 5,000 unit Documented by: Clopidogrel Bisulfate (Clopidogrel Bisulfate 75 Mg Tablet) 75 mg PO DAILY [facility] Last Admin: 09/25/20 10:14 Dose: 75 mg Documented by: Dextrose (Dextrose 50%-Water 25 Gm/50 Ml Disp.Syrin) 0 gm IV X1 PRN; Protocol PRN Reason: Hypoglycemia Dorzolamide/Timolol (Dorzolamide Hcl/Timolol 10 Ml Bottle) 1 drop EACH EYE BID [facility] Last Admin: 09/25/20 10:22 Dose: Not Given Documented by: Duloxetine HCl (Duloxetine Hcl 30 Mg Capsule) 30 mg PO BID [facility] Last Admin: 09/25/20 10:15 Dose: 30 mg Documented by: Enoxaparin Sodium (Enoxaparin 30 Mg/0.3 Ml Syringe) 30 mg SC BID [facility] Last Admin: 09/25/20 10:22 Dose: 30 mg Documented by: Glucagon (Glucagon 1 Mg/Ml Syringe) 1 mg IM .X1 PRN PRN Reason: Hypoglycemia Hydrochlorothiazide (Hydrochlorothiazide 12.5mg) 12.5 mg PO DAILY [facility] Last Admin: 09/25/20 10:15 Dose: 12.5 mg Documented by: Sodium Chloride () 250 mls @ 15 mls/hr IV .[id number] PRN PRN Reason: Saline Flush Last Infusion: 09/21/20 21:28 Dose: 0 mls/hr Documented by: Sodium Chloride () 250 mls @ 15 mls/hr IV .[id number] PRN PRN Reason: Additional IVPB Infusion Insulin Glargine (Insulin Glargine 100 Units/Ml Pen) 60 units SC BID [facility] Last Admin: 09/25/20 10:18 Dose: 60 units Documented by: Insulin Human Lispro (Insulin Lispro 100 Unit/Ml Insuln.Pen) 0 unit SC [facility]; Protocol Last Admin: 09/25/20 11:49 Dose: 1 unit Documented by: Lamotrigine (Lamotrigine 100 Mg Tablet) 250 mg PO QHS [facility] Last Admin: 09/24/20 20:53 Dose: 250 mg Documented by: Lisinopril (Lisinopril 5 Mg Tablet) 5 mg PO DAILY [facility] Last Admin: 09/25/20 10:15 Dose: 5 mg Documented by: Ondansetron HCl (Ondansetron 4 Mg/2 Ml Vial) 4 mg IV Q8H PRN PRN PRN Reason: NAUSEA/VOMITING Potassium Chloride (Potassium Chloride 20 Meq Tablet) 40 meq PO BIDCM [facility] Last Admin: 09/25/20 10:15 Dose: 40 meq Documented by: Quetiapine Fumarate (Quetiapine 25 Mg Tablet) 75 mg PO QHS [facility] Last Admin: 09/24/20 20:55 Dose: 75 mg Documented by: Senna/Docusate Sodium (Senna/Docusate Sodium 1 Tablet) 2 tablet PO BID PRN PRN Reason: Constipation Last Admin: 09/16/20 16:36 Dose: 2 tablet Documented by: Sodium Chloride (0.9% Saline Lock 10 Ml Syringe) 10 - 40 ml IV UD PRN PRN Reason: SALINE FLUSH Last Admin: 09/23/20 19:47 Dose: 10 ml Documented by: Zolpidem Tartrate (Zolpidem Tartrate 5 Mg Tablet) 5 mg PO QHS PRN PRN PRN Reason: INSOMNIA Last Admin: 09/24/20 22:41 Dose: 5 mg Documented by: Medical Necessity - Tobacco Use Smoking Status: Never smoker Tobacco Use: Non-smoker Assessment/Plan All Active Problems COVID-19 (Acute) Encephalopathy acute (Acute) Dehydration (Acute) Elevated lactic acid level (Acute) RECOMMENDATIONS: 1. Monitor without diuretics 2. Continue Decadron as ordered. 3. Continue antimicrobials per infectious diseases recommendations. 4. Wean supplemental oxygen to maintain saturations at or above 90%. 5. Encourage incentive spirometer use and mobilize patient as tolerated. 6. Increase Lantus therapy 7. Hemodynamically stable on minimal nasal cannula oxygen. Will sign off from a pulmonary perspective IMPRESSIONS: 1. Acute hypoxemic respiratory failure secondary to COVID-19 Lung concern for possible possible superimposed bacterial pneumonia. The patient remains afebrile and hemodynamically stable. Continue diuretic therapy as tolerated. We will continue to monitor renal function on a daily basis. Continue to wean supplemental oxygen to maintain saturations at or above 90%. The patient has already completed a treatment course of remdesivir. Completed a 10-day course of Decadron. Antimicrobials course completed per infectious diseases recommendations. Will need to watch oxygen closely. If patient is discharged on supplemental oxygen, patient can follow-up in our office in 4 to 6 weeks for repeat evaluation to see if this can be discontinued. 2. Hypokalemia/hyperkalemia Continue to monitor electrolytes closely given diuretic therapy. Electrolyte repletion as ordered. No EKG changes are noted. 3. Advanced age/diabetes mellitus/hypertension/coronary artery disease Complicates care, management, recovery and prognosis. Continue home medications as indicated. Watch blood sugars closely given Lantus and discontinuation of Decadron Inpatient E&M: [id number] [facility] Hosp L2
--- NOTE | 2020-09-25 15:06 | CASEMGMT ---
RN CM Note: DC on hold until Dr. Jackson speaks with family re: patient's deconditioned status and recommendation for SNF again. Green sheet is on front of chart for oxygen through [facility] and HHC through [facility] if home is planned later today. If SNF is needed, dc will need to wait until SNF is set up. Candie MORILLO RN ACM
--- NOTE | 2020-09-25 15:58 | PCM.PN.HOSP ---
Patient Problems: Active and Suspected Problems COVID-19 (Acute) Encephalopathy acute (Acute) Dehydration (Acute) Elevated lactic acid level (Acute) Reason for Visit: COVID Subjective: Still weak. Vitals/I&O's: Vital Signs Temp Pulse Resp BP Pulse Ox 36.4 C L 69 20 H 114/58 L 86 09/25/20 10:08 09/25/20 10:08 09/25/20 10:08 09/25/20 10:08 09/25/20 12:56 Oxygen Flow Rate (L/min) [ 4 AMBULATION with Oxygen] Oxygen Flow Rate (L/min) [ 3 AMBULATING on Room Air] Oxygen Flow Rate (L/min) [At 2 REST on Room Air] Oxygen Flow Rate (L/min) 3 Oxygen Delivery Method Nasal Cannula Weight: 87.8 kg Body Mass Index (BMI) 30.2 Finger Stick Blood Glucose 144 Intake and Output for Last 24 Hours 09/23/20 09/24/20 09/25/20 23:59 23:59 23:59 Intake Total 260 / 260 300 / 300 Output Total 3350 / 3350 675 / 675 Balance -3090 / -3090 -675 / -475 300 / 300 General: No apparent distress HEENT: Atraumatic, Normocephalic Oral: Moist Mucosa, No Gingival or Mucosal Lesions/ Ulcerations Neck: No Nodes, Thyroid Normal Size and Texture Lungs: Normal air movement, No rhonchi, No wheeze Cardiovascular: Regular rate, Regular Rhythm, Normal S1, Normal S2 Abdomen: Bowel Sounds Present, Soft, Non Tender, Non-Distended Extremities: No edema, No Calf Tenderness Neurological: - - unsteady gait. Was walking the patient with assistance with the nurse to check amatory pulse ox. Patient got roughly 3 feet from his bed and then just stopped. He was barely able to hold his own weight I had to hold his up until the nurse was able to get a chair behind him. Psych/Mental Status: Normal Affect, Appropriate Laboratory Results 09/24/20 17:24: POC Glucose 307 H 09/24/20 20:43: POC Glucose 381 H 09/25/20 06:48: POC Glucose 141 H 09/25/20 06:56: Sodium 137, Potassium 4.6, Chloride 102, Carbon Dioxide 27.0, Anion Gap 8, BUN 61 H, Creatinine 1.49 H, Estim Creat Clear Calc 37.43, Est GFR (MDRD) Af Amer 58 L, Est GFR (MDRD) Non-Af 48 L, BUN/Creatinine Ratio 40.9 H, Glucose 117 H, Calcium 10.3 H, Phosphorus 4.0, Magnesium 2.5 09/25/20 11:47: POC Glucose 183 H Current Medications Acetaminophen (Acetaminophen 325 Mg Tablet) 650 mg PO Q6H PRN PRN PRN Reason: Pain Score 1-10/Temp > 100.7 F Last Admin: 09/23/20 20:59 Dose: 650 mg Documented by: Aspirin (Aspirin 81 Mg Tab.Chew) 81 mg PO DAILY@0800 [facility] Last Admin: 09/25/20 10:15 Dose: 81 mg Documented by: Atorvastatin Calcium (Atorvastatin Calcium 80 Mg Tablet) 80 mg PO QHS [facility] Last Admin: 09/24/20 20:55 Dose: 80 mg Documented by: Calamine/Phenol (Menthol/Lanolin/Calamine/Znox 113 Gm Tube) 1 applic TOPICAL BID [facility]; Protocol Last Admin: 09/25/20 10:16 Dose: 1 applicatio Documented by: Carvedilol (Carvedilol 6.25 Mg Tablet) 6.25 mg PO BID [facility] Last Admin: 09/25/20 10:15 Dose: 6.25 mg Documented by: Cholecalciferol (Cholecalciferol (Vit D3) 1,000 Unit (25mcg)) 5,000 unit PO DAILY [facility] Last Admin: 09/25/20 10:14 Dose: 5,000 unit Documented by: Clopidogrel Bisulfate (Clopidogrel Bisulfate 75 Mg Tablet) 75 mg PO DAILY [facility] Last Admin: 09/25/20 10:14 Dose: 75 mg Documented by: Dextrose (Dextrose 50%-Water 25 Gm/50 Ml Disp.Syrin) 0 gm IV X1 PRN; Protocol PRN Reason: Hypoglycemia Dorzolamide/Timolol (Dorzolamide Hcl/Timolol 10 Ml Bottle) 1 drop EACH EYE BID [facility] Last Admin: 09/25/20 10:22 Dose: Not Given Documented by: Duloxetine HCl (Duloxetine Hcl 30 Mg Capsule) 30 mg PO BID [facility] Last Admin: 09/25/20 10:15 Dose: 30 mg Documented by: Enoxaparin Sodium (Enoxaparin 30 Mg/0.3 Ml Syringe) 30 mg SC BID [facility] Last Admin: 09/25/20 10:22 Dose: 30 mg Documented by: Glucagon (Glucagon 1 Mg/Ml Syringe) 1 mg IM .X1 PRN PRN Reason: Hypoglycemia Hydrochlorothiazide (Hydrochlorothiazide 12.5mg) 12.5 mg PO DAILY [facility] Last Admin: 09/25/20 10:15 Dose: 12.5 mg Documented by: Sodium Chloride () 250 mls @ 15 mls/hr IV .[id number] PRN PRN Reason: Saline Flush Last Infusion: 09/21/20 21:28 Dose: 0 mls/hr Documented by: Sodium Chloride () 250 mls @ 15 mls/hr IV .[id number] PRN PRN Reason: Additional IVPB Infusion Insulin Glargine (Insulin Glargine 100 Units/Ml Pen) 60 units SC BID [facility] Last Admin: 09/25/20 10:18 Dose: 60 units Documented by: Insulin Human Lispro (Insulin Lispro 100 Unit/Ml Insuln.Pen) 0 unit SC [facility]; Protocol Last Admin: 09/25/20 11:49 Dose: 1 unit Documented by: Lamotrigine (Lamotrigine 100 Mg Tablet) 250 mg PO QHS [facility] Last Admin: 09/24/20 20:53 Dose: 250 mg Documented by: Lisinopril (Lisinopril 5 Mg Tablet) 5 mg PO DAILY [facility] Last Admin: 09/25/20 10:15 Dose: 5 mg Documented by: Ondansetron HCl (Ondansetron 4 Mg/2 Ml Vial) 4 mg IV Q8H PRN PRN PRN Reason: NAUSEA/VOMITING Potassium Chloride (Potassium Chloride 20 Meq Tablet) 40 meq PO BIDCM [facility] Last Admin: 09/25/20 10:15 Dose: 40 meq Documented by: Quetiapine Fumarate (Quetiapine 25 Mg Tablet) 75 mg PO QHS [facility] Last Admin: 09/24/20 20:55 Dose: 75 mg Documented by: Senna/Docusate Sodium (Senna/Docusate Sodium 1 Tablet) 2 tablet PO BID PRN PRN Reason: Constipation Last Admin: 09/16/20 16:36 Dose: 2 tablet Documented by: Sodium Chloride (0.9% Saline Lock 10 Ml Syringe) 10 - 40 ml IV UD PRN PRN Reason: SALINE FLUSH Last Admin: 09/23/20 19:47 Dose: 10 ml Documented by: Zolpidem Tartrate (Zolpidem Tartrate 5 Mg Tablet) 5 mg PO QHS PRN PRN PRN Reason: INSOMNIA Last Admin: 09/24/20 22:41 Dose: 5 mg Documented by: STROKE Vital Signs/Narrative: Vital Signs Pulse Ox Pulse Ox Pulse Ox Pulse Ox 09/25/20 12:56 86 90 86 09/25/20 12:22 92 Medical Necessity - Tobacco Use Smoking Status: Never smoker Tobacco Use: Non-smoker Assessment/Plan All Active Problems COVID-19 (Acute) Encephalopathy acute (Acute) Dehydration (Acute) Elevated lactic acid level (Acute) 1. acute COVID-19 infection: dexamethasone completed 2. acute hypoxic respiratory failure: 2/2 above. improving. wean oxygen as able. 3. DM2: uncontrolled. exacerbated by dexamethasone. started on basal insulin. continue SSI. metformin held given lactic acidosis. monitor closely as dexamethasone as completed. 4. lactic acidosis: likely 2/2 hypoxia and metformin. resolved. 5. HTN: BP running low earlier, but improving. on carvedilol, furosemide, HCTZ, lisinopril 6. CAD: ASA, statin and BB 7. VTE prophylaxis: enoxaparin 8. Disposition: medically stable for discharge. Still COVID-19 positive as of 09/23. Plan was for the patient to be discharged home with home care. I spoke with the patient's son, Michele Snow, and explained that the patient was only able to walk a short distance and required a lot of assistance just to stand up. I advised strong caution about him going home. He stated that given that, he would not want him at home and states that he does not want him to go to a custodial facility because facilities would have Covid. I reminded Mr. Snow that the patient does have Covid. He states that he wants patient to stay in the hospital until he is stronger. I informed him that I do not anticipate this patient being any stronger the next coming days released and not to any significant degree. He is still adamant that patient is not to go to a custodial facility and does not want him at home and would rather him just stay in the hospital. Explained that there may be insurance issues as he is a medically stable for discharge though profoundly weak. He had said that Dr. Sanabria had spoke to the patient his a couple days ago and stated that the patient would be in the hospital for another week. I informed him that Dr. Sanabria has not seen the patient since the and Dr. Michael has been assuming pulmonary care since then and has since signed off from a pulmonary perspective. He stated that there is been a lot of misinformation and that he has recorded conversations. I asked him if he was recording this particular conversation to which he said he was not. I also told him that if he had recorded other conversations that he would have needed to ask permission particular if it was over the phone. He told me not to worry that he was not recording this conversation. Mr. Snow was cordial during this conversation and not confrontational whatsoever. Though I did tell him that I would let case management know about his decision and that they may potentially involve legal in regards to resolving this issue. Message left with case management. Greater than 35 minutes of which greater than 50% of time was discussing with the patient's son about the patient's physical status and recommendations as delineated above. Inpatient E&M: [id number] [facility] Hosp L3
[2020-09-25 16:45] VITALS: BP 108/60; PULSE 66; RESP 18; TEMP 36.5; O2SAT 94
--- NOTE | 2020-09-25 17:40 | CASEMGMT ---
Social Work MedSurg 2 Received phone call from patient's son Michele, and patient's John wanting to discuss discharge planning for this patient. Family expressed concerns with changing discharge plans, and desire to get patient settled somewhere for continued recovery. At this time patient's family is verbalizing agreement for patient to be placed in a care home facility, short-term for rehab. Family is inquiring about a [facility] in [place] which takes patients who have COVID. This newspaper writer informed family that uncertain whether there truly are any nursing facilities in the area, but that social work can verify this on 09/26/2020. Educated to [facility] in [place] as the closest known nursing facility taking COVID diagnosis. Family agreeable to social work attempting to find placement. PLAN: Social work to work on a nursing facility placement. Will look into viability of facilities in [place], as well as check with [facility] bed availability, as this is a facility who is known to take patients with COVID diagnosis. -ELSA Cat, [employer] P[employer] HELPER
[2020-09-25 19:36] LABS: Bedside Glucose 143 mg/dL (70-110)
[2020-09-25] MEDS: 0.9% Saline Lock 10 ML Syringe IV (21:48)
[2020-09-25] MEDS: lamoTRIgine 100 MG Tablet 250 MG PO (21:49)
[2020-09-25] MEDS: QUEtiapine 25 MG Tablet 75 MG PO (21:51)
[2020-09-25] MEDS: Atorvastatin Calcium 80 MG Tablet PO (21:52)
[2020-09-25 22:01] VITALS: BP 109/57; PULSE 72; RESP 18; TEMP 36.7; O2SAT 94
[2020-09-25] MEDS: Zolpidem Tartrate 5 MG Tablet PO (22:11)
[2020-09-25 22:16] LABS: Bedside Glucose 144 mg/dL (70-110)
[2020-09-25] MEDS: Dorzolamide HCL/Timolol 10 ml Bottle 1 DRP EACH EYE (23:01)
[2020-09-26] VITALS (9 sets, daily range): BP systolic 98–137; BP diastolic 48–75; PULSE 64–74; RESP 16–20; TEMP 36.1–37.5; O2SAT 91–97
[2020-09-26 07:06] LABS: Bedside Glucose 111 mg/dL (70-110)
[2020-09-26] MEDS: Carvedilol 6.25 MG Tablet PO ×2 (09:11→22:27)
[2020-09-26] MEDS: DULoxetine Hcl 30 MG Capsule PO ×2 (09:11→22:27)
[2020-09-26] MEDS: Aspirin 81 MG TAB.CHEW PO (09:11)
[2020-09-26] MEDS: Clopidogrel Bisulfate 75 MG Tablet PO (09:11)
[2020-09-26] MEDS: hydroCHLOROthiazide 12.5mg 12.5 MG PO (09:12)
[2020-09-26] MEDS: Menthol/Lanolin/Calamine/Znox 113 GM Tube 1 APPLIC TOPICAL ×2 (09:12→22:22)
[2020-09-26] MEDS: Lisinopril 5 MG Tablet PO (09:12)
[2020-09-26] MEDS: Dorzolamide HCL/Timolol 10 ml Bottle 1 DRP EACH EYE ×2 (09:12→22:24)
[2020-09-26] MEDS: Enoxaparin 30 MG/0.3 ML Syringe SC ×2 (09:13→22:25)
[2020-09-26] MEDS: Insulin Lispro 100 UNIT/ML INSULN.PEN SC ×2 (11:00→17:11)
[2020-09-26 11:20] LABS: Bedside Glucose 151 mg/dL (70-110)
--- NOTE | 2020-09-26 11:39 | CASEMGMT ---
Social Work SW placed calls to [facility] [place], [facility] [place] and [facility] to check on admission possibility. [facility] and [facility] will not accept pt. [facility] would consider. Referral sent to [facility] and after review they are unable to accept pt. Phone call to [facility] and referral sent. [facility] is able to accept pt and can take pt today. Physician updated, pt is not medically ready at this time. Sandra at [facility] updated pt will not come today, Sandra states they do not take Covid admissions on the weekend but a bed would be available for pt on Tuesday. Phone call to pt son Michele and informed of above. Michele is agreeable to discharge to [facility] SNF and is aware that bed will be available on Tuesday if pt is medically ready. Plan: [facility] SNF, can accept on Tuesday if pt is medically ready PENG Parker
--- NOTE | 2020-09-26 11:55 | CASEMGMT ---
HOA CM Note: Call to [facility] to notify referral will be cancelled for now. Plan is for SNF on dc. Candie MORILLO RN ACM
--- NOTE | 2020-09-26 15:36 | PCM.PN.ID ---
Patient Problems: Active and Suspected Problems COVID-19 (Acute) Encephalopathy acute (Acute) Dehydration (Acute) Elevated lactic acid level (Acute) Subjective: Mask pulled off of face, confused. No fever. - Physical Exam Vitals/I&O's: Vital Signs Temp Pulse Resp BP Pulse Ox 98.6 F 71 20 H 98/48 L 94 09/26/20 15:17 09/26/20 15:17 09/26/20 15:17 09/26/20 15:17 09/26/20 15:17 Oxygen Flow Rate (L/min) [ 4 AMBULATION with Oxygen] Oxygen Flow Rate (L/min) [ 3 AMBULATING on Room Air] Oxygen Flow Rate (L/min) [At 2 REST on Room Air] Oxygen Flow Rate (L/min) 7 Oxygen Delivery Method Nasal Cannula Weight: 87.1 kg Body Mass Index (BMI) 30.2 Finger Stick Blood Glucose 144 Intake and Output for Last 24 Hours 09/24/20 09/25/20 09/26/20 23:59 23:59 23:59 Intake Total 325 / 325 460 / 460 Output Total 675 / 675 125 / 125 Balance -675 / -475 200 / 200 460 / 460 General: Confused Lungs: Diminished Cardiovascular: Regular rate, Regular Rhythm Abdomen: Soft, Non Tender, Non-Distended Skin: No rashes Laboratory Results 09/25/20 16:42: POC Glucose 143 H 09/25/20 21:41: POC Glucose 144 H 09/26/20 06:50: POC Glucose 111 H 09/26/20 10:38: COVID-19 (IMMANUEL) Detected 09/26/20 10:56: POC Glucose 151 H Current Medications Acetaminophen (Acetaminophen 325 Mg Tablet) 650 mg PO Q6H PRN PRN PRN Reason: Pain Score 1-10/Temp > 100.7 F Last Admin: 09/23/20 20:59 Dose: 650 mg Documented by: Aspirin (Aspirin 81 Mg Tab.Chew) 81 mg PO DAILY@0800 [facility] Last Admin: 09/26/20 09:11 Dose: 81 mg Documented by: Atorvastatin Calcium (Atorvastatin Calcium 80 Mg Tablet) 80 mg PO QHS [facility] Last Admin: 09/25/20 21:52 Dose: 80 mg Documented by: Calamine/Phenol (Menthol/Lanolin/Calamine/Znox 113 Gm Tube) 1 applic TOPICAL BID [facility]; Protocol Last Admin: 09/26/20 09:12 Dose: 1 applicatio Documented by: Carvedilol (Carvedilol 6.25 Mg Tablet) 6.25 mg PO BID [facility] Last Admin: 09/26/20 09:11 Dose: 6.25 mg Documented by: Cholecalciferol (Cholecalciferol (Vit D3) 1,000 Unit (25mcg)) 5,000 unit PO DAILY [facility] Last Admin: 09/26/20 09:12 Dose: 5,000 unit Documented by: Clopidogrel Bisulfate (Clopidogrel Bisulfate 75 Mg Tablet) 75 mg PO DAILY [facility] Last Admin: 09/26/20 09:11 Dose: 75 mg Documented by: Dextrose (Dextrose 50%-Water 25 Gm/50 Ml Disp.Syrin) 0 gm IV X1 PRN; Protocol PRN Reason: Hypoglycemia Dorzolamide/Timolol (Dorzolamide Hcl/Timolol 10 Ml Bottle) 1 drop EACH EYE BID [facility] Last Admin: 09/26/20 09:12 Dose: 1 drop Documented by: Duloxetine HCl (Duloxetine Hcl 30 Mg Capsule) 30 mg PO BID [facility] Last Admin: 09/26/20 09:11 Dose: 30 mg Documented by: Enoxaparin Sodium (Enoxaparin 30 Mg/0.3 Ml Syringe) 30 mg SC BID [facility] Last Admin: 09/26/20 09:13 Dose: 30 mg Documented by: Glucagon (Glucagon 1 Mg/Ml Syringe) 1 mg IM .X1 PRN PRN Reason: Hypoglycemia Hydrochlorothiazide (Hydrochlorothiazide 12.5mg) 12.5 mg PO DAILY [facility] Last Admin: 09/26/20 09:12 Dose: 12.5 mg Documented by: Sodium Chloride () 250 mls @ 15 mls/hr IV .[id number] PRN PRN Reason: Saline Flush Last Infusion: 09/21/20 21:28 Dose: 0 mls/hr Documented by: Sodium Chloride () 250 mls @ 15 mls/hr IV .[id number] PRN PRN Reason: Additional IVPB Infusion Insulin Glargine (Insulin Glargine 100 Units/Ml Pen) 60 units SC BID [facility] Last Admin: 09/26/20 11:00 Dose: 60 units Documented by: Insulin Human Lispro (Insulin Lispro 100 Unit/Ml Insuln.Pen) 0 unit SC ACHS [facility]; Protocol Last Admin: 09/26/20 11:00 Dose: 1 unit Documented by: Lamotrigine (Lamotrigine 100 Mg Tablet) 250 mg PO QHS [facility] Last Admin: 09/25/20 21:49 Dose: 250 mg Documented by: Lisinopril (Lisinopril 5 Mg Tablet) 5 mg PO DAILY [facility] Last Admin: 09/26/20 09:12 Dose: 5 mg Documented by: Ondansetron HCl (Ondansetron 4 Mg/2 Ml Vial) 4 mg IV Q8H PRN PRN PRN Reason: NAUSEA/VOMITING Potassium Chloride (Potassium Ch[facility] 20 [facility]t) [facility] Admin: 09/26/20 09:11 Dose: 40 meq Documented by: Quetiapine Fumarate (Quetiapine 25 Mg Tablet) 75 mg PO QHS [facility] Last Admin: 09/25/20 21:51 Dose: 75 mg Documented by: Senna/Docusate Sodium (Senna/Docusate Sodium 1 Tablet) 2 tablet PO BID PRN PRN Reason: Constipation Last Admin: 09/16/20 16:36 Dose: 2 tablet Documented by: Sodium Chloride (0.9% Saline Lock 10 Ml Syringe) 10 - 40 ml IV UD PRN PRN Reason: SALINE FLUSH Last Admin: 09/25/20 21:48 Dose: 10 ml Documented by: Zolpidem Tartrate (Zolpidem Tartrate 5 Mg Tablet) 5 mg PO QHS PRN PRN PRN Reason: INSOMNIA Last Admin: 09/25/20 22:11 Dose: 5 mg Documented by: Medical Necessity - Tobacco Use Smoking Status: Never smoker Tobacco Use: Non-smoker Route of nutrition/ use of supplements: [] Nutritional Intake: [] IV Site: [] Clements Catheter: [] - Assessment/Plan Antibiotics: [] Assessment/Plan: [] Active and Suspected Problems COVID-19 (Acute) Encephalopathy acute (Acute) Dehydration (Acute) Elevated lactic acid level (Acute) acute hypoxic resp failure due to covid - mental status improved. Given 5 day course of remdesivir. O2 worsened over past 1-2 days. No fever. Completes dex. Will follow
--- NOTE | 2020-09-26 15:44 | PN_ITS ---
Patient Problems: Active and Suspected Problems COVID-19 (Acute) Encephalopathy acute (Acute) Dehydration (Acute) Elevated lactic acid level (Acute) Reason for Visit: COVID 19 Subjective: Was working with therapy and sats dropped into 60% range, but it was noted that he may have been holding his breath. I saw the patient and he had his oxygen off and was hovering b/w 86-91% on RA. Stating that he was done fighting Vitals/I&O's: Vital Signs Temp Pulse Resp BP Pulse Ox 37.0 C 71 20 H 98/48 L 94 09/26/20 15:17 09/26/20 15:17 09/26/20 15:17 09/26/20 15:17 09/26/20 15:17 Oxygen Flow Rate (L/min) [ 4 AMBULATION with Oxygen] Oxygen Flow Rate (L/min) [ 3 AMBULATING on Room Air] Oxygen Flow Rate (L/min) [At 2 REST on Room Air] Oxygen Flow Rate (L/min) 7 Oxygen Delivery Method Nasal Cannula Weight: 87.1 kg Body Mass Index (BMI) 30.2 Finger Stick Blood Glucose 144 Intake and Output for Last 24 Hours 09/24/20 09/25/20 09/26/20 23:59 23:59 23:59 Intake Total 325 / 325 460 / 460 Output Total 675 / 675 125 / 125 Balance -675 / -475 200 / 200 460 / 460 General: Alert, No apparent distress HEENT: Atraumatic, Normocephalic Oral: Moist Mucosa, No Gingival or Mucosal Lesions/ Ulcerations Neck: No Nodes, Thyroid Normal Size and Texture Lungs: Clear to auscultation, Normal air movement, No rhonchi, No wheeze Cardiovascular: Regular rate, Regular Rhythm, Normal S1, Normal S2 Abdomen: Bowel Sounds Present, Soft, Non Tender, Non-Distended, Obese Extremities: No edema, No Calf Tenderness Psych/Mental Status: Normal Affect, Appropriate Laboratory Results 09/25/20 16:42: POC Glucose 143 H 09/25/20 21:41: POC Glucose 144 H 09/26/20 06:50: POC Glucose 111 H 09/26/20 10:38: COVID-19 (IMMANUEL) Detected 09/26/20 10:56: POC Glucose 151 H Current Medications Acetaminophen (Acetaminophen 325 Mg Tablet) 650 mg PO Q6H PRN PRN PRN Reason: Pain Score 1-10/Temp > 100.7 F Last Admin: 09/23/20 20:59 Dose: 650 mg Documented by: Aspirin (Aspirin 81 Mg Tab.Chew) 81 mg PO DAILY@0800 [facility] Last Admin: 09/26/20 09:11 Dose: 81 mg Documented by: Atorvastatin Calcium (Atorvastatin Calcium 80 Mg Tablet) 80 mg PO QHS [facility] Last Admin: 09/25/20 21:52 Dose: 80 mg Documented by: Calamine/Phenol (Menthol/Lanolin/Calamine/Znox 113 Gm Tube) 1 applic TOPICAL BID [facility]; Protocol Last Admin: 09/26/20 09:12 Dose: 1 applicatio Documented by: Carvedilol (Carvedilol 6.25 Mg Tablet) 6.25 mg PO BID [facility] Last Admin: 09/26/20 09:11 Dose: 6.25 mg Documented by: Cholecalciferol (Cholecalciferol (Vit D3) 1,000 Unit (25mcg)) 5,000 unit PO DAILY [facility] Last Admin: 09/26/20 09:12 Dose: 5,000 unit Documented by: Clopidogrel Bisulfate (Clopidogrel Bisulfate 75 Mg Tablet) 75 mg PO DAILY [facility] Last Admin: 09/26/20 09:11 Dose: 75 mg Documented by: Dextrose (Dextrose 50%-Water 25 Gm/50 Ml Disp.Syrin) 0 gm IV X1 PRN; Protocol PRN Reason: Hypoglycemia Dorzolamide/Timolol (Dorzolamide Hcl/Timolol 10 Ml Bottle) 1 drop EACH EYE BID [facility] Last Admin: 09/26/20 09:12 Dose: 1 drop Documented by: Duloxetine HCl (Duloxetine Hcl 30 Mg Capsule) 30 mg PO BID [facility] Last Admin: 09/26/20 09:11 Dose: 30 mg Documented by: Enoxaparin Sodium (Enoxaparin 30 Mg/0.3 Ml Syringe) 30 mg SC BID [facility] Last Admin: 09/26/20 09:13 Dose: 30 mg Documented by: Glucagon (Glucagon 1 Mg/Ml Syringe) 1 mg IM .X1 PRN PRN Reason: Hypoglycemia Hydrochlorothiazide (Hydrochlorothiazide 12.5mg) 12.5 mg PO DAILY [facility] Last Admin: 09/26/20 09:12 Dose: 12.5 mg Documented by: Sodium Chloride () 250 mls @ 15 mls/hr IV .[id number] PRN PRN Reason: Saline Flush Last Infusion: 09/21/20 21:28 Dose: 0 mls/hr Documented by: Sodium Chloride () 250 mls @ 15 mls/hr IV .[id number] PRN PRN Reason: Additional IVPB Infusion Insulin Glargine (Insulin Glargine 100 Units/Ml Pen) 60 units SC BID [facility] Last Admin: 09/26/20 11:00 Dose: 60 units Documented by: Insulin Human Lispro (Insulin Lispro 100 Unit/Ml Insuln.Pen) 0 unit SC ACHS [facility]; Protocol Last Admin: 09/26/20 11:00 Dose: 1 unit Documented by: Lamotrigine (Lamotrigine 100 Mg Tablet) 250 mg PO QHS [facility] Last Admin: 09/25/20 21:49 Dose: 250 mg Documented by: Lisinopril (Lisinopril 5 Mg Tablet) 5 mg PO DAILY [facility] Last Admin: 09/26/20 09:12 Dose: 5 mg Documented by: Ondansetron HCl (Ondansetron 4 Mg/2 Ml Vial) 4 mg IV Q8H PRN PRN PRN Reason: NAUSEA/VOMITING Potassium Chloride (Potassium Chloride 20 Meq Tablet) 40 meq PO BIDCM [facility] Last Admin: 09/26/20 09:11 Dose: 40 meq Documented by: Quetiapine Fumarate (Quetiapine 25 Mg Tablet) 75 mg PO QHS [facility] Last Admin: 09/25/20 21:51 Dose: 75 mg Documented by: Senna/Docusate Sodium (Senna/Docusate Sodium 1 Tablet) 2 tablet PO BID PRN PRN Reason: Constipation Last Admin: 09/16/20 16:36 Dose: 2 tablet Documented by: Sodium Chloride (0.9% Saline Lock 10 Ml Syringe) 10 - 40 ml IV UD PRN PRN Reason: SALINE FLUSH Last Admin: 09/25/20 21:48 Dose: 10 ml Documented by: Zolpidem Tartrate (Zolpidem Tartrate 5 Mg Tablet) 5 mg PO QHS PRN PRN PRN Reason: INSOMNIA Last Admin: 09/25/20 22:11 Dose: 5 mg Documented by: STROKE Vital Signs/Narrative: Vital Signs Temp Pulse Resp BP Pulse Ox 09/26/20 15:17 37.0 C 71 20 H 98/48 L 94 09/26/20 12:46 94 Medical Necessity - Tobacco Use Smoking Status: Never smoker Tobacco Use: Non-smoker Assessment/Plan All Active Problems COVID-19 (Acute) Encephalopathy acute (Acute) Dehydration (Acute) Elevated lactic acid level (Acute) 1. acute COVID-19 infection: dexamethasone completed 2. acute hypoxic respiratory failure: 2/2 above. improving. hypoxia with activity, but noted to be holding his breath. 3. DM2: uncontrolled. exacerbated by dexamethasone. started on basal insulin. continue SSI. metformin held given lactic acidosis. monitor closely as dexamethasone as completed. Improved. Decrease glargine to 40 and monitor 4. lactic acidosis: likely 2/2 hypoxia and metformin. resolved. 5. HTN: BP running low earlier, but improving. on carvedilol, furosemide, HCTZ, lisinopril 6. CAD: ASA, statin and BB 7. VTE prophylaxis: enoxaparin 8. Disposition: on hold given hypoxia. Plan is for SNF on 09/29 if he remains stable. Pt told me he is finished and indicated that he would like to be comfortable. I asked him about hospice and he said he maybe interested in it. MACIE CM. Inpatient E&M: 70227 Subs Hosp L2
--- NOTE | 2020-09-26 16:23 | CASEMGMT ---
Social Work Per Dr. Jackson, pt is requesting hospice services at this time. placed call to pt son Michele and John and discussed hospice option with them and relayed pt wishes per Dr Jackson. Multiple phone calls with pt family throughout the afternoon. HOA Roberson spoke with family regarding medical condition. Family also spoke with pt on the phone to make decision. Final conclusion at this time was for pt to go to Inpatient Hospice Unit. Family stating pt never wanted to go to a skilled nursing and we just want him to be comfortable. Referral made to Ted at Hospice and clinicals faxed. Return call from Ted stating she spoke to the family and referral was given to Dr. Tolbert who does not feel pt is appropriate for IPU at this time. Since referral was faxed, additional physician notes entered into to medical record. These documents faxed to hospice. Hospice requesting Dr. Jackson call Dr. Tolbert directly. Dr. Jackson notified. Discharge Plan: [facility] vs [facility]
[2020-09-26 17:06] LABS: Bedside Glucose 224 mg/dL (70-110)
--- NOTE | 2020-09-26 18:08 | CASEMGMT ---
Social Work MS2 Received message from patient's son Michele who reports that patient no longer wants to go into Hospice, that patient is doing better since keeping oxygen on. Per Michele, the patient would like to try rehab at [facility]. Plan: Social work following. At this time [facility] SNF, but hospice has been discussed. -ELSA Cat, OUTPATIENT CODING SPECIALIST
[2020-09-26] MEDS: Acetaminophen 325 MG Tablet 650 MG PO (22:25)
[2020-09-26] MEDS: lamoTRIgine 100 MG Tablet 250 MG PO (22:26)
[2020-09-26] MEDS: Zolpidem Tartrate 5 MG Tablet PO (22:27)
[2020-09-26] MEDS: Atorvastatin Calcium 80 MG Tablet PO (22:27)
[2020-09-26] MEDS: QUEtiapine 25 MG Tablet 75 MG PO (22:34)
[2020-09-27] VITALS (7 sets, daily range): BP systolic 83–139; BP diastolic 36–83; PULSE 58–83; RESP 18–24; TEMP 35.8–36.9; O2SAT 92–95
[2020-09-27 01:00] LABS: Bedside Glucose 93 mg/dL (70-110)
--- NOTE | 2020-09-27 06:59 | RAD_ITS ---
STUDY: X-RAY CHEST REASON FOR EXAM: Male, 84 years old. sob TECHNIQUE: Single AP portable view of the chest. COMPARISON: 09/18/2020 FINDINGS: There is no change in alveolar opacity in both lungs consistent with bilateral pneumonia. There is no demonstrated pleural abnormality. Normal size heart. Normal mediastinum and josias. Normal visualized pulmonary arteries. Normal visualized aortic arch and descending thoracic aorta. Normal visualized thoracic spine. Normal visualized ribs, clavicles, and shoulders. There is no demonstrated abnormality of the visualized soft tissue structures of the upper abdomen. RAD/Chest 1 View (Portable) IMPRESSION: No change in bilateral pneumonia. Electronically Signed: Prasanth Page MD at 8:30 EDT Tel , Service support ,
[2020-09-27 07:51] LABS: Bedside Glucose 109 mg/dL (70-110)
[2020-09-27] MEDS: Aspirin 81 MG TAB.CHEW PO (08:07)
[2020-09-27] MEDS: Menthol/Lanolin/Calamine/Znox 113 GM Tube 1 APPLIC TOPICAL ×2 (08:07→22:10)
[2020-09-27] MEDS: Dorzolamide HCL/Timolol 10 ml Bottle 1 DRP EACH EYE ×2 (08:08→22:10)
[2020-09-27] MEDS: Carvedilol 6.25 MG Tablet PO ×2 (08:08→22:06)
[2020-09-27] MEDS: DULoxetine Hcl 30 MG Capsule PO ×2 (08:09→22:08)
[2020-09-27] MEDS: Clopidogrel Bisulfate 75 MG Tablet PO (08:09)
[2020-09-27] MEDS: hydroCHLOROthiazide 12.5mg 12.5 MG PO (08:09)
[2020-09-27] MEDS: Enoxaparin 30 MG/0.3 ML Syringe SC ×2 (08:09→22:08)
[2020-09-27 09:11] LABS: Bedside Glucose 80 mg/dL (70-110)
[2020-09-27] MEDS: Lisinopril 5 MG Tablet PO (11:59)
[2020-09-27 12:21] LABS: Bedside Glucose 91 mg/dL (70-110)
--- NOTE | 2020-09-27 14:28 | PCM.PN.HOSP ---
Patient Problems: Active and Suspected Problems COVID-19 (Acute) Encephalopathy acute (Acute) Dehydration (Acute) Elevated lactic acid level (Acute) Reason for Visit: COVID Subjective: Poor historian. Weaned oxygen down to 3l and was 97%. Vitals/I&O's: Vital Signs Temp Pulse Resp BP Pulse Ox 36.1 C L 71 24 H 117/58 L 92 09/27/20 08:00 09/27/20 08:00 09/27/20 08:00 09/27/20 11:59 09/27/20 08:00 Oxygen Flow Rate (L/min) [ 4 AMBULATION with Oxygen] Oxygen Flow Rate (L/min) [ 3 AMBULATING on Room Air] Oxygen Flow Rate (L/min) [At 2 REST on Room Air] Oxygen Flow Rate (L/min) 7 Oxygen Delivery Method Nasal Cannula Weight: 85.4 kg Body Mass Index (BMI) 30.2 Finger Stick Blood Glucose 144 Intake and Output for Last 24 Hours 09/25/20 09/26/20 09/27/20 23:59 23:59 23:59 Intake Total 325 / 325 510 / 510 60 / 60 Output Total 125 / 125 100 / 100 Balance 200 / 200 410 / 410 60 / 60 General: - - sleeping. did not awake to verbal stimuli. HEENT: Atraumatic, Normocephalic Oral: Moist Mucosa, No Gingival or Mucosal Lesions/ Ulcerations Neck: No Nodes, Thyroid Normal Size and Texture Lungs: Clear to auscultation, Diminished Cardiovascular: Regular rate, Regular Rhythm, Normal S1, Normal S2, No murmurs Abdomen: Bowel Sounds Present, Soft, Non Tender Extremities: No edema, No Calf Tenderness Skin: No rashes, No breakdown Laboratory Results 09/26/20 10:38: COVID-19 (IMMANUEL) Detected 09/26/20 16:41: POC Glucose 224 H 09/26/20 22:39: POC Glucose 93 09/27/20 06:26: POC Glucose 109 09/27/20 07:56: POC Glucose 80 09/27/20 11:57: POC Glucose 91 Current Medications Acetaminophen (Acetaminophen 325 Mg Tablet) 650 mg PO Q6H PRN PRN PRN Reason: Pain Score 1-10/Temp > 100.7 F Last Admin: 09/26/20 22:25 Dose: 650 mg Documented by: Aspirin (Aspirin 81 Mg Tab.Chew) 81 mg PO DAILY@0800 [facility] Last Admin: 09/27/20 08:07 Dose: 81 mg Documented by: Atorvastatin Calcium (Atorvastatin Calcium 80 Mg Tablet) 80 mg PO QHS [facility] Last Admin: 09/26/20 22:27 Dose: 80 mg Documented by: Calamine/Phenol (Menthol/Lanolin/Calamine/Znox 113 Gm Tube) 1 applic TOPICAL BID [facility]; Protocol Last Admin: 09/27/20 08:07 Dose: 1 applicatio Documented by: Carvedilol (Carvedilol 6.25 Mg Tablet) 6.25 mg PO BID [facility] Last Admin: 09/27/20 08:08 Dose: 6.25 mg Documented by: Cholecalciferol (Cholecalciferol (Vit D3) 1,000 Unit (25mcg)) 5,000 unit PO DAILY [facility] Last Admin: 09/27/20 08:09 Dose: 5,000 unit Documented by: Clopidogrel Bisulfate (Clopidogrel Bisulfate 75 Mg Tablet) 75 mg PO DAILY [facility] Last Admin: 09/27/20 08:09 Dose: 75 mg Documented by: Dextrose (Dextrose 50%-Water 25 Gm/50 Ml Disp.Syrin) 0 gm IV X1 PRN; Protocol PRN Reason: Hypoglycemia Dorzolamide/Timolol (Dorzolamide Hcl/Timolol 10 Ml Bottle) 1 drop EACH EYE BID [facility] Last Admin: 09/27/20 08:08 Dose: 1 drop Documented by: Duloxetine HCl (Duloxetine Hcl 30 Mg Capsule) 30 mg PO BID [facility] Last Admin: 09/27/20 08:09 Dose: 30 mg Documented by: Enoxaparin Sodium (Enoxaparin 30 Mg/0.3 Ml Syringe) 30 mg SC BID [facility] Last Admin: 09/27/20 08:09 Dose: 30 mg Documented by: Glucagon (Glucagon 1 Mg/Ml Syringe) 1 mg IM .X1 PRN PRN Reason: Hypoglycemia Hydrochlorothiazide (Hydrochlorothiazide 12.5mg) 12.5 mg PO DAILY [facility] Last Admin: 09/27/20 08:09 Dose: 12.5 mg Documented by: Sodium Chloride () 250 mls @ 15 mls/hr IV .[id number] PRN PRN Reason: Saline Flush Last Infusion: 09/21/20 21:28 Dose: 0 mls/hr Documented by: Sodium Chloride () 250 mls @ 15 mls/hr IV .[id number] PRN PRN Reason: Additional IVPB Infusion Insulin Glargine (Insulin Glargine 100 Units/Ml Pen) 40 units SC BID [facility] Last Admin: 09/27/20 11:41 Dose: Not Given Documented by: Insulin Human Lispro (Insulin Lispro 100 Unit/Ml Insuln.Pen) 0 unit SC ACHS [facility]; Protocol Last Admin: 09/27/20 11:59 Dose: Not Given Documented by: Lamotrigine (Lamotrigine 100 Mg Tablet) 250 mg PO QHS [facility] Last Admin: 09/26/20 22:26 Dose: 250 mg Documented by: Lisinopril (Lisinopril 5 Mg Tablet) 5 mg PO DAILY [facility] Last Admin: 09/27/20 11:59 Dose: 5 mg Documented by: Ondansetron HCl (Ondansetron 4 Mg/2 Ml Vial) 4 mg IV Q8H PRN PRN PRN Reason: NAUSEA/VOMITING Potassium Chloride (Potassium Ch[facility] 20 [facility]t) [facility] Last Admin: 09/27/20 08:07 Dose: 40 meq Documented by: Quetiapine Fumarate (Quetiapine 25 Mg Tablet) 75 mg PO QHS [facility] Last Admin: 09/26/20 22:34 Dose: 75 mg Documented by: Senna/Docusate Sodium (Senna/Docusate Sodium 1 Tablet) 2 tablet PO BID PRN PRN Reason: Constipation Last Admin: 09/16/20 16:36 Dose: 2 tablet Documented by: Sodium Chloride (0.9% Saline Lock 10 Ml Syringe) 10 - 40 ml IV UD PRN PRN Reason: SALINE FLUSH Last Admin: 09/25/20 21:48 Dose: 10 ml Documented by: Zolpidem Tartrate (Zolpidem Tartrate 5 Mg Tablet) 5 mg PO QHS PRN PRN PRN Reason: INSOMNIA Last Admin: 09/26/20 22:27 Dose: 5 mg Documented by: STROKE Vital Signs/Narrative: Vital Signs BP 09/27/20 11:59 117/58 L Medical Necessity - Tobacco Use Smoking Status: Never smoker Tobacco Use: Non-smoker Assessment/Plan All Active Problems COVID-19 (Acute) Encephalopathy acute (Acute) Dehydration (Acute) Elevated lactic acid level (Acute) 1. acute COVID-19 infection: dexamethasone completed 2. acute hypoxic respiratory failure: 2/2 above. improving. hypoxia with activity, but noted to be holding his breath. Today, pulse ox decreased to 3 liters and was stable. continue to wean oxygen as able. 3. DM2: uncontrolled. exacerbated by dexamethasone. started on basal insulin. continue SSI. metformin held given lactic acidosis. monitor closely as dexamethasone as completed. Improved. Decrease glargine again from 40 to 30 BID and monitor. 4. lactic acidosis: likely 2/2 hypoxia and metformin. resolved. 5. HTN: BP running low earlier, but improving. on carvedilol, furosemide, HCTZ, lisinopril 6. CAD: ASA, statin and BB 7. VTE prophylaxis: enoxaparin 8. Disposition: on hold given hypoxia. Plan is for SNF on 09/29 if he remains stable. No plans for hospice at this time. May need repeat COVID-19 test prior to DC. Inpatient E&M: 04368 Subs Hosp L2
[2020-09-27 17:25] LABS: Bedside Glucose 95 mg/dL (70-110)
[2020-09-27] MEDS: Atorvastatin Calcium 80 MG Tablet PO (22:06)
[2020-09-27] MEDS: Zolpidem Tartrate 5 MG Tablet PO (22:06)
[2020-09-27] MEDS: QUEtiapine 25 MG Tablet 75 MG PO (22:06)
[2020-09-27] MEDS: lamoTRIgine 100 MG Tablet 250 MG PO (22:07)
[2020-09-27] MEDS: Insulin Lispro 100 UNIT/ML INSULN.PEN SC (22:08)
[2020-09-27 22:35] LABS: Bedside Glucose 180 mg/dL (70-110)
[2020-09-28] VITALS (10 sets, daily range): BP systolic 107–126; BP diastolic 48–86; PULSE 68–86; RESP 18–22; TEMP 35.8–36.7; O2SAT 88–97
[2020-09-28 07:01] LABS: Bedside Glucose 112 mg/dL (70-110)
[2020-09-28] MEDS: Carvedilol 6.25 MG Tablet PO ×2 (08:07→22:08)
[2020-09-28] MEDS: Aspirin 81 MG TAB.CHEW PO (08:07)
[2020-09-28] MEDS: Menthol/Lanolin/Calamine/Znox 113 GM Tube 1 APPLIC TOPICAL ×2 (08:07→22:09)
[2020-09-28] MEDS: DULoxetine Hcl 30 MG Capsule PO ×2 (08:08→22:08)
[2020-09-28] MEDS: Enoxaparin 30 MG/0.3 ML Syringe SC ×2 (08:08→22:07)
[2020-09-28] MEDS: hydroCHLOROthiazide 12.5mg 12.5 MG PO (08:08)
[2020-09-28] MEDS: Clopidogrel Bisulfate 75 MG Tablet PO (08:08)
[2020-09-28] MEDS: Dorzolamide HCL/Timolol 10 ml Bottle 1 DRP EACH EYE ×2 (08:09→22:11)
[2020-09-28] MEDS: Lisinopril 5 MG Tablet PO (08:09)
[2020-09-28 10:05] LABS: Bedside Glucose 151 mg/dL (70-110)
[2020-09-28] MEDS: Insulin Lispro 100 UNIT/ML INSULN.PEN SC ×3 (11:55→22:09)
[2020-09-28 12:06] LABS: Bedside Glucose 206 mg/dL (70-110)
--- NOTE | 2020-09-28 13:02 | PCM.PN.HOSP ---
Patient Problems: Active and Suspected Problems COVID-19 (Acute) Encephalopathy acute (Acute) Dehydration (Acute) Elevated lactic acid level (Acute) Reason for Visit: COVID-19 Subjective: Breathing well. No new complaints. Vitals/I&O's: Vital Signs Temp Pulse Resp BP Pulse Ox 36.7 C 73 22 H 121/64 H 93 09/28/20 08:03 09/28/20 08:03 09/28/20 08:18 09/28/20 08:03 09/28/20 08:18 Oxygen Flow Rate (L/min) [ 4 AMBULATION with Oxygen] Oxygen Flow Rate (L/min) [ 3 AMBULATING on Room Air] Oxygen Flow Rate (L/min) [At 2 REST on Room Air] Oxygen Flow Rate (L/min) 3 Oxygen Delivery Method Nasal Cannula Weight: 84.51 kg Body Mass Index (BMI) 30.2 Finger Stick Blood Glucose 144 Intake and Output for Last 24 Hours 09/26/20 09/27/20 09/28/20 23:59 23:59 22:59 Intake Total 510 / 510 540 / 540 720 / 720 Output Total 100 / 100 100 / 100 150 / 150 Balance 410 / 410 440 / 440 570 / 570 General: Alert, No apparent distress HEENT: Atraumatic, Normocephalic Neck: No Nodes, Thyroid Normal Size and Texture Lungs: Clear to auscultation, Normal air movement, No rhonchi, No wheeze Cardiovascular: Regular rate, Regular Rhythm, Normal S1, Normal S2 Abdomen: Bowel Sounds Present, Soft, Non Tender, Non-Distended Extremities: No edema, No Calf Tenderness Laboratory Results 09/27/20 17:10: POC Glucose 95 09/27/20 22:05: POC Glucose 180 H 09/28/20 06:29: POC Glucose 112 H 09/28/20 09:48: POC Glucose 151 H 09/28/20 11:52: POC Glucose 206 H Current Medications Acetaminophen (Acetaminophen 325 Mg Tablet) 650 mg PO Q6H PRN PRN PRN Reason: Pain Score 1-10/Temp > 100.7 F Last Admin: 09/26/20 22:25 Dose: 650 mg Documented by: Aspirin (Aspirin 81 Mg Tab.Chew) 81 mg PO DAILY@0800 AARON Last Admin: 09/28/20 08:07 Dose: 81 mg Documented by: Atorvastatin Calcium (Atorvastatin Calcium 80 Mg Tablet) 80 mg PO QHS [facility] Last Admin: 09/27/20 22:06 Dose: 80 mg Documented by: Calamine/Phenol (Menthol/Lanolin/Calamine/Znox 113 Gm Tube) 1 applic TOPICAL BID [facility]; Protocol Last Admin: 09/28/20 08:07 Dose: 1 applicatio Documented by: Carvedilol (Carvedilol 6.25 Mg Tablet) 6.25 mg PO BID [facility] Last Admin: 09/28/20 08:07 Dose: 6.25 mg Documented by: Cholecalciferol (Cholecalciferol (Vit D3) 1,000 Unit (25mcg)) 5,000 unit PO DAILY [facility] Last Admin: 09/28/20 08:08 Dose: 5,000 unit Documented by: Clopidogrel Bisulfate (Clopidogrel Bisulfate 75 Mg Tablet) 75 mg PO DAILY [facility] Last Admin: 09/28/20 08:08 Dose: 75 mg Documented by: Dextrose (Dextrose 50%-Water 25 Gm/50 Ml Disp.Syrin) 0 gm IV X1 PRN; Protocol PRN Reason: Hypoglycemia Dorzolamide/Timolol (Dorzolamide Hcl/Timolol 10 Ml Bottle) 1 drop EACH EYE BID [facility] Last Admin: 09/28/20 08:09 Dose: 1 drop Documented by: Duloxetine HCl (Duloxetine Hcl 30 Mg Capsule) 30 mg PO BID [facility] Last Admin: 09/28/20 08:08 Dose: 30 mg Documented by: Enoxaparin Sodium (Enoxaparin 30 Mg/0.3 Ml Syringe) 30 mg SC BID [facility] Last Admin: 09/28/20 08:08 Dose: 30 mg Documented by: Glucagon (Glucagon 1 Mg/Ml Syringe) 1 mg IM .X1 PRN PRN Reason: Hypoglycemia Hydrochlorothiazide (Hydrochlorothiazide 12.5mg) 12.5 mg PO DAILY [facility] Last Admin: 09/28/20 08:08 Dose: 12.5 mg Documented by: Sodium Chloride () 250 mls @ 15 mls/hr IV .[id number] PRN PRN Reason: Saline Flush Last Infusion: 09/21/20 21:28 Dose: 0 mls/hr Documented by: Sodium Chloride () 250 mls @ 15 mls/hr IV .[id number] PRN PRN Reason: Additional IVPB Infusion Insulin Glargine (Insulin Glargine 100 Units/Ml Pen) 40 units SC BID [facility] Last Admin: 09/28/20 09:50 Dose: 40 units Documented by: Insulin Human Lispro (Insulin Lispro 100 Unit/Ml Insuln.Pen) 0 unit SC ACHS [facility]; Protocol Last Admin: 09/28/20 11:55 Dose: 1 unit Documented by: Lamotrigine (Lamotrigine 100 Mg Tablet) 250 mg PO QHS [facility] Last Admin: 09/27/20 22:07 Dose: 250 mg Documented by: Lisinopril (Lisinopril 5 Mg Tablet) 5 mg PO DAILY [facility] Last Admin: 09/28/20 08:09 Dose: 5 mg Documented by: Ondansetron HCl (Ondansetron 4 Mg/2 Ml Vial) 4 mg IV Q8H PRN PRN PRN Reason: NAUSEA/VOMITING Potassium Chloride ([facility] Admin: 09/28/20 08:07 Dose: 40 meq Documented by: Quetiapine Fumarate (Quetiapine 25 Mg Tablet) 75 mg PO QHS [facility] Last Admin: 09/27/20 22:06 Dose: 75 mg Documented by: Senna/Docusate Sodium (Senna/Docusate Sodium 1 Tablet) 2 tablet PO BID PRN PRN Reason: Constipation Last Admin: 09/16/20 16:36 Dose: 2 tablet Documented by: Sodium Chloride (0.9% Saline Lock 10 Ml Syringe) 10 - 40 ml IV UD PRN PRN Reason: SALINE FLUSH Last Admin: 09/25/20 21:48 Dose: 10 ml Documented by: Zolpidem Tartrate (Zolpidem Tartrate 5 Mg Tablet) 5 mg PO QHS PRN PRN PRN Reason: INSOMNIA Last Admin: 09/27/20 22:06 Dose: 5 mg Documented by: Medical Necessity - Tobacco Use Smoking Status: Never smoker Tobacco Use: Non-smoker Assessment/Plan All Active Problems COVID-19 (Acute) Encephalopathy acute (Acute) Dehydration (Acute) Elevated lactic acid level (Acute) 1. acute COVID-19 infection: dexamethasone completed 2. acute hypoxic respiratory failure: 2/2 above. improving. hypoxia with activity, but noted to be holding his breath. Today, pulse ox decreased to 3 liters and was stable. continue to wean oxygen as able. 3. DM2: Fair control at this time. Decrease glargine again from 40 to 30 BID and monitor. Metformin held given lactic acidosis. Given fair control on MBS, recommend continuing to hold for now. 4. lactic acidosis: likely 2/2 hypoxia and metformin. resolved. 5. HTN: BP running low earlier, but improving. on carvedilol, furosemide, HCTZ, lisinopril 6. CAD: ASA, statin and BB 7. VTE prophylaxis: enoxaparin 8. Disposition: on hold given hypoxia. Facility unable to take over the weekend. Plan is for SNF on 09/29 if he remains stable. No plans for hospice at this time. May need repeat COVID-19 test prior to DC. Inpatient E&M: 04718 Subs Hosp L2
[2020-09-28 17:10] LABS: Bedside Glucose 174 mg/dL (70-110)
[2020-09-28] MEDS: Acetaminophen 325 MG Tablet 650 MG PO (17:13)
[2020-09-28] MEDS: Zolpidem Tartrate 5 MG Tablet PO (22:08)
[2020-09-28] MEDS: lamoTRIgine 100 MG Tablet 250 MG PO (22:08)
[2020-09-28] MEDS: QUEtiapine 25 MG Tablet 75 MG PO (22:08)
[2020-09-28] MEDS: Atorvastatin Calcium 80 MG Tablet PO (22:09)
[2020-09-29 00:11] LABS: Bedside Glucose 225 mg/dL (70-110)
[2020-09-29 01:58] VITALS: BP 115/59; PULSE 77; RESP 18; TEMP 36.3; O2SAT 93
[2020-09-29] MEDS: Insulin Lispro 100 UNIT/ML INSULN.PEN SC ×2 (06:26→11:25)
[2020-09-29 06:56] LABS: Bedside Glucose 186 mg/dL (70-110)
[2020-09-29 07:08] VITALS: O2SAT 88
[2020-09-29 07:54] VITALS: BP 101/78; PULSE 85; RESP 20; TEMP 36.1; O2SAT 94
--- NOTE | 2020-09-29 07:57 | PN_ITS ---
Patient Problems: Active and Suspected Problems COVID-19 (Acute) Encephalopathy acute (Acute) Dehydration (Acute) Elevated lactic acid level (Acute) Reason for Visit: acute COVID-19 Subjective: An 84-year-old gentleman admitted with progressive shortness of breath diagnosed with acute COVID-19 Patient seen appears delirious Objective: GENERAL: Patient is delirious HEENT: Atraumatic; EYES; Anicteric, Normal Conjunctiva NECK; supple, normal thyroid, RESPIRATORY: Diminished to auscultation CARDIOVASCULAR: Regular S1 S2, GI: soft, normoactive bowel sounds, : No Renal angle tenderness; EXTREMITIES: No edema, no clubbing, MUSCULOSKELETAL: no muscle waisting NEURO: Awake; no lateralizing signs. SKIN: No Rash PSYCH; Flat affect Vitals/I&O's: Vital Signs Temp Pulse Resp BP Pulse Ox 97 F L 85 20 H 101/78 94 09/29/20 07:54 09/29/20 07:54 09/29/20 07:54 09/29/20 07:54 09/29/20 07:54 Oxygen Flow Rate (L/min) [ 4 AMBULATION with Oxygen] Oxygen Flow Rate (L/min) [ 3 AMBULATING on Room Air] Oxygen Flow Rate (L/min) [At 2 REST on Room Air] Oxygen Flow Rate (L/min) 4 Oxygen Delivery Method Nasal Cannula Weight: 85.7 kg Body Mass Index (BMI) 30.2 Finger Stick Blood Glucose 144 Intake and Output for Last 24 Hours 09/28/20 09/28/20 09/29/20 00:59 23:59 23:59 Intake Total Output Total Balance Laboratory Results 09/28/20 09:48: POC Glucose 151 H 09/28/20 11:52: POC Glucose 206 H 09/28/20 16:47: POC Glucose 174 H 09/28/20 21:56: POC Glucose 225 H 09/29/20 06:24: POC Glucose 186 H Current Medications Acetaminophen (Acetaminophen 325 Mg Tablet) 650 mg PO Q6H PRN PRN PRN Reason: Pain Score 1-10/Temp > 100.7 F Last Admin: 09/28/20 17:13 Dose: 650 mg Documented by: Aspirin (Aspirin 81 Mg Tab.Chew) 81 mg PO DAILY@0800 AARON Last Admin: 09/28/20 08:07 Dose: 81 mg Documented by: Atorvastatin Calcium (Atorvastatin Calcium 80 Mg Tablet) 80 mg PO QHS [facility] Last Admin: 09/28/20 22:09 Dose: 80 mg Documented by: Calamine/Phenol (Menthol/Lanolin/Calamine/Znox 113 Gm Tube) 1 applic TOPICAL BID [facility]; Protocol Last Admin: 09/28/20 22:09 Dose: 1 applicatio Documented by: Carvedilol (Carvedilol 6.25 Mg Tablet) 6.25 mg PO BID [facility] Last Admin: 09/28/20 22:08 Dose: 6.25 mg Documented by: Cholecalciferol (Cholecalciferol (Vit D3) 1,000 Unit (25mcg)) 5,000 unit PO DAILY [facility] Last Admin: 09/28/20 08:08 Dose: 5,000 unit Documented by: Clopidogrel Bisulfate (Clopidogrel Bisulfate 75 Mg Tablet) 75 mg PO DAILY [facility] Last Admin: 09/28/20 08:08 Dose: 75 mg Documented by: Dextrose (Dextrose 50%-Water 25 Gm/50 Ml Disp.Syrin) 0 gm IV X1 PRN; Protocol PRN Reason: Hypoglycemia Dorzolamide/Timolol (Dorzolamide Hcl/Timolol 10 Ml Bottle) 1 drop EACH EYE BID [facility] Last Admin: 09/28/20 22:11 Dose: 1 drop Documented by: Duloxetine HCl (Duloxetine Hcl 30 Mg Capsule) 30 mg PO BID [facility] Last Admin: 09/28/20 22:08 Dose: 30 mg Documented by: Enoxaparin Sodium (Enoxaparin 30 Mg/0.3 Ml Syringe) 30 mg SC BID [facility] Last Admin: 09/28/20 22:07 Dose: 30 mg Documented by: Glucagon (Glucagon 1 Mg/Ml Syringe) 1 mg IM .X1 PRN PRN Reason: Hypoglycemia Hydrochlorothiazide (Hydrochlorothiazide 12.5mg) 12.5 mg PO DAILY [facility] Last Admin: 09/28/20 08:08 Dose: 12.5 mg Documented by: Sodium Chloride () 250 mls @ 15 mls/hr IV .[id number] PRN PRN Reason: Saline Flush Last Infusion: 09/21/20 21:28 Dose: 0 mls/hr Documented by: Sodium Chloride () 250 mls @ 15 mls/hr IV .[id number] PRN PRN Reason: Additional IVPB Infusion Insulin Glargine (Insulin Glargine 100 Units/Ml Pen) 30 units SC 1100,2200 [facility] Last Admin: 09/28/20 22:10 Dose: 30 units Documented by: Insulin Human Lispro (Insulin Lispro 100 Unit/Ml Insuln.Pen) 0 unit SC [facility]; Protocol Last Admin: 09/29/20 06:26 Dose: 1 unit Documented by: Lamotrigine (Lamotrigine 100 Mg Tablet) 250 mg PO QHS [facility] Last Admin: 09/28/20 22:08 Dose: 250 mg Documented by: Lisinopril (Lisinopril 5 Mg Tablet) 5 mg PO DAILY [facility] Last Admin: 09/28/20 08:09 Dose: 5 mg Documented by: Ondansetron HCl (Ondansetron 4 Mg/2 Ml Vial) 4 mg IV Q8H PRN PRN PRN Reason: NAUSEA/VOMITING Potassium Chloride (Potassium Chloride 20 Meq Tablet) 40 meq PO BIDCM [facility] Last Admin: 09/28/20 17:14 Dose: 40 meq Documented by: Quetiapine Fumarate (Quetiapine 25 Mg Tablet) 75 mg PO QHS [facility] Last Admin: 09/28/20 22:08 Dose: 75 mg Documented by: Senna/Docusate Sodium (Senna/Docusate Sodium 1 Tablet) 2 tablet PO BID PRN PRN Reason: Constipation Last Admin: 09/16/20 16:36 Dose: 2 tablet Documented by: Sodium Chloride (0.9% Saline Lock 10 Ml Syringe) 10 - 40 ml IV UD PRN PRN Reason: SALINE FLUSH Last Admin: 09/25/20 21:48 Dose: 10 ml Documented by: Zolpidem Tartrate (Zolpidem Tartrate 5 Mg Tablet) 5 mg PO QHS PRN PRN PRN Reason: INSOMNIA Last Admin: 09/28/20 22:08 Dose: 5 mg Documented by: STROKE Vital Signs/Narrative: Vital Signs Temp Pulse Resp BP Pulse Ox 09/29/20 07:54 97 F L 85 20 H 101/78 94 Medical Necessity - Tobacco Use Smoking Status: Never smoker Tobacco Use: Non-smoker Assessment/Plan All Active Problems COVID-19 (Acute) Encephalopathy acute (Acute) Dehydration (Acute) Elevated lactic acid level (Acute) An 84-year-old gentleman admitted with progressive shortness of breath diagnosed with acute COVID-19 1. Acute COVID-19 infection ?Patient has completed a course of dexamethasone 2. Acute hypoxic respiratory failure ?Secondary to above managed with supplemental oxygen 3. Diabetes mellitus type 2 ?On long-acting insulin in addition to Accu-Cheks before meals and at bedtime with sliding scale coverage 4. Hypertension - Blood pressure controlled, home medications continued with dose adjustment as needed 5. Coronary artery disease ?Patient is on aspirin statin therapy and beta-radha as it continued 6. DVT prophylaxis ?On enoxaparin 7. Acute metabolic encephalopathy ?Secondary to COVID-19 infection 8. Physical deconditioning - Requested for PT OT eval and social work assistant to assist with discharge planning Inpatient E&M: [id number] Subs Hosp L2
[2020-09-29] MEDS: Enoxaparin 30 MG/0.3 ML Syringe SC (08:15)
[2020-09-29] MEDS: Senna/Docusate Sodium 1 Tablet 2 TABLET PO (08:15)
[2020-09-29] MEDS: DULoxetine Hcl 30 MG Capsule PO (08:16)
[2020-09-29] MEDS: Aspirin 81 MG TAB.CHEW PO (08:16)
[2020-09-29] MEDS: Menthol/Lanolin/Calamine/Znox 113 GM Tube 1 APPLIC TOPICAL (08:16)
[2020-09-29] MEDS: Lisinopril 5 MG Tablet PO (08:16)
[2020-09-29] MEDS: Clopidogrel Bisulfate 75 MG Tablet PO (08:16)
[2020-09-29] MEDS: Carvedilol 6.25 MG Tablet PO (08:16)
[2020-09-29] MEDS: hydroCHLOROthiazide 12.5mg 12.5 MG PO (08:16)
[2020-09-29] MEDS: Dorzolamide HCL/Timolol 10 ml Bottle 1 DRP EACH EYE (08:17)
[2020-09-29 11:22] VITALS: BP 91/64; PULSE 81; RESP 20; TEMP 36.3; O2SAT 92
[2020-09-29 12:20] LABS: Bedside Glucose 161 mg/dL (70-110)
--- NOTE | 2020-09-29 12:32 | CASEMGMT ---
Social Work SW spoke with physician and pt is not ready for discharge today. Phone call to pt son Michele and Michele confirms that the plan is for pt to go to [facility] when medically ready. Phone call to Sandra at [facility] and she confirms pt will have a bed when medically ready for discharge. Plan: [facility] SNF when medically ready. PENG Parker
[2020-09-29 13:13] VITALS: BP 78/62; PULSE 61; RESP 20; TEMP 36.1; O2SAT 91
[2020-09-29 13:28] VITALS: BP 86/64; PULSE 70; RESP 20; TEMP 36.1; O2SAT 97
--- NOTE | 2020-09-29 13:42 | PCM.PN.BLA ---
Progress Note Discussion with patient's son Michele as well as patient's . Went over patient's current condition. Did discuss patient CODE STATUS. Decision was made to make patient comfort care with consultation placed to hospice. Consult placed to case management to assist with hospice referral STROKE Vital Signs/Narrative: Vital Signs Temp Pulse Resp BP Pulse Ox 09/29/20 13:28 97 F L 70 20 H 86/64 L 97 09/29/20 13:13 97 F L 61 20 H 78/62 L 91 09/29/20 11:22 97.3 F L 81 20 H 91/64 92
--- NOTE | 2020-09-29 13:51 | NURSING ---
Spoke to patient's son Michele, who was with patient's spouse John, regarding patient's condition. Informed him of recent nursing assessments. Michele stated that he had spoken to Dr Bishop shortly before this conversation. He stated that they reviewed the patient's living will which indicated his wishes were not to have artificial resuscitation and that Dr Bishop was aware of this. This nurse informed Michele that based on the patient's current conditions, the hospital was willing to make exceptions for support people and visitation in end of life circumstances but that it was very important to take into considerations the infectious nature of the patient's disease process. He declined the need to visit at this time but stated that he and his mother (patient's spouse) would discuss the potential of visitation. In a separate conversation this nurse spoke with Michele (who was with John) about the hospice consult entered by Dr Bishop. Stated that Hospice had reached out for the intended course of hospice care. Relayed Michele's desire to have patient admitted to inpatient hospice unit.
--- NOTE | 2020-09-29 13:59 | NURSING ---
Pt resting in bed. very confused today. Pt had large soft unformed brown stool. attends changed at this time. pt tolerated well. bed exit on.
--- NOTE | 2020-09-29 14:04 | NURSING ---
Michele, patient's son, called this nurse to indicate that he and the patient's spouse John would be in to the hospital to visit. This nurse notified Ray from pastoral care as well as Trista social science research assistant that family was going to come to visit. Front entrance aware as well to expect visitors for this patient.
--- NOTE | 2020-09-29 16:19 | DCINST_ITS ---
- Discharge Diagnoses Current Active Problems: Current Active and Chronic Problems COVID-19 (Acute) Encephalopathy acute (Acute) Dehydration (Acute) Elevated lactic acid level (Acute) CAD (coronary artery disease) (Chronic) Type 2 diabetes mellitus (Chronic) Chronic kidney disease, stage 3 (Chronic) Stroke (Chronic) Depression (Chronic) Seizure disorder (Chronic) Diabetes mellitus (Chronic) HLD (hyperlipidemia) (Chronic) Hearing deficit (Chronic) DM (dermatomyositis) (Chronic) CVA (cerebral vascular accident) (Chronic) H/O heart artery stent (Chronic) Aortic aneurysm (Chronic) HTN (hypertension) (Chronic) You will use the following diet at home:: No restrictions Discharge Activity: No Restrictions Allergies/Adverse Reactions: Allergies No Known Allergies Allergy (Verified 05/27/15 07:47) Medications to take at Discharge Cholecalciferol (VIT D3) [Vitamin D3] 5,000 unit PO DAILY 05/21/15 Primary Care Physician: Jesica Wright MD [Primary Care Provider] - Test Results: Test results from this visit will be discussed in further detail at your follow- up appointment, if applicable. Proposed Discharge Date: 09/29/20
--- NOTE | 2020-09-29 16:22 | PCM.DC.SUM ---
Discharge Date and Diagnosis - Problem List Patient Problems: Active and Suspected Problems COVID-19 (Acute) Encephalopathy acute (Acute) Dehydration (Acute) Elevated lactic acid level (Acute) Date of Admission: 09/13/20 Date of Discharge: 09/29/20 - Primary Discharge Diagnosis Acute Problems: Active Problems COVID-19 (Acute) Encephalopathy acute (Acute) Dehydration (Acute) Elevated lactic acid level (Acute) - Secondary Discharge Diagnosis Chronic Problems: Chronic Problems CAD (coronary artery disease) (Chronic) Type 2 diabetes mellitus (Chronic) Chronic kidney disease, stage 3 (Chronic) Stroke (Chronic) Glaucoma (Chronic) Vitamin D deficiency (Chronic) Depression (Chronic) Seizure disorder (Chronic) Diabetes mellitus (Chronic) Insomnia (Chronic) HLD (hyperlipidemia) (Chronic) Hearing deficit (Chronic) DM (dermatomyositis) (Chronic) CVA (cerebral vascular accident) (Chronic) CKD (chronic kidney disease), stage III (Chronic) H/O heart 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 No acute findings. 2. Stable exam since prior. 3. Small remote right ganglia capsular infarct. Electronically Signed: Augustin Butler, at 14:08 EDT Tel , Service support , Chest X-Ray 09/13/20 11:20 IMPRESSION: No active pulmonary disease. Electronically Signed: Bismark Tapia MD at 12:07 EDT Tel , Service support , Chest X-Ray 09/18/20 09:41 IMPRESSION: Progressive infiltrates in the right lung as well as in the left lower lobe. Electronically Signed: Thomas Guallpa, at 15:36 EDT , Service support , Chest X-Ray 09/27/20 06:59 IMPRESSION: No change in bilateral pneumonia. Electronically Signed: Prasanth Page MD at 8:30 EDT Tel , Service support , Operations: None Summary of Care Provided: An 84-year-old gentleman admitted with progressive shortness of breath diagnosed with acute COVID-19 1. Acute COVID-19 infection ?Patient has completed a course of dexamethasone Had a discussion with patient's son Michele as well as patient's . Went over patient's current condition. Did discuss patient CODE STATUS. Decision was made to make patient comfort care with consultation placed to hospice. Consult placed to case management to assist with hospice referral; patient was discharged to hospice in the medical facility (time spent on patient CODE STATUS discussion prior to discharge to hospice in the medical facility 25 minutes) 2. Acute hypoxic respiratory failure ?Secondary to above managed with supplemental oxygen 3. Diabetes mellitus type 2 ?On long-acting insulin in addition to Accu-Cheks before meals and at bedtime with sliding scale coverage 4. Hypertension - Blood pressure controlled, home medications continued with dose adjustment as needed 5. Coronary artery disease ?Patient is on aspirin statin therapy and beta-radha as it continued 6. DVT prophylaxis ?On enoxaparin 7. Acute metabolic encephalopathy ?Secondary to COVID-19 infection 8. Physical deconditioning - Requested for PT OT eval and health care social worker to assist with discharge planning Patient Problems: Active and Suspected Problems COVID-19 (Acute) Encephalopathy acute (Acute) Dehydration (Acute) Elevated lactic acid level (Acute) - Physical Exam Vitals/I&O's: Vital Signs Temp Pulse Resp BP Pulse Ox 97 F L 70 20 H 86/64 L 97 09/29/20 13:28 09/29/20 13:28 09/29/20 13:28 09/29/20 13:28 09/29/20 13:28 Oxygen Flow Rate (L/min) [ 4 AMBULATION with Oxygen] Oxygen Flow Rate (L/min) [ 3 AMBULATING on Room Air] Oxygen Flow Rate (L/min) [At 2 REST on Room Air] Oxygen Flow Rate (L/min) 4 Oxygen Delivery Method Nasal Cannula Weight: 85.7 kg Body Mass Index (BMI) 30.2 Finger Stick Blood Glucose 144 Intake and Output for Last 24 Hours 11/01/20 11/01/20 11/02/20 00:59 23:59 23:59 Intake Total 130 / 130 Output Total Balance 130 / 130 General: Disoriented Lungs: Diminished Cardiovascular: Regular rate, Regular Rhythm Laboratory Results 09/28/20 16:47: POC Glucose 174 H 09/28/20 21:56: POC Glucose 225 H 09/29/20 06:24: POC Glucose 186 H 09/29/20 11:22: POC Glucose 161 H Current Medications Acetaminophen (Acetaminophen 325 Mg Tablet) 650 mg PO Q6H PRN PRN PRN Reason: Pain Score 1-10/Temp > 100.7 F Last Admin: 09/28/20 17:13 Dose: 650 mg Documented by: Aspirin (Aspirin 81 Mg Tab.Chew) 81 mg PO DAILY@0800 [facility] Last Admin: 09/29/20 08:16 Dose: 81 mg Documented by: Atorvastatin Calcium (Atorvastatin Calcium 80 Mg Tablet) 80 mg PO QHS [facility] Last Admin: 09/28/20 22:09 Dose: 80 mg Documented by: Calamine/Phenol (Menthol/Lanolin/Calamine/Znox 113 Gm Tube) 1 applic TOPICAL BID [facility]; Protocol Last Admin: 09/29/20 08:16 Dose: 1 applicatio Documented by: Carvedilol (Carvedilol 6.25 Mg Tablet) 6.25 mg PO BID [facility] Last Admin: 09/29/20 08:16 Dose: 6.25 mg Documented by: Cholecalciferol (Cholecalciferol (Vit D3) 1,000 Unit (25mcg)) 5,000 unit PO DAILY [facility] Last Admin: 09/29/20 08:16 Dose: 5,000 unit Documented by: Clopidogrel Bisulfate (Clopidogrel Bisulfate 75 Mg Tablet) 75 mg PO DAILY [facility] Last Admin: 09/29/20 08:16 Dose: 75 mg Documented by: Dextrose (Dextrose 50%-Water 25 Gm/50 Ml Disp.Syrin) 0 gm IV X1 PRN; Protocol PRN Reason: Hypoglycemia Dorzolamide/Timolol (Dorzolamide Hcl/Timolol 10 Ml Bottle) 1 drop EACH EYE BID [facility] Last Admin: 09/29/20 08:17 Dose: 1 drop Documented by: Duloxetine HCl (Duloxetine Hcl 30 Mg Capsule) 30 mg PO BID [facility] Last Admin: 09/29/20 08:16 Dose: 30 mg Documented by: Enoxaparin Sodium (Enoxaparin 30 Mg/0.3 Ml Syringe) 30 mg SC BID [facility] Last Admin: 09/29/20 08:15 Dose: 30 mg Documented by: Glucagon (Glucagon 1 Mg/Ml Syringe) 1 mg IM .X1 PRN PRN Reason: Hypoglycemia Hydrochlorothiazide (Hydrochlorothiazide 12.5mg) 12.5 mg PO DAILY [facility] Last Admin: 09/29/20 08:16 Dose: 12.5 mg Documented by: Sodium Chloride () 250 mls @ 15 mls/hr IV .[id number] PRN PRN Reason: Saline Flush Last Infusion: 09/21/20 21:28 Dose: 0 mls/hr Documented by: Sodium Chloride () 250 mls @ 15 mls/hr IV .[id number] PRN PRN Reason: Additional IVPB Infusion Insulin Glargine (Insulin Glargine 100 Units/Ml Pen) 30 units SC 1100,2200 [facility] Last Admin: 09/29/20 13:25 Dose: Not Given Documented by: Insulin Human Lispro (Insulin Lispro 100 Unit/Ml Insuln.Pen) [address] [facility]; Protocol Last Admin: 09/29/20 11:25 Dose: 1 unit Documented by: Lamotrigine (Lamotrigine 100 Mg Tablet) 250 mg PO QHS [facility] Last Admin: 09/28/20 22:08 Dose: 250 mg Documented by: Lisinopril (Lisinopril 5 Mg Tablet) 5 mg PO DAILY [facility] Last Admin: 09/29/20 08:16 Dose: 5 mg Documented by: Ondansetron HCl (Ondansetron 4 Mg/2 Ml Vial) 4 mg IV Q8H PRN PRN PRN Reason: NAUSEA/VOMITING Potassium Chloride (Potassium Chloride 20 Meq Tablet) 40 meq PO BIDCM [facility] Last Admin: 09/29/20 08:16 Dose: 40 meq Documented by: Quetiapine Fumarate (Quetiapine 25 Mg Tablet) 75 mg PO QHS [facility] Last Admin: 09/28/20 22:08 Dose: 75 mg Documented by: Senna/Docusate Sodium (Senna/Docusate Sodium 1 Tablet) 2 tablet PO BID PRN PRN Reason: Constipation Last Admin: 09/29/20 08:15 Dose: 2 tablet Documented by: Sodium Chloride (0.9% Saline Lock 10 Ml Syringe) 10 - 40 ml IV UD PRN PRN Reason: SALINE FLUSH Last Admin: 09/25/20 21:48 Dose: 10 ml Documented by: Zolpidem Tartrate (Zolpidem Tartrate 5 Mg Tablet) 5 mg PO QHS PRN PRN PRN Reason: INSOMNIA Last Admin: 09/28/20 22:08 Dose: 5 mg Documented by: Discharge Diet: No Restrictions Discharge Activity: No Restrictions Home Medications: Medications to take at Discharge Cholecalciferol (VIT D3) [Vitamin D3] 5,000 unit PO DAILY 05/21/15 Primary Care Physician: Jesica Wright MD [Primary Care Provider] - Disposition: Hospice Medical Facility Minutes spent on discharge:: 55 Patient Condition:: Guarded Medical Necessity - Tobacco Use Smoking Status: Never smoker Tobacco Use: Non-smoker Meaningful Use Info Meaningful Use Diagnoses (Choose all that apply): None applicable Inpatient E&M: 29116 Disch Hosp Procedures: 65045 Advncd Care Plan 30 Min
--- NOTE | 2020-09-29 16:54 | CHAPLAIN ---
Type of Pastoral Visit ___ Initial Visit ___ Follow-up Visit ___ On-call Visit ___ General Patient Visit ___ Spiritual Assessment ___ Family Conference ___ Bereavement ___ Rapid Response ___ Code Blue _x__ Other (describe below) Pastoral Care Referral From ___ Patient ___ Family _x__ Nurse ___ Physician ___ Merchandise Flow Associate ___ Automatic Tire Tester ___ Other (describe below) Sacrament/Intervention ___ Active listening ___ Anointing ___ Religious ___ Bereavement ___ Communion ___ More exploration ___ ___ Life review _x__ Prayer ___ Reconciliation ___ Sacrament of Sick _x__ Supportive presence ___ Wedding ___ Other (describe below) Pastoral Comments met family as they came to unit to see patient who is end-of-life but in isolation room; offered support to family and gave a prayer at this time; was unable to follow up with this family/patient due to another at this time; family had left when this hand tier returned to follow up; pt remains alive at this time
--- NOTE | 2020-09-30 10:32 | CASEMGMT ---
Social Work Note Pt went to inpatient hospice. SW updated Sandra at [facility]. Anastacia Huerta MOBILE HEALTH VEHICLE OPERATOR, STORE OPERATIONS MANAGER
== END 2020-09-29 16:55 | disposition hospice, inpatient (51) | DRG 177 ==
LOC: ED 13:38 → ICU 23:34 → MS2 09-15 07:29 → ICU 09-15 09:14 → MS2 09-15 09:14 → ICU 09-19 08:37 → MS2 09-24 18:55
PROVIDERS: Internal Medicine Critical Care Medicine; Internal Medicine Infectious Disease; Student in an Organized Health Care Education/Training Program; Admitting Provider Internal Medicine; Emergency Provider Emergency Medicine; PCP Internal Medicine; Visit Provider Internal Medicine
DX: U07.1 COVID-19 (principal); G93.41 Metabolic encephalopathy; J96.01 Acute respiratory failure with hypoxia; J12.89 Other viral pneumonia; E87.2 Acidosis; I25.10 Atherosclerotic heart disease of native coronary artery without angina pectoris; F32.9 Major depressive disorder, single episode, unspecified; N18.30 Chronic kidney disease, stage 3 unspecified; I12.9 Hypertensive chronic kidney disease with stage 1 through stage 4 chronic kidney disease, or unspecified chronic kidney disease; E78.5 Hyperlipidemia, unspecified; E11.22 Type 2 diabetes mellitus with diabetic chronic kidney disease; Z86.73 Personal history of transient ischemic attack (TIA), and cerebral infarction without residual deficits; E86.0 Dehydration; E11.65 Type 2 diabetes mellitus with hyperglycemia; G40.909 Epilepsy, unspecified, not intractable, without status epilepticus; Z95.5 Presence of coronary angioplasty implant and graft; E87.6 Hypokalemia; E87.5 Hyperkalemia
CPT/HCPCS: 36415; 70450; 71045; 80048; 80053; 81001; 82550; 82962; 83036; 83605; 83615; 83735; 83880; 84100; 84145; 84484; 85025; 85027; 85379; 85384; 85610; 85730; 86140; 87040; 87086; 87635; 92507; 92526; 92610; 93005; 94002; 94660; 94760; 97110; 97116; 97162; 97166; 97530; 97535; 99251; 99282; 99285; J7030; J7050; P9612; A4216; G0463; J0696; J1940; U0002; U0003